=== PATIENT | male | born 1960 | race Caucasian/White ===

== ENCOUNTER 2017-07-03 12:00 | Inpatient (IN) | payer OTHER ==
[2017-07-03] MEDS ORDERED: ACETAMINOPHEN 325 MG TABLET ONE (13:35)
[2017-07-03 13:41] LABS: Absolute Lymphocytes (CBC) 0.3 K/uL (0.7-4.9); Absolute Monocytes 0.7 K/uL (0.1-1.3); Basophils % 0.2 % (0-1.3); Eosinophils % 0.1 % (0-4.4); Hematocrit 30.2 % (39.6-49.0); Lymphocytes % 4.3 % (15.3-44.8); MCH 34.2 pg (27.0-35.0); MCV 101.1 fL (80-100); MPV 9.1 fL (7.6-11.3); Monocytes % 10.4 % (3.3-12.3); RBC Red Blood Cell Count 2.99 M/uL (4.33-5.43)
[2017-07-03 13:43] LABS: Protime INR 0.95
[2017-07-03 13:54] LABS: Albumin 2.2 g/dL (3.2-5.5); Bilirubin Direct 1.4 mg/dL (0-0.2); Bilirubin Total 2.6 mg/dL (0.3-1.2); Protein, Total 5.7 g/dL (6.0-8.3)
[2017-07-03 13:55] LABS: Potassium 2.8 mEq/L (3.6-5.0)
[2017-07-03 13:57] LABS: Magnesium 1.1 mg/dL (1.8-2.5)
[2017-07-03] MEDS ORDERED: KCL 20 MEQ/100 mL IVPB 20 MEQ/100 ML BAG IV ONE (14:45)
[2017-07-03] MEDS ORDERED: Magnesium Sulfate 2gm IVPB 2 G/50 ML BAG IV ONE (14:45)
[2017-07-03] MEDS ORDERED: POTASSIUM CL SA 10 MEQ TAB PO ONE (14:45)
[2017-07-03] MEDS ORDERED: NA CHLORIDE 0.9% 1,000 ML ONE (14:45)
[2017-07-03 14:58] LABS: Urine Blood TRACE (NEG); Urine Glucose TRACE (NEG); Urine Protein 2+ (NEG)
[2017-07-03 15:07] LABS: Blood Morphology Comment NOT SEEN (NOT SEEN); Platelet Estimate DECR; Urine White Blood Cell Casts OK
[2017-07-03 15:08] LABS: Urine Bacteria >50 /HPF (NONE SEEN); Urine Culture Reflex Order REFLEXED; Urine RBC NONE SEEN /HPF (NONE SEEN)
--- NOTE | 2017-07-03 15:12 | RAD REPORT ---
EXAM DESCRIPTION: Froy Single View07/03/2017 1:14 pm CLINICAL HISTORY: Shortness of breath COMPARISON: October 2016 FINDINGS: A tracheostomy tube is in place The lungs appear clear of acute infiltrate. The heart is normal size IMPRESSION: No acute abnormalities displayed
--- NOTE | 2017-07-03 15:20 | RAD REPORT ---
EXAM DESCRIPTION: CT - Abdomen Pelvis W Contrast - 07/03/2017 3:04 pm CLINICAL HISTORY: Abdominal pain with hematuria COMPARISON: 2016 TECHNIQUE: Computed axial tomography of the abdomen pelvis was obtained. 100 cc Isovue-300 was admin istered intravenously. Oral contrast was not requested which limits evaluation of bowel. All CT scans are performed using dose optimization technique as appropriate and may include automated exposure control or mA/KV adjustment according to patient size. FINDINGS: The liver has a diminished attenuation consistent with fatty infiltration. A percutaneous tube is present within the stomach. Spleen, pancreas, adrenal and kidneys appear unremarkable. There is no evidence of diverticulitis. The wall of the cecum appears mildly thickened A Roy catheter is present within the bladder. The bladder wall appears mildly thickened IMPRESSION: Mild thickening of the wall of the cecum may indicate a mild colitis Mild thickening of the bladder wall may be secondary to incomplete distention or cystitis
[2017-07-03] MEDS ORDERED: FENTANYL CITR 100 MCG/2 ML ONE (15:31)
[2017-07-03] MEDS ORDERED: ONDANSETRON 4 MG/2 ML VIAL ONE (15:32)
--- NOTE | 2017-07-03 15:48 | EKG ---
Test Date: 2017-07-03 Test Time: 12:54:22 Automobile Drivers: SARAY MEASUREMENT RESULTS: Intervals: Rate: 133 MI: 160 QRSD: 88 QT: 312 QTc: 464 [place]: P: MI: 160 QRS: -27 T: 40 INTERPRETIVE STATEMENTS: Sinus tachycardia Low voltage QRS Nonspecific ST abnormality Abnormal ECG Compared to ECG 07/09/2016 16:46:45 Low QRS voltage now present ST (T wave) deviation now present Electronically Signed On 07-03-17 15:48:23 CDT by Reynaldo Nguyen
--- NOTE | 2017-07-03 16:05 | EDPHYS ---
Physician Documentation [facility] Name: Rudolph Corral Age: 57 yrs Sex: Male : 1960 Arrival Date: 07/03/2017 Time: 12:03 Bed 16 Private MD: Rudolph Bartlett ED Physician Mino Morales HPI: 07/03 13:36 This 57 yrs old Male presents to ER via Wheelchair with complaints of Urinary jr8 Problem, Weakness. 13:36 Patients stated that he has been failure to thrive for some time. Came to ED jr8 because he has had decreased urine output and hematuria . Severity of symptoms: At their worst the symptoms were moderate in the emergency department the symptoms are unchanged. The patient has not experienced similar symptoms in the past. The patient has not recently seen a physician. Historical: - Allergies: 12:12 No Known Allergies; aj - Home Meds: 12:12 levothyroxine 112 mcg tab 1 tab once daily [Active]; Lisinopril Oral [Active]; aj - PMHx: 12:12 GERD; Hypothyroidism; Throat Cancer-2012; aj - PSHx: 12:12 PEG; Trach; Cardiac ablation; Hernia repair; aj - Immunization history:: Adult Immunizations up to date. - Social history:: Smoking status: Patient uses tobacco products, smokes one pack cigarettes per day. chewing tobacco. ROS: 13:36 Eyes: Negative for injury, pain, redness, and discharge, ENT: Negative for injury, jr8 pain, and discharge, Neck: Negative for injury, pain, and swelling, Cardiovascular: Negative for chest pain, palpitations, and edema, Respiratory: Negative for shortness of breath, cough, wheezing, and pleuritic chest pain, Abdomen/GI: Negative for abdominal pain, nausea, vomiting, diarrhea, and constipation, Back: Negative for injury and pain, MS/Extremity: Negative for injury and deformity, Skin: Negative for injury, rash, and discoloration, Neuro: Negative for headache, weakness, numbness, tingling, and seizure. 13:36 : Positive for small amounts, hematuria. Exam: 13:36 Eyes: Pupils equal round and reactive to light, extra-ocular motions intact. Lids and jr8 lashes normal. Conjunctiva and sclera are non-icteric and not injected. Cornea within normal limits. Periorbital areas with no swelling, redness, or edema. ENT: Nares patent. No nasal discharge, no septal abnormalities noted. Tympanic membranes are normal and external auditory canals are clear. Oropharynx with no redness, swelling, or masses, exudates, or evidence of obstruction, uvula midline. Mucous membranes moist. Neck: Trachea midline, no thyromegaly or masses palpated, and no cervical lymphadenopathy. Supple, full range of motion without nuchal rigidity, or vertebral point tenderness. No Meningismus. Respiratory: Lungs have equal breath sounds bilaterally, clear to auscultation and percussion. No rales, rhonchi or wheezes noted. No increased work of breathing, no retractions or nasal flaring. Back: No spinal tenderness. No costovertebral tenderness. Full range of motion. Skin: Warm, dry with normal turgor. Normal color with no rashes, no lesions, and no evidence of cellulitis. MS/ Extremity: Pulses equal, no cyanosis. Neurovascular intact. Full, normal range of motion. Neuro: Awake and alert, GCS 15, oriented to person, place, time, and situation. Cranial nerves II-XII grossly intact. Motor strength 5/5 in all extremities. Sensory grossly intact. Cerebellar exam normal. Normal gait. 13:36 Cardiovascular: Rate: tachycardic, Rhythm: regular, Pulses: Pulses are 2+ in right radial artery and left radial artery. Heart sounds: normal, normal S1and S2, no S3 or S4, no murmur, no rub, no gallop, Edema: is not appreciated, JVD: is not appreciated. 13:36 Abdomen/GI: Inspection: PEG tube in place. Macerated tissue noted around it with mild discharge , Bowel sounds: active, Palpation: abdomen is soft and non-tender, in all quadrants, Indicators: McBurney's point is not tender, Woodard's sign is negative, Rovsing's sign is negative, Liver: no appreciated palpable abnormalities, tenderness. Vital Signs: 12:12 BP 133 / 96; Pulse 145; Resp 20; Temp 98.3; Pulse Ox 99% on R/A; Weight 63.5 kg; Height aj 6 ft. 0 in. (182.88 cm); 13:11 BP 134 / 93; Pulse 132; Resp 20; Pulse Ox 100% ; mh5 13:57 BP 155 / 106; Pulse 131; Resp 18; Pulse Ox 99% on R/A; ph 15:00 BP 152 / 105; Pulse 134; Resp 18; Pulse Ox 98% on R/A; ph 16:00 BP 154 / 104; Pulse 125; Resp 18; Pulse Ox 100% on R/A; mh5 17:00 BP 148 / 98; Pulse 117; Resp 18; Pulse Ox 100% on R/A; ph 18:30 BP 137 / 101; Pulse 122; Resp 18; Pulse Ox 100% on R/A; ph 19:21 BP 137 / 106; Pulse 115; Resp 16; Pulse Ox 100% on R/A; Pain 5/10; ao 12:12 Body Mass Index 18.99 (63.50 kg, 182.88 cm) aj MDM: 12:21 Patient medically screened. [facility] 16:01 Data reviewed: vital signs, nurses notes, lab test result(s), EKG, radiologic studies, [facility] CT scan, plain films, and as a result, I will admit patient. Data interpreted: Pulse oximetry: on room air is 100 %. Counseling: I had a detailed discussion with the patient and/or guardian regarding: the historical points, exam findings, and any diagnostic results supporting the discharge/admit diagnosis, lab results, radiology results, the need for further work-up and treatment in the hospital. Response to treatment: the patient's symptoms have mildly improved after treatment. 07/03 12:44 Order name: Basic Metabolic Panel; Complete Time: 14:03 07/03 12:44 Order name: BNP; Complete Time: 14:25 07/03 12:44 Order name: CBC with Diff; Complete Time: 15:23 07/03 12:44 Order name: CPK; Complete Time: 14:03 07/03 12:44 Order name: LFT's; Complete Time: 14:03 07/03 12:44 Order name: Magnesium; Complete Time: 14:03 07/03 12:44 Order name: PT-INR; Complete Time: 13:46 07/03 12:44 Order name: Ptt, Activated; Complete Time: 13:46 07/03 12:44 Order name: Troponin (emerg Dept Use Only); Complete Time: 14:03 07/03 13:59 Order name: CBC Smear Scan; Complete Time: 15:23 [facility] 07/03 14:03 Order name: Urine Microscopic Only; Complete Time: 15:23 [facility] 07/03 14:22 Order name: Urine Dipstick--Ancillary (enter results); Complete Time: 15:23 07/03 14:43 Order name: Blood Culture Adult (2) [facility] 07/03 15:10 Order name: Urine Culture [facility] 07/03 12:44 Order name: XRAY Chest (1 view); Complete Time: 15:23 [facility] 07/03 14:26 Order name: CT Abd/Pelvis - W/Contrast; Complete Time: 15:23 [facility] 07/03 15:45 Order name: LAB Add On [facility] 07/03 15:47 Order name: T4 Free; Complete Time: 16:38 [facility] 07/03 15:47 Order name: Thyroid Stimulating Hormone; Complete Time: 16:38 [facility] 07/03 16:50 Order name: Procalcitonin [facility] 07/03 16:50 Order name: Lactate [facility] 07/03 17:30 Order name: Procalcitonin; Complete Time: 17:47 [facility] 07/03 17:41 Order name: Lactate; Complete Time: 17:47 [facility] 07/03 12:44 Order name: EKG; Complete Time: 12:45 [facility] 07/03 12:44 Order name: Cardiac monitoring; Complete Time: 12:55 [facility] 07/03 12:44 Order name: EKG - Nurse/Tech; Complete Time: 12:55 [facility] 07/03 12:44 Order name: IV Saline Lock; Complete Time: 12:55 [facility] 07/03 12:44 Order name: Labs collected and sent; Complete Time: 12:55 [facility] 07/03 12:44 Order name: O2 Per Protocol; Complete Time: 12:56 [facility] 07/03 12:44 Order name: O2 Sat Monitoring; Complete Time: 12:56 [facility] 07/03 12:44 Order name: Urine Dipstick-Ancillary (obtain specimen); Complete Time: 14:30 [facility] 07/03 13:14 Order name: Roy; Complete Time: 14:30 [facility] Administered Medications: 13:53 Drug: Tylenol 650 mg {Note: administered via PEG.} Route: PO; ph 19:22 Follow up: Response: No adverse reaction ph 15:40 Drug: Potassium Chloride 20 mEq Route: IV; Rate: calculated rate; Site: right wrist; ph 19:21 Follow up: Response: No adverse reaction; IV Status: Completed infusion ph 15:53 Drug: Potassium Chloride 40 mEq Route: PO; ph 19:21 Follow up: Response: No adverse reaction ph 15:54 Drug: NS 0.9% 1000 ml Route: IV; Rate: 1000 ml; Site: right wrist; ph 19:22 Follow up: Response: No adverse reaction; IV Status: Completed infusion ph 16:00 Drug: Magnesium Sulfate 2 grams Route: IVPB; Infused Over: 2 hrs; Site: right wrist; ph 19:21 Follow up: Response: No adverse reaction; IV Status: Completed infusion ph 16:01 Drug: fentaNYL (PF) 50 mcg Route: IVP; Site: right wrist; ph 19:20 Follow up: Response: No adverse reaction ph 16:02 Drug: Zofran 4 mg Route: IVP; Site: right wrist; ph 19:20 Follow up: Response: No adverse reaction ph 17:27 Drug: NS 0.9% 1000 ml Route: IV; Rate: 100 ml/hr; Site: right wrist; ph 19:19 Follow up: Response: No adverse reaction; IV Status: Completed infusion ph 17:28 Drug: Rocephin 2 grams Route: IV; Rate: calculated rate; Site: right wrist; ph 19:19 Follow up: Response: No adverse reaction; IV Status: Completed infusion ph 17:42 Drug: NS 0.9% 1000 ml Route: IV; Rate: 1000 ml; Site: right wrist; ph 19:19 Follow up: Response: No adverse reaction; IV Status: Completed infusion ph Disposition: 07/03/17 16:04 Hospitalization ordered by Gregg Starr for Inpatient Admission. Preliminary diagnosis are Urinary tract infection, site not specified, Tachycardia, unspecified, Hypomagnesemia, Dehydration, Failure to thrive. - Bed requested for Telemetry/MedSurg (Inpatient). - Status is Inpatient Admission. ao - Condition is Stable. - Problem is new. - Symptoms have improved. UTI on Admission? Yes Addendum: 07/06/2017 08:51 Co-signature as Attending Physician, Mino Morales MD I agree with the assessment and c acuña plan of care. Signatures: Dispatcher [employer] EDMS Alcala, Lena, RN Mino Blanco MD MD cha Roszak, Josh, PA PA jr8 Lorena Huang Patricia, LORENA RN Gamal Crews RN RN ao Corrections: (The following items were deleted from the chart) 07/03 18:26 16:04 Hospitalization Ordered by Gregg Starr DO for Inpatient Admission. Preliminary ag diagnosis is Urinary tract infection, site not specified; Tachycardia, unspecified; Hypomagnesemia; Dehydration; Failure to thrive. Bed requested for Telemetry/MedSurg (Inpatient). Status is Inpatient Admission. Condition is Stable. Problem is new. Symptoms have improved. UTI on Admission? Yes. jr8 20:09 18:26 07/03/2017 16:04 Hospitalization Ordered by Gregg Starr DO for Inpatient ao Admission. Preliminary diagnosis is Urinary tract infection, site not specified; Tachycardia, unspecified; Hypomagnesemia; Dehydration; Failure to thrive. Bed requested for Telemetry/MedSurg (Inpatient). Status is Inpatient Admission. Condition is Stable. Problem is new. Symptoms have improved. UTI on Admission? Yes. ag
--- NOTE | 2017-07-03 16:05 | ER ---
Nurse's Notes [facility] Name: Rudolph Corral Age: 57 yrs Sex: Male : 1960 Arrival Date: 07/03/2017 Time: 12:03 Bed 16 Private MD: Rudolph Bartlett Diagnosis: Urinary tract infection, site not specified;Tachycardia, unspecified;Hypomagnesemia;Dehydration;Failure to thrive Presentation: 07/03 12:09 Presenting complaint: states: Decreased urine output and blood in urine for "a few aj weeks" Decreases appetite as well. Transition of care: patient was not received from another setting of care. 12:09 Method Of Arrival: Wheelchair aj 12:10 Onset of symptoms was June 17, 2017. Care prior to arrival: None. aj 12:10 Acuity: THEA 2 aj 13:55 Initial Sepsis Screen: Does the patient meet any 2 criteria? HR > 90 bpm. Does the ph patient have a suspected source of infection? No. Patient's initial sepsis screen is negative. Triage Assessment: 12:12 General: Appears in no apparent distress. uncomfortable, emaciated, Behavior is flat. aj Pain: Denies pain. Neuro: Level of Consciousness is awake, alert, obeys commands, Oriented to person, place, time, situation, Appropriate for age. Respiratory: Airway is patent Respiratory effort is even, unlabored, Respiratory pattern is regular, symmetrical. GI: Parent/caregiver reports the patient having anorexia. Derm: Skin is fragile, is thin, Skin is pale. Historical: - Allergies: 12:12 No Known Allergies; aj - Home Meds: 12:12 levothyroxine 112 mcg tab 1 tab once daily [Active]; Lisinopril Oral [Active]; aj - PMHx: 12:12 GERD; Hypothyroidism; Throat Cancer-2012; aj - PSHx: 12:12 PEG; Trach; Cardiac ablation; Hernia repair; aj - Immunization history:: Adult Immunizations up to date. - Social history:: Smoking status: Patient uses tobacco products, smokes one pack cigarettes per day. chewing tobacco. Screenin:57 Abuse screen: Denies threats or abuse. Denies injuries from another. Nutritional ph screening: No deficits noted. Tuberculosis screening: No symptoms or risk factors identified. Fall Risk Fall in past 12 months (25 points). No secondary diagnosis (0 pts). IV access (20 points). Ambulatory Aid- None/Bed Rest/Nurse Assist (0 pts). Gait- Weak (10 pts.). Mental Status- Oriented to own ability (0 pts). Total Purvis Fall Scale indicates High Risk Score (45 or more points). Fall prevention measures have been instituted. Side Rails Up X 2 Placed Close to Nursing Station Frequent Obs/Assessments Occuring Family Present and informed to notify staff if the need to leave the bedside As available patient and family educated on Fall Prevention Program and Strategies. Assessment: 12:30 General: Appears in no apparent distress. uncomfortable, emaciated, Behavior is calm, ph cooperative, appropriate for age, Denies fever. Pain: Complains of pain in head. Neuro: Level of Consciousness is awake, alert, obeys commands, Oriented to person, place, time, situation, Reports headache general weakness. Cardiovascular: Denies chest pain, Capillary refill < 3 seconds Patient's skin is warm and dry. Edema is 2+ to left midcalf, left ankle, left foot, left upper arm, left elbow, left forearm, left wrist and left hand Rhythm is sinus tachycardia. Respiratory: Reports cough that is Airway is patent via trache Trachea midline Respiratory effort is even, labored, Respiratory pattern is regular, symmetrical. GI: Abdomen is flat, non-distended, PEG tube in place, clamped. Site clean. Reports anorexia. : Reports decreased urinary output w/ dark urine. Derm: Skin is fragile, is thin, with poor turgor Skin is pale, Skin temperature is warm. Musculoskeletal: Circulation, motion, and sensation intact. Range of motion: intact in all extremities. 14:00 Reassessment: Patient appears in no apparent distress at this time. Patient and/or ph family updated on plan of care and expected duration. Pain level reassessed. Patient is alert, oriented x 3, equal unlabored respirations, skin warm/dry/pink. Pt resting quietly, at bedside. 15:00 Reassessment: Patient appears in no apparent distress at this time. No changes from ph previously documented assessment. Patient and/or family updated on plan of care and expected duration. Pain level reassessed. Patient is alert, oriented x 3, equal unlabored respirations, skin warm/dry/pink. 16:00 Reassessment: Patient appears in no apparent distress at this time. Patient and/or ph family updated on plan of care and expected duration. Pain level reassessed. Patient is alert, oriented x 3, equal unlabored respirations, skin warm/dry/pink. Dr Starr at bedside to speak w/ pt and family. 17:00 Reassessment: Patient appears in no apparent distress at this time. Patient and/or ph family updated on plan of care and expected duration. Pain level reassessed. Patient is alert, oriented x 3, equal unlabored respirations, skin warm/dry/pink. Pt resting quietly, at bedside, awaiting room assignment. 18:30 Reassessment: Patient appears in no apparent distress at this time. No changes from previously documented assessment. Patient and/or family updated on plan of care and expected duration. Pain level reassessed. Patient is alert, oriented x 3, equal unlabored respirations, skin warm/dry/pink. 19:21 General: Appears in no apparent distress. comfortable, Behavior is calm, cooperative, ao appropriate for age. Pain: Complains of pain in left leg. Neuro: Level of Consciousness is awake, alert, obeys commands, Oriented to person, place, time, situation. Cardiovascular: Patient's skin is warm and dry. Respiratory: Airway is patent Respiratory effort is even, unlabored, Respiratory pattern is regular, symmetrical. GI: Abdomen is non-distended, PEG tube in place, clamped. : Roy in place. Derm: Skin is intact, Skin is pale. Musculoskeletal: Circulation, motion, and sensation intact. Range of motion: intact in all extremities. 20:08 Reassessment: Report called to LORENA Sosa. ao Vital Signs: 12:12 BP 133 / 96; Pulse 145; Resp 20; Temp 98.3; Pulse Ox 99% on R/A; Weight 63.5 kg; Height aj 6 ft. 0 in. (182.88 cm); 13:11 BP 134 / 93; Pulse 132; Resp 20; Pulse Ox 100% ; mh5 13:57 BP 155 / 106; Pulse 131; Resp 18; Pulse Ox 99% on R/A; ph 15:00 BP 152 / 105; Pulse 134; Resp 18; Pulse Ox 98% on R/A; ph 16:00 BP 154 / 104; Pulse 125; Resp 18; Pulse Ox 100% on R/A; mh5 17:00 BP 148 / 98; Pulse 117; Resp 18; Pulse Ox 100% on R/A; ph 18:30 BP 137 / 101; Pulse 122; Resp 18; Pulse Ox 100% on R/A; ph 19:21 BP 137 / 106; Pulse 115; Resp 16; Pulse Ox 100% on R/A; Pain 5/10; ao 12:12 Body Mass Index 18.99 (63.50 kg, 182.88 cm) ED Course: 12:03 Patient arrived in ED. mr 12:04 Rudolph Bartlett DO is Private Physician. mr 12:11 Triage completed. aj 12:12 Arm band placed on right wrist. Patient placed in an exam room. aj 12:20 Lucius Lorenzo PA is PHCP. jr8 12:20 Mino Morales MD is Attending Physician. jr8 12:23 Palmira Villegas RN is Primary Nurse. ph 12:54 EKG done, by cytopathology technologist. reviewed by Lucius RAMSEY. at1 12:58 Patient has correct armband on for positive identification. Placed in gown. Bed in low ph position. Call light in reach. Side rails up X2. potline monitor on. Pulse ox on. NIBP on. Warm blanket given. 13:12 X-ray completed. Portable x-ray completed in exam room. Patient tolerated procedure ml well. 13:14 XRAY Chest (1 view) In Process Unspecified. EDMS 13:30 Inserted saline lock: 22 gauge in right wrist, using aseptic technique. ph 14:39 Roy cath inserted, using sterile technique, 12 Fr., returned small amount of dark ph orange urine noted in drainage tube. Patient tolerated poorly. 14:[address] via stretcher. nj 15:03 CT Abd/Pelvis - W/Contrast In Process Unspecified. EDMS 15:04 CT completed. Patient tolerated procedure well. Patient moved back from CT. nj 16:04 Gregg Starr DO is Hospitalizing Provider. jr8 16:20 No provider procedures requiring assistance completed. Patient admitted, IV remains in ph place. Administered Medications: 13:53 Drug: Tylenol 650 mg {Note: administered via PEG.} Route: PO; ph 19:22 Follow up: Response: No adverse reaction ph 15:40 Drug: Potassium Chloride 20 mEq Route: IV; Rate: calculated rate; Site: right wrist; ph 19:21 Follow up: Response: No adverse reaction; IV Status: Completed infusion ph 15:53 Drug: Potassium Chloride 40 mEq Route: PO; ph 19:21 Follow up: Response: No adverse reaction ph 15:54 Drug: NS 0.9% 1000 ml Route: IV; Rate: 1000 ml; Site: right wrist; ph 19:22 Follow up: Response: No adverse reaction; IV Status: Completed infusion ph 16:00 Drug: Magnesium Sulfate 2 grams Route: IVPB; Infused Over: 2 hrs; Site: right wrist; ph 19:21 Follow up: Response: No adverse reaction; IV Status: Completed infusion ph 16:01 Drug: fentaNYL (PF) 50 mcg Route: IVP; Site: right wrist; ph 19:20 Follow up: Response: No adverse reaction ph 16:02 Drug: Zofran 4 mg Route: IVP; Site: right wrist; ph 19:20 Follow up: Response: No adverse reaction ph 17:27 Drug: NS 0.9% 1000 ml Route: IV; Rate: 100 ml/hr; Site: right wrist; ph 19:19 Follow up: Response: No adverse reaction; IV Status: Completed infusion ph 17:28 Drug: Rocephin 2 grams Route: IV; Rate: calculated rate; Site: right wrist; ph 19:19 Follow up: Response: No adverse reaction; IV Status: Completed infusion ph 17:42 Drug: NS 0.9% 1000 ml Route: IV; Rate: 1000 ml; Site: right wrist; ph 19:19 Follow up: Response: No adverse reaction; IV Status: Completed infusion ph Outcome: 16:04 Decision to Hospitalize by Provider. jr8 20:07 Admitted to Med/surg accompanied by tech, room 224, with chart, Report called to irene Sosa RN 20:07 Condition: stable 20:07 Instructed on the need for admit. 20:09 Patient left the ED. ao Signatures: Dispatcher [employer] EDMS Lena Alcala RN RN aj Rivera, Maria mr Lopez, Lucius Naranjo PA PA jr8 Lena curry, datapower developer EKG Tat1 Palmira Villegas RN RN Gamal Crews RN RN ao Jordan, Nathan nj Martinez, Maria [facility] Corrections: (The following items were deleted from the chart) 12:14 12:10 Acuity: THEA 3 aj aj
[2017-07-03] MEDS ORDERED: CEFTRIAXONE/SWI 1gm 2 GM/20 ML SYR ONE (16:07)
[2017-07-03 16:34] LABS: Thyroid Stimulating Hormone 1.13 uIU/mL (0.34-5.60)
[2017-07-03] MEDS ORDERED: ONDANSETRON 4 MG/2 ML VIAL IV PRN (16:39)
[2017-07-03] MEDS ORDERED: LORazepam 2 MG/ML VIAL IV PRN (16:39)
[2017-07-03] MEDS ORDERED: ACETAMINOPHEN 650MG/RECT SUPP PR PRN (16:39)
[2017-07-03] MEDS ORDERED: SODIUM CHLORIDE 0.9% 10ML INJ IV PRN (16:39)
[2017-07-03] MEDS ORDERED: ACETAMINOPHEN 500 MG TAB PO PRN (16:39)
[2017-07-03] MEDS ORDERED: ALBUTEROL 2.5 MG/3 ML NEB SOL NEB PRN (16:47)
[2017-07-03] MEDS ORDERED: IPRATROPIUM BROM 0.5MG/2.5ML NEB PRN (16:47)
--- NOTE | 2017-07-03 16:55 | P.HP ---
Certification for Inpatient Patient admitted to: Inpatient With expected LOS: >2 Midnights Patient will require the following post-hospital care: Custodial Practitioner: I am a practitioner with admitting privileges, knowledge of patient current condition, hospital course, and medical plan of care. Services: Services provided to patient in accordance with Admission requirements found in Title 42 Section 412.3 of the Code of Federal Regulations Patient History Date of Service: 07/03/17 Primary Care Provider: Dr. Bartlett Reason for admission: Decreased strength, fever History of Present Illness: 57-year-old male presented emergency room with fever, decreased strength and blood and urine. Patient is severely malnourished. Patient with history of throat cancer and tracheostomy. Patient also with history of hypothyroidism, hypertension, tobacco abuse, alcohol abuse and COPD. reports a history of atrial fibrillation the past with previous cardiac ablation. The patient reported fever since yesterday. Some chills noted. Blood and urine was also noted. He has been pain decreased strength for quite some time. The reports the patient is not been able to walk or stand since March. He has had poor appetite. He drinks occasionally to moderate. Came into the emergency room for further evaluation. In the ER he was found to be hypertensive and tachycardic. Initial blood work showed a white count 7.0. Hemoglobin 10.2. Platelet count of 70. Sodium 130, potassium 3.8, BUN 11, creatinine 0.91 with a GFR of 85. Glucose 134. Calcium 8.0. Magnesium 1.1. Total bilirubin 2.6. Total bilirubin 1.4. AST 74. Initial troponin was at 0.05. BNP 212. Urinalysis was positive for UTI. Chest x-ray unremarkable. CT of the abdomen showed colitis to the cecum and cystitis. To the nature of his symptoms the patient was admitted for evaluation and treatment. Patient was given antibiotic therapy and IV fluids emergency room. When I saw the patient the ER, he appeared disheveled, cachectic. Patient appeared malnourished. Allergies No Known Allergies Allergy (Verified 01/23/13 20:56) Home medications list reviewed: Yes Home Medications: Amitriptyline [Elavil*] 50 mg FT BEDTIME 11/15/16 Gabapentin [Neurontin] 300 mg FT TID 11/15/16 Levothyroxine [Synthroid*] 112 mcg FT [id number] 11/15/16 Ferrous Sulfate [Iron] 325 mg PO BID #60 tablet 11/17/16 Pantoprazole [Protonix Tab] 40 mg PO DAILY #30 tab 11/17/16 - Past Medical/Surgical History Diabetic: No -: Throat cancer status post surgery -: History of osteonecrosis of the jaw -: COPD -: Tobacco abuse -: Alcohol abuse -: Hypertension -: Hypothyroidism -: History atrial fibrillation status post ablation -: GERD -: Tracheostomy -: PEG tube placement -: Malnutrition -: Peg tube placement/removal x3 -: History cardiac ablation -: Hernia repair Psychosocial/ Personal History: The patient is . Ex appears to be close. - Family History Father -: Heart disease (CHF), Cancer (Lung cancer) - Social History Smoking Status: Heavy Tobacco smoker (>10 cigarettes/day) Alcohol use: Yes CD- Drugs: No Caffeine use: Yes Place of Residence: Home Review of Systems General: Fever, Chills, Weakness, Malaise, As per HPI Eyes: Unremarkable ENT: Unremarkable Respiratory: Unremarkable Cardiovascular: Unremarkable Gastrointestinal: Abdominal Pain, As per HPI Genitourinary: Dysuria, Frequency, Urgency, Hematuria, As per HPI Musculoskeletal: Unremarkable Integumentary: Unremarkable Neurological: Unremarkable Lymphatics: Unremarkable Physical Examination - Physical Exam General: Alert, In no apparent distress, Oriented x3, Cooperative, Cachectic, Disheveled HEENT: Atraumatic, Normocephalic, Other (Dry mucous membranes) Neck: Supple, No Thyromegaly Respiratory: Expiratory wheezes (Bilateral) Cardiovascular: Abnormal pulses (Sinus tachycardia rate around 110) Gastrointestinal: Normal bowel sounds, Soft and benign, Non-distended, No masses , No rebound, No guarding, Other (PEG tube in place), Tenderness (Mild abdominal pain diffuse) Musculoskeletal: No erythema, No tenderness, No warmth, Other (Muscle wasting noted to the torso, upper and lower extremities) Neurological: Normal speech, Normal strength at 5/5 x4 extr, Normal tone, Normal affect - Studies Laboratory Data (last 24 hrs) 07/03/17 13:25: WBC 7.0, Hgb 10.2 L, Hct 30.2 L, Plt Count 70 L 07/03/17 13:25: B-Natriuretic Peptide 212 H 07/03/17 13:25: Sodium 130 L, Potassium 2.8 L*, BUN 11, Creatinine 0.91, Glucose 134 H, Magnesium 1.1 L* D, Total Bilirubin 2.6 H, AST 74 H, ALT 38, Alkaline Phosphatase 266 H 07/03/17 13:10: PT 11.2, INR 0.95, APTT 27.2 Assessment and Plan - Problems (Diagnosis) (1) UTI (urinary tract infection) Current Visit: Yes Status: Acute Plan: Blood and urine cultures obtained. Will continue with Rocephin. Will continue with IV fluids. Will check echocardiogram to assess heart function. safety and health consultant to evaluate his malnutrition. Qualifiers: Urinary tract infection type: site unspecified Hematuria presence: without hematuria Qualified Code(s): N39.0 - Urinary tract infection, site not specified (2) Sepsis Current Visit: Yes Status: Suspected Plan: Possible sepsis. Will continue with IV antibiotic therapy. Blood in urine cultures obtained. Will check pro calcitonin and lactic acid. Patient appears malnourished and dehydrated. Continue with IV fluids. (3) Hypertension Current Visit: Yes Status: Chronic Plan: Blood pressure elevated. Will start metoprolol. Patient previously taking lisinopril. Will obtain home medication (4) Malnutrition Current Visit: Yes Status: Acute Plan: Will have dietary assess nutritional needs. Patient with PEG tube. Qualifiers: Malnutrition type: protein-calorie malnutrition Protein-calorie malnutrition severity: severe Qualified Code(s): E43 - Unspecified severe protein-calorie malnutrition (5) Hyponatremia Current Visit: Yes Status: Acute Plan: Will continue with IV fluids. Will monitor and adjust appropriately (6) Colitis Current Visit: Yes Status: Acute Plan: Colitis noted to cecum. Patient on IV antibiotic therapy. Patient with minimal abdominal pain. Slight pain noted around PEG tube. Will monitor closely. (7) Elevated liver function tests Current Visit: Yes Status: Acute Plan: Will obtain hepatitis panel. (8) COPD (chronic obstructive pulmonary disease) Current Visit: Yes Status: Chronic Plan: Suspect COPD. Will start COPD medication. Will wean off oxygen. Qualifiers: COPD type: chronic bronchitis (9) Hypothyroidism Current Visit: Yes Status: Chronic Plan: Obtain home medication and restart. Tsh unremarkable. Qualifiers: Hypothyroidism type: unspecified Qualified Code(s): E03.9 - Hypothyroidism , unspecified (10) Alcohol abuse Current Visit: Yes Status: Chronic Plan: Will provide medication for agitation. Will monitor for withdrawal. Will provide thiamine and folic acid. (11) Tobacco abuse Current Visit: Yes Status: Chronic Plan: Will provide nicotine patch. (12) Elevated troponin Current Visit: Yes Status: Acute Plan: Will monitor cardiac enzymes. Will check echocardiogram. Cardiology consulted to further assess. (13) History of throat cancer Current Visit: Yes Status: Chronic Plan: Patient with tracheostomy. Overall stable. (14) Pain around PEG tube site Current Visit: Yes Status: Acute Plan: This may be related to colitis. Will continue with antibiotic therapy. Will monitor closely. Qualifiers: Encounter type: initial encounter Qualified Code(s): T85.848A - Pain due to other internal prosthetic devices, implants and grafts, initial encounter (15) History of tracheostomy Current Visit: Yes Status: Chronic Plan: Stable. Discharge Plan: Residential Plan to discharge in: Greater than 2 days - Advance Directives Does patient have a Living Will: No Does patient have a Durable POA for Healthcare: Yes - Code Status/Comfort Care Code Status Assessed: Yes Time Spent Managing Pts Care (In Minutes): 55
[2017-07-03] MEDS: FOLIC ACID 1 MG in NA CHLORIDE 0.9% 50 ML IV SCH (18:00)
[2017-07-03] MEDS ORDERED: IPRATROPIUM BROM 0.5MG/2.5ML NEB SCH (20:00)
[2017-07-03] MEDS ORDERED: ALBUTEROL 2.5 MG/3 ML NEB SOL NEB SCH (20:00)
[2017-07-03] MEDS: ARFORMOTEROL TARTRATE 15 MCG/2 ML VIAL.NEB NEB SCH (20:56)
[2017-07-03] MEDS ORDERED: CEFTRIAXONE 1 GM/NS 50 ML 1 GM/50 ML BAG IV SCH (21:00)
[2017-07-03] MEDS: NA CHLORIDE 0.9% 1,000 ML IV SCH (21:03)
[2017-07-03 21:07] VITALS: BMI 19.7
[2017-07-03] MEDS: METOPROLOL TAR 50 MG TAB PO SCH (22:33)
[2017-07-03] MEDS ORDERED: NA CHLORIDE 0.9% 50 ML ONE (23:40)
[2017-07-03] MEDS ORDERED: FOLIC ACID 5 MG/ML VIAL ONE (23:51)
[2017-07-04 00:34] LABS: CKMB Creatine Kinase MB 3.8 ng/ml (0.3-4.0)
[2017-07-04] MEDS: NA CHLORIDE 0.9% 1,000 ML IV SCH ×2 (04:18→13:26)
[2017-07-04] MEDS ORDERED: LORazepam 2 MG/ML VIAL ONE (04:51)
[2017-07-04 05:38] LABS: Absolute Lymphocytes (CBC) 0.5 K/uL (0.7-4.9); Absolute Monocytes 0.4 K/uL (0.1-1.3); Absolute Neutrophil 5.8 K/uL (1.8-8.0); Basophils % 0.4 % (0-1.3); Eosinophils % 1.4 % (0-4.4); Hematocrit 29.1 % (39.6-49.0); Lymphocytes % 7.4 % (15.3-44.8); MCH 34.6 pg (27.0-35.0); MCV 101.3 fL (80-100); MPV 10.1 fL (7.6-11.3); Monocytes % 5.7 % (3.3-12.3); RBC Red Blood Cell Count 2.88 M/uL (4.33-5.43)
[2017-07-04] MEDS ORDERED: CEFTRIAXONE/SWI 1gm 1 GM/10 ML SYR IV SCH (06:00)
[2017-07-04 06:02] LABS: BUN Blood Urea Nitrogen 11 mg/dL (6-20); Bicarbonate 27 mEq/L (21-31); Glucose Level 63 mg/dL (65-120); HDL Cholesterol 98 mg/dL (27-67); LDL Cholesterol, Calculated 15 (<130); Potassium 3.3 mEq/L (3.6-5.0); Sodium Level 133 mEq/L (135-145)
[2017-07-04 06:10] LABS: Magnesium 1.3 mg/dL (1.8-2.5)
[2017-07-04] MEDS ORDERED: Magnesium Sulfate 2gm IVPB 2 G/50 ML BAG IV ONE ×2 (07:00→20:04)
[2017-07-04 07:55] LABS: CKMB Creatine Kinase MB 2.9 ng/ml (0.3-4.0)
[2017-07-04] MEDS ORDERED: PNEUMOCOCCAL VACCINE 0.5 ML IMVAC ONE (08:00)
[2017-07-04] MEDS ORDERED: KCL 20 MEQ/100 mL IVPB 20 MEQ/100 ML BAG IV SCH (08:00)
[2017-07-04] MEDS: ARFORMOTEROL TARTRATE 15 MCG/2 ML VIAL.NEB NEB SCH ×2 (08:22→20:00)
[2017-07-04] MEDS ORDERED: ENOXAPARIN 40 MG/0.4 ML SQ SCH (09:00)
[2017-07-04] MEDS: METRONIDAZOLE 500mg IVPB 500 MG/100 ML BAG IV SCH ×2 (09:10→16:39)
[2017-07-04] MEDS: FOLIC ACID 1 MG in NA CHLORIDE 0.9% 50 ML IV SCH (09:11)
[2017-07-04] MEDS: METOPROLOL TAR 50 MG TAB PO SCH ×2 (09:11→22:19)
[2017-07-04] MEDS: THIAMINE 200 MG/2 ML INJ IVP SCH (09:12)
[2017-07-04] MEDS: NICOTINE 21 MG/PAT TD SCH (09:12)
[2017-07-04] MEDS: PANTOPRAZOLE 40 MG INJ IVP SCH (09:12)
[2017-07-04] MEDS: HYDROCODONE/APAP 5/325 MG TAB PO PRN ×2 (13:26→20:08)
[2017-07-04] MEDS: ENSURE HIGH PROTEIN 237 ML CAN PO SCH ×2 (14:00→16:40)
[2017-07-04 15:51] LABS: Transferrin < 70 mg/dL (180-329)
--- NOTE | 2017-07-04 16:01 | CON ---
Date of Consultation: 07/03/2017 The patient admitted on 07/03/2017. I saw on 07/03/2017. Reason For Consultation: Elevated troponin. History Of Present Illness: Mr. Corral is a 57-year-old male, who has a history of throat cancer and gastroesophageal reflux disease. He has PEG tube. He has a history of hypothyroidism. He has had some cardiac ablation in the past. Came in with weakness, was found to have UTI, sinus tachycardia, mildly elevated troponin. I was asked to see him. No chest pain reported. Allergies: NONE. Review of Systems: Negative. Social History: Negative. Family History: Negative. Medications: Include lisinopril and Synthroid. Physical Examination: General: Mr. Corral was not talkative. He has a tracheostomy. He appears to be very depressed. No complain. Vital Signs: Stable. Afebrile. HEENT: Negative. Neck: Supple. No bruit. Chest: Clear. Cardiac: Normal. Abdomen: Benign. Extremities: Revealed no clubbing, cyanosis, or edema. Diagnostic Data: CPK was negative. Troponin was 0.13. His potassium was 2.8, magnesium 1.1. Hemog lobin 10.2. EKG, sinus tach. CT of the abdomen showed colitis. Impression And Plan: Elevated troponin secondary to severe hypomagnesemia, hypokalemia, and poor nut rition via PEG tube. He needs potassium and magnesium supplemented. No cardiac workup recommended. I will continue with present regimen. Still the nursing placement is being sought after. I will si gn off his case. EAMON/ANDRE Voice ID: [id number] Report ID: [id number]
--- NOTE | 2017-07-04 17:10 | PN ---
Subjective: Currently, the patient is lying in bed. He looks comfortable. He denies any chest pain . No shortness of breath. His ex- at the bedside. No fever. No chills overnight. No chest pa in or abdominal pain. Objective: Vital Signs: Blood pressure is 128/88, respiratory rate 16, pulse 91, temperature 98.5, down from 100.1. Earlier he is on trach collar. Saturating 98%. General: Fully alert, oriented x3. Does not look in any distress. HEENT: Atraumatic, normocephalic. PERRLA. Oral mucosa is moist. Neck: Supple. No JVD. No carotid bruits. Chest: Clear to auscultation. With expiratory wheezing. Heart: Regular rate and rhythm. Tachy. No gallop or murmur. Abdomen: Soft, nontender. No masses. Positive bowel sounds. Positive PEG tube. Extremities: No clubbing, cyanosis, or edema. Muscle wasting noted. Neurologic: Grossly intact. Laboratory Data: Today showed CBC with a hemoglobin of 9.9, platelet 60, and white blood cells 6.8. PT/INR was normal. Chemistry was normal except for potassium of 3.3. Glucose 63, calcium 7.8, magn esium 1.3. Troponin was up to 0.13. Assessment And Plan: 1.Urinary tract infection. The patient currently on cefepime. Urine culture positive on the prelim inary. ID still pending except for gram negative rods. Fever resolved. 2.Urosepsis. The blood cultures so far negative. Urine was positive. Continue ceftriaxone. 3.Hypertension, well controlled this morning. The patient on metoprolol 50 twice a day. 4.Hypomagnesemia severe, replace. 5.Elevated troponin. We will consult Cardiology . 6.Hypothyroidism, continue Synthroid. 7.History of alcohol abuse. The patient on thiamine and folic acid. 8.History of tobacco abuse. Nicotine patch. Advised to quit. 9.History of throat cancer with trach. He is in remission at this point. 10.Needs physical therapy. We will obtain social work consult for prison or rehab placement. 11.? Colitis. The patient on IV antibiotic with Flagyl and ceftriaxone. His CAT scan of the abdome n showed mild thickening of the wall of the cecum which could be mild colitis. We will observe for n ow. The patient is tolerating tube feeds well. 12.Thrombocytopenia, severe. I am not sure of etiology. 13.Anemia. We will check stool occult blood. We will check iron profile. 14.No deep vein thrombosis prophylaxis given severe thrombocytopenia. KOMAL/ANDRE Voice ID: [id number] Report ID: [id number]
[2017-07-04] MEDS ORDERED: VANCOMYCIN 1 GM in NA CHLORIDE 0.9% 500 ML IVPB SCH (18:00)
[2017-07-04] MEDS: VANCOMYCIN 1.25 GM in NA CHLORIDE 0.9% 250 ML IVPB SCH (18:39)
[2017-07-04 19:47] LABS: Potassium 3.3 mEq/L (3.6-5.0)
[2017-07-04 19:50] LABS: Magnesium 1.2 mg/dL (1.8-2.5)
[2017-07-04] MEDS: KCL 20 MEQ/100 mL IVPB 20 MEQ/100 ML BAG IV SCH (22:19)
[2017-07-05] MEDS: ENSURE HIGH PROTEIN 237 ML CAN PO SCH ×7 (00:03→21:54)
[2017-07-05] MEDS: KCL 20 MEQ/100 mL IVPB 20 MEQ/100 ML BAG IV SCH (00:04)
[2017-07-05] MEDS: METRONIDAZOLE 500mg IVPB 500 MG/100 ML BAG IV SCH ×3 (01:13→16:51)
[2017-07-05] MEDS: NA CHLORIDE 0.9% 1,000 ML IV SCH ×3 (02:51→18:06)
[2017-07-05 05:36] LABS: BUN Blood Urea Nitrogen 12 mg/dL (6-20); Bicarbonate 24 mEq/L (21-31); Glucose Level 102 mg/dL (65-120); Magnesium 1.5 mg/dL (1.8-2.5); Potassium 3.9 mEq/L (3.6-5.0); Sodium Level 133 mEq/L (135-145)
[2017-07-05] MEDS: VANCOMYCIN 1.25 GM in NA CHLORIDE 0.9% 250 ML IVPB SCH (06:00)
[2017-07-05] MEDS ORDERED: LEVOTHYROXINE SOD 0.112 MG TAB FT SCH (06:00)
[2017-07-05] MEDS ORDERED: VANCOMYCIN 1 GM/VIAL ONE (06:09)
[2017-07-05] MEDS ORDERED: VANCOMYCIN 500 MG/VIAL ONE (06:09)
[2017-07-05] MEDS ORDERED: NA CHLORIDE 0.9% 250 ML ONE (06:11)
[2017-07-05] MEDS: HYDROCODONE/APAP 5/325 MG TAB PO PRN ×2 (06:17→21:51)
[2017-07-05] MEDS: LEVOTHYROXINE SOD 0.025 MG TAB FT SCH (06:18)
[2017-07-05] MEDS: LEVOTHYROXINE SOD 0.112 MG TAB FT SCH (06:18)
[2017-07-05 06:30] LABS: Absolute Lymphocytes (CBC) 0.8 K/uL (0.7-4.9); Absolute Monocytes 0.5 K/uL (0.1-1.3); Absolute Neutrophil 2.6 K/uL (1.8-8.0); Basophils % 1.1 % (0-1.3); Eosinophils % 5.9 % (0-4.4); Hematocrit 27.5 % (39.6-49.0); Lymphocytes % 18.3 % (15.3-44.8); MCV 101.7 fL (80-100); MPV 9.8 fL (7.6-11.3); Monocytes % 12.6 % (3.3-12.3)
[2017-07-05] MEDS ORDERED: Magnesium Sulfate 2gm IVPB 2 G/50 ML BAG IV ONE (09:00)
[2017-07-05] MEDS ORDERED: CEFTRIAXONE 2,000 MG in NA CHLORIDE 0.9% 100 ML IV SCH (09:00)
[2017-07-05] MEDS ORDERED: HOME MED 1 EA UNK (Lisinopril/Hydrochlorothiazide [Lisinopril-Hctz 10-12.5 Mg Tab] 1 TAB) PO SCH (09:00)
[2017-07-05] MEDS: CEFTRIAXONE/SWI 2gm 2 GM/20 ML SYR IV SCH (09:24)
[2017-07-05] MEDS: FOLIC ACID 1 MG in NA CHLORIDE 0.9% 50 ML IV SCH (09:24)
[2017-07-05] MEDS: LISINOPRIL 10 MG TAB PO SCH (09:25)
[2017-07-05] MEDS: hydroCHLOROthiazide 12.5 MG CAP PO SCH (09:25)
[2017-07-05] MEDS: THIAMINE 200 MG/2 ML INJ IVP SCH (09:25)
[2017-07-05] MEDS: NICOTINE 21 MG/PAT TD SCH (09:26)
[2017-07-05] MEDS: METOPROLOL TAR 50 MG TAB PO SCH ×2 (09:26→21:51)
[2017-07-05] MEDS: PANTOPRAZOLE 40 MG INJ IVP SCH (09:36)
[2017-07-05] MEDS: ARFORMOTEROL TARTRATE 15 MCG/2 ML VIAL.NEB NEB SCH ×2 (10:26→20:21)
--- NOTE | 2017-07-05 14:31 | PN ---
Subjective: Currently, the patient lying in bed. He looks comfortable. He had no issues overnight. Tolerated the liquid diet. No fever. No chills. No chest pain. Physical Examination: Vital Signs: Blood pressure is 115/65, respiratory rate 20, pulse 82, temperature 98.9. General: He is fully alert, oriented x3. Does not look in any distress. HEENT: Atraumatic, normocephalic. PERRLA. Oral mucosa is dry. Neck: Supple. No JVD. No bruits. He does have mid neck trach. Chest: Clear to auscultation. Good air entry. Heart: Regular rate and rhythm. S1, S2 normal. No gallop or murmur. Abdomen: Soft, nontender. No masses. No hepatosplenomegaly. Positive bowel sounds. He does have a PEG tube. Extremities: No clubbing or cyanosis or edema. Wasted muscle through all 4 extremities. Neuro: Exam grossly intact. Cranial nerve exam 2 through 12 intact. Laboratory Data: Today showed CBC; white blood cells 4.2, hemoglobin 9.2, platelet down at 54. Chem istry showed sodium 133, potassium is normal, calcium 7.5, magnesium 1.5. Iron profile with normal i paul and elevated ferritin and normal transferrin. Assessment And Plan: 1.Urinary tract infection. Urine culture was consistent with Klebsiella which is sensitive to cepha losporin. Continue ceftriaxone 2 g once a day. Bacteremia most likely contamination. The patient o n Staph coag-negative, positive for 1 bottle out of 2. 2.He was given vancomycin dose. We will DC that today most likely contamination. 3.Elevated troponin borderline. Appreciate Cardiology input. Dr. Shultz is not concern. No furth er workup. Cardiac followup needed. We will just replace electrolytes. 4.Hypomagnesemia better with still replacing. 5.Hypokalemia replaced this morning. 6.Anemia microcytic iron profile was normal. We will check folate and vitamin B12. The patient nohemy fuentes had a normal thyroid function. Peripheral smear is pending. I am not sure that is related to a lcohol abuse. 7.History of alcohol abuse. The patient is already on thiamine and folic acid. 8.History of tobacco abuse. The patient on nicotine patch. Again, advised to quit. 9.History of throat cancer with trach. He is in remission. 10.Mild colitis on CT of the abdomen. The patient had no diarrhea. No abdominal pain. Continue IV . At this point, he is on ceftriaxone and Flagyl. We will probably DC that. Would DC Flagyl in a.m . if the patient continues to have no colitis symptoms like abdominal pain or fever. 11.DVT prophylaxis and no Lovenox. The patient have severe thrombocytopenia including on peripheral smear that I ordered yesterday. 12.DC plan probably to rehab on Thursday. Social work consult is pending. KOMAL/ANDRE Voice ID: [id number] Report ID: [id number]
[2017-07-05 20:21] LABS: Magnesium 1.6 mg/dL (1.8-2.5); Potassium 3.5 mEq/L (3.6-5.0)
[2017-07-06] MEDS: METRONIDAZOLE 500mg IVPB 500 MG/100 ML BAG IV SCH ×2 (00:56→10:19)
[2017-07-06] MEDS: ENSURE HIGH PROTEIN 237 ML CAN PO SCH ×6 (02:55→20:52)
[2017-07-06 03:15] LABS: Folic Acid, (Folate) 11.4 ng/ml (>5.21)
[2017-07-06] MEDS ORDERED: MAGNESIUM SULFATE 1 gm IVPB 1 GM/100 ML BAG IV ONE (03:20)
[2017-07-06] MEDS ORDERED: POTASSIUM 25 MEQ EFFERV TAB PO ONE (03:24)
[2017-07-06 05:39] LABS: Absolute Lymphocytes (CBC) 0.6 K/uL (0.7-4.9); Absolute Monocytes 0.7 K/uL (0.1-1.3); Absolute Neutrophil 2.1 K/uL (1.8-8.0); Hematocrit 25.4 % (39.6-49.0); Lymphocytes % 15.8 % (15.3-44.8); MCH 34.1 pg (27.0-35.0); MCV 102.8 fL (80-100); MPV 9.3 fL (7.6-11.3); Monocytes % 19.3 % (3.3-12.3); RBC Red Blood Cell Count 2.47 M/uL (4.33-5.43)
[2017-07-06 05:48] LABS: BUN Blood Urea Nitrogen 9 mg/dL (6-20); Bicarbonate 26 mEq/L (21-31); Glucose Level 104 mg/dL (65-120); Magnesium 1.5 mg/dL (1.8-2.5); Potassium 3.3 mEq/L (3.6-5.0); Sodium Level 131 mEq/L (135-145)
[2017-07-06] MEDS: NA CHLORIDE 0.9% 1,000 ML IV SCH (06:12)
[2017-07-06] MEDS: LEVOTHYROXINE SOD 0.025 MG TAB FT SCH (06:12)
[2017-07-06] MEDS: LEVOTHYROXINE SOD 0.112 MG TAB FT SCH (06:12)
[2017-07-06] MEDS: HYDROCODONE/APAP 5/325 MG TAB PO PRN ×3 (07:49→20:58)
[2017-07-06] MEDS: ARFORMOTEROL TARTRATE 15 MCG/2 ML VIAL.NEB NEB SCH ×2 (08:00→19:25)
[2017-07-06] MEDS: hydroCHLOROthiazide 12.5 MG CAP PO SCH (10:19)
[2017-07-06] MEDS: THIAMINE 200 MG/2 ML INJ IVP SCH (10:19)
[2017-07-06] MEDS: PANTOPRAZOLE 40 MG INJ IVP SCH (10:19)
[2017-07-06] MEDS: LISINOPRIL 10 MG TAB PO SCH (10:20)
[2017-07-06] MEDS: CEFTRIAXONE/SWI 2gm 2 GM/20 ML SYR IV SCH (10:20)
[2017-07-06] MEDS: NICOTINE 21 MG/PAT TD SCH (10:20)
[2017-07-06] MEDS: METOPROLOL TAR 50 MG TAB PO SCH ×2 (10:20→20:56)
[2017-07-06 11:54] LABS: Magnesium 1.5 mg/dL (1.8-2.5); Potassium 3.9 mEq/L (3.6-5.0)
[2017-07-06] MEDS: FOLIC ACID 1 MG in NA CHLORIDE 0.9% 50 ML IV SCH (12:04)
[2017-07-06] MEDS ORDERED: Magnesium Sulfate 2gm IVPB 2 G/50 ML BAG IV ONE (13:24)
--- NOTE | 2017-07-06 13:24 | P.PN ---
Subjective Date of Service: 07/06/17 Primary Care Provider: Dr. Bartlett Chief Complaint: Decreased strength, fever Subjective: Improving (Doing well. Ex is present. He is considering SNF placement.) Physical Examination - Vital Signs Temperature: 97.9 F Blood Pressure: 104/73 Pulse: 68 Respirations: 18 Pulse Ox (%): 99 - Physical Exam General: Alert, In no apparent distress, Oriented x3, Cooperative HEENT: Atraumatic Neck: Supple Respiratory: Clear to auscultation bilaterally, Normal air movement Cardiovascular: Normal pulses, Regular rate/rhythm Gastrointestinal: Normal bowel sounds, Soft and benign, Non-distended Musculoskeletal: No erythema, No tenderness, No warmth Integumentary: No tenderness/swelling, No erythema, No warmth, No cyanosis Neurological: Normal speech, Normal strength at 5/5 x4 extr, Normal tone - Studies Medications List Reviewed: Yes Assessment & Plan - Problems (Diagnosis) (1) UTI (urinary tract infection) Onset Date: 07/06/17 Current Visit: Yes Status: Acute Plan: Urine culture positive for Klebsiella. Blood culture negative. Will change to oral medication. Will discuss with social service about SNF placement. Qualifiers: Urinary tract infection type: site unspecified Hematuria presence: without hematuria Qualified Code(s): N39.0 - Urinary tract infection, site not specified (2) Hypertension Onset Date: 07/06/17 Current Visit: Yes Status: Chronic Plan: Blood pressure controlled. Patient started on Metoprolol. Will DC lisinopril. Qualifiers: Hypertension type: essential hypertension Qualified Code(s): I10 - Essential (primary) hypertension (3) Malnutrition Onset Date: 07/06/17 Current Visit: Yes Status: Acute Plan: Will have dietary assess nutritional needs. Patient with PEG tube. He appears better. Patient now walking. Will recommend SNF placement. Qualifiers: Malnutrition type: protein-calorie malnutrition Protein-calorie malnutrition severity: severe Qualified Code(s): E43 - Unspecified severe protein-calorie malnutrition (4) Hyponatremia Onset Date: 07/06/17 Current Visit: Yes Status: Acute Plan: Will continue with IV fluids. Will monitor and adjust appropriately (5) Colitis Onset Date: 07/06/17 Current Visit: Yes Status: Acute Plan: Colitis noted to cecum. Will change to oral medication. Will need colonoscopy in 4-6 weeks. (6) Elevated liver function tests Onset Date: 07/06/17 Current Visit: Yes Status: Acute Plan: Hepatitis panel pending. (7) COPD (chronic obstructive pulmonary disease) Onset Date: 07/06/17 Current Visit: Yes Status: Chronic Plan: Continue with COPD medication. Will wean off oxygen. Qualifiers: COPD type: chronic bronchitis (8) Hypothyroidism Onset Date: 07/06/17 Current Visit: Yes Status: Chronic Plan: Continue with medication. Qualifiers: Hypothyroidism type: unspecified Qualified Code(s): E03.9 - Hypothyroidism , unspecified (9) Alcohol abuse Onset Date: 07/06/17 Current Visit: Yes Status: Chronic Plan: Will provide medication for agitation. Will monitor for withdrawal. Will provide thiamine and folic acid. (10) Tobacco abuse Onset Date: 07/06/17 Current Visit: Yes Status: Chronic Plan: Will provide nicotine patch. (11) Elevated troponin Onset Date: 07/06/17 Current Visit: Yes Status: Acute Plan: Patient evaluated by Cardiology. No intervention needed. (12) History of throat cancer Onset Date: 07/06/17 Current Visit: Yes Status: Chronic Plan: Patient with tracheostomy. Overall stable. (13) Pain around PEG tube site Onset Date: 07/06/17 Current Visit: Yes Status: Acute Plan: This may be related to colitis. Resolved. Will monitor. Qualifiers: Encounter type: initial encounter Qualified Code(s): T85.848A - Pain due to other internal prosthetic devices, implants and grafts, initial encounter (14) History of tracheostomy Onset Date: 07/06/17 Current Visit: Yes Status: Chronic Plan: Stable. Discharge Plan: Other (Half-Way Placement) Plan to discharge in: 24 Hours Time Spent Managing Pts Care (In Minutes): 55
[2017-07-06] MEDS ORDERED: POTASSIUM CL SA 10 MEQ TAB PO ONE (13:26)
[2017-07-06] MEDS: metroNIDAZOLE 500 MG TABLET PO SCH ×2 (15:52→20:58)
--- NOTE | 2017-07-06 17:19 | ECHO ---
HEIGHT: 6 ft 0 in WEIGHT: 145 lb 6 oz DATE OF STUDY: 07/06/[address]: Gregg Starr DO 2-DIMENSIONAL: YES M.MODE: YES DOPPLER: YES COLOR FLOW: YES TDS: PORTABLE: DEFINITY: BUBBLE STUDY: DIAGNOSIS: HYPERTENSION, TACHYCARDIA CARDIAC HISTORY: CATHERIZATION: SURGERY: PROSTHETIC VALVE: PACEMAKER: MEASUREMENTS (cm) DIASTOLIC (NORMALS) SYSTOLIC (NORMALS) IVSd 1.1 (0.6-1.2) LA Diam 3.8 (1.9-4.0) LVEF 64% LVIDd 3.8 (3.5-5.7) LVIDs 2.5 (2.0-3.5) %FS 34% LVPWd 1.1 (0.6-1.2) Ao Diam 2.8 (2.0-3.7) 2 DIMENSIONAL ASSESSMENT: RIGHT ATRIUM: NORMAL LEFT ATRIUM: NORMAL RIGHT VENTRICLE: NORMAL LEFT VENTRICLE: NORMAL TRICUSPID VALVE: NORMAL MITRAL VALVE: NORMAL PULMONIC VALVE: NORMAL AORTIC VALVE: NORMAL PERICARDIAL EFFUSION: NONE AORTIC ROOT: NORMAL LEFT VENTRICULAR WALL MOTION: NORMAL DOPPLER/COLOR FLOW: MILD MITRAL REGURGITATION COMMENTS: NORMAL 2-DIMENSIONAL ECHOCARDIOGRAM. MILD MITRAL REGURGITATION. TECHNOLOGIST: SWAPNA BRAVO
[2017-07-06] MEDS: CIPROFLOXACIN HCL 500 MG TAB PO SCH (20:59)
[2017-07-07] MEDS: ENSURE HIGH PROTEIN 237 ML CAN PO SCH ×2 (02:00→05:14)
[2017-07-07] MEDS: NA CHLORIDE 0.9% 1,000 ML IV SCH ×4 (02:25→21:00)
[2017-07-07] MEDS: HYDROCODONE/APAP 5/325 MG TAB PO PRN ×4 (03:05→21:24)
[2017-07-07] MEDS: LEVOTHYROXINE SOD 0.112 MG TAB FT SCH (05:14)
[2017-07-07] MEDS: LEVOTHYROXINE SOD 0.025 MG TAB FT SCH (05:14)
[2017-07-07 05:42] LABS: Absolute Lymphocytes (CBC) 0.9 K/uL (0.7-4.9); Absolute Monocytes 1.1 K/uL (0.1-1.3); Absolute Neutrophil 2.5 K/uL (1.8-8.0); Basophils % 1.1 % (0-1.3); Eosinophils % 3.9 % (0-4.4); Hematocrit 28.5 % (39.6-49.0); Lymphocytes % 19.1 % (15.3-44.8); MCH 31.2 pg (27.0-35.0); MCV 102.8 fL (80-100); MPV 9.3 fL (7.6-11.3); Monocytes % 22.7 % (3.3-12.3); RBC Red Blood Cell Count 2.77 M/uL (4.33-5.43)
[2017-07-07 05:44] LABS: BUN Blood Urea Nitrogen 7 mg/dL (6-20); Bicarbonate 21 mEq/L (21-31); Glucose Level 67 mg/dL (65-120); Magnesium 1.7 mg/dL (1.8-2.5); Potassium 4.7 mEq/L (3.6-5.0); Sodium Level 131 mEq/L (135-145)
[2017-07-07] MEDS: PANTOPRAZOLE 40MG TABLET PO SCH (06:30)
[2017-07-07] MEDS ORDERED: MAGNESIUM SULFATE 1 gm IVPB 1 GM/100 ML BAG IV ONE (06:55)
[2017-07-07] MEDS: ARFORMOTEROL TARTRATE 15 MCG/2 ML VIAL.NEB NEB SCH ×2 (09:24→21:10)
[2017-07-07] MEDS: FOLIC ACID 1 MG TABLET PO SCH (09:33)
[2017-07-07] MEDS: THIAMINE HCL 100 MG TABLET PO SCH (09:34)
[2017-07-07] MEDS: METOPROLOL TAR 50 MG TAB PO SCH ×2 (09:34→21:11)
[2017-07-07] MEDS: CIPROFLOXACIN HCL 500 MG TAB PO SCH ×2 (09:34→21:10)
[2017-07-07] MEDS: metroNIDAZOLE 500 MG TABLET PO SCH ×3 (09:34→21:11)
[2017-07-07] MEDS: NICOTINE 21 MG/PAT TD SCH (09:34)
[2017-07-07] MEDS: JEVITY 1.5 CAL LIQUID 1,000 ML BOT FT SCH ×4 (11:00→21:19)
--- NOTE | 2017-07-07 17:22 | PN ---
Date of Progress Note: 07/07/2017 Subjective: The patient is seen and examined, chart reviewed, and case discussed with RN. Review of Systems: Negative except as above. Medications: Reviewed. Physical Examination: VITAL SIGNS: Temperature 97.5, heart rate 68, blood pressure 120/82, respirations 20, and O2 97% on room air. GENERAL: Awake, alert, oriented x3. No acute distress. Appears older than stated age. Cachectic m russell. BMI 19. CV: S1 and S2. No murmurs. Regular rate and rhythm. Peripheral pulses present. RESPIRATORY: Moving air well bilaterally. No wheezing. GASTROINTESTINAL: Abdomen is soft, nontender, nondistended. Positive bowel sounds. PEG tube in ethel ce. EXTREMITIES: No clubbing, cyanosis, or edema. NEUROLOGIC: Nonfocal. NECK: Trach collar in place. Laboratory Data: Sodium 131, potassium 4.7, chloride 103, CO2 21, BUN 7, creatinine 0.84, glucose 67 , calcium 7.5, and magnesium 1.7. WBC 4.7, H and H 8.7, 28.5, and platelets 281. INR 0.95. Hep reyes el pending. Microbiology, Urine culture showed Klebsiella oxytoca. Blood cultures, coagulase-negati ve staph. No growth. Echocardiogram shows EF 64%. Peripheral blood smear shows thrombocytopenia an d microcytic anemia. Assessment: 1.Urinary tract infection, culture positive for Klebsiella, now on oral antibiotics. 2.Essential hypertension. Continue metoprolol, stable. 3.Malnutrition. Body mass index 19. Continue PEG tube feeds. 4.Hyponatremia, improving. We will continue to monitor. 5.Acute colitis in the cecum. We will continue antibiotics, switch to oral. The patient will need outpatient colonoscopy in 4-6 weeks. 6.Elevated LFTs. Hep panel pending. 7.Chronic obstructive pulmonary disease. We will continue with nebulizer treatments. Wean off oxyg en. 8.Hypothyroidism. Continue medication. 9.History of alcohol abuse. We will continue thiamine and folic acid. Monitor for withdrawal sympt oms. 10.Nicotine dependence with cigarette smoking. Counseled. 11.Elevated troponin. No intervention recommended by Cardiology. Echocardiogram shows ejection fra ction of 64%. 12.History of throat cancer, status post tracheostomy, stable. 13.Status post PEG tube. 14.History of tracheostomy. Plan: Refer to SNF. SA/MODL Voice ID: [id number] Report ID: [id number]
[2017-07-08] MEDS: NA CHLORIDE 0.9% 1,000 ML IV SCH ×3 (02:27→16:44)
[2017-07-08] MEDS: LEVOTHYROXINE SOD 0.025 MG TAB FT SCH (05:40)
[2017-07-08] MEDS: LEVOTHYROXINE SOD 0.112 MG TAB FT SCH (05:40)
[2017-07-08] MEDS: PANTOPRAZOLE 40MG TABLET PO SCH (05:40)
[2017-07-08] MEDS: HYDROCODONE/APAP 5/325 MG TAB PO PRN ×3 (05:40→18:16)
[2017-07-08 06:30] LABS: Absolute Lymphocytes (CBC) 0.8 K/uL (0.7-4.9); Absolute Monocytes 1.2 K/uL (0.1-1.3); Absolute Neutrophil 3.1 K/uL (1.8-8.0); Basophils % 1.4 % (0-1.3); Eosinophils % 1.6 % (0-4.4); Hematocrit 25.9 % (39.6-49.0); MCH 34.6 pg (27.0-35.0); MCV 102.2 fL (80-100); MPV 9.8 fL (7.6-11.3); RBC Red Blood Cell Count 2.53 M/uL (4.33-5.43)
[2017-07-08 06:50] LABS: BUN Blood Urea Nitrogen 7 mg/dL (6-20); Bicarbonate 23 mEq/L (21-31); Glucose Level 94 mg/dL (65-120); Potassium 3.8 mEq/L (3.6-5.0); Sodium Level 132 mEq/L (135-145)
[2017-07-08 07:05] LABS: Blood Morphology Comment NOTED (NOT SEEN); Macrocytosis 1+; Platelet Estimate ADEQ; Urine White Blood Cell Casts OK
[2017-07-08 07:17] LABS: Magnesium 1.4 mg/dL (1.8-2.5)
[2017-07-08] MEDS ORDERED: Magnesium Sulfate 2gm IVPB 2 G/50 ML BAG IV ONE (07:21)
[2017-07-08] MEDS: JEVITY 1.5 CAL LIQUID 1,000 ML BOT FT SCH ×5 (08:00→21:00)
[2017-07-08] MEDS: CIPROFLOXACIN HCL 500 MG TAB PO SCH ×2 (10:34→22:04)
[2017-07-08] MEDS: NICOTINE 21 MG/PAT TD SCH (10:35)
[2017-07-08] MEDS: THIAMINE HCL 100 MG TABLET PO SCH (10:37)
[2017-07-08] MEDS: FOLIC ACID 1 MG TABLET PO SCH (10:37)
[2017-07-08] MEDS: METOPROLOL TAR 50 MG TAB PO SCH ×2 (10:37→22:03)
[2017-07-08] MEDS: metroNIDAZOLE 500 MG TABLET PO SCH ×3 (10:37→22:03)
[2017-07-08] MEDS: ARFORMOTEROL TARTRATE 15 MCG/2 ML VIAL.NEB NEB SCH ×2 (13:31→19:26)
[2017-07-08 14:07] LABS: HBsAG Nonreactive (Nonreactive); Hepatitis A IgM Antibody Nonreactive
--- NOTE | 2017-07-08 14:13 | RAD REPORT ---
EXAM DESCRIPTION: VASExtremity Venous [employer] Ltd07/08/2017 1:48 pm CLINICAL HISTORY: Left arm swelling COMPARISON: None FINDINGS: The left internal jugular, left subclavian, left cephalic, left axillary, left basilic, l eft ulnar and left radial veins are generally compressible and demonstrate augmentation. Doppler demo nstrates good flow. The left brachial vein is duplicated. Echogenic material consistent with acute thrombus is present wi thin the proximal to mid left brachial vein. IMPRESSION: Acute thrombus within the left brachial vein. Dr. Moore was notified 2:09 p.m. July 08, 018
[2017-07-08] MEDS: APIXABAN 5 MG TABLET FT SCH ×2 (14:50→22:03)
[2017-07-09] MEDS: NA CHLORIDE 0.9% 1,000 ML IV SCH ×2 (00:35→12:16)
[2017-07-09] MEDS: HYDROCODONE/APAP 5/325 MG TAB PO PRN (01:44)
[2017-07-09] MEDS: LEVOTHYROXINE SOD 0.112 MG TAB FT SCH (05:32)
[2017-07-09] MEDS: LEVOTHYROXINE SOD 0.025 MG TAB FT SCH (05:33)
[2017-07-09] MEDS: PANTOPRAZOLE 40MG TABLET PO SCH (05:33)
[2017-07-09 07:00] LABS: Absolute Lymphocytes (CBC) 0.6 K/uL (0.7-4.9); Absolute Monocytes 1.1 K/uL (0.1-1.3); Absolute Neutrophil 2.2 K/uL (1.8-8.0); Basophils % 0.6 % (0-1.3); Eosinophils % 2.4 % (0-4.4); Hematocrit 27.4 % (39.6-49.0); Lymphocytes % 15.5 % (15.3-44.8); MCH 35.1 pg (27.0-35.0); MCV 103.3 fL (80-100); MPV 8.4 fL (7.6-11.3); RBC Red Blood Cell Count 2.66 M/uL (4.33-5.43)
--- NOTE | 2017-07-09 07:06 | DS ---
Date of Discharge: 07/08/2017 Consultants: Dr. Shultz with Cardiology. Admitting Diagnoses: 1. Sepsis. 2. Urinary tract infection. 3. Hypertension. 4. Malnutrition. 5. Hyponatremia. 6. Colitis. 7. Elevated liver function enzymes. 8. Chronic obstructive pulmonary disease. 9. Hypothyroidism. 10. Alcohol abuse. 11. Tobacco abuse. 12. Elevated troponin. 13. History of throat cancer. 14. Pain around PEG tube site. 15. History of tracheostomy. Discharge Diagnoses: 1. Sepsis, resolved. 2. Urinary tract infection secondary to Klebsiella. 3. Essential hypertension, stable. 4. Malnutrition. BMI 19. Continue PEG tube feedings. 5. Hyponatremia, improved. 6. Acute colitis in the cecum, improved, needs outpatient colonoscopy in 4-6 weeks. 7. Elevated LFTs. 8. Chronic obstructive pulmonary disease. 9. Chronic bronchitis. 10. Hypothyroidism. 11. History of alcohol abuse. Continue thiamine and folic acid. 12. Nicotine dependence with cigarette smoking. Counseled. 13. Elevated troponin. Echo shows EF of 64%. No intervention recommended by Cardiology. 14. History of throat cancer, status post tracheostomy. 15. Status post PEG tube. 16. History of tracheostomy. 17. [facility] Course: The patient is a 57-year-old male who comes in with generalized weakness and fever. The patient was found to have UTI and was septic, started on IV antibiotics. Cultures were obtained. Urine cultures grew out Klebsiella oxytoca. Blood cultures were no growth to date. The patient was also seen by Cardiology for elevated troponin level. Echocardiogram was done, which showed EF of 64% with mild mitral regurgitation. No intervention planned by Cardiology. The patient was resumed on his PEG tube feeding. The patient also has tracheostomy. CT scan of the abdomen was done showing mild colitis. The patient was treated with IV antibiotics. His condition improved. His sepsis resolved. His vital signs stabilized. He was no longer febrile. His electrolytes were corrected. He did have some hypokalemia and hypomagnesemia which were replaced. The patient otherwise did well over the course of the hospital stay. He was counseled regarding his alcohol and tobacco use. The patient has been referred to a care home facility and was discharged once accepted. Discharge Condition: Stable. Medications: As per medication reconciliation list. Diet: Heart healthy diet. Activity: Fall precautions as per rehab. Followup: Follow up with primary care physician in 1 week. Follow up with film booker, Dr. Shultz, in 2 weeks. Return to ER for worsening condition. Total time spent discharging the patient was 39 minutes. Physical Examination: General: Awake, alert, oriented x3. Appears older than stated age. Frail male. CV: S1, S2. No murmurs. Regular rate and rhythm. Peripheral pulses present. Respiratory: Moving air well bilaterally. No wheezing. Gastrointestinal: Abdomen is soft, nontender, nondistended. Positive bowel sounds. PEG tube in place. Extremities: No clubbing, cyanosis, edema. Neurologic: Nonfocal. Neck: Trach collar in place. SA/MODRicco Voice ID: [id number] Report ID: [id number] MTDD
[2017-07-09] MEDS: ARFORMOTEROL TARTRATE 15 MCG/2 ML VIAL.NEB NEB SCH (07:47)
[2017-07-09] MEDS: JEVITY 1.5 CAL LIQUID 1,000 ML BOT FT SCH ×4 (08:00→17:22)
[2017-07-09 08:18] LABS: Blood Morphology Comment NOT SEEN (NOT SEEN); Platelet Estimate ADEQ; Platelets, Giant FEW
[2017-07-09 08:32] LABS: BUN Blood Urea Nitrogen 5 mg/dL (6-20); Bicarbonate 24 mEq/L (21-31); Potassium 3.8 mEq/L (3.6-5.0); Sodium Level 131 mEq/L (135-145)
[2017-07-09 08:42] LABS: Glucose Level 93 mg/dL (65-120); Magnesium 1.6 mg/dL (1.8-2.5)
[2017-07-09] MEDS ORDERED: Magnesium Sulfate 2gm IVPB 2 G/50 ML BAG IV ONE (08:55)
[2017-07-09] MEDS ORDERED: POTASSIUM CL SA 10 MEQ TAB PO ONE (08:55)
[2017-07-09] MEDS ORDERED: BISACODYL 10 MG RECTAL SUPP PR ONE (08:57)
[2017-07-09] MEDS ORDERED: MAGNESIUM SULFATE 1 gm IVPB 1 GM/100 ML BAG IV ONE (10:21)
[2017-07-09] MEDS: THIAMINE HCL 100 MG TABLET PO SCH (10:34)
[2017-07-09] MEDS: APIXABAN 5 MG TABLET FT SCH (10:34)
[2017-07-09] MEDS: metroNIDAZOLE 500 MG TABLET PO SCH ×2 (10:34→15:33)
[2017-07-09] MEDS: METOPROLOL TAR 50 MG TAB PO SCH (10:34)
[2017-07-09] MEDS: FOLIC ACID 1 MG TABLET PO SCH (10:34)
[2017-07-09] MEDS: NICOTINE 21 MG/PAT TD SCH (10:35)
[2017-07-09] MEDS: CIPROFLOXACIN HCL 500 MG TAB PO SCH (10:39)
--- NOTE | 2017-07-09 13:53 | PN ---
Date of Progress Note: 07/09/2017 Subjective: The patient is seen and examined. Chart reviewed and case discussed with RN and Dr. Michael nunez, Hematology. The patient states his swelling of the left arm has improved. The patient was not di scharged yesterday due to insurance approval still pending. Review of Systems: Negative except as above. Medications: Reviewed. Physical Examination: Vital Signs: Temperature 97.9, heart rate 62, blood pressure 123/72, respirations 17, O2 saturation 98% on room air. General: Awake, alert, oriented x3, in mild distress, appears older than stated age male. CV: S1, S2. No murmurs. Regular rate and rhythm. Peripheral pulses present. Respiratory: Moving air well bilaterally. No wheezing. Abdomen: Soft, nontender, nondistended. Positive bowel sounds. PEG tube in place. Extremities: No clubbing, cyanosis. Left upper extremity swelling. Neurologic: Nonfocal. Neck: Trach collar in place. Laboratory Data: Sodium 131, potassium 3.8, chloride 102, CO2 24, BUN 5, creatinine 0.68, glucose 93 , calcium 7.6, magnesium 1.6. WBC 4, H and H 9.3 and 27.4, platelets 176, neutrophils 54%. Urine cu lture shows Klebsiella oxytoca. Blood cultures, no growth to date. Left upper extremity doppler kristine ws acute thrombus within the left brachial vein. Assessment And Plan: A 57-year-old male with: 1.Sepsis, resolved. 2.Urinary tract infection secondary to Klebsiella, treated. 3.Essential hypertension, stable. 4.Acute deep venous thrombosis, brachial vein on the left. The patient started on Eliquis. This is a provoked deep venous thrombosis. I spoke with Dr. Peñaloza with Hematology. She agrees with the plan . Likely secondary to history of cancer and sepsis causing hypercoagulable state. She recommends ou tpatient followup for further evaluation. We will continue anticoagulation for minimum of 4-6 months and longer if needed after hypercoagulable workup. 5.Malnutrition. BMI 19. Continue PEG tube feeds. 6.Hyponatremia. 7.Acute colitis in the cecum, improved. The patient will need a colonoscopy in 4-6 weeks. 8.Elevated LFTs. 9.Chronic obstructive pulmonary disease, chronic bronchitis. 10.Hypothyroidism. 11.History of alcohol abuse. 12.Nicotine dependence, cigarette smoking, counseled. 13.Elevated troponin. No intervention planned. 14.History of throat cancer status post tracheostomy. 15.Status post PEG tube. 16.History of tracheostomy. Plan: Discharge to SNF once accepted. /ANDRE Voice ID: [id number] Report ID: [id number]
--- NOTE | 2017-07-09 15:32 | RAD REPORT ---
EXAM DESCRIPTION: RAD - Abdomen 1 View ([facility]) - 07/09/2017 2:53 pm CLINICAL HISTORY: Abdominal pain COMPARISON: January 2013 [facility], July 03 CT study FINDINGS: Bowel gas pattern is non-specific. No obstruction, free air or pneumatosis. Prominent non dilated small bowel loops are present. Moderate stool volume in the right-side of the colon. Enterost percy tube is seen in the upper mid left abdomen. Clips are present from hernia mesh placement. No significant bony findings IMPRESSION: Nonspecific bowel gas pattern. No bowel obstruction or free air. Enteritis is certainly possible.
[2017-07-09 16:03] VITALS: O2SAT 100
[2017-07-09 17:26] VITALS: BP 138/69; TEMP 98.4
== END 2017-07-09 18:56 | DRG 871 ==
LOC: ER 12:00 → ERHOLD 16:04 → 2ND 19:40
PROVIDERS: ADMIT Internal Medicine; ATTEND Family Medicine
DX: A41.9 Sepsis, unspecified organism (principal); E43 Unspecified severe protein-calorie malnutrition; N39.0 Urinary tract infection, site not specified; Z68.1 Body mass index [BMI] 19.9 or less, adult; I82.622 Acute embolism and thrombosis of deep veins of left upper extremity; E87.1 Hypo-osmolality and hyponatremia; B96.89 Other specified bacterial agents as the cause of diseases classified elsewhere; E87.6 Hypokalemia; E83.42 Hypomagnesemia; D69.6 Thrombocytopenia, unspecified; I10 Essential (primary) hypertension; K52.9 Noninfective gastroenteritis and colitis, unspecified; R79.89 Other specified abnormal findings of blood chemistry; J44.9 Chronic obstructive pulmonary disease, unspecified; E03.9 Hypothyroidism, unspecified; F17.210 Nicotine dependence, cigarettes, uncomplicated; Z85.819 Personal history of malignant neoplasm of unspecified site of lip, oral cavity, and pharynx; Z93.1 Gastrostomy status; Z93.0 Tracheostomy status; F10.10 Alcohol abuse, uncomplicated
CPT/HCPCS: 36415; 51702; 71045; 74018; 74177; 80048; 80061; 80074; 80076; 80202; 81003; 81015; 82550; 82553; 82607; 82728; 82746; 83540; 83605; 83735; 83880; 84132; 84145; 84439; 84443; 84466; 84484; 85025; 85610; 85730; 87040; 87077; 87086; 87088; 87186; 87205; 93005; 93306; 93971; 94640; 96365; 96366; 96367; 96375; 97163; 99285; C9113; J0696; J2405; J3010; J3411; J3475; J7030; J7605; Q9967

== ENCOUNTER 2017-09-16 19:46 | Inpatient (IN) | payer OTHER ==
--- OUTSIDE RECORDS SUMMARY | 2017-09-16 19:50 | XMS REPORT | Continuity of Care Document ---
:1960 Author Organization Interface Problems Problem Status Onset Classification Date Comments Source Date Reported LEFT FACIAL Active [facility] SWELLING [address] [place] [address] Center LFLT TRANSFER Active [id number] AIRWAY Active [facility] COMPROMISE [address] [place] [address] Throat cancer Resolved Problem 07/18/2016 [facility] OTHER SPECIFIED Active [facility] RESPIRATORY Medical DISORDERS Center Medications Medication Details Route Status Patient Ordering Order Source Instructions Provider Date lisinopril 10 mg 10 mg=1 tab, Active 07/15[facility] oral tablet PO, Daily, # 30 2016 Medical tab, 0 Center Refill(s) Hydrochlorothiazide 12.5 mg=1 cap, Active 07/15[facility] 12.5 MG Oral PO, Daily, # 30 2016 Medical Capsule cap, 0 Center Refill(s) Beneprotein 7 gm 1 pkt, Route: Inactive [facility] pkt PO, Drug Form: 2017 Medical PWDR, Dosing Center Weight 68.182, kg, TID-Before Meals, Start date: 07/15/16 11:30:00 CDT, Duration: 30 day, Stop date: 08/14/16 7:30:00 CDTNotes: (Same as: Beneprotein) Amoxicillin 875 MG 1 tab, PO, BID, No Longer [facility] / Clavulanate 125 X 2 day, # 4 Active 2017 Medical MG Oral Tablet tab, 0 Center [Augmentin 875-mg] Refill(s) tramadol 50 mg=1 tab, Active 07/15[facility] hydrochloride 50 MG PO, Q6H, PRN 2017 Medical Oral Tablet Pain Score 1-5, Center 0 Refill(s) Morphine 2 mg, 1 mL, Inactive 07/15[facility] Route: IVP, 2017 Medical Drug form: INJ, Center ONCE, Dosing Weight 68.182, kg, Start date: 07/15/16 4:46:00 CDT, Stop date: 07/15/16 4:46:00 CDTNotes: (Same as:MORPhine Sulfate) Morphine 2 mg, 1 mL, Inactive [facility] Route: IVP, 2017 Medical Drug form: INJ, Center ONCE, Dosing Weight 68.182, kg, Start date: 07/14/16 19:48:00 CDT, Stop date: 07/14/16 19:48:00 CDTNotes: (Same as:MORPhine Sulfate) Morphine 1 mg, 0.5 mL, Inactive [facility] Route: IV, Drug 2016 Medical form: INJ, Center ONCE, Dosing Weight 68.182, kg, Start date: 07/14/16 16:51:00 CDT, Stop date: 07/14/16 16:51:00 CDTNotes: (Same as:MORPhine Sulfate) Beneprotein 7 gm 1 pkt, Route: T No Longer [facility] pkt FEED, Drug Active 2016 Medical Form: PWDR, Center Dosing Weight 68.182, kg, TID-Before Meals, Start date: 07/14/16 11:30:00 CDT, Duration: 30 day, Stop date: 08/13/16 7:30:00 CDTNotes: (Same as: Beneprotein) Fentanyl 50 microgram, Inactive [facility] Route: IV, 2017 Medical ONCE, Dosing Center Weight 68.182, kg, Start date: 07/14/16 10:25:00 CDT, Stop date: 07/14/16 10:25:00 CDT Glucagon 1 mg, Route: Inactive 07/14[facility] IV, ONCE, 2016 Medical Dosing Weight Center 68.182, kg, Start date: 07/14/16 10:15:00 CDT, Stop date: 07/14/16 10:15:00 CDT Midazolam 1 mg, Route: Inactive [facility] IV, ONCE, 2017 Medical Dosing Weight Center 68.182, kg, Start date: 07/14/16 10:15:00 CDT, Stop date: 07/14/16 10:15:00 CDT Fentanyl 50 microgram, Inactive [facility] Route: IV, 2017 Medical ONCE, Dosing Center Weight 68.182, kg, Start date: 07/14/16 9:55:00 CDT, Stop date: 07/14/16 9:55:00 CDT Glucagon 1 mg, Route: Inactive 05/22[facility] IV, ONCE, 2017 Medical Dosing Weight Center 68.182, kg, Start date: 07/14/16 9:35:00 CDT, Stop date: 07/14/16 9:35:00 CDT Fentanyl 25 microgram, Inactive [facility] Route: IV, 2017 Medical ONCE, Dosing Center Weight 68.182, kg, Start date: 07/14/16 9:35:00 CDT, Stop date: 07/14/16 9:35:00 CDT Glucagon 1 mg, Route: Inactive [facility] IV, ONCE, 2017 Medical Dosing Weight Center 68.182, kg, Start date: 07/14/16 8:45:00 CDT, Stop date: 07/14/16 8:45:00 CDT Midazolam 1 mg, Route: Inactive [facility] IV, ONCE, 2017 Medical Dosing Weight Center 68.182, kg, Start date: 07/14/16 8:45:00 CDT, Stop date: 07/14/16 8:45:00 CDT tramadol 50 mg, 1 tab, No Longer [place] hydrochloride 50 MG Route: PO, Drug Active 2017 Medical Oral Tablet form: TAB, Q6H, Center Dosing Weight 68.182, kg, PRN Pain Score 1-5, Start date: 07/14/16 8:44:00 CDT, Duration: 30 day, Stop date: 08/13/16 8:43:00 CDTNotes: Not to exceed 400mg/day. (Same As: Ultram) Fentanyl 75 microgram, Inactive [facility] Route: IV, 2017 Medical ONCE, Dosing Center Weight 68.182, kg, Start date: 07/14/16 8:22:00 CDT, Stop date: 07/14/16 8:22:00 CDT Ketorolac 30 mg, 2 mL, Inactive [facility] Route: IVP, 2016 Medical Drug form: INJ, Center ONCE, Dosing Weight 68.182, kg, Start date: 07/13/16 16:38:00 CDT, Duration: 1 doses or times, Stop date: 07/13/16 16:38:00 CDTNotes: (Same as:Toradol) IV bolus must be given >15 seconds. Give IM administration slowly and deeply into the muscle. Not for use > 4 days. Unasyn 3 gm, 1 ea, No Longer [place] Route: IVPB, Active 2016 Medical Drug form: [place] PDR/INJ, ABXQ6H, Start date: 07/13/16 14:00:00 CDT, Duration: 4 day, Stop date: 07/17/16 8:00:00 CDTNotes: Dosing based on Ampicillin component (Same as: Unasyn) Hydralazine 10 mg, 0.5 mL, No Longer [place] Route: IV, Drug Active 2016 Medical form: INJ, Q8H, Center Dosing Weight 68.182, kg, PRN Other -See Comment, prn sbp>180, dbp>100, Start date: 07/13/16 13:12:00 CDT, Duration: 30 day, Stop date: 08/12/16 13:11:00 CDTNotes: (Same as: Apresoline) Push over 5 minutes Morphine 1 mg, 0.5 mL, No Longer [place] Route: IV, Drug Active 2016 Medical form: INJ, Q8H, [place] Dosing Weight 68.182, kg, PRN Pain Score 6-10, Start date: 07/13/16 12:56:00 CDT, Duration: 30 day, Stop date: 08/12/16 12:55:00 CDTNotes: (Same as:MORPhine Sulfate) Amoxicillin 875 MG 875 mg, 10.94 Inactive [place] / Clavulanate 125 mL, Route: NG, 2017 Medical MG Oral Tablet Drug Form: [place] [Augmentin 875-mg] SOLN, Dosing Weight 68.182, kg, Q12H, x 4 days, Start date: 07/13/16 9:00:00 CDT, Duration: 4 day, Stop date: 07/16/16 21:00:00 CDTNotes: (amoxicillin-cl avulanic acid *80mg/ oral SOLN ) (Same as:Augmentin 400) GI motility only Dosing interval must be q12h. Give at start of meal. Acetaminophen 325 1 tab, Route: No Longer [facility] MG / Hydrocodone PO, Drug Form: Active 2017 Medical Bitartrate 5 MG TAB, Dosing Center Oral Tablet [[place] Weight 68.182, 5/325] kg, Q6H, PRN Pain 4-6/Temp > 100.4 F, Start date: 07/12/16 19:32:00 CDT, Duration: 30 day, Stop date: 08/11/16 19:31:00 CDTNotes: (Same as: [place] 325/5) Do not exceed 4gm/day of acetaminophen. heparin sodium, 5,000 unit, Inactive [facility] porcine 2500 UNT/ML Route: SUB-Q, 2017 Medical Injectable Solution Drug form: INJ, Center Q8H, Dosing Weight 68.182, kg, Start date: 07/12/16 16:00:00 CDT, Duration: 30 day, Stop date: 08/11/16 8:00:00 CDT olanzapine 5 mg, 1 tab, No Longer [facility] Route: PO, Drug Active 2016 Medical form: TAB, Center Daily, Dosing Weight 68.182, kg, Start date: 07/12/16 9:00:00 CDT, Duration: 30 day, Stop date: 08/10/16 9:00:00 CDTNotes: (Same as: ZyPREXA) lisinopril 10 mg, 1 tab, No Longer [facility] Route: PO, Drug Active 2016 Medical form: TAB, Center Daily, Start date: 07/12/16 9:00:00 CDT, Duration: 30 day, Stop date: 08/10/16 9:00:00 CDTNotes: (Same as: Prinivil, Zestril) Microzide 12.5 mg, 1 cap, No Longer [facility] Route: PO, Drug Active 2016 Medical form: CAP, Center Daily, Start date: 07/12/16 9:00:00 CDT, Duration: 30 day, Stop date: 08/10/16 9:00:00 CDTNotes: (Same as: Microzide) With food. Hydrochlorothiazide 1 tab, Route: Inactive [facility] 12.5 MG / PO, Drug Form: 2017 Medical Lisinopril 10 MG TAB, Dosing Center Oral Tablet Weight 68.182, kg, Daily, Start date: 07/12/16 9:00:00 CDT, Duration: 30 day, Stop date: 08/10/16 9:00:00 CDT D5NS 1,000 mL 1,000 mL, Rate: Inactive [facility] 75 ml/hr, 2017 Medical Infuse over: Center 13.3 hr, Route: IV, Dosing Weight 68.182 kg, Total Volume: 1,000, Start date: 07/12/16 7:30:00 CDT, Duration: 30 day, Stop date: 08/11/16 7:29:00 CDT Tylenol with 5 mL, Route: No Longer [facility] Codeine 120 mg-12 PO, Drug Form: Active 2017 Medical mg/5 mL oral liquid LIQ, Dosing Center Weight 68.182, kg, Q4H, PRN Pain Score 4-6, Start date: 07/12/16 6:56:00 CDT, Duration: 30 day, Stop date: 08/11/16 6:55:00 CDTNotes: (acetaminophen- codeine 120-12 mg/5 ml oral liq) Do not exceed 4gm/day of acetaminophen. (Same as: Tylenol w/Codeine) Fentanyl 50 microgram, 1 Inactive [facility] mL, Route: IV, 2017 Medical Drug form: INJ, Center ONCE, Dosing Weight 68.182, kg, Start date: 07/12/16 6:56:00 CDT, Stop date: 07/12/16 6:56:00 CDTNotes: (Same as: Sublimaze) Preservative free. Fentanyl 25 microgram, Inactive [facility] 0.5 mL, Route: 2017 Medical IV, Drug form: Center INJ, ONCE, Dosing Weight 68.182, kg, Start date: 07/11/16 21:00:00 CDT, Stop date: 07/11/16 21:00:00 CDTNotes: (Same as: Sublimaze) Preservative free. Diphenhydramine 25 mg, 1 cap, Inactive [facility] Route: PO, Drug 2017 Medical form: CAP, Center ONCE, Dosing Weight 68.182, kg, Start date: 07/11/16 20:24:00 CDT, Stop date: 07/11/16 20:24:00 CDTNotes: (Same as: Benadryl) Acetaminophen 650 mg, 2 tab, No Longer [facility] Route: PO, Drug Active 2016 Medical form: TAB, Q6H, Center Dosing Weight 68.182, kg, PRN Pain 1-3/Temp > 100.4 F, Start date: 07/11/16 20:23:00 CDT, Duration: 30 day, Stop date: 08/10/16 20:22:00 CDTNotes: Do not exceed 4 gm/day. (Same as: Tylenol) Hydralazine 20 mg, Route: Inactive [facility] IV, ONCE, 2016 Medical Dosing Weight Center 68.182, kg, Start date: 07/11/16 18:10:00 CDT, Stop date: 07/11/16 18:10:00 CDT Fentanyl 50 microgram, Inactive [facility] Route: IVP, 2016 Medical Drug form: INJ, Center ONCE, Dosing Weight 68.182, kg, Start date: 07/11/16 14:59:00 CDT, Stop date: 07/11/16 14:59:00 CDT Hydralazine 10 mg, Route: Inactive [facility] PO, Drug form: 2016 Medical TAB, Q6H, Center Dosing Weight 68.182, kg, Start date: 07/11/16 12:00:00 CDT, Duration: 30 day, Stop date: 08/10/16 6:00:00 CDT Hydralazine 10 mg, 0.5 mL, No Longer [facility] Route: IV, Drug Active 2016 Medical form: INJ, Q6H, Center Dosing Weight 68.182, kg, PRN Hypertension, Start date: 07/11/16 11:21:00 CDT, Duration: 30 day, Stop date: 08/10/16 11:20:00 CDTNotes: (Same as: Apresoline) Push over 5 minutes Hydralazine 10 mg, Route: Inactive [facility] PO, Drug form: 2016 Medical TAB, Q6H, Center Dosing Weight 68.182, kg, PRN Hypertension, Start date: 07/11/16 11:07:00 CDT, Duration: 30 day, Stop date: 08/10/16 11:06:00 CDT D5NS 1,000 mL 1,000 mL, Rate: No Longer [facility] 150 ml/hr, Active 2017 Medical Infuse over: Center 6.7 hr, Route: IV, Dosing Weight 68.182 kg, Total Volume: 1,000, Start date: 07/11/16 11:07:00 CDT, Duration: 30 day, Stop date: 08/10/16 11:06:00 CDT Protonix 40 mg, Route: No Longer [facility] IVP, Drug form: Active 2016 Medical INJ, Before Center Breakfast, Dosing Weight 68.182, kg, Start date: 07/11/16 7:30:00 CDT, Duration: 30 day, Stop date: 08/09/16 7:30:00 CDT lansoprazole 30 mg, Route: No Longer [place] NG, Drug form: Active 2016 Medical SUSP, Before Center Breakfast, Dosing Weight 68.182, kg, Start date: 07/11/16 7:30:00 CDT, Duration: 30 day, Stop date: 08/09/16 7:30:00 CDT sodium phosphate + 30 mmol, 10 mL, No Longer [place] sodium chloride Route: IVPB, Active 2016 Medical 0.9% INJ 250 mL PRN, Dosing Center Weight 68.182, kg, PRN Abnormal Lab Result, Start date: 07/11/16 4:00:00 CDT, Duration: 30 day, Stop date: 08/10/16 3:59:00 CDT, FOR ICU USE ONLY potassium chloride 20 mEq, 1 tab, No Longer [place] Route: PO, Drug Active 2016 Medical form: ERTAB, Center PRN, Dosing Weight 68.182, kg, PRN Abnormal Lab Result, Start date: 07/11/16 4:00:00 CDT, Duration: 30 day, Stop date: 08/10/16 3:59:00 CDT, FOR ICU USE ONLYNotes: (Same as: K-Dur 20) "Do Not Crush" With food and full glass of water Magnesium Oxide 800 mg, 2 tab, No Longer [place] Route: PO, Drug Active 2016 Medical form: TAB, PRN, Center Dosing Weight 68.182, kg, PRN Abnormal Lab Result, FOR ICU USE ONLY, Start date: 07/11/16 4:00:00 CDT, Duration: 30 day, Stop date: 08/10/16 3:59:00 CDTNotes: (Same as: Mag-Ox 400) Magnesium oxide [id number] elemental magnesium Dose=____mg magnesium oxide (___mg elemental magnesium) Calcium Carbonate 500 mg, 1 tab, No Longer [place] 500 MG Chewable Route: PO, Drug Active 2016 Medical Tablet form: CHEWTAB, Center PRN, Dosing Weight 68.182, kg, PRN Abnormal Lab Result, FOR ICU USE ONLY, Start date: 07/11/16 4:00:00 CDT, Duration: 30 day, Stop date: 08/10/16 3:59:00 CDTNotes: (Same As: Tums) Calcium Carbonate 500 ji=270 mg elemental calcium Dose= mg calcium carbonate ( mg elemental calcium) Calcium Gluconate 1 gm, 10 mL, No Longer [place] Route: IVPB, Active 2016 Medical PRN, Dosing Center Weight 68.182, kg, PRN Abnormal Lab Result, Start date: 07/11/16 4:00:00 CDT, Duration: 30 day, Stop date: 08/10/16 3:59:00 CDT, FOR ICU USE ONLYNotes: WASTE: F/P - Sink; E - Municipal Trash Bin Magnesium Sulfate 2 gm, 50 mL, No Longer [place] Route: IVPB, Active 2016 Medical Drug form: INJ, Center PRN, Dosing Weight 68.182, kg, PRN Abnormal Lab Result, Start date: 07/11/16 4:00:00 CDT, Duration: 30 day, Stop date: 08/10/16 3:59:00 CDT, FOR ICU USE ONLYNotes: WASTE: F/P - Sink; E - Municipal Trash Bin potassium phosphate 30 mmol, 10 mL, No Longer + sodium chloride Route: IVPB, Active 2016 Medical 0.9% INJ 250 mL PRN, Dosing Center Weight 68.182, kg, PRN Abnormal Lab Result, Start date: 07/11/16 4:00:00 CDT, Duration: 30 day, Stop date: 08/10/16 3:59:00 CDT, FOR ICU USE ONLYNotes: (Same as: K Phosphate.) 1 mMol phoshate has 1.47 mEq potassium Infuse over 4 hours potassium 2 pkt, Route: No Longer [place] phosphate-sodium PO, Drug Form: Active 2017 Medical phosphate 250 PDR/REC, Dosing Center mg-280 mg-160 mg Weight 68.182, oral powder for kg, PRN, PRN reconstitution Abnormal Lab Result, FOR ICU USE ONLY, Start date: 07/11/16 4:00:00 CDT, Duration: 30 day, Stop date: 08/10/16 3:59:00 CDTNotes: (Same as: Phos-NaK) Each 1.5 gm pkt has 250mg phosphorous. Mix w/2.5oz water and stir. Zyprexa 10 mg, Route: No Longer [place] IM, Drug form: Active 2017 Medical INJ, Daily, Center Dosing Weight 68.182, kg, Start date: 07/10/16 16:00:00 CDT, Duration: 30 day, Stop date: 08/08/16 16:00:00 CDTNotes: (Same As: ZyPREXA IM). sterile water 2.1 mL, Route: No Longer [place] MISC, Drug Active 2016 Medical Form: INJ, Center Daily, Start date: 07/10/16 16:00:00 CDT, Duration: 30 day, Stop date: 08/08/16 16:00:00 CDT potassium chloride 20 mEq, 100 mL, Inactive [facility] Route: IVPB, 2016 Medical Drug form: INJ, Center Q2H, Dosing Weight 68.182, kg, Total dose=40 mEq, Start date: 07/10/16 12:00:00 CDT, Duration: 2 doses or times, Stop date: 07/10/16 14:00:00 CDT, Central LineNotes: (Same as: KCL) Infuse no faster than 10 mEq/hr if given peripherally. D5NS 1,000 mL 1,000 mL, Rate: No Longer [facility] 100 ml/hr, Active 2017 Medical Infuse over: 10 Center hr, Route: IV, Dosing Weight 68.182 kg, Total Volume: 1,000, Start date: 07/10/16 11:56:00 CDT, Stop date: 08/09/16 11:55:00 CDT sterile water 2.1 mL, Route: Inactive [facility] MISC, Drug 2016 Medical Form: INJ, Center ONCE, Start date: 07/10/16 10:00:00 CDT, Stop date: 07/10/16 10:00:00 CDT Iohexol 100 mL, Route: Inactive [facility] IVP, Drug Form: 2016 Medical SOLN, Dosing Center Weight 68.182, kg, ONCALL, STAT, Start date: 07/10/16 9:47:00 CDT, Duration: 1 doses or times, Stop date: 07/10/16 23:00:00 CDT, Dose=2.2ml/kg, Max yyvd=151gd -- "To be infused by Radiology Staff ONLY"Notes: (same as:Omnipaque 350). WASTE: F/P - Black; E - Municipal Trash Bin chlorhexidine 15 mL, Route: No Longer [facility] gluconate 1.2 MG/ML Swab Mouth, Active 2016 Medical Mouthwash Q12H, Drug Center form: LIQ, Start date: 07/10/16 9:00:00 CDT, Duration: 30 day, Stop date: 08/08/16 21:00:00 CDTNotes: (Same As: Peridex) Saline Flush 0.9% 10 ml, Route: No Longer [facility] IVP, Drug Form: Active 2016 Medical INJ, Dosing Center Weight 72.727, kg, Q12H, Start date: 07/10/16 9:00:00 CDT, Duration: 30 day, Stop date: 08/08/16 21:00:00 CDTNotes: Same as: BD Posiflush Sterile pantoprazole 40 mg, Route: Inactive [facility] IVP, Drug form: 2017 Medical INJ, Daily, Center Dosing Weight 72.727, kg, Start date: 07/10/16 9:00:00 CDT, Duration: 30 day, Stop date: 08/08/16 9:00:00 CDTNotes: For IV push reconstitute with 10 ml 0.9% sodium chloride and push over 2 minutes. (Same as: Protonix) pneumococcal 0.5 mL, Route: No Longer [facility] capsular IM, Drug Form: Active 2017 Medical polysaccharide type INJ, Daily, Center 1 vaccine / Start date: pneumococcal 07/10/16 capsular 9:00:00 CDT, polysaccharide type Duration: 1 10A vaccine / doses or times, pneumococcal Stop date: capsular 07/10/16 polysaccharide type 9:00:00 11A vaccine / CDTNotes: (Same pneumococcal as: Pneumovax capsular 23) polysaccharide type Refrigerate 12F vaccine / pneumococcal capsular polysacchar Docusate Sodium 50 2 tab, Route: No Longer [facility] MG / sennosides, PO, Drug Form: Active 2017 Medical PENITENTIARY 8.6 MG Oral TAB, Dosing Center Tablet Weight 68.182, kg, Q12H, Start date: 07/10/16 9:00:00 CDT, Duration: 30 day, Stop date: 08/08/16 21:00:00 CDTNotes: (Same as Senokot-S) Equiv. to Yvette-Colace. 1 tab, Route: No Longer [place] Multivitamins with PO, Drug Form: Active 2017 Medical Folic Acid 0.8 mg TAB, Dosing Center oral tablet Weight 68.182, kg, Daily, Start date: 07/10/16 9:00:00 CDT, Duration: 30 day, Stop date: 08/08/16 9:00:00 CDT Thiamine 100 mg, 1 tab, No Longer [place] Route: PO, Drug Active 2016 Medical form: TAB, Center Daily, Dosing Weight 68.182, kg, Start date: 07/10/16 9:00:00 CDT, Duration: 30 day, Stop date: 08/08/16 9:00:00 CDTNotes: (Same As: Vitamin B1) Zyprexa 10 mg, Route: Inactive [facility] IM, Drug form: 2017 Medical INJ, ONCE, Center Dosing Weight 68.182, kg, Start date: 07/10/16 8:25:00 CDT, Stop date: 07/10/16 8:25:00 CDT Insulin regular 5 unit, 0.05 No Longer [place] mL, Route: Active 2016 Medical SUB-Q, Drug Center form: SOLN, Sliding Scale, Dosing Weight 68.182, kg, PRN Blood Glucose Results, Start date: 07/10/16 8:17:00 CDT, Duration: 30 day, Stop date: 08/09/16 8:16:00 CDTNotes: (Same as: Humulin R) Roll in palms of hands gently; Do not shake vigorously. "single patient use only" (Restricted to patients requiring a dose > 60 units) WASTE: F/P - Black; E - Municipal Trash Bin Stable for 28 days at room temperature Expires in days from D ate Glucagon 1 mg, Route: No Longer [place] IM, Drug form: Active 2017 Medical PDR/INJ, PRN, Center Dosing Weight 68.182, kg, PRN Blood Glucose Results, Start date: 07/10/16 8:17:00 CDT, Duration: 30 day, Stop date: 08/09/16 8:16:00 CDT Dextrose 50% 25 gm, 50 mL, No Longer [facility] Syringe Route: IVP, Active 2016 Medical Drug Form: INJ, [place] Dosing Weight 68.182, kg, PRN, PRN Blood Glucose Results, Start date: 07/10/16 8:17:00 CDT, Duration: 30 day, Stop date: 08/09/16 8:16:00 CDT Acetaminophen 650 mg, 20.3 No Longer [facility] mL, Route: PO, Active 2016 Medical Drug form: LIQ, [place] Q6H, Dosing Weight 68.182, kg, PRN Pain 1-3/Temp > 100.4 F, Start date: 07/10/16 8:11:00 CDT, Duration: 30 day, Stop date: 08/09/16 8:10:00 CDT Synthroid 112 microgram, No Longer [facility] 1 tab, Route: Active 2017 Medical PO, Drug form: [place] TAB, Q630AM, Dosing Weight 68.182, kg, Start date: 07/10/16 8:09:00 CDT, Duration: 30 day, Stop date: 08/09/16 6:30:00 CDTNotes: Take 1 hour before or 2 hours after meal; Enteral feeds may interefere with the absorption of this medication.(Maurisio e as:Levothroid) Amitriptyline 50 mg, PO, Active [facility] Bedtime, 0 2016 Medical Refill(s) [place] levothyroxine 112 112 microgram=1 Active [place] mcg (0.112 mg) oral tab, PO, Daily, 2016 [facility] tablet # 60 tab, 0 [place] Refill(s) ocular lubricant 1 appl, Route: No Longer [place] BOTH EYES, Q6H, Active 2016 Medical Drug form: [place] OINT, Start date: 07/10/16 6:00:00 CDT, Duration: 30 day, Stop date: 08/09/16 0:00:00 CDTNotes: (Same as: Duratears Naturale and Artificial Tears, Tears Again ) Protonix 40 mg, Route: Inactive [place] IVP, Drug form: 2016 Medical INJ, Before [place] Breakfast, Dosing Weight 68.182, kg, Patient is NPO, Start date: 07/10/16 5:00:00 CDT, Duration: 30 day, Stop date: 08/08/16 7:30:00 CDTNotes: For IV push reconstitute with 10 ml 0.9% sodium chloride and push over 2 minutes. (Same as: Protonix) Enoxaparin 40 mg, 0.4 mL, No Longer [place] Route: SUB-Q, Active 2016 Medical Drug form: INJ, [place] [id number], Dosing Weight 68.182, kg, Start date: 07/10/16 5:00:00 CDT, Duration: 30 day, Stop date: 08/08/16 5:00:00 CDTNotes: (Same as: Lovenox) Fentanyl 1,000 No Longer [place] microgram, 20 Active 2016 Medical mL, Rate: [place] Titrate, Start Dose: 50 microgram/hr, Titration: 25 microgram/hour every 15 minutes, Goal(s): RASS - 1, Max Dose: 300 microgram/hr, Route: IV, Dosing Weight 68.182 kg, Total Volume: 20, Start date: 07/10/16 2:45:00 CDT, D... Unasyn 3 gm, 1 ea, No Longer [place] Route: IVPB, Active 2016 Medical Drug form: [place] PDR/INJ, ABXQ6H, Dosing Weight 72.727, kg, Start date: 07/10/16 2:00:00 CDT, Duration: 30 day, Stop date: 08/08/16 20:00:00 CDTNotes: Dosing based on Ampicillin component (Same as: Unasyn) chlorhexidine 15 mL, Route: No Longer [facility] gluconate 1.2 MG/ML Swab Mouth, Active 2016 Medical Mouthwash PRN, Drug form: [place] LIQ, PRN Other -See Comment, Start date: 07/10/16 1:09:00 CDT, Duration: 30 day, Stop date: 08/09/16 1:08:00 CDTNotes: (Same As: Peridex) Saline Flush 0.9% 10 ml, Route: No Longer [facility] IVP, Drug Form: Active 2017 Medical INJ, Dosing Center Weight 72.727, kg, PRN, PRN Line Flush, Start date: 07/10/16 1:09:00 CDT, Duration: 30 day, Stop date: 08/09/16 1:08:00 CDTNotes: Same as: BD Posiflush Sterile Nystatin 100 UNT/MG 1 appl, Route: No Longer [facility] Topical Powder TOP, PRN, Drug Active 2016 Medical form: PWDR, PRN [facility], Start date: 07/10/16 1:09:00 CDT, Duration: 30 day, Stop date: 08/09/16 1:08:00 CDTNotes: (Same as:Mycostatin, Nilstat) For external use only. fentaNYL (ANES) Route: IV, Drug Inactive [facility] form: INJ, 2017 Medical ONCE, Stop Center date: 07/10/16 0:57:00 CDT Albuterol 0.83 2.49 mg, 3 mL, No Longer [place] MG/ML Inhalant Route: NEB, Active 2017 Medical Solution Drug form: [place] SOLN, PRN, Dosing Weight 72.727, kg, PRN Respiratory Protocol, Start date: 07/10/16 0:19:00 CDT, Duration: 30 day, Stop date: 08/09/16 0:18:00 CDTNotes: SEE RT DOCUMENTATION (Same as: Proventil) Ipratropium 0.5 mg, 2.5 mL, No Longer [facility] Route: NEB, Active 2016 Medical Drug form: [place] SOLN, PRN, Dosing Weight 72.727, kg, PRN Respiratory Protocol, Start date: 07/10/16 0:19:00 CDT, Duration: 30 day, Stop date: 08/09/16 0:18:00 CDTNotes: SEE RT DOCUMENTATION (Same as:Atrovent) Unasyn 3 gm, 1 ea, No Longer [facility] Route: IVPB, Active 2016 Medical Drug form: [place] PDR/INJ, ONCE, Dosing Weight 72.727, kg, Priority: STAT, Start date: 07/09/16 23:11:00 CDT, Stop date: 07/09/16 23:11:00 CDTNotes: Dosing based on Ampicillin component (Same as: Unasyn) Racepinephrine 22.5 11.25 mg, 0.5 No Longer [facility] MG/ML Inhalant mL, Route: [facility], Active 2016 Medical Solution Drug Form: [place] SOLN, Dosing Weight 72.727, kg, ONCE, STAT, Start date: 07/09/16 21:32:00 CDT, Stop date: 07/09/16 21:32:00 CDTNotes: (racepinephrine *2.25% inh 0.5ml SOLN) (Same as:S2) Lidocaine 5 mL, Route: Inactive [facility], Drug Form: 2016 Medical SOLN, Dosing Center Weight 72.727, kg, ONCE, Start date: 07/09/16 21:27:00 CDT, Stop date: 07/09/16 21:27:00 CDT Benzocaine 140 1 spray, Route: No Longer [place] MG/ML / butamben 20 TOP, ONCE, Drug Active 2016 Medical MG/ML / Tetracaine form: AERO, [place] 20 MG/ML Mucosal Start date: [place] [Cetacaine] 07/09/16 21:27:00 CDT, Stop date: 07/09/16 21:27:00 CDTNotes: (Same As: Cetacaine) Cetacaine (benzocaine-tet racaine-butambe n 14-2-2%) Allergies, Adverse Reactions, Alerts Substance Category Reaction Severity Reaction Status Date Comments Source type Reported NKDA Assertion Drug Active [facility] Immunizations Immunization Date Given Site Status Last Comments Source Updated pneumococcal 07/11/2016 Left completed [facility] 23-valent vaccine [facility] Results Order Name Results Value Reference Date Interpretation Comments Source Range PARATHYROID Ca Ion WB 1.16 1.05 - 07/15 [facility] PROFILE mMol/L 1. [facility] PARATHYROID Ca Norm WB 1.12 1.05 - 07/15 [facility] PROFILE mMol/L 1. [facility] Chest tube Chest tube STUDY: VIR Gastrostomy Tube Placement 07/14 - [facility] placement placement /2016 - Medical insertion insertion CT Center CT DATE: 07/14/2016 8:05 AM CDT Read by: Kenny Cortez Dictated Date/time: 07/16/16 18:01 Electronically Signed by: Kenny Cortez 07/16/16 18:11 FINAL REPORT INDICATION(S): 56 year old who needs gastrostomy tube for for feeding PROCEDURE(S) PERFORMED: 1. Ultrasound, fluoroscopic and CT guidance guided placement of a 16 F percutaneous gastrostomy tube. 2. Coned beam Mariama CT to evaluate the abdomen. 3. Diagnostic abdominal CT imaging to evaluate positioning of the catheter. ADMISSIONS MANAGER RN: Dr Cortez OIL TRUCK DRIVER(S): None CONSENT: Written consent obtained after discussing the indications, procedure, potential benefits, alternatives and risks SEDATION/PAIN CONTROL: Moderate conscious sedation was administered by a dedicated nurse under my supervision. There was continuous monitoring of BP, pulse and oxygen saturation. Sedation time 70 minutes. PROCEDURE IN DETAIL: The patient was brought into the interventional suite and placed supine. Preliminary ultrasound of the upper abdomen was performed to identify and loni the inferior margin of the liver. The overlying sk in was prepped and draped in the usual sterile fashion. Under fluoroscopy guidance a 5 Sammarinese Kumpe catheter and glide wire were manipulated through the right nostril into the stomach. This was the catheter nasogastric tube used for the procedure. After gastric insufflation evaluation with fluoroscopy demonstrated the transverse colon was draped anterior to the stomach in the intended pathway. Despite multiple projections was unable to find a saf e access point. At this stage a decision was taken to perform coned beam CT to try and identify a safe access site. After reviewing the coned beam CT imaging out was unable to identify a safe access sit e. A decision was therefore taken to perform the gastrostomy catheter under diagnostic CT imaging guidance. The patient was transferred to the CT interventional suite. Timeout was performed without the CT suite. 1 mg glucagon IV was administered and subsequently a was insufflated through the 5-Sammarinese Kumpe catheter to distend the stomach. Preliminary CT imaging identified an appropriate access site. The anterio r abdominal surface was then prepped and draped in the usual sterile fashion. Next local anesthesia(lidocaine with epinephrine) to the skin, three [employer] solar systems safety pexy T tacks were advanced and used to secure the anterior wall of stomach. Subsequently an 18 gauge needle was advanced into the stomach, satisfactory position confirmed by air aspiration and contrast injection outlining the rugal folds. A stiff Amplatz wire was placed into th e stomach and the tract was dilated however due to the patient's gastric mass sheath was extremely difficult to dilate the tract. I was eventually able to dilate up to 16-Sammarinese. Given this difficu lty a decision was therefore taken to place a 16-Sammarinese monique lock pigtail gastrostomy catheter on this occasion. The plan is to allow the tract to mature and in 2-3 months time we will bring the patient back to place a MONIQUE gastrostomy catheter. The catheter was then to the skin using 2 sutures of 2-0 Prolene. Sterile dressing was applied. The catheter was connected to a bag for the. That the patient is nothing by mouth. The patient tolerated the procedure well and was transferred to holding area before being taken to the room. FINDINGS: 1. Multi modality imaging demonstrates the transverse colon traverses the anterior surface of the stomach making it difficult to access the stomach for gastrostomy tube using the conventional fluoroscopic guided technique. 2. Successful CT guided placement of a gastrostomy catheter. A 16-Sammarinese monique low drain has been placed due to difficulties in dilating the tract primarily due to the anterior abdominal wall surgical mesh. COMPLICATIONS: None. ESTIMATED BLOOD LOSS: None FLUOROSCOPIC TIME: 3.1 minutes RADIATION DOSE: [address] RADIATION DOSE (DLP): 3022 mGy.cm CONTRAST VOLUME: None IMPRESSION: Successful ultrasound, fluoroscopic and CT guided placement of a feeding percutaneous 16 Sammarinese Mac lock gastrostomy. PLAN/FOLLOW UP: 1 Please do not use the tube for 16 hours. If no evidence of peritonitis after 16-hours you may start using the tube with liquid diet. 2. After 2-3 months we recommend exchanging the macula drain and replacing it with an MONIQUE gastrostomy catheter. 3. We also recommend flushing the gastrostomy catheter with 20 mL of clear water before and after utilizing the catheter. Dr. Cortez, IR Attending, was present for the procedure. Gastric Gastric tube STUDY: [facility] Gastrostomy Tube Placement 07/14 - [facility] tube placement - [facility] placement Center VR DATE: 07/14/2016 8:05 AM CDT Read by: Kenny Cortez Dictated Date/time: 07/16/16 18:01 Electronically Signed by: Kenny Cortez 07/16/16 18:11 FINAL REPORT INDICATION(S): 56 year old who needs gastrostomy tube for for feeding PROCEDURE(S) PERFORMED: 1. Ultrasound, fluoroscopic and CT guidance guided placement of a 16 F percutaneous gastrostomy tube. 2. Coned beam Mariama CT to evaluate the abdomen. 3. Diagnostic abdominal CT imaging to evaluate positioning of the catheter. ADMISSIONS MANAGER RN: Dr Cortez OIL TRUCK DRIVER(S): None CONSENT: Written consent obtained after discussing the indications, procedure, potential benefits, alternatives and risks SEDATION/PAIN CONTROL: Moderate conscious sedation was administered by a dedicated nurse under my supervision. There was continuous monitoring of BP, pulse and oxygen saturation. Sedation time 70 minutes. PROCEDURE IN DETAIL: The patient was brought into the interventional suite and placed supine. Preliminary ultrasound of the upper abdomen was performed to identify and loni the inferior margin of the liver. The overlying sk in was prepped and draped in the usual sterile fashion. Under fluoroscopy guidance a 5 Sammarinese Kumpe catheter and glide wire were manipulated through the right nostril into the stomach. This was the catheter nasogastric tube used for the procedure. After gastric insufflation evaluation with fluoroscopy demonstrated the transverse colon was draped anterior to the stomach in the intended pathway. Despite multiple projections was unable to find a saf e access point. At this stage a decision was taken to perform coned beam CT to try and identify a safe access site. After reviewing the coned beam CT imaging out was unable to identify a safe access sit e. A decision was therefore taken to perform the gastrostomy catheter under diagnostic CT imaging guidance. The patient was transferred to the CT interventional suite. Timeout was performed without the CT suite. 1 mg glucagon IV was administered and subsequently a was insufflated through the 5-Sammarinese Kumpe catheter to distend the stomach. Preliminary CT imaging identified an appropriate access site. The anterio r abdominal surface was then prepped and draped in the usual sterile fashion. Next local anesthesia(lidocaine with epinephrine) to the skin, three [employer] solar systems safety pexy T tacks were advanced and used to secure the anterior wall of stomach. Subsequently an 18 gauge needle was advanced into the stomach, satisfactory position confirmed by air aspiration and contrast injection outlining the rugal folds. A stiff Amplatz wire was placed into th e stomach and the tract was dilated however due to the patient's gastric mass sheath was extremely difficult to dilate the tract. I was eventually able to dilate up to 16-Sammarinese. Given this difficu lty a decision was therefore taken to place a 16-Sammarinese monique lock pigtail gastrostomy catheter on this occasion. The plan is to allow the tract to mature and in 2-3 months time we will bring the patient back to place a MONIQUE gastrostomy catheter. The catheter was then to the skin using 2 sutures of 2-0 Prolene. Sterile dressing was applied. The catheter was connected to a bag for the. That the patient is nothing by mouth. The patient tolerated the procedure well and was transferred to holding area before being taken to the room. FINDINGS: 1. Multi modality imaging demonstrates the transverse colon traverses the anterior surface of the stomach making it difficult to access the stomach for gastrostomy tube using the conventional fluoroscopic guided technique. 2. Successful CT guided placement of a gastrostomy catheter. A 16-Sammarinese monique low drain has been placed due to difficulties in dilating the tract primarily due to the anterior abdominal wall surgical mesh. COMPLICATIONS: None. ESTIMATED BLOOD LOSS: None FLUOROSCOPIC TIME: 3.1 minutes RADIATION DOSE: [address] RADIATION DOSE (DLP): 3022 mGy.cm CONTRAST VOLUME: None IMPRESSION: Successful ultrasound, fluoroscopic and CT guided placement of a feeding percutaneous 16 Sammarinese Mac lock gastrostomy. PLAN/FOLLOW UP: 1 Please do not use the tube for 16 hours. If no evidence of peritonitis after 16-hours you may start using the tube with liquid diet. 2. After 2-3 months we recommend exchanging the macula drain and replacing it with an MONIQUE gastrostomy catheter. 3. We also recommend flushing the gastrostomy catheter with 20 mL of clear water before and after utilizing the catheter. Dr. Cortez, IR Attending, was present for the procedure. PARATHYROID Ca Norm WB 1.11 1.05 - 07/14 [facility] PROFILE mMol/L 1. [facility] PARATHYROID Ca Ion WB 1.14 1.05 - 07/14 [facility] PROFILE mMol/L 1. [facility] CHEM PANEL Magnesium Lvl 1.8 mg/dL 1.8 - 2.4 07/13 [facility] CHEM PANEL eGFR 100 07/13 Result Comment: The eGFR is calculated using the CKD-EPI formula. In most young, healthy individuals the eGFR will be >90 mL/ min/1.73m2. The eGFR declines with age. An eGFR of 60-89 may be normal in [facility] mL/min/1. some populations, particularly the elderly, for whom the CKD-EPI formula has not been extensively validated. Use of the eGFR is not recommended in the following populations: [address] Individuals with unstable creatinine concentrations, including patients and those with serious co-morbid conditions. Patients with extremes in muscle mass or diet. The data above are obtained from the National Kidney Disease Education Program (NKDEP) which additionally recommends that when the eGFR is used in patients with extremes of body mass index for purposes of drug dosing, the eGFR should be multiplied by the estimated BMI. CHEM PANEL Calcium Lvl 8.6 mg/dL 8.5 - 10.5 07/13 [facility] CHEM PANEL Chloride Lvl 107 meq/L 95 - 109 07/13 [facility] CHEM PANEL Potassium Lvl 3.6 meq/L 3.5 - 5.1 07/13 [facility] CHEM PANEL CO2 27 meq/L 24 - 32 07/13 [facility]2016 [facility] CHEM PANEL Sodium Lvl 140 meq/L 135 - 145 07/13 [facility]2016 [facility] CHEM PANEL Creatinine 0.78 mg/dL 0.50 - 07/13 [facility] Lvl 1.40 [facility] CHEM PANEL BUN 8 mg/dL 7 - 22 07/[address] CHEM PANEL Glucose Lvl 105 mg/dL 70 - 99 07/13 2016 [facility] CHEM PANEL AGAP 9.6 meq/L 10.0 - 07/13 20.0 [facility] CHEM PANEL Phosphorus 2.3 mg/dL 2.5 - 4.5 07/13 [facility] HEMATOLOGY Monocytes # 1.0 K/CMM 0.0 - 0.8 07/13 [facility] HEMATOLOGY Lymphocytes # 1.0 K/CMM 1.0 - 5.5 07/13 [facility] HEMATOLOGY Segs-Bands # 5.7 K/CMM 1.5 - 8.1 07/13 [facility] HEMATOLOGY Basophils 0.3 % 0.0 - 1.0 07/13 [facility] HEMATOLOGY Eosinophils 4.0 % 0.0 - 4.0 07/13 [facility] HEMATOLOGY Eosinophils # 0.3 K/CMM 0.0 - 0.5 07/13 2016 [facility] HEMATOLOGY Segs 70.5 % 45.0 - 07/13 75.0 [facility] HEMATOLOGY Lymphocytes 12.2 % 20.0 - 07/13 40.0 [facility] HEMATOLOGY Monocytes 13.0 % 2.0 - 12.0 07/13 [facility] HEMATOLOGY MPV 8.0 fL 7.4 - 10.4 07/13 [facility] HEMATOLOGY Platelet 187 K/CMM 133 - 450 07/13 [facility] HEMATOLOGY RDW 16.2 % 11.5 - 07/13 14.5 [facility] HEMATOLOGY Hgb 12.4 g/dL 14.0 - 07/13 18.0 [facility] HEMATOLOGY Hct 37.8 % 42.0 - 07/13 [place] 54.0 [facility] HEMATOLOGY MCV 95.9 fL 80.0 - 07/13 [place] 94.0 [facility] HEMATOLOGY MCH 31.6 pg 27.0 - 07/13 31.0 [facility] HEMATOLOGY MCHC 32.9 g/dL 32.0 - 07/13 [place] 36.0 [facility] HEMATOLOGY WBC 8.0 K/CMM 3.7 - 10.4 07/13 [facility] HEMATOLOGY RBC 3.94 M/CMM 4.70 - 07/13 [place] 6.10 [facility] HEMATOLOGY INR 0.99 0.85 - 05/21 [facility] 1.17 [facility] HEMATOLOGY PT 13.3 s 12.0 - 07/13 [facility] 14.7 [facility] HEMATOLOGY PTT 31.2 s 22.9 - 07/13 [facility] 35.8 [facility] PARATHYROID Ca Norm WB 1.19 1.05 - 07/13 [facility] PROFILE mMol/L 1. [facility] PARATHYROID Ca Ion WB 1.20 1.05 - 07/13 [facility] PROFILE mMol/L 1. [facility] PARATHYROID Ca Norm WB 1.14 1.05 - 07/13 [facility] PROFILE mMol/L 1. [facility] PARATHYROID Ca Ion WB 1.13 1.05 - 07/13 [facility] PROFILE mMol/L 1. [facility] Chest 1view Chest 1view EXAM: XR CHEST 1 VIEW 07/13 - [facility] DX DX /2016 - [facility] DATE: 07/13/2016 Read by: Ivon George MD Dictated Date/time: 07/13/16 11:33 Electronically Signed by: Ivon George MD 07/13/16 11:34 FINAL REPORT INDICATION: - trach . Comparison is made with July 11 FINDINGS: Cardiomediastinal silhouette and tracheostomy are unchanged. The patient has a new feeding tube that courses below the diaphragm beyond the confines of the chest radiograph. Lung volumes are low. This produces spurious widening of the transverse diameter of the heart and mediastinum and crowding of the basal lung markings. This produces platelike atelectasis at both lung ba ses. Underlying consolidation is not excluded.. The upper lungs are clear IMPRESSION: Lung volumes 2. New feeding tube. CHEM PANEL Phosphorus 2.5 mg/dL 2.5 - 4.5 07/12 [facility] CHEM PANEL Magnesium Lvl 2.0 mg/dL 1.8 - 2.4 07/12 [facility] /2016 [facility] ELECTROLYTE AGAP 8.3 meq/L 10.0 - 07/12 [facility] 20.0 [facility] ELECTROLYTE eGFR 107 07/12 Result Comment: The eGFR is calculated using the CKD-EPI formula. In most young, healthy individuals the eGFR will be > 90 mL/min/1.73m2. The eGFR declines with age. An eGFR of 60-89 may be normal in [facility] mL/min/1.7 some populations, particularly the elderly, for whom the CKD-EPI formula has not been extensively validated. Use of the eGFR is not recommended in the following populations: [address] Individuals with unstable creatinine concentrations, including patients and those with serious co-morbid conditions. Patients with extremes in muscle mass or diet. The data above are obtained from the National Kidney Disease Education Program (NKDEP) which additionally recommends that when the eGFR is used in patients with extremes of body mass index for purposes of drug dosing, the eGFR should be multiplied by the estimated BMI. ELECTROLYTE Potassium Lvl 3.3 meq/L 3.5 - 5.1 07/12 [facility] ELECTROLYTE Calcium Lvl 8.0 mg/dL 8.5 - 10.5 07/12 [facility]2016 [facility] ELECTROLYTE CO2 26 meq/L 24 - 32 07/12 [facility]2016 [facility] ELECTROLYTE Chloride Lvl 112 meq/L 95 - 109 07/12 [facility]2016 [facility] ELECTROLYTE Creatinine 0.65 mg/dL 0.50 - 07/12 [facility] Lvl 1.40 [facility] ELECTROLYTE Sodium Lvl 143 meq/L 135 - 145 07/12 [facility] ELECTROLYTE BUN 10 mg/dL 7 - 22 07/12 [facility]2016 [facility] ELECTROLYTE Glucose Lvl 135 mg/dL 70 - 99 07/12 [facility] HEMATOLOGY MPV 7.9 fL 7.4 - 10.4 07/12 [facility] HEMATOLOGY Platelet 203 K/CMM 133 - 450 07/12 [facility] HEMATOLOGY RDW 16.2 % 11.5 - 07/12 [place] 14.5 [facility] HEMATOLOGY MCH 31.7 pg 27.0 - 07/12 [place] 31.0 [facility] HEMATOLOGY MCV 95.9 fL 80.0 - 07/12 [place] 94.0 [facility] HEMATOLOGY Hct 37.2 % 42.0 - 07/12 [place] 54.0 [facility] HEMATOLOGY RBC 3.88 M/CMM 4.70 - 07/12 [place] 6.10 [facility] HEMATOLOGY WBC 10.6 K/CMM 3.7 - 10.4 07/12 2016 [facility] HEMATOLOGY MCHC 33.1 g/dL 32.0 - 07/12 [facility] [place] 36.0 [facility] HEMATOLOGY Hgb 12.3 g/dL 14.0 - 07/12 [facility] 18.0 [facility] HEMATOLOGY Eosinophils # 0.1 K/CMM 0.0 - 0.5 07/12 2016 [facility] HEMATOLOGY Monocytes # 0.8 K/CMM 0.0 - 0.8 07/[address] HEMATOLOGY Lymphocytes # 0.8 K/CMM 1.0 - 5.5 07/12 [facility]2016 [facility] HEMATOLOGY Segs-Bands # 8.9 K/CMM 1.5 - 8.1 07/12 2016 [facility] HEMATOLOGY Basophils 0.2 % 0.0 - 1.0 07/12 [facility]2016 [facility] HEMATOLOGY Eosinophils 0.5 % 0.0 - 4.0 07/12 [facility]2016 [facility] HEMATOLOGY Segs 84.4 % 45.0 - 07/12 [facility] 75.0 [facility] HEMATOLOGY Lymphocytes 7.4 % 20.0 - 07/12 [facility] 40.0 [facility] HEMATOLOGY Monocytes 7.5 % 2.0 - 12.0 07/[address] Abdomen AP Abdomen AP DX EXAM: XR ABDOMEN 1 VIEW 07/11 - [facility] DX - Medical This report was dictated by a Traffic Engineer/Fellow. I have personally reviewed the images as Center well as the Resident's interpretation and agree with the findings. DATE: 07/11/2016 2:15 PM CDT Read by: Hammad Denise MD Resident: Hammad Denise MD Dictated Date/time: 07/11/16 15:05 Electronically Signed by: Matias Roberson MD 07/11/16 16:11 FINAL REPORT INDICATION: -Dobbhoff tube placed ADDITIONAL INFORMATION: None. COMPARISON: None. TECHNIQUE: AP view of the abdomen. FINDINGS: Lines and tubes: The Dobbhoff tube tip overlies the gastric body. Bowel: The bowel gas pattern is nonobstructive. [id number] stool burden is noted in the colon. Solid organs: No abnormal mass or organomegaly seen. No abnormal calcifications found. Bones and soft tissues: No acute osseous abnormality. Multiple metallic coils are identified overlying the lower abdomen consistent with patient's history of abdominal hernia repair. IMPRESSION: Dobbhoff tube with tip overlying the gastric body. Recommend advancement of the tube for optimal positioning within the distal duodenum/jejunum and repeat imaging for confirmation. CHEM PANEL eGFR 94 07/11 Result Comment: The eGFR is calculated using the CKD-EPI formula. In most young, healthy individuals the eGFR will be >90 mL/ min/1.73m2. The eGFR declines with age. An eGFR of 60-89 may be normal in [facility] mL/min/1.7 some populations, particularly the elderly, for whom the CKD-EPI formula has not been extensively validated. Use of the eGFR is not recommended in the following populations: [address] Individuals with unstable creatinine concentrations, including patients and those with serious co-morbid conditions. Patients with extremes in muscle mass or diet. The data above are obtained from the National Kidney Disease Education Program (NKDEP) which additionally recommends that when the eGFR is used in patients with extremes of body mass index for purposes of drug dosing, the eGFR should be multiplied by the estimated BMI. CHEM PANEL BUN 21 mg/dL 7 - 22 07/[address] [place] [address] CHEM PANEL Glucose Lvl 165 mg/dL 70 - 99 07/[address] CHEM PANEL Calcium Lvl 9.1 mg/dL 8.5 - 10.5 07/[address] CHEM PANEL CO2 29 meq/L 24 - 32 07/[address] CHEM PANEL Chloride Lvl 103 meq/L 95 - 109 07/[address] CHEM PANEL Potassium Lvl 3.6 meq/L 3.5 - 5.1 07/[address] CHEM PANEL Sodium Lvl 139 meq/L 135 - 145 07/[address] CHEM PANEL Creatinine 0.89 mg/dL 0.50 - 07/11 [facility] Lvl 1.40 [facility] CHEM PANEL AGAP 10.6 meq/L 10.0 - 07/11 [facility] 20.0 [facility] CHEM PANEL Phosphorus 2.2 mg/dL 2.5 - 4.5 07/[address] CHEM PANEL Magnesium Lvl 2.3 mg/dL 1.8 - 2.4 07/[address] CHEM PANEL Globulin 3.7 g/dL 2.7 - 4.2 07/[address] CHEM PANEL Albumin Lvl 2.1 g/dL 3.5 - 5.0 07/[address] CHEM PANEL A/G Ratio 0.6 0.7 - 1.6 07/[address] CHEM PANEL Total Protein 5.8 g/dL 6.4 - 8.4 07/[address] CHEM PANEL Alk Phos 68 unit/L 39 - 136 07/[address] CHEM PANEL AST 12 unit/L 0 - 37 07/[address] CHEM PANEL ALT 9 unit/L 0 - 65 07/[address] CHEM PANEL Bili Indirect 0.1 mg/dL 0.0 - 1.0 07/[address] CHEM PANEL Bili Total 0.2 mg/dL 0.2 - 1.3 07/[address] CHEM PANEL Bili Direct 0.1 mg/dL 0.0 - 0.3 07/[address] HEMATOLOGY Lymphocytes 4.8 % 20.0 - 07/11 [facility] 40.0 [facility] HEMATOLOGY Monocytes 4.4 % 2.0 - 12.0 07/[address] HEMATOLOGY Segs 90.7 % 45.0 - 07/11 [facility] 75.0 [facility] HEMATOLOGY Segs-Bands # 13.4 K/CMM 1.5 - 8.1 07/[address] HEMATOLOGY Lymphocytes # 0.7 K/CMM 1.0 - 5.5 07/[address] HEMATOLOGY Monocytes # 0.7 K/CMM 0.0 - 0.8 07/[address] HEMATOLOGY Basophils 0.1 % 0.0 - 1.0 07/[address] HEMATOLOGY RDW 16.3 % 11.5 - 07/11 [facility] 14.5 [facility] HEMATOLOGY Platelet 178 K/CMM 133 - 450 07/[address] HEMATOLOGY MPV 8.4 fL 7.4 - 10.4 07/[address] HEMATOLOGY Hgb 10.8 g/dL 14.0 - 07/11 [facility] 18.0 [facility] HEMATOLOGY WBC 14.7 K/CMM 3.7 - 10.4 07/[address] HEMATOLOGY MCV 95.3 fL 80.0 - 07/11 [facility] 94.0 [facility] HEMATOLOGY Hct 32.7 % 42.0 - 07/11 [facility] 54.0 [facility] HEMATOLOGY MCHC 32.9 g/dL 32.0 - 07/11 [facility] 36.0 [facility] HEMATOLOGY MCH 31.4 pg 27.0 - 07/11 [facility] 31.0 [facility] HEMATOLOGY RBC 3.43 M/CMM 4.70 - 07/11 [facility] 6.10 [facility] Chest 1view Chest 1view EXAM: XR CHEST 1 VIEW 07/11 - [facility] DX DX - [facility] DATE: 07/11/2016 3:00 AM CDT Read by: Enedelia Holliday MD Dictated Date/time: 07/11/16 09:59 Electronically Signed by: Enedelia Holliday MD 07/11/16 10:00 FINAL REPORT INDICATION: Abnormal chest sounds - Vented. FINDINGS: Comparison is made to yesterday. The cardiomediastinal silhouette is stable. There is a tracheostomy tube in place. The Dobbhoff feeding tube has been removed. There is mild left retrocardiac subsegmental atelectasis. Otherwise, the lungs are clear and well-expanded. IMPRESSION: 1. The Dobbhoff feeding tube has been removed. 2. The lungs are clear. Neck soft Neck soft EXAM: CT NECK WITH CONTRAST 07/10 - [facility] tissue w tissue w - Medical contrast CT contrast CT This report was dictated by a Traffic Engineer/Fellow. I have personally reviewed the images as Center well as the Resident's interpretation and agree with the findings. DATE: 07/10/2016 10:15 AM CDT Read by: Yves Blackwell MD Resident: Yves Blackwell MD Dictated Date/time: 07/10/16 11:16 Electronically Signed by: Leah Joyner 07/10/16 14:55 FINAL REPORT INDICATION: Head and neck cancer, swelling of face and neck, examination of the IJ, subclavian, and SVC COMPARISON: Outside CT neck on 07/09/2016 TECHNIQUE: Axial CT images of the neck were obtained after intravenous contrast. Reformatted images in the sagittal and coronal plane were included. IV contrast: 99 mL Omnipaque 350 DLP: 855 mGy-cm FINDINGS: There has been placement of a tracheostomy tube, terminating in the proximal thoracic trachea. There are foci of air surrounding the trachea within the neck and mediastinum. There is severe diffuse muco fan swelling and edema around the nasopharynx, oropharynx, hypopharynx, and larynx bilaterally, which is more prominent compared to on the prior exam. There is resultant significant narrowing of the airway. There is narrowing of the left common carotid artery above the level of C6 relative to the right common carotid artery, with atherosclerotic plaque at the carotid bifurcation. No abnormally focal narrowing of the superior vena cava, proximal left and right internal jugular, and proximal subclavian veins are identified. The superior portion of the internal jugular veins are poorly opacified, without focal abnormality seen. Imaged portions of the paranasal sinuses and mastoid air cells are clear. Imaged portions of the brain and orbits are unremarkable. No pathologically enlarged lymph nodes are identified. Osseous structures are normal. Please see concurrent CT chest for thoracic findings. IMPRESSION: 1. Significant mucosal swelling and edema around the upper airway with resultant airway narrowing is more prominent compared to on the prior exam. 2. Interval placement of a tracheostomy tube in appropriate position. 3. No abnormality of the large veins of the head and neck identified. Chest w Chest w EXAM: CT CHEST WITH CONTRAST 07/10 [facility] contrast CT contrast - [facility] This report was dictated by a Traffic Engineer/Fellow. I have personally reviewed the images as Center well as the Resident's interpretation and agree with the findings. 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 Axial, sagittal and coronal reconstructions. Axial MIPS reformats were performed. IV Contrast: 99 mL Omnipaque 350. DLP: 781 mGy-cm COMPARISON: Neck CT 07/09/2016 and 07/10/2016 FINDINGS: Lines and Tubes: New tracheostomy tube projects in satisfactory position. Lower Neck: Foci of subcutaneous gas in the upper neck are related to recent tracheostomy placement. Both internal jugular and subclavian veins appear patent but diminutive in size likely due to post radiation change. Heart and Great Vessels: The heart size is normal. There is no pericardial effusion. Scattered punctate three-vessel atherosclerotic calcifications are noted throughout the coronary arteries. The aorta, pulmonary artery, and superior vena cava are normal in caliber. Multiple chest wall collaterals are noted on the left. Lymph Nodes: There are subcentimeter mediastinal lymph nodes, likely reactive. No hilar or axillary lymphadenopathy. Lungs: The lungs demonstrate a background of centrilobular and paraseptal emphysema with apical predominance. There is a calcified granuloma in the left lower lobe. There is patchy consolidation in the left lower lung. Pleura: Trace left pleural fluid. No pneumothorax. Upper abdomen: Unremarkable. Bones and Soft Tissues: Mild multilevel degenerative change of the spine is noted. There is incidental note of an epidermoid inclusion cyst in the right posterior chest wall soft tissues medial to the scapula (series 6, image 138). IMPRESSION: 1. Significant narrowing of the bilateral internal jugular and subclavian veins, which is thought most likely to be related to postradiation change. Prominent chest wall collaterals, suggesting some degree of chronicity 2. Left lower lobe dependent consolidation and mucous plugging suggesting aspiration. 3. Mild three-vessel coronary artery disease. RECOMMENDATIONS: None. BACTERIAL - MRSA by PCR Negative 07/10 [facility] (07/10/16 1:53 AM) [place] CHEM PANEL Procalcitonin 0.95 ng/mL 0.00 - 07/10 [facility] 0.10 [facility] CHEM PANEL Lactic Acid 1.7 mMol/L 0.5 - 2.2 07/10 [facility] /2016 [facility] DRUG SCREEN UDS Note See Note 07/10 [facility] *NA* [place] (07/10/16 1:53 AM) DRUG SCREEN U Methadone Negative Negative 07/10 [facility] [place] (07/10/16 1:53 AM) DRUG SCREEN U Propoxyph Negative Negative 07/10 [facility] *NA* [place] (07/10/16 1:53 AM) DRUG SCREEN U Phencyc Scr Negative Negative 07/10 [facility] *NA* [place] (07/10/16 1:53 AM) DRUG SCREEN U Cannab Scr Negative Negative 07/10 Medical *NA* Center (07/10/16 1:53 AM) DRUG SCREEN U Opiate Scr Negative Negative 07/10 [facility] *NA* Center (07/10/16 1:53 AM) DRUG SCREEN U Benzodia Negative Negative 07/10 [facility] Scr [facility] *NA* Center (07/10/16 1:53 AM) DRUG SCREEN U Cocaine Scr Negative Negative 07/10 [facility] *NA* Center (07/10/16 1:53 AM) DRUG SCREEN U Marycruz Scr Negative Negative 07/10 [facility] *NA* Center (07/10/16 1:53 AM) DRUG SCREEN U Amph Scr Negative Negative 07/10 [facility] *NA* [place] (07/10/16 1:53 AM) IMMUNOLOGY HIV Ag/Ab 4th Negative Negative 07/10 [facility] Gen [facility] *NA* [place] (07/10/16 1:53 AM) LIPIDS LDL 55 mg/dL <=99 mg/dL 07/10 [facility] (Calculated) [facility] LIPIDS VLDL 10 07/10 [facility] LIPIDS Chol 163 mg/dL <=199 07/10 [facility] mg/dL [facility] LIPIDS Trig 52 mg/dL <=149 07/10 [facility] mg/dL [facility] LIPIDS HDL 98 mg/dL >=61 mg/dL 07/10 [facility] /2016 [facility] LIPIDS CHD Risk 1.66 4.00 - 07/10 [facility] 7.30 [facility] MOLECULAR RSV PCR Negative Negative 07/10 [facility] DIAGNOSTIC Medical (07/10/16 1:53 AM) Center MOLECULAR Influenza B Negative Negative 07/10 [facility] DIAGNOSTIC PCR Medical (07/10/16 1:53 AM) Center MOLECULAR Influenza A Negative Negative 07/10 [facility] DIAGNOSTIC PCR Medical (07/10/16 1:53 AM) Center MOLECULAR Source Flocked ADMISSIONS RECRUITER Swab 07/10 [facility] DIAGNOSTIC Respiratory Medical Panel PCR (07/10/16 1:53 AM) Center SPECIAL Hgb A1C 5.1 % <=5.6 % 07/10 [facility] CHEMISTRY /2016 [facility] URINE AND UA Spec Grav 1.028 <=1.030 07/10 [facility] STOOL /2016 [facility] URINE AND UA pH 5.5 5.0 - 8.0 07/10 [facility] URINE AND UA Ketones Negative Negative 07/10 [facility] mg/dL mg/dL [facility] URINE AND UA Protein Negative Negative 07/10 [facility] mg/dL mg/dL [facility] URINE AND UA Blood Negative Negative 07/10 [facility] (07/10/16 1:53 AM) [place] URINE AND UA Nitrite Negative Negative 07/10 [facility] (07/10/16 1:53 AM) [place] URINE AND UA Bili Negative Negative 07/10 [facility] Medical *NA* [place] (07/10/16 1:53 AM) URINE AND UA Leuk Est Negative Negative 07/10 [facility] (07/10/16 1:53 AM) [place] URINE AND UA Glucose Negative Negative 07/10 [facility] mg/dL mg/dL [facility] URINE AND UA <=1.0 0.1 - 1.0 07/10 [facility] Urobilinogen mg/dL [facility] URINE AND UA WBC 1 /HPF 0 - 5 07/10 [facility] URINE AND UA Sq Epi Few /LPF Few /LPF 07/10 [facility] URINE AND UA Turbidity Clear Clear 07/10 [facility] (07/10/16 1:53 AM) [place] URINE AND UA Color Yellow Yellow 07/10 [facility] Medical *NA* [place] (07/10/16 1:53 AM) BLOOD BANK Antibody Scrn Negative 07/10 [facility] (07/09/16 9:20 PM) Center BLOOD BANK ABO/Rh A POS 07/10 [facility] HEMATOLOGY PT 12.5 s 12.0 - 07/10 [place] 14.7 [facility] HEMATOLOGY INR 0.91 0.85 - 07/10 [place] 1. [facility] HEMATOLOGY PTT 32.8 s 22.9 - 07/10 [place] 35.8 [facility] HEMATOLOGY Toxic Gran See Note 2 None Seen 07/10 Result Comment: [facility] (07/09/16 9:20 PM) [facility] Center HEMATOLOGY Bands 27.0 % 0.0 - 11.0 07/10 [facility] HEMATOLOGY Metamyelocyte 1.0 % 0.0 - 1.0 07/10 [facility] s [facility] HEMATOLOGY Atypical 0.0 % <=0.0 % 07/10 [facility] Lymphs [facility] HEMATOLOGY Plt Morph Normal 07/10 [facility] (07/09/16 9:20 PM) [place] HEMATOLOGY Anisocyte See Note 1 None Seen 07/10 [facility] Comment: Medical (07/09/16 9:20 PM) [facility] Center Chest 1view Chest 1view EXAM: XR CHEST 1 VIEW 07/10 - [facility] DX DX /2016 - [facility] DATE: 07/10/2016 1:09 AM CDT Read by: Rene Kalpan Dictated Date/time: 07/10/16 07:34 Electronically Signed by: Rene Kaplan 07/10/16 07:39 FINAL REPORT INDICATION: Shortness of Breath - Trach COMPARISON: 07/09/2016 TECHNIQUE: AP chest, semierect. FINDINGS: Lines and tubes, and life support devices: Tracheostomy tip 4.5 cm above the caroline. Dobbhoff feeding tube is malpositioned; it courses into the left mainstem bronchus, coils back and courses towards th e caroline and into the right mainstem bronchus with tip in the distal right main stem bronchus. Lungs and pleura: No focal consolidation or pleural fluid or pneumothorax seen. No new pulmonary or pleural based abnormality is identified. Heart and mediastinum: Unchanged. Bones and soft tissues: Unchanged. IMPRESSION: Malpositioned Dobbhoff feeding tube, which courses into the central airways, with tip in the right mainstem bronchus, as discussed above. Finding was discussed with Dr. Lyons, who said that the tube has already been removed. Vital Signs Vital Sign Value Date Comments Source Temperature Oral (F) 98.8 F 07/15/2016 [facility] Heart Rate 76 07/15/2016 [facility] Respitory Rate 20 07/15/2016 [facility] Systolic (mm Hg) 145 07/15/2016 [facility] Diastolic (mm Hg) 68 07/15/2016 [facility] Systolic (mm Hg) 170 07/15/2016 [facility] Diastolic (mm Hg) 87 07/15/2016 [facility] Respitory Rate 20 07/15/2016 [facility] Heart Rate 72 07/15/2016 [facility] Temperature Oral (F) 98.5 F 07/15/2016 [facility] Temperature Oral (F) 98.5 F 07/15/2016 [facility] Systolic (mm Hg) 160 07/15/2016 [facility] Diastolic (mm Hg) 79 07/15/2016 [facility] Respitory Rate 20 07/15/2016 [facility] Heart Rate 73 07/15/2016 [facility] Height 170.18 cm 07/11/2016 [facility] Height 170.18 cm 07/11/2016 [facility] Height 170.18 cm 07/11/2016 [facility] Weight 68.182 07/10/2016 [facility] BMI Calculated 23.54 07/10/2016 [facility] BMI Calculated 21.75 07/10/2016 [facility] Weight 72.727 07/10/2016 [facility] Encounters Location Location Encounter Encounter Reason Attending ADM DC Status Source Details Type Number For Provider Date Date Visit [facility] [id number] Bhavani 07/10 07/15 [facility] Guzman De Paz /2016 [facility] Procedures Procedure Code Date Perfomer Comments Source
--- OUTSIDE RECORDS SUMMARY | 2017-09-16 19:51 | XMS REPORT | Summary of Care ---
:1960 Author Organization [facility] Address [address], [place] [address]- Encounter HQ Wayne_sha(BENJAMIN) [id number] Date(s): 07/09/16 - 07/15/16 [facility] [address] [place] [address] Professional Services provided by [facility] [place] [address]- Discharge Disposition: DC/TF HOME/ORG [facility] Attending Physician: Bhavani Mejia MD Admitting Physician: Bhavani Mejia MD Referring Physician: Mino Morales MD Vital Signs Most recent to oldest 1 2 3 [Reference Range]: Height 170.18 cm 170.18 cm 170.18 cm (07/11/16 11:12 AM) (07/11/16 7:48 AM) (07/11/16 2:21 AM) Current Weight 70.938 kg (07/13/16 5:00 AM) Temperature Oral [96.4-99.1 98.8 DegF 98.5 DegF 98.5 DegF DegF] (07/15/16 10:52 AM) (07/15/16 7:30 AM) (07/15/16 4:08 AM) Blood Pressure [90-140/60-90 145/68 mmHg 170/87 mmHg 160/79 mmHg mmHg] *HI* *HI* *HI* (07/15/16 10:52 AM) (07/15/16 7:30 AM) (07/15/16 4:08 AM) Respiratory Rate [14-20 BRMIN] 20 BRMIN 20 BRMIN 20 BRMIN (07/15/16 10:52 AM) (07/15/16 7:30 AM) (07/15/16 4:08 AM) Peripheral Pulse Rate [60-100 76 bpm 72 bpm 73 bpm bpm] (07/15/16 10:52 AM) (07/15/16 7:30 AM) (07/15/16 4:08 AM) Weight 68.182 kg 72.727 kg (07/10/16 1:17 AM) (07/09/16 8:56 PM) Body Mass Index 23.54 m2 21.75 m2 (07/10/16 1:17 AM) (07/09/16 8:56 PM) Problem List Condition Effective Dates Status Health Status Informant Throat cancer(Confirmed) Resolved Allergies, Adverse Reactions, Alerts Substance Reaction Severity Status NKDA Active Medications acetaminophen 650 mg, 20.3 mL, Route: PO, Drug form: LIQ, Q6H, Dosing Weight 68.182, kg, PRN Pain 1-3/Temp > 100.4 F, Start date: 07/10/16 8:11:00 CDT, Duration: 30 day, Stop date: 08/09/16 8:10:00 CDT Start Date: 07/10/16 Stop Date: 07/15/16 Status: Discontinuedacetaminophen 650 mg, 2 tab, Route: PO, Drug form: TAB, Q6H, Dosing Weight 68.182, kg, PRN Pain 1-3/Temp > 100.4 F, Start date: 07/11/16 20:23:00 CDT, Duration: 30 day, Stop date: 08/10/16 20:22:00 CDT Notes: Do not exceed 4 gm/day. (Same as: Tylenol) Start Date: 07/11/16 Stop Date: 07/15/16 Status: Discontinuedalbuterol 0.083% inhalation solution 2.49 mg, 3 mL, Route: NEB, Drug form: SOLN, PRN, Dosing Weight 72.727, kg, PRN Respiratory Protocol,Start date: 07/10/16 0:19:00 CDT, Duration: 30 day, Stop date: 08/09/16 0:18:00 CDT Notes: SEE RT DOCUMENTATION (Same as: Proventil) Start Date: 07/10/16 Stop Date: 07/15/16 Status: Discontinuedamitriptyline 50 mg, PO, Bedtime, 0 Refill(s) Start Date: 07/10/16 Stop Date: 08/09/16 Status: OrderedAugmentin 875 mg, 10.94 mL, Route: NG, Drug Form: SOLN, Dosing Weight 68.182, kg, Q12H, x 4 days, Start date: 07/13/16 9:00:00 CDT, Duration: 4 day, Stop date: 07/16/16 21:00:00 CDT Notes: (amoxicillin-clavulanic acid *80mg/ oral SOLN ) (Same as:Augmentin 400) GI motility only Dosing interval must be q12h. Give at start of meal. Start Date: 07/13/16 Stop Date: 07/13/16 Status: DiscontinuedAugmentin 875 mg oral tablet 1 tab, PO, BID, X 2 day, # 4 tab, 0 Refill(s) Start Date: 07/15/16 Stop Date: 07/17/16 Status: CompletedBeneprotein 7 gm pkt 1 pkt, Route: PO, Drug Form: PWDR, Dosing Weight 68.182, kg, TID-Before Meals, Start date: 07/15/16 11:30:00 CDT, Duration: 30 day, Stop date: 08/14/16 7:30: 00 CDT Notes: (Same as: Beneprotein) Start Date: 07/15/16 Stop Date: 07/15/16 Status: DiscontinuedBeneprotein 7 gm pkt 1 pkt, Route: T FEED, Drug Form: PWDR, Dosing Weight 68.182, kg, TID-Before Meals, Start date: 07/14/16 11:30:00 CDT, Duration: 30 day, Stop date: 08/13/16 7:30:00 CDT Notes: (Same as: Beneprotein) Start Date: 07/14/16 Stop Date: 07/15/16 Status: Discontinuedcalcium carbonate 500 mg (200 mg elemental calcium) oral tablet 500 mg, 1 tab, Route: PO, Drug form: CHEWTAB, PRN, Dosing Weight 68.182, kg, PRN Abnormal Lab Result, FOR ICU USE ONLY, Start date: 07/11/16 4:00:00 CDT, Duration: 30 day, Stop date: 08/10/16 3:59:00 CDT Notes: (Same As: Tums)Calcium Carbonate 500 wi=667 mg elemental calcium Dose=_ mg calcium carbonate ( mg elemental calcium) Start Date: 07/11/16 Stop Date: 07/13/16 Status: Discontinuedcalcium carbonate 500 mg (200 mg elemental calcium) oral tablet 1,000 mg, 2 tab, Route: PO, Drug form: CHEWTAB, PRN, Dosing Weight 68.182, kg, PRN Abnormal Lab Result, FOR ICU USE ONLY, Start date: 07/11/16 4:00:00 CDT, Duration: 30 day, Stop date: 08/10/16 3:59:00CDT Notes: (Same As: Tums)Calcium Carbonate 500 ne=351 mg elemental calcium Dose=_ mg calcium carbonate ( mg elemental calcium) Start Date: 07/11/16 Stop Date: 07/13/16 Status: Discontinuedcalcium gluconate + sodium chloride 0.9% INJ 50 mL 1 gm, 10 mL, Route: IVPB, PRN, Dosing Weight 68.182, kg, PRN Abnormal Lab Result , Start date: 07/11/16 4:00:00 CDT, Duration: 30 day, Stop date: 08/10/16 3:59: 00 CDT, FOR ICU USE ONLY Notes: WASTE: F/P - Sink; E - Municipal Trash Bin Start Date: 07/11/16 Stop Date: 07/13/16 Status: DiscontinuedCetacaine topical aerosol 1 spray, Route: TOP, ONCE, Drug form: AERO, Start date: 07/09/16 21:27:00 CDT, Stop date: 07/09/16 21:27:00 CDT Notes: (Same As: Cetacaine)Cetacaine (qqthiukfml-zkbxibbhdi-lnlkzkmx 14-2-2%) Start Date: 07/09/16 Stop Date: 07/12/16 Status: Completedchlorhexidine topical 0.12% liquid 15 mL, Route: Swab Mouth, PRN, Drug form: LIQ, PRN Other -See Comment, Start date: 07/10/16 1:09:00 CDT, Duration: 30 day, Stop date: 08/09/16 1:08:00 CDT Notes: (Same As: Peridex) Start Date: 07/10/16 Stop Date: 07/15/16 Status: Discontinuedchlorhexidine topical 0.12% liquid 15 mL, Route: Swab Mouth, Q12H, Drug form: LIQ, Start date: 07/10/16 9:00:00 CDT , Duration: 30 day, Stop date: 08/08/16 21:00:00 CDT Notes: (Same As: Peridex) Start Date: 07/10/16 Stop Date: 07/15/16 Status: UrffqaeszsxpK0BC 1,000 mL 1,000 mL, Rate: 75 ml/hr, Infuse over: 13.3 hr, Route: IV, Dosing Weight 68.182 kg, Total Volume: 1,000, Start date: 07/12/16 7:30:00 CDT, Duration: 30 day, Stop date: 08/11/16 7:29:00 CDT Start Date: 07/12/16 Stop Date: 07/12/16 Status: EkeimspwssnuD0LM 1,000 mL 1,000 mL, Rate: 100 ml/hr, Infuse over: 10 hr, Route: IV, Dosing Weight 68.182 kg, Total Volume: 1,000, Start date: 07/10/16 11:56:00 CDT, Stop date: 08/09/16 11:55:00 CDT Start Date: 07/10/16 Stop Date: 07/11/16 Status: WupnwewvwnfhJ9MO 1,000 mL 1,000 mL, Rate: 150 ml/hr, Infuse over: 6.7 hr, Route: IV, Dosing Weight 68.182 kg, Total Volume: 1,000, Start date: 07/11/16 11:07:00 CDT, Duration: 30 day, Stop date: 08/10/16 11:06:00 CDT Start Date: 07/11/16 Stop Date: 07/12/16 Status: DiscontinuedDextrose 50% Syringe 25 gm, 50 mL, Route: IVP, Drug Form: INJ, Dosing Weight 68.182, kg, PRN, PRN Blood Glucose Results, Start date: 07/10/16 8:17:00 CDT, Duration: 30 day, Stop date: 08/09/16 8:16:00 CDT Start Date: 07/10/16 Stop Date: 07/15/16 Status: DiscontinuedDextrose 50% Syringe 12.5 gm, 25 mL, Route: IVP, Drug Form: INJ, Dosing Weight 68.182, kg, PRN, PRN Blood Glucose Results, Start date: 07/10/16 8:17:00 CDT, Duration: 30 day, Stop date: 08/09/16 8:16:00 CDT Start Date: 07/10/16 Stop Date: 07/15/16 Status: DiscontinueddiphenhydrAMINE 25 mg, 1 cap, Route: PO, Drug form: CAP, ONCE, Dosing Weight 68.182, kg, Start date: 07/11/16 20:24:00 CDT, Stop date: 07/11/16 20:24:00 CDT Notes: (Same as: Benadryl) Start Date: 07/11/16 Stop Date: 07/11/16 Status: Discontinueddocusate-senna 50 mg-8.6 mg oral tablet 2 tab, Route: PO, Drug Form: TAB, Dosing Weight 68.182, kg, Q12H, Start date: 9:00:00 CDT, Duration: 30 day, Stop date: 08/08/16 21:00:00 CDT Notes: (Same as Amena-S) Equiv. to Yvette-Colace. Start Date: 07/10/16 Stop Date: 07/15/16 Status: Discontinuedenoxaparin 40 mg, 0.4 mL, Route: SUB-Q, Drug form: INJ, [id number], Dosing Weight 68.182, kg , Start date: 07/10/16 5:00:00 CDT, Duration: 30 day, Stop date: 08/08/16 5:00: 00 CDT Notes: (Same as: Lovenox) Start Date: 07/10/16 Stop Date: 07/15/16 Status: DiscontinuedfentaNYL 50 microgram, Route: IV, ONCE, Dosing Weight 68.182, kg, Start date: 07/14/16 10 :25:00 CDT, Stop date: 07/14/16 10:25:00 CDT Start Date: 07/14/16 Stop Date: 07/14/16 Status: CompletedfentaNYL 75 microgram, Route: IV, ONCE, Dosing Weight 68.182, kg, Start date: 07/14/16 8: 22:00 CDT, Stop date: 07/14/16 8:22:00 CDT Start Date: 07/14/16 Stop Date: 07/14/16 Status: CompletedfentaNYL 50 microgram, 1 mL, Route: IV, Drug form: INJ, ONCE, Dosing Weight 68.182, kg, Start date: 07/12/16 6:56:00 CDT, Stop date: 07/12/16 6:56:00 CDT Notes: (Same as: Sublimaze) Preservative free. Start Date: 07/12/16 Stop Date: 07/12/16 Status: CompletedfentaNYL 25 microgram, 0.5 mL, Route: IV, Drug form: INJ, ONCE, Dosing Weight 68.182, kg , Start date: 07/11/16 21:00:00 CDT, Stop date: 07/11/16 21:00:00 CDT Notes: (Same as: Sublimaze) Preservative free. Start Date: 07/11/16 Stop Date: 07/11/16 Status: CompletedfentaNYL 25 microgram, Route: IV, ONCE, Dosing Weight 68.182, kg, Start date: 07/14/16 9: 35:00 CDT, Stop date: 07/14/16 9:35:00 CDT Start Date: 07/14/16 Stop Date: 07/14/16 Status: CompletedfentaNYL 50 microgram, Route: IV, ONCE, Dosing Weight 68.182, kg, Start date: 07/14/16 9: 55:00 CDT, Stop date: 07/14/16 9:55:00 CDT Start Date: 07/14/16 Stop Date: 07/14/16 Status: CompletedfentaNYL (ANES) Route: IV, Drug form: INJ, ONCE, Stop date: 07/10/16 0:57:00 CDT Start Date: 07/10/16 Stop Date: 07/10/16 Status: CompletedfentaNYL - one time ICU bolus dose 50 microgram, 1 mL, Route: IVP, Drug form: INJ, ONCE, Dosing Weight 68.182, kg, Start date: 172:45:00 CDT, Stop date: 07/10/16 2:45:00 CDT Notes: (Same as: Sublimaze) Preservative free. Start Date: 07/10/16 Stop Date: 07/10/16 Status: CompletedfentaNYL - one time ICU bolus dose 50 microgram, Route: IVP, Drug form: INJ, ONCE, Dosing Weight 68.182, kg, Start date: 07/11/16 14:59:00 CDT, Stop date: 07/11/16 14:59:00 CDT Start Date: 07/11/16 Stop Date: 07/11/16 Status: CompletedfentaNYL 1000microgram/20ml drip (pyxis) 1,000 microgram 1,000 microgram, 20 mL, Rate: Titrate, Start Dose: 50 microgram/hr, Titration: 25 microgram/hour every 15 minutes, Goal(s): RASS - 1, Max Dose: 300 microgram/ hr, Route: IV, Dosing Weight 68.182 kg, Total Volume: 20, Start date: 07/10/16 2 :45:00 CDT, D... Start Date: 07/10/16 Stop Date: 07/11/16 Status: Discontinuedglucagon 1 mg, Route: IM, Drug form: PDR/INJ, PRN, Dosing Weight 68.182, kg, PRN Blood Glucose Results, Startdate: 07/10/16 8:17:00 CDT, Duration: 30 day, Stop date: 08/09/16 8:16:00 CDT Start Date: 07/10/16 Stop Date: 07/15/16 Status: Discontinuedglucagon 1 mg, Route: IV, ONCE, Dosing Weight 68.182, kg, Start date: 07/14/16 8:45:00 CDT, Stop date: 07/14/16 8:45:00 CDT Start Date: 07/14/16 Stop Date: 07/14/16 Status: Completedglucagon 1 mg, Route: IV, ONCE, Dosing Weight 68.182, kg, Start date: 07/14/16 9:35:00 CDT, Stop date: 07/14/16 9:35:00 CDT Start Date: 07/14/16 Stop Date: 07/14/16 Status: Completedglucagon 1 mg, Route: IV, ONCE, Dosing Weight 68.182, kg, Start date: 07/14/16 10:15:00 CDT, Stop date: 07/14/16 10:15:00 CDT Start Date: 07/14/16 Stop Date: 07/14/16 Status: Completedheparin 5000 units/mL injectable solution 5,000 unit, Route: SUB-Q, Drug form: INJ, Q8H, Dosing Weight 68.182, kg, Start date: 07/12/16 16:00:00 CDT, Duration: 30 day, Stop date: 08/11/16 8:00:00 CDT Start Date: 07/12/16 Stop Date: 07/12/16 Status: CanceledhydrALAZINE 10 mg, Route: PO, Drug form: TAB, Q6H, Dosing Weight 68.182, kg, PRN Hypertension, Start date: 07/11/16 11:07:00 CDT, Duration: 30 day, Stop date: 11:06:00 CDT Start Date: 07/11/16 Stop Date: 07/11/16 Status: DiscontinuedhydrALAZINE 10 mg, Route: PO, Drug form: TAB, Q6H, Dosing Weight 68.182, kg, Start date: 12:00:00 CDT, Duration: 30 day, Stop date: 08/10/16 6:00:00 CDT Start Date: 07/11/16 Stop Date: 07/11/16 Status: CanceledhydrALAZINE 20 mg, Route: IV, ONCE, Dosing Weight 68.182, kg, Start date: 07/11/16 18:10:00 CDT, Stop date: 07/11/16 18:10:00 CDT Start Date: 07/11/16 Stop Date: 07/11/16 Status: CompletedhydrALAZINE 10 mg, 0.5 mL, Route: IV, Drug form: INJ, Q6H, Dosing Weight 68.182, kg, PRN Hypertension, Start date: 07/11/16 11:21:00 CDT, Duration: 30 day, Stop date: 11:20:00 CDT Notes: (Same as: Apresoline)Push over 5 minutes Start Date: 07/11/16 Stop Date: 07/13/16 Status: DiscontinuedhydrALAZINE 10 mg, 0.5 mL, Route: IV, Drug form: INJ, Q8H, Dosing Weight 68.182, kg, PRN Other -See Comment, prnsbp>180, dbp>100, Start date: 07/13/16 13:12:00 CDT, Duration: 30 day, Stop date: 08/12/16 13:11:00 CDT Notes: (Same as: Apresoline)Push over 5 minutes Start Date: 07/13/16 Stop Date: 07/15/16 Status: Discontinuedhydrochlorothiazide 12.5 mg oral capsule 12.5 mg=1 cap, PO, Daily, # 30 cap, 0 Refill(s) Start Date: 07/15/16 Stop Date: 08/14/16 Status: Orderedhydrochlorothiazide-lisinopril 12.5 mg-10 mg oral tablet 1 tab, Route: PO, Drug Form: TAB, Dosing Weight 68.182, kg, Daily, Start date: 07/12/16 9:00:00 CDT,Duration: 30 day, Stop date: 08/10/16 9:00:00 CDT Start Date: 07/12/16 Stop Date: 07/12/16 Status: DeletedInsulin regular 5 unit, 0.05 mL, Route: SUB-Q, Drug form: SOLN, Sliding Scale, Dosing Weight 68.182, kg, PRN Blood Glucose Results, Start date: 07/10/16 8:17:00 CDT, Duration: 30 day, Stop date: 08/09/16 8:16:00 CDT Notes: (Same as: Humulin R) Roll in palms of hands gently; Do not shake vigorously. "single patientuse only"(Restricted to patients requiring a dose > 60 units)WASTE: F/P - Black; E - Municipal Trash Bin Stable for 28 days at room temperatureExpires in days from Date Start Date: 07/10/16 Stop Date: 07/15/16 Status: DiscontinuedInsulin regular 4 unit, 0.04 mL, Route: SUB-Q, Drug form: SOLN, Sliding Scale, Dosing Weight 68.182, kg, PRN Blood Glucose Results, Start date: 07/10/16 8:17:00 CDT, Duration: 30 day, Stop date: 08/09/16 8:16:00 CDT Notes: (Same as: Humulin R) Roll in palms of hands gently; Do not shake vigorously. "single patientuse only"(Restricted to patients requiring a dose > 60 units)WASTE: F/P - Black; E - Municipal Trash Bin Stable for 28 days at room temperatureExpires in days from Date Start Date: 07/10/16 Stop Date: 07/15/16 Status: DiscontinuedInsulin regular 3 unit, 0.03 mL, Route: SUB-Q, Drug form: SOLN, Sliding Scale, Dosing Weight 68.182, kg, PRN Blood Glucose Results, Start date: 07/10/16 8:17:00 CDT, Duration: 30 day, Stop date: 08/09/16 8:16:00 CDT Notes: (Same as: Humulin R) Roll in palms of hands gently; Do not shake vigorously. "single patientuse only"(Restricted to patients requiring a dose > 60 units)WASTE: F/P - Black; E - Municipal Trash Bin Stable for 28 days at room temperatureExpires in days from Date Start Date: 07/10/16 Stop Date: 07/15/16 Status: DiscontinuedInsulin regular 2 unit, 0.02 mL, Route: SUB-Q, Drug form: SOLN, Sliding Scale, Dosing Weight 68.182, kg, PRN Blood Glucose Results, Start date: 07/10/16 8:17:00 CDT, Duration: 30 day, Stop date: 08/09/16 8:16:00 CDT Notes: (Same as: Humulin R) Roll in palms of hands gently; Do not shake vigorously. "single patientuse only"(Restricted to patients requiring a dose > 60 units)WASTE: F/P - Black; E - Municipal Trash Bin Stable for 28 days at room temperatureExpires in days from Date Start Date: 07/10/16 Stop Date: 07/15/16 Status: DiscontinuedInsulin regular 1 unit, 0.01 mL, Route: SUB-Q, Drug form: SOLN, Sliding Scale, Dosing Weight 68.182, kg, PRN Blood Glucose Results, Start date: 07/10/16 8:17:00 CDT, Duration: 30 day, Stop date: 08/09/16 8:16:00 CDT Notes: (Same as: Humulin R) Roll in palms of hands gently; Do not shake vigorously. "single patientuse only"(Restricted to patients requiring a dose > 60 units)WASTE: F/P - Black; E - Municipal Trash Bin Stable for 28 days at room temperatureExpires in days from Date Start Date: 07/10/16 Stop Date: 07/15/16 Status: Discontinuedipratropium 0.5 mg, 2.5 mL, Route: NEB, Drug form: SOLN, PRN, Dosing Weight 72.727, kg, PRN Respiratory Protocol, Start date: 07/10/16 0:19:00 CDT, Duration: 30 day, Stop date: 08/09/16 0:18:00 CDT Notes: SEE RT DOCUMENTATION(Same as:Atrovent) Start Date: 07/10/16 Stop Date: 07/15/16 Status: DiscontinuedketOROLAC 30 mg, 2 mL, Route: IVP, Drug form: INJ, ONCE, Dosing Weight 68.182, kg, Start date: 07/13/16 16:38:00 CDT, Duration: 1 doses or times, Stop date: 07/13/16 16: 38:00 CDT Notes: (Same as:Toradol) IV bolus must be given >15 seconds. Give IM administration slowly and deeply into the muscle. Not for use > 4 days. Start Date: 07/13/16 Stop Date: 07/13/16 Status: Completedlansoprazole 30 mg, Route: NG, Drug form: SUSP, Before Breakfast, Dosing Weight 68.182, kg, Start date: 07/11/16 7:30:00 CDT, Duration: 30 day, Stop date: 08/09/16 7:30:00 CDT Start Date: 07/11/16 Stop Date: 07/10/16 Status: Canceledlevothyroxine 112 microgram, 1 tab, Route: PO, Drug form: TAB, Q630AM, Dosing Weight 68.182, kg, Start date: 07/10/16 8:09:00 CDT, Duration: 30 day, Stop date: 08/09/16 6:30 :00 CDT Notes: Take 1 hour before or 2 hours after meal; Enteral feeds may interefere with the absorption ofthis medication.(Same as:Levothroid) Start Date: 07/10/16 Stop Date: 07/15/16 Status: Discontinuedlevothyroxine 112 mcg (0.112 mg) oral tablet 112 microgram=1 tab, PO, Daily, # 60 tab, 0 Refill(s) Start Date: 07/10/16 Status: Orderedlidocaine 4% inhalation solution 5 mL, Route: NEB, Drug Form: SOLN, Dosing Weight 72.727, kg, ONCE, Start date: 07/09/16 21:27:00 CDT, Stop date: 07/09/16 21:27:00 CDT Start Date: 07/09/16 Stop Date: 07/09/16 Status: Completedlisinopril 10 mg, 1 tab, Route: PO, Drug form: TAB, Daily, Start date: 07/12/16 9:00:00 CDT , Duration: 30 day, Stop date: 08/10/16 9:00:00 CDT Notes: (Same as: Prinivil, Zestril) Start Date: 07/12/16 Stop Date: 07/15/16 Status: Discontinuedlisinopril 10 mg oral tablet 10 mg=1 tab, PO, Daily, # 30 tab, 0 Refill(s) Start Date: 07/15/16 Stop Date: 08/14/16 Status: Orderedmagnesium oxide 800 mg, 2 tab, Route: PO, Drug form: TAB, PRN, Dosing Weight 68.182, kg, PRN Abnormal Lab Result, FOR ICU USE ONLY, Start date: 07/11/16 4:00:00 CDT, Duration: 30 day, Stop date: 08/10/16 3:59:00 CDT Notes: (Same as: Mag-Ox 400)Magnesium oxide [id number] elemental magnesiumDose= ____mg magnesium oxide (___mg elemental magnesium) Start Date: 07/11/16 Stop Date: 07/13/16 Status: Discontinuedmagnesium sulfate 2 gm, 50 mL, Route: IVPB, Drug form: INJ, PRN, Dosing Weight 68.182, kg, PRN Abnormal Lab Result, Start date: 07/11/16 4:00:00 CDT, Duration: 30 day, Stop date: 08/10/16 3:59:00 CDT, FOR ICU USE ONLY Notes: WASTE: F/P - Sink; E - Municipal Trash Bin Start Date: 07/11/16 Stop Date: 07/13/16 Status: DiscontinuedMicrozide 12.5 mg, 1 cap, Route: PO, Drug form: CAP, Daily, Start date: 07/12/16 9:00:00 CDT, Duration: 30 day, Stop date: 08/10/16 9:00:00 CDT Notes: (Same as: Microzide) With food. Start Date: 07/12/16 Stop Date: 07/15/16 Status: Discontinuedmidazolam 1 mg, Route: IV, ONCE, Dosing Weight 68.182, kg, Start date: 07/14/16 8:45:00 CDT, Stop date: 07/14/16 8:45:00 CDT Start Date: 07/14/16 Stop Date: 07/14/16 Status: Completedmidazolam 1 mg, Route: IV, ONCE, Dosing Weight 68.182, kg, Start date: 07/14/16 10:15:00 CDT, Stop date: 07/14/16 10:15:00 CDT Start Date: 07/14/16 Stop Date: 07/14/16 Status: Completedmorphine Sulfate 1 mg, 0.5 mL, Route: IV, Drug form: INJ, ONCE, Dosing Weight 68.182, kg, Start date: 07/14/16 16:51:00 CDT, Stop date: 07/14/16 16:51:00 CDT Notes: (Same as:MORPhine Sulfate) Start Date: 07/14/16 Stop Date: 07/14/16 Status: Completedmorphine Sulfate 2 mg, 1 mL, Route: IVP, Drug form: INJ, ONCE, Dosing Weight 68.182, kg, Start date: 07/15/16 4:46:00CDT, Stop date: 07/15/16 4:46:00 CDT Notes: (Same as:MORPhine Sulfate) Start Date: 07/15/16 Stop Date: 07/15/16 Status: Completedmorphine Sulfate 2 mg, 1 mL, Route: IVP, Drug form: INJ, ONCE, Dosing Weight 68.182, kg, Start date: 07/14/16 19:48:00 CDT, Stop date: 07/14/16 19:48:00 CDT Notes: (Same as:MORPhine Sulfate) Start Date: 07/14/16 Stop Date: 07/14/16 Status: Completedmorphine Sulfate 1 mg, 0.5 mL, Route: IV, Drug form: INJ, Q8H, Dosing Weight 68.182, kg, PRN Pain Score 6-10, Start date: 07/13/16 12:56:00 CDT, Duration: 30 day, Stop date : 08/12/16 12:55:00 CDT Notes: (Same as:MORPhine Sulfate) Start Date: 07/13/16 Stop Date: 07/15/16 Status: DiscontinuedNorco 5/325 oral tablet 1 tab, Route: PO, Drug Form: TAB, Dosing Weight 68.182, kg, Q6H, PRN Pain 4-6/ Temp > 100.4 F, Start date: 07/12/16 19:32:00 CDT, Duration: 30 day, Stop date: 08/11/16 19:31:00 CDT Notes: (Same as: [place] 325/5) Do not exceed 4gm/day of acetaminophen. Start Date: 07/12/16 Stop Date: 07/15/16 Status: Discontinuednystatin topical 100,000 units/g powder 1 appl, Route: TOP, PRN, Drug form: PWDR, PRN For Fungal Prophylaxis, Start date : 07/10/16 1:09:00 CDT, Duration: 30 day, Stop date: 08/09/16 1:08:00 CDT Notes: (Same as:Mycostatin, Nilstat) For external use only. Start Date: 07/10/16 Stop Date: 07/15/16 Status: Discontinuedocular lubricant 1 appl, Route: BOTH EYES, Q6H, Drug form: OINT, Start date: 07/10/16 6:00:00 CDT , Duration: 30 day, Stop date: 08/09/16 0:00:00 CDT Notes: (Same as: Duratears Naturale and Artificial Tears, Tears Again ) Start Date: 07/10/16 Stop Date: 07/15/16 Status: DiscontinuedOLANZapine 5 mg, 1 tab, Route: PO, Drug form: TAB, Daily, Dosing Weight 68.182, kg, Start date: 07/12/16 9:00:00 CDT, Duration: 30 day, Stop date: 08/10/16 9:00:00 CDT Notes: (Same as: ZyPREXA) Start Date: 07/12/16 Stop Date: 07/15/16 Status: DiscontinuedOmnipaque 350mg/ml 100 mL, Route: IVP, Drug Form: SOLN, Dosing Weight 68.182, kg, ONCALL, STAT, Start date: 07/10/16 9:47:00 CDT, Duration: 1 doses or times, Stop date: 23:00:00 CDT, Dose=2.2ml/kg, Max [id number] -- "To be infused by Radiology Staff ONLY" Notes: (same as:Omnipaque 350).WASTE: F/P - Black; E - Municipal Trash Bin Start Date: 07/10/16 Stop Date: 07/10/16 Status: Completedpantoprazole 40 mg, Route: IVP, Drug form: INJ, Daily, Dosing Weight 72.727, kg, Start date: 07/10/16 9:00:00 CDT, Duration: 30 day, Stop date: 08/08/16 9:00:00 CDT Notes: For IV push reconstitute with 10 ml 0.9% sodium chloride and push over 2 minutes. (Same as: Protonix) Start Date: 07/10/16 Stop Date: 07/10/16 Status: Discontinuedpneumococcal 23-valent vaccine 0.5 mL, Route: IM, Drug Form: INJ, Daily, Start date: 07/10/16 9:00:00 CDT, Duration: 1 doses or times, Stop date: 07/10/16 9:00:00 CDT Notes: (Same as: Pneumovax 23) Refrigerate Start Date: 07/10/16 Stop Date: 07/11/16 Status: Deletedpotassium chloride 20 mEq, 100 mL, Route: IVPB, Drug form: INJ, Q2H, Dosing Weight 68.182, kg, Total dose=40 mEq, Startdate: 07/10/16 12:00:00 CDT, Duration: 2 doses or times , Stop date: 07/10/16 14:00:00 CDT, Central Line Notes: (Same as: KCL) Infuse no faster than 10 mEq/hr if given peripherally. Start Date: 07/10/16 Stop Date: 07/10/16 Status: Completedpotassium chloride 20 mEq, 1 tab, Route: PO, Drug form: ERTAB, PRN, Dosing Weight 68.182, kg, PRN Abnormal Lab Result, Start date: 07/11/16 4:00:00 CDT, Duration: 30 day, Stop date: 08/10/16 3:59:00 CDT, FOR ICU USE ONLY Notes: (Same as: K-Dur 20)"Do Not Crush" With food and full glass of water Start Date: 07/11/16 Stop Date: 07/13/16 Status: Discontinuedpotassium chloride 20 mEq, 15 mL, Route: NJ, Drug form: LIQ, PRN, Dosing Weight 68.182, kg, PRN Abnormal Lab Result, Start date: 07/11/16 4:00:00 CDT, Duration: 30 day, Stop date: 08/10/16 3:59:00 CDT, FOR ICU USE ONLY Notes: (Same as: Potassium Chloride) Start Date: 07/11/16 Stop Date: 07/13/16 Status: Discontinuedpotassium chloride 20 mEq, 100 mL, Route: IVPB, Drug form: INJ, PRN, Dosing Weight 68.182, kg, PRN Abnormal Lab Result,Via central line, Start date: 07/11/16 4:00:00 CDT, Duration : 30 day, Stop date: 08/10/16 3:59:00 CDT, FOR ICU USE ONLY Notes: (Same as: KCL) Infuse no faster than 10 mEq/hr if given peripherally. Start Date: 07/11/16 Stop Date: 07/13/16 Status: Discontinuedpotassium chloride 10 mEq, 50 mL, Route: IVPB, Drug form: INJ, PRN, Dosing Weight 68.182, kg, PRN Abnormal Lab Result, Via peripheral line, Start date: 07/11/16 4:00:00 CDT, Duration: 30 day, Stop date: 08/10/16 3:59:00 CDT, FOR ICU USE ONLY Notes: (Same as: KCL) Infuse over 2 hours. Start Date: 07/11/16 Stop Date: 07/13/16 Status: Discontinuedpotassium phosphate + sodium chloride 0.9% INJ 250 mL 30 mmol, 10 mL, Route: IVPB, PRN, Dosing Weight 68.182, kg, PRN Abnormal Lab Result, Start date: 07/11/16 4:00:00 CDT, Duration: 30 day, Stop date: 08/10/16 3:59:00 CDT, FOR ICU USE ONLY Notes: (Same as: K Phosphate.) 1 mMol phoshate has 1.47 mEq potassium Infuse over 4 hours Start Date: 07/11/16 Stop Date: 07/13/16 Status: Discontinuedpotassium phosphate + sodium chloride 0.9% INJ 250 mL 45 mmol, 15 mL, Route: IVPB, PRN, Dosing Weight 68.182, kg, PRN Abnormal Lab Result, Start date: 07/11/16 4:00:00 CDT, Duration: 30 day, Stop date: 08/10/16 3:59:00 CDT, FOR ICU USE ONLY Notes: (Same as: K Phosphate.) 1 mMol phoshate has 1.47 mEq potassium Infuse over 4 hours Start Date: 07/11/16 Stop Date: 07/13/16 Status: Discontinuedpotassium phosphate + sodium chloride 0.9% INJ 250 mL 15 mmol, 5 mL, Route: IVPB, PRN, Dosing Weight 68.182, kg, PRN Abnormal Lab Result, Start date: 07/11/16 4:00:00 CDT, Duration: 30 day, Stop date: 08/10/16 3:59:00 CDT, FOR ICU USE ONLY Notes: (Same as: K Phosphate.) 1 mMol phoshate has 1.47 mEq potassium Infuse over 4 hours Start Date: 07/11/16 Stop Date: 07/13/16 Status: Discontinuedpotassium phosphate-sodium phosphate 250 mg-280 mg-160 mg oral powder for reconstitution 2 pkt, Route: PO, Drug Form: PDR/REC, Dosing Weight 68.182, kg, PRN, PRN Abnormal Lab Result, FOR ICU USE ONLY, Start date: 07/11/16 4:00:00 CDT, Duration: 30 day, Stop date: 08/10/16 3:59:00 CDT Notes: (Same as: Phos-NaK) Each 1.5 gm pkt has 250mg phosphorous. Mix w/2.5oz water and stir. Start Date: 07/11/16 Stop Date: 07/13/16 Status: DiscontinuedPrenatal Multivitamins with Folic Acid 0.8 mg oral tablet 1 tab, Route: PO, Drug Form: TAB, Dosing Weight 68.182, kg, Daily, Start date: 07/10/16 9:00:00 CDT,Duration: 30 day, Stop date: 08/08/16 9:00:00 CDT Start Date: 07/10/16 Stop Date: 07/15/16 Status: DiscontinuedProtonix 40 mg, Route: IVP, Drug form: INJ, Before Breakfast, Dosing Weight 68.182, kg, Start date: 07/11/16 7:30:00 CDT, Duration: 30 day, Stop date: 08/09/16 7:30:00 CDT Start Date: 07/11/16 Stop Date: 07/15/16 Status: DiscontinuedProtonix 40 mg, Route: IVP, Drug form: INJ, Before Breakfast, Dosing Weight 68.182, kg, Patient is NPO, Startdate: 07/10/16 5:00:00 CDT, Duration: 30 day, Stop date: 7:30:00 CDT Notes: For IV push reconstitute with 10 ml 0.9% sodium chloride and push over 2 minutes. (Same as: Protonix) Start Date: 07/10/16 Stop Date: 07/10/16 Status: Discontinuedracemic epinephrine 2.25% inhalation solution 11.25 mg, 0.5 mL, Route: NEB, Drug Form: SOLN, Dosing Weight 72.727, kg, ONCE, STAT, Start date: 07/09/16 21:32:00 CDT, Stop date: 07/09/16 21:32:00 CDT Notes: (racepinephrine *2.25% inh 0.5ml SOLN) (Same as:S2) Start Date: 07/09/16 Stop Date: 07/10/16 Status: DiscontinuedSaline Flush 0.9% 10 ml, Route: IVP, Drug Form: INJ, Dosing Weight 72.727, kg, PRN, PRN Line Flush , Start date: 07/10/16 1:09:00 CDT, Duration: 30 day, Stop date: 08/09/16 1:08: 00 CDT Notes: Same as: BD Posiflush Sterile Start Date: 07/10/16 Stop Date: 07/15/16 Status: DiscontinuedSaline Flush 0.9% 10 ml, Route: IVP, Drug Form: INJ, Dosing Weight 72.727, kg, Q12H, Start date: 07/10/16 9:00:00 CDT,Duration: 30 day, Stop date: 08/08/16 21:00:00 CDT Notes: Same as: BD Posiflush Sterile Start Date: 07/10/16 Stop Date: 07/15/16 Status: Discontinuedsodium phosphate + sodium chloride 0.9% INJ 250 mL 30 mmol, 10 mL, Route: IVPB, PRN, Dosing Weight 68.182, kg, PRN Abnormal Lab Result, Start date: 07/11/16 4:00:00 CDT, Duration: 30 day, Stop date: 08/10/16 3:59:00 CDT, FOR ICU USE ONLY Start Date: 07/11/16 Stop Date: 07/13/16 Status: Discontinuedsodium phosphate + sodium chloride 0.9% INJ 250 mL 45 mmol, 15 mL, Route: IVPB, PRN, Dosing Weight 68.182, kg, PRN Abnormal Lab Result, Start date: 07/11/16 4:00:00 CDT, Duration: 30 day, Stop date: 08/10/16 3:59:00 CDT, FOR ICU USE ONLY Start Date: 07/11/16 Stop Date: 07/13/16 Status: Discontinuedsodium phosphate + sodium chloride 0.9% INJ 250 mL 15 mmol, 5 mL, Route: IVPB, PRN, Dosing Weight 68.182, kg, PRN Abnormal Lab Result, Start date: 07/11/16 4:00:00 CDT, Duration: 30 day, Stop date: 08/10/16 3:59:00 CDT, FOR ICU USE ONLY Start Date: 07/11/16 Stop Date: 07/13/16 Status: Discontinuedsterile water 2.1 mL, Route: MISC, Drug Form: INJ, ONCE, Start date: 07/10/16 10:00:00 CDT, Stop date: 07/10/16 10:00:00 CDT Start Date: 07/10/16 Stop Date: 07/10/16 Status: Completedsterile water 2.1 mL, Route: MISC, Drug Form: INJ, Daily, Start date: 07/10/16 16:00:00 CDT, Duration: 30 day, Stop date: 08/08/16 16:00:00 CDT Start Date: 07/10/16 Stop Date: 07/15/16 Status: Discontinuedthiamine 100 mg, 1 tab, Route: PO, Drug form: TAB, Daily, Dosing Weight 68.182, kg, Start date: 07/10/16 9:00:00 CDT, Duration: 30 day, Stop date: 08/08/16 9:00:00 CDT Notes: (Same As: Vitamin B1) Start Date: 07/10/16 Stop Date: 07/15/16 Status: Discontinuedtramadol 50 mg oral tablet 50 mg=1 tab, PO, Q6H, PRN Pain Score 1-5, 0 Refill(s) Start Date: 07/15/16 Status: Orderedtramadol 50 mg oral tablet 50 mg, 1 tab, Route: PO, Drug form: TAB, Q6H, Dosing Weight 68.182, kg, PRN Pain Score 1-5, Start date: 07/14/16 8:44:00 CDT, Duration: 30 day, Stop date: 08/13/16 8:43:00 CDT Notes: Not to exceed 400mg/day. (Same As: Ultram) Start Date: 07/14/16 Stop Date: 07/15/16 Status: DiscontinuedTylenol with Codeine 120 mg-12 mg/5 mL oral liquid 5 mL, Route: PO, Drug Form: LIQ, Dosing Weight 68.182, kg, Q4H, PRN Pain Score 4 -6, Start date: 07/12/16 6:56:00 CDT, Duration: 30 day, Stop date: 08/11/16 6:55 :00 CDT Notes: (acetaminophen-codeine 120-12 mg/5 ml oral liq) Do not exceed 4gm/day of acetaminophen. (Same as: Tylenol w/Codeine) Start Date: 07/12/16 Stop Date: 07/15/16 Status: DiscontinuedUnasyn 3 gm, 1 ea, Route: IVPB, Drug form: PDR/INJ, ONCE, Dosing Weight 72.727, kg, Priority: STAT, Start date: 07/09/16 23:11:00 CDT, Stop date: 07/09/16 23:11:00 CDT Notes: Dosing based on Ampicillin component (Same as: Unasyn) Start Date: 07/09/16 Stop Date: 07/10/16 Status: DiscontinuedUnasyn 3 gm, 1 ea, Route: IVPB, Drug form: PDR/INJ, ABXQ6H, Dosing Weight 72.727, kg, Start date: 07/10/16 2:00:00 CDT, Duration: 30 day, Stop date: 08/08/16 20:00: 00 CDT Notes: Dosing based on Ampicillin component (Same as: Unasyn) Start Date: 07/10/16 Stop Date: 07/12/16 Status: DiscontinuedUnasyn 3 gm, 1 ea, Route: IVPB, Drug form: PDR/INJ, ABXQ6H, Start date: 07/13/16 14:00: 00 CDT, Duration: 4 day, Stop date: 07/17/16 8:00:00 CDT Notes: Dosing based on Ampicillin component (Same as: Unasyn) Start Date: 07/13/16 Stop Date: 07/15/16 Status: DiscontinuedZyPREXA 10 mg, Route: IM, Drug form: INJ, Daily, Dosing Weight 68.182, kg, Start date: 07/10/16 16:00:00 CDT, Duration: 30 day, Stop date: 08/08/16 16:00:00 CDT Notes: (Same As: ZyPREXA IM). Start Date: 07/10/16 Stop Date: 07/12/16 Status: DiscontinuedZyPREXA 10 mg, Route: IM, Drug form: INJ, ONCE, Dosing Weight 68.182, kg, Start date: 8:25:00 CDT, Stop date: 07/10/16 8:25:00 CDT Start Date: 07/10/16 Stop Date: 07/10/16 Status: Completed Results BLOOD BANK RESULTS Most recent to oldest [Reference Range]: 1 2 3 4 ABO/Rh A POS *Unknown* (07/09/16 9:20 PM) Antibody Scrn Negative (07/09/16 9:20 PM) ELECTROLYTES Most recent to oldest 1 2 3 4 [Reference Range]: Sodium Lvl [135-145 mEq/L] 140 mEq/L 143 mEq/L 139 mEq/L (07/13/16 3:10 AM) (07/12/16 2:34 AM) (07/11/16 2:17 AM) Potassium Lvl [3.5-5.1 3.6 mEq/L 3.3 mEq/L 3.6 mEq/L mEq/L] (07/13/16 3:10 AM) *LOW* (07/11/16 2:17 AM) (07/12/16 2:34 AM) Chloride Lvl [95-109 107 mEq/L 112 mEq/L 103 mEq/L mEq/L] (07/13/16 3:10 AM) *HI* (07/11/16 2:17 AM) (07/12/16 2:34 AM) CO2 [24-32 mEq/L] 27 mEq/L 26 mEq/L 29 mEq/L (07/13/16 3:10 AM) (07/12/16 2:34 AM) (07/11/16 2:17 AM) AGAP [10.0-20.0 mEq/L] 9.6 mEq/L 8.3 mEq/L 10.6 mEq/L *LOW* *LOW* (07/11/16 2:17 AM) (07/13/16 3:10 AM) (07/12/16 2:34 AM) CHEM PANEL Most recent to oldest 1 2 3 4 [Reference Range]: Creatinine Lvl [0.50-1.40 0.78 mg/dL 0.65 mg/dL 0.89 mg/dL mg/dL] (07/13/16 3:10 AM) (07/12/16 2:34 AM) (07/11/16 2:17 AM) eGFR 100 mL/min/1.73m2 1 107 mL/min/1.73m2 2 94 mL/min/1.73m2 3 *NA* *NA* *NA* (07/13/16 3:10 AM) (07/12/16 2:34 AM) (07/11/16 2:17 AM) BUN [7-22 mg/dL] 8 mg/dL 10 mg/dL 21 mg/dL (07/13/16 3:10 AM) (07/12/16 2:34 AM) (07/11/16 2: AM) Glucose Lvl [70-99 mg/dL] 105 mg/dL 135 mg/dL 165 mg/dL *HI* *HI* *HI* (07/13/16 3:10 AM) (07/12/16 2:34 AM) (07/11/16 2: AM) Total Protein [6.4-8.4 g/dL] 5.8 g/dL *LOW* (07/11/16 2: AM) Albumin Lvl [3.5-5.0 g/dL] 2.1 g/dL *LOW* (07/11/16 2: AM) Globulin [2.7-4.2 g/dL] 3.7 g/dL (07/11/16 2: AM) A/G Ratio [0.7-1.6] 0.6 *LOW* (07/11/16 2: AM) Calcium Lvl [8.5-10.5 mg/dL] 8.6 mg/dL 8.0 mg/dL 9.1 mg/dL (07/13/16 3:10 AM) *LOW* (07/11/16 2:17 AM) (07/12/16 2:34 AM) Phosphorus [2.5-4.5 mg/dL] 2.3 mg/dL 2.5 mg/dL 2.2 mg/dL *LOW* (07/12/16 2:34 AM) *LOW* (07/13/16 3:10 AM) (07/11/16 2:17 AM) Magnesium Lvl [1.8-2.4 mg/dL] 1.8 mg/dL 2.0 mg/dL 2.3 mg/dL (07/13/16 3:10 AM) (07/12/16 2:34 AM) (07/11/16 2:17 AM) ALT [0-65 unit/L] 9 unit/L (07/11/16 2:17 AM) AST [0-37 unit/L] 12 unit/L (07/11/16 2:17 AM) Alk Phos [39-136 unit/L] 68 unit/L (07/11/16 2:17 AM) Bili Total [0.2-1.3 mg/dL] 0.2 mg/dL (07/11/16 2:17 AM) Bili Direct [0.0-0.3 mg/dL] 0.1 mg/dL (07/11/16 2:17 AM) Bili Indirect [0.0-1.0 mg/dL] 0.1 mg/dL (07/11/16 2:17 AM) Lactic Acid Lvl [0.5-2.2 1.7 mMol/L mMol/L] (07/10/16 1:53 AM) Procalcitonin Lvl [0.00-0.10 0.95 ng/mL ng/mL] *HI* (07/10/16 1:53 AM) 1Result Comment: The eGFR is calculated using the CKD-EPI formula. In most young , healthy individualsthe eGFR will be >90 mL/min/1.73m2. The eGFR declines with age. An eGFR of 60-89 may be normal in some populations, particularly the elderly, for whom the CKD-EPI formula has not been extensively validated. Use of the eGFR is not recommended in the following populations: Individuals with unstable creatinine concentrations, including patients and those with serious co-morbid conditions. Patients with extremes in muscle mass or diet. The data above are obtained from the National Kid[employer] Disease Education Program ( [employer]) which additionally recommends that when the eGFR is used in patients with extremes of body mass index for purposesof drug dosing, the eGFR should be multiplied by the estimated BMI.2Result Comment: The eGFR is calculated using the CKD-EPI formula. In most young, healthy individualsthe eGFR will be >90 mL/ min/1.73m2. The eGFR declines with age. An eGFR of 60-89 may be normal in some populations, particularly the elderly, for whom the CKD-EPI formula has not been extensively validated. Use of the eGFR is not recommended in the following populations: Individuals with unstable creatinine concentrations, including patients and those with serious co-morbid conditions. Patients with extremes in muscle mass or diet. The data above are obtained from the National Kid[employer] Disease Education Program ( [employer]) which additionally recommends that when the eGFR is used in patients with extremes of body mass index for purposesof drug dosing, the eGFR should be multiplied by the estimated BMI.3Result Comment: The eGFR is calculated using the CKD-EPI formula. In most young, healthy individualsthe eGFR will be >90 mL/ min/1.73m2. The eGFR declines with age. An eGFR of 60-89 may be normal in some populations, particularly the elderly, for whom the CKD-EPI formula has not been extensively validated. Use of the eGFR is not recommended in the following populations: Individuals with unstable creatinine concentrations, including patients and those with serious co-morbid conditions. Patients with extremes in muscle mass or diet. The data above are obtained from the National Kid[employer] Disease Education Program ( [employer]) which additionally recommends that when the eGFR is used in patients with extremes of body mass index for purposesof drug dosing, the eGFR should be multiplied by the estimated BMI.LIPIDS Most recent to oldest [Reference Range]: 1 2 3 4 CHD Risk [4.00-7.30] 1.66 *LOW* (07/10/16 1:53 AM) Chol [<=199 mg/dL] 163 mg/dL (07/10/16 1:53 AM) Trig [<=149 mg/dL] 52 mg/dL (07/10/16 1:53 AM) HDL [>=61 mg/dL] 98 mg/dL (07/10/16 1:53 AM) LDL (Calculated) [<=99 mg/dL] 55 mg/dL (07/10/16 1:53 AM) VLDL 10 *NA* (07/10/16 1:53 AM) SPECIAL CHEMISTRY Most recent to oldest [Reference Range]: 1 2 3 4 Hgb A1C [<=5.6 %] 5.1 % (07/10/16 1:53 AM) PARATHYROID PROFILE Most recent to oldest 1 2 3 4 [Reference Range]: Ca Ion WB [1.05-1.25 1.16 mMol/L 1.14 mMol/L 1.20 mMol/L 1.13 mMol/L mMol/L] (07/15/16 4:17 AM) (07/14/16 2:33 AM) (07/13/16 3:10 AM) (07/13/16 3: 10 AM) Ca Norm WB [1.05-1.25 1.12 mMol/L 1.11 mMol/L 1.19 mMol/L 1.14 mMol/L mMol/L] (07/15/16 4:17 AM) (07/14/16 2:33 AM) (07/13/16 3:10 AM) (07/13/16 3: 10 AM) DRUG SCREEN Most recent to oldest [Reference Range]: 1 2 3 4 U Methadone Scr [Negative] Negative *NA* (07/10/16 1:53 AM) U Propoxyph Scr [Negative] Negative *NA* (07/10/16 1:53 AM) U Amph Scr [Negative] Negative *NA* (07/10/16 1:53 AM) U Marycruz Scr [Negative] Negative *NA* (07/10/16 1:53 AM) U Benzodia Scr [Negative] Negative *NA* (07/10/16 1:53 AM) U Cocaine Scr [Negative] Negative *NA* (07/10/16 1:53 AM) U Opiate Scr [Negative] Negative *NA* (07/10/16 1:53 AM) U Phencyc Scr [Negative] Negative *NA* (07/10/16 1:53 AM) U Cannab Scr [Negative] Negative *NA* (07/10/16 1:53 AM) UDS Note See Note *NA* (07/10/16 1:53 AM) URINE AND STOOL Most recent to oldest [Reference Range]: 1 2 3 4 UA Turbidity [Clear] Clear (07/10/16 1:53 AM) UA Color [Yellow] Yellow *NA* (07/10/16 1:53 AM) UA pH [5.0-8.0] 5.5 (07/10/16 1:53 AM) UA Spec Grav [<=1.030] 1.028 (07/10/16 1:53 AM) UA Glucose [Negative mg/dL] Negative mg/dL *NA* (07/10/16 1:53 AM) UA Blood [Negative] Negative (07/10/16 1:53 AM) UA Ketones [Negative mg/dL] Negative mg/dL *NA* (07/10/16 1:53 AM) UA Protein [Negative mg/dL] Negative mg/dL (07/10/16 1:53 AM) UA Urobilinogen [0.1-1.0 mg/dL] <=1.0 mg/dL *NA* (07/10/16 1:53 AM) UA Bili [Negative] Negative *NA* (07/10/16 1:53 AM) UA Leuk Est [Negative] Negative (07/10/16 1:53 AM) UA Nitrite [Negative] Negative (07/10/16 1:53 AM) UA WBC [0-5 /HPF] 1 /HPF (07/10/16 1:53 AM) UA Sq Epi [Few /LPF] Few /LPF *NA* (07/10/16 1:53 AM) IMMUNOLOGY Most recent to oldest [Reference Range]: 1 2 3 4 HIV Ag/Ab 4th Gen [Negative] Negative *NA* (07/10/16 1:53 AM) HEMATOLOGY Most recent to oldest 1 2 3 4 [Reference Range]: WBC [3.7-10.4 K/CMM] 8.0 K/CMM 10.6 K/CMM 14.7 K/CMM (07/13/16 3:10 AM) *HI* *HI* (07/12/16 2:34 AM) (07/11/16 2:17 AM) RBC [4.70-6.10 M/CMM] 3.94 M/CMM 3.88 M/CMM 3.43 M/CMM *LOW* *LOW* *LOW* (07/13/16 3:10 AM) (07/12/16 2:34 AM) (07/11/16 2:17 AM) Hgb [14.0-18.0 g/dL] 12.4 g/dL 12.3 g/dL 10.8 g/dL *LOW* *LOW* *LOW* (07/13/16 3:10 AM) (07/12/16 2:34 AM) (07/11/16 2:17 AM) Hct [42.0-54.0 %] 37.8 % 37.2 % 32.7 % *LOW* *LOW* *LOW* (07/13/16 3:10 AM) (07/12/16 2:34 AM) (07/11/16 2:17 AM) MCV [80.0-94.0 fL] 95.9 fL 95.9 fL 95.3 fL *HI* *HI* *HI* (07/13/16 3:10 AM) (07/12/16 2:34 AM) (07/11/16 2:17 AM) MCH [27.0-31.0 pg] 31.6 pg 31.7 pg 31.4 pg *HI* *HI* *HI* (07/13/16 3:10 AM) (07/12/16 2:34 AM) (07/11/16 2:17 AM) MCHC [32.0-36.0 g/dL] 32.9 g/dL 33.1 g/dL 32.9 g/dL (07/13/16 3:10 AM) (07/12/16 2:34 AM) (07/11/16 2:17 AM) RDW [11.5-14.5 %] 16.2 % 16.2 % 16.3 % *HI* *HI* *HI* (07/13/16 3:10 AM) (07/12/16 2:34 AM) (07/11/16 2:17 AM) Platelet [133-450 K/CMM] 187 K/CMM 203 K/CMM 178 K/CMM (07/13/16 3:10 AM) (07/12/16 2:34 AM) (07/11/16 2:17 AM) MPV [7.4-10.4 fL] 8.0 fL 7.9 fL 8.4 fL (07/13/16 3:10 AM) (07/12/16 2:34 AM) (07/11/16 2:17 AM) Segs [45.0-75.0 %] 70.5 % 84.4 % 90.7 % (07/13/16 3:10 AM) *HI* *HI* (07/12/16 2:34 AM) (07/11/16 2:17 AM) Bands [0.0-11.0 %] 27.0 % *HI* (07/09/16 9:20 PM) Lymphocytes [20.0-40.0 %] 12.2 % 7.4 % 4.8 % *LOW* *LOW* *LOW* (07/13/16 3:10 AM) (07/12/16 2:34 AM) (07/11/16 2:17 AM) Atypical Lymphs [<=0.0 %] 0.0 % (07/09/16 9:20 PM) Monocytes [2.0-12.0 %] 13.0 % 7.5 % 4.4 % *HI* (07/12/16 2:34 AM) (07/11/16 2:17 AM) (07/13/16 3:10 AM) Eosinophils [0.0-4.0 %] 4.0 % 0.5 % (07/13/16 3:10 AM) (07/12/16 2:34 AM) Basophils [0.0-1.0 %] 0.3 % 0.2 % 0.1 % (07/13/16 3:10 AM) (07/12/16 2:34 AM) (07/11/16 2:17 AM) Metamyelocytes [0.0-1.0 %] 1.0 % (07/09/16 9:20 PM) Segs-Bands # [1.5-8.1 K/CMM] 5.7 K/CMM 8.9 K/CMM 13.4 K/CMM (07/13/16 3:10 AM) *HI* *HI* (07/12/16 2:34 AM) (07/11/16 2:17 AM) Lymphocytes # [1.0-5.5 1.0 K/CMM 0.8 K/CMM 0.7 K/CMM K/CMM] (07/13/16 3:10 AM) *LOW* *LOW* (07/12/16 2:34 AM) (07/11/16 2:17 AM) Monocytes # [0.0-0.8 K/CMM] 1.0 K/CMM 0.8 K/CMM 0.7 K/CMM *HI* (07/12/16 2:34 AM) (07/11/16 2:17 AM) (07/13/16 3:10 AM) Eosinophils # [0.0-0.5 0.3 K/CMM 0.1 K/CMM K/CMM] (07/13/16 3:10 AM) (07/12/16 2:34 AM) Anisocyte [None Seen] See Note 1 (07/09/16 9:20 PM) Toxic Gran [None Seen] See Note 2 (07/09/16 9:20 PM) Plt Morph Normal (07/09/16 9:20 PM) PT [12.0-14.7 seconds] 13.3 seconds 12.5 seconds (07/13/16 3:10 AM) (07/09/16 9:20 PM) INR [0.85-1.17] 0.99 0.91 (07/13/16 3:10 AM) (07/09/16 9:20 PM) PTT [22.9-35.8 seconds] 31.2 seconds 32.8 seconds (07/13/16 3:10 AM) (07/09/16 9:20 PM) 1Result Comment: [id number] Comment: SlightMOLECULAR DIAGNOSTIC Most recent to oldest [Reference Range]: 1 2 3 4 Source Respiratory Panel PCR Fl[employer] Swab (07/10/16 1:53 AM) Influenza A PCR [Negative] Negative (07/10/16 1:53 AM) Influenza B PCR [Negative] Negative (07/10/16 1:53 AM) RSV PCR [Negative] Negative (07/10/16 1:53 AM) BACTERIAL - SEROLOGY Most recent to oldest [Reference Range]: 1 2 3 4 MRSA by PCR Negative (07/10/16 1:53 AM) Immunizations Given and Recorded Vaccine Date Status Refusal Reason pneumococcal 23-valent vaccine 07/11/16 Given Procedures No data available for this section Social History Social History Type Response Smoking Status Current some day smoker; Type: Cigarettes; Ready to change: No; Concerns about tobacco use in household: No; Exposure to Tobacco Smoke None; Cigarette Smoking Last 365 Days Yes; Reg Smoking Cessation Counseling No Assessment and Plan Extracted from: Title: ENT Progress Note Author: Serge Valero MD Date: ENT Progress Note Final Recommendations 56 year old with history of head and neck cancer, with what we feel 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 Path was negative for recurrence. He is status post tracheostomy and PEG. - Tracheostomy was downsized at the bedside to a 6 DCFS (cuffless tracheostomy) - Tolerating some finger occlusion. OK to try for a PMV. Speech to see today prior to discharge. Order was placed. - OK to be discharged home from ENT standpoint pending PMV, home health for tracheostomy and PEG - Follow up with [facility], Dr. Simón Alas, in 2 weeks. [phone], please call for appointment. - No further ENT intervention at this time. Extracted from: Title: Interventional Radiology Author: Tessa Jacobson NP Date: 07/10/16 Interventional Radiology Consultation Reason for consultation: PEG tube placement Referring Physician: Dr. Mcleod History of Present Illness: Mr. Dowell is a 56 year old male with a pst medical history of hypothyroidism and squamous cell throat cancer diagnosed in 11/2012. He was treated with chemo and radiation. He was admitted on 07/10/16 with facial and neck swelling with airway obstruction. He required an emergent tracheostomy. Interventional Radiology is now consulted for placement of a PEG tube, Past Medical History: Throat cancer, squamous cell diagnosed in 11/2012 treated with chemotherapy and radiation hypothyroidism Past Surgical HIstory: tracheostomy 07/10/16 Social History: He is . Tobacco Details: Use: Current some day smoker. Type: Cigarettes. Ready to change: No. Household tobacco concerns: No. Tobacco smoke exposure: None. Did the Patient Smoke Cigarettes Anytime During the Last 365 Days? Yes. Cessation Counseling Provided? No. Family History: No qualifying data available Allergies Reviewed: Allergies: NKDA Current Medications: Medications (34) Active Scheduled Meds (10): 07/10/16 ampicillin-sulbactam (Unasyn) 3 gm IVPB [id number] 07/10/16 chlorhexidine topical (chlorhexidine topical 0.12% liquid) 15 mL Swab Mouth Q12H 07/10/16 docusate-senna (docusate-senna 50 mg-8.6 mg oral tablet) 2 tab PO Q12H 07/10/16 (Suspended) enoxaparin 40 mg SUB-Q [id number] 07/10/16 levothyroxine 112 microgram PO [id number] 07/10/16 multivitamin, ( Multivitamins with Folic Acid 0.8 mg oral tablet) 1 tab PO Daily 07/10/16 ocular lubricant 1 appl BOTH EYES Q6H 07/11/16 pantoprazole (Protonix) 40 mg IVP Before Breakfast 07/10/16 sodium chloride (Saline Flush 0.9%) 10 ml IVP Q12H 07/10/16 thiamine 100 mg PO Daily Unscheduled Meds: None PRN Meds (14): 07/10/16 Dextrose 50% in Water IV (Dextrose 50% Syringe) 12.5 gm IVP PRN 07/10/16 Dextrose 50% in Water IV (Dextrose 50% Syringe) 25 gm IVP PRN 07/10/16 Insulin regular 1 unit SUB-Q Sliding Scale 07/10/16 Insulin regular 2 unit SUB-Q Sliding Scale 07/10/16 Insulin regular 3 unit SUB-Q Sliding Scale 07/10/16 Insulin regular 4 unit SUB-Q Sliding Scale 07/10/16 Insulin regular 5 unit SUB-Q Sliding Scale 07/10/16 acetaminophen 650 mg PO Q6H 07/10/16 albuterol (albuterol 0.083% inhalation solution) 2.49 mg NEB PRN 07/10/16 chlorhexidine topical (chlorhexidine topical 0.12% liquid) 15 mL Swab Mouth PRN 07/10/16 glucagon 1 mg IM PRN 07/10/16 ipratropium 0.5 mg NEB PRN 07/10/16 nystatin topical (nystatin topical 100,000 units/g powder) 1 appl TOP PRN 07/10/16 sodium chloride (Saline Flush 0.9%) 10 ml IVP PRN One Time Meds (8): 07/10/16 (Completed) OLANZapine (ZyPREXA) 10 mg IM ONCE 07/10/16 (Discontinued) ampicillin-sulbactam (Unasyn) 3 gm IVPB ONCE 07/09/16 (Ordered) benzocaine/butamben/tetracaine topical (Cetacaine topical aerosol) 1 spray TOP ONCE (Completed) fentaNYL (fentaNYL (ANES)) IV ONCE 07/10/16 (Completed) fentaNYL (fentaNYL - one time ICU bolus dose) 50 microgram IVP ONCE 07/09/16 (Completed) lidocaine (lidocaine 4% inhalation solution) 5 mL NEB ONCE 07/10/16 (Discontinued) racepinephrine (racemic epinephrine 2.25% inhalation solution) 11.25 mg NEB ONCE 07/10/16 (Completed) sterile water 2.1 mL MISC ONCE Continuous Infusions (2): 07/10/16 D5NS 1,000 mL 1,000 mL 50 ml/hr 05/18/17 fentaNYL 1000microgram/20ml drip (pyxis) 1,000 microgram 1,000 microgram Titrate Labs: 24hr Labs 07/10 1120 Glucose POC 71 07/10 0709 Glucose POC 157 H 07/10 0307 Glucose POC 186 H 07/10 0153 Ca Ion WB 1.17 Ca Norm WB 1.17 Lactic Acid Lvl 1.7 Hgb A1C 5.1 Chol 163 Trig 52 HDL 98 LDL (Calculated) 55 VLDL 10 CHD Risk 1.66 L Magnesium Lvl 2.0 Phosphorus 2.7 TSH 0.474 U Amph Scr Negative U Marycruz Scr Negative U Benzodia Scr Negative U Cannab Scr Negative U Cocaine Scr Negative U Methadone Scr Negative U Opiate Scr Negative U Phencyc Scr Negative U Propoxyph Scr Negative UDS Note See Note Procalcitonin Lvl 0.95 H HIV Ag/Ab 4th Gen Negative MRSA by PCR Negative UA Color Yellow UA Turbidity Clear UA Spec Grav 1.028 UA pH 5.5 UA Protein Negative UA Glucose Negative UA Ketones Negative UA Bili Negative UA Blood Negative UA Urobilinogen <=1.0 UA Nitrite Negative UA Leuk Est Negative UA WBC 1 UA Sq Epi Few 07/10 0112 Glucose Lvl 204 H BUN 16 Creatinine Lvl 0.99 Sodium Lvl 133 L Potassium Lvl 3.8 Chloride Lvl 94 L CO2 28 AGAP 14.8 Calcium Lvl 8.9 eGFR 84 07/10 0108 POC A Source ART POC A Temp 37.0 POC A pH 7.41 POC A PCO2 51 H POC A PO2 112 H POC A HCO3 32 H POC A BE 6 H POC A O2 Sat 98.0 POC A Hct 38.0 L POC A K 3.7 POC A Na 128 L POC A Ca Ion 1.20 POC A LA 1.4 POC A Glu 200 H POC A Mode PRVC POC A Mech Rate 16 POC A VT 500 POC A PEEP 5.0 POC A %FIO2 50.0 07/10 2131 Temp Tian 37.0 pH Tian 7.25 L pCO2 Tian 72 H pO2 Tian 37 HCO3 Tian 32 H BE Tian 2 O2 Sat Tian 60.0 07/10 2119 ABO/Rh A POS Antibody Scrn Negative Glucose Lvl 180 H BUN 15 Creatinine Lvl 1.27 Sodium Lvl 130 L Potassium Lvl 4.0 Chloride Lvl 92 L CO2 30 AGAP 12.0 Calcium Lvl 9.2 eGFR 62 WBC 14.9 H RBC 4.15 L Hgb 13.0 L Hct 39.9 L MCV 96.2 H MCH 31.4 H MCHC 32.6 RDW 16.3 H Platelet 170 MPV 8.1 PT 12.5 INR 0.91 PTT 32.8 Segs 69.0 Bands 27.0 H Lymphocytes 2.0 L Atypical Lymphs 0.0 Monocytes 1.0 L Segs-Bands # 14.3 H Lymphocytes # 0.3 L Monocytes # 0.1 Metamyelocytes 1.0 Plt Morph Normal Anisocyte See Note Toxic Gran See Note INR: 0.91 (07/09/16 21:38:21) Imaging Studies: 07/10/16 CT of the head/neck 1. Significant mucosal swelling and edema around the upper airway with resultant airway narrowing is more prominent compared to on the prior exam. 2. Interval placement of a tracheostomy tube in appropriate position. 3. No abnormality of the large veins of the head and neck identified. Review of Systems: unable to obtain as he is intubated and sedated and family is not at bedside Physical Examination: Vitals Tmp(F) Tmp(C) Ttype BP MAP Pulse RR SpO2 FIO2 ETCO2 07/10 14:00 ---- ---- ---- 112/74 89 86 20 100 --- --- 07/10 13:00 ---- ---- ---- 107/64 80 59 16 96 --- --- 07/10 12:24 ---- ---- ---- ----- --- --- -- 100 40% --- 07/10 12:00 98.1 36.72 blad 82/53 63 66 16 100 --- --- 07/10 11:45 ---- ---- ---- 128/76 96 70 16 100 --- --- 24 Hr Tmax: 98.1F (36.72c) at 07/10 12:00 Vital Signs are the last 5 in the past 48 hours. 24 Hr Tmin: 97.3F (36.28c) at 07/10 08:00 Weights are the last 5 in 60 days, plus initial. Date Wt(kg) Wt(lb) Ht(cm) Ht(in) Method BMI BSA 07/10 68.18 150.00 170.18 67.00 Estimated 23.5 1.80 07/09 (initial) 72.73 160.00 Estimated 21.8 1.92 07/09 182.88 72.00 Stated 24 Hr Point of Care Glucoses 07/10 1120 Glucose POC 71 07/10 0709 Glucose POC 157 H 07/10 0307 Glucose POC 186 H Most Recent Scores: 07/10/16 Pain Intensity NRS (0-10) 0 07/10/16 [place] Joiner Fall Score 5 07/10/16 Chuck Score 13 07/10/16 [place] Coma Score 10 Lines, Tubes, and Drains: 07/10/2016 01:39 Indwelling Urinary Catheter: Urethral 16 [place] Temperature probe murray 07/10/2016 01:30 Peripheral Lines: Wrist Right Over the needle catheter 07/10/2016 01:30 Peripheral Lines: Hand Left Over the needle catheter 07/10/2016 01:30 Peripheral Lines: Forearm Right Over the needle catheter 07/09/2016 21:30 Peripheral Lines: Upper arm Left 18 gauge Over the needle catheter Surgical Procedures: 07/09/16 23:44 AWAKE TRACHEOSTOMY, DIRECT LARYNGOSCOPY WITH BIOPSY [id number] Primary Surgeon: Simón Alas MD (Service: ENT) 07/09/16 23:44 AWAKE TRACHEOSTOMY, DIRECT LARYNGOSCOPY WITH BIOPSY [id number] Primary Surgeon: Simón Alas MD (Service: ENT) General: critically ill appearing male who is intubated in the ICU Head: Normocephalic with marked facial and neck swelling noted Nose: appears swollen Mouth: he is orally intubated Neck: appears swollen Resp: He is ventilated. Breath sounds are diminished bibasilarly CV: RRR, without murmurs, ABD: large, soft with + BS present x 4 quads Extremities: with generalized edema Neuro: He is sedated and non responsive Skin: Clear, no rashes or jaundice Impression: 1. facial/neck swelling now status post emergent tracheostomy on 07/10 2. history of squamous cell throat CA diagnosed in 2012, now post chemo/ radiation 3. leukocytosis Plan: Plan is to attempt PEG tube placement under image guidance in Interventional Radiology. However, it is noted that a NG tube could not be placed on this patient related to his upper airway edema and thi s would complicate placement of PEG. This was discussed with Dr. Mcleod by Dr. Sriram Ruth. is currently on her way to the hospital and will await her arrival to obtain consent. THANK YOU FOR CONSULTING INTERVENTIONAL RADIOLOGY. IF YOU HAVE ANY QUESTIONS, PLEASE CONTACT [phone]. Extracted from: Title: ICU Admission H&P Author: Morteza Lyons MD Date: 07/10/16 Impression and Plan Pt is a 51yo M w/ a PMH of squamous cell cancer dx in 12/05 s/p chemo and radiation tx until 02/04, and hypothyroidism admitted to the MICU s/p tracheostomy for emergent airway obstruction possibly from lymphaedema, superior vena cava syndrome, post-radiation inflammatory changes or infection. Problem List Airway obstruction Tracheostomy Mechanical ventilation Hx of squamous cell carcinoma Neuro -Sedated, RASS -2, goal -1 -s/p fentanyl 50 x 1 and 25 x 1 in the MICU -on fentanyl drip currently at 50, wean as tolerated -monitor Resp -s/p tracheostomy on 07/10/16 by ENT -on AC-VC+ 16/500//60 -ABG 7.41/51/112 showing primary NAGMA with combined respiratory acidosis -monitor bleeding from trach site, spoke w/ ENT and will monitor specifically for hypoxia, increased vent setting requirements, increased bloody output -consider steroids or racemic epinephrine -over the phone, radiologist saw only generalized laryngeal edema, no focal concerns for abscesses -will order venogram study to evaluate for SVC -b/c of slightly elevated creatinine at 1.2 with unknown baseline, will give pre and post IV bolus of 250cc NS Cardio -HDS, will monitor for shock or arrhythmia GI -Dobhoff tube not placed correctly, will remove -keep NPO for now, consult IR for PEG tube placement. B/c of upper airway edema will not be able to consult GI for PEG placement Endo -Check TSH, T4 -can restart levothyroxine 112mcg PO q6h once able to feed Heme -check CBC, PT, PTT, INR -monitor ID -will continue unasyn 3g IV q6h (day 1, 07/10-) -send for blood, urine cxs DVT ppx: lovenox 40mg SC q24h GI ppx: PPI Diet: NPO for now, start TF once dobhoff in place Dispo: ICU status Code: Full 07/10/2016 01:39 Indwelling Urinary Catheter: Urethral 16 [place] Temperature probe murray 07/10/2016 01:30 Peripheral Lines: Wrist Right Over the needle catheter 07/10/2016 01:30 Peripheral Lines: Hand Left Over the needle catheter 07/10/2016 01:30 Peripheral Lines: Forearm Right Over the needle catheter 07/09/2016 21:30 Peripheral Lines: Upper arm Left 18 gauge Over the needle catheter Pt will be seen and discussed on rounds with attending Dr. Love in Morteza Lyons MD Internal Medicine-Pediatrics PGY1 [id number]
[2017-09-16] MEDS ORDERED: NA CHLORIDE 0.9% 500 ML ONE (20:37)
[2017-09-16] MEDS ORDERED: SILVER NITRATE 1 APPL TOP ONE (20:39)
[2017-09-16 21:19] LABS: Absolute Lymphocytes (CBC) 0.4 K/uL (0.7-4.9); Absolute Monocytes 0.5 K/uL (0.1-1.3); Absolute Neutrophil 6.9 K/uL (1.8-8.0); Basophils % 0.6 % (0-1.3); Hematocrit 25.1 % (39.6-49.0); Lymphocytes % 5.4 % (15.3-44.8); MCV 96.2 fL (80-100); MPV 7.6 fL (7.6-11.3); Monocytes % 5.9 % (3.3-12.3); RBC Red Blood Cell Count 2.61 M/uL (4.33-5.43)
[2017-09-16 21:22] LABS: Protime INR 3.72
[2017-09-16 21:32] LABS: ALT/SGPT 14 U/L (12-78); AST/SGOT 23 U/L (15-37); Albumin 1.5 g/dL (3.4-5.0); Alkaline Phosphatase 206 U/L (45-117); BUN Blood Urea Nitrogen 18 mg/dL (7-18); Bicarbonate 30 mmol/L (21-32); Bilirubin Direct < 0.1 mg/dL (0-0.2); Bilirubin Total 0.2 mg/dL (0.2-1.0); Glucose Level 89 mg/dL (74-106); Potassium 3.6 mmol/L (3.5-5.1); Protein, Total 6.2 g/dL (6.4-8.2); Sodium Level 133 mmol/L (136-145)
[2017-09-16] MEDS ORDERED: VANCOMYCIN 1 GM/250 ML BAG ONE (22:16)
[2017-09-16] MEDS ORDERED: PIPER/TAZO/NS 3.375gm 3.375 GM/100 ML BAG ONE (22:16)
--- NOTE | 2017-09-16 22:36 | EDPHYS ---
Physician Documentation [facility] Name: Rudolph Corral Age: 57 yrs Sex: Male : 1960 Arrival Date: 09/16/2017 Time: 19:48 Bed 14 Private MD: ED Physician Mino Morales HPI: 09/16 20:20 This 57 yrs old Male presents to ER via EMS with complaints of Nose Bleed. cp 20:20 The patient presents with a nose bleed, that is apparently anterior, from the left cp nare. Onset: The symptoms/episode began/occurred at 17:00. Associated signs and symptoms: Pertinent negatives: chest pain, fever, injury. Severity of symptoms: in the emergency department the symptoms are unchanged despite home interventions. Historical: - Allergies: 19:52 No Known Allergies; bs1 - Home Meds: 19:52 levothyroxine 112 mcg tab 1 tab once daily [Active]; lisinopril Oral [Active]; bs1 20:32 Metoprolol Tartrate Oral [Active]; Eliquis oral oral [Active]; bs1 - PMHx: 19:52 GERD; Hypothyroidism; Throat Cancer-2012; bs1 20:32 osteonecrosis of jaw; DVT; bladder infection; bs1 - PSHx: 19:52 trach; bs1 20:32 PEG tube; bs1 - Immunization history:: Adult Immunizations unknown. - Social history:: Smoking status: Patient/guardian denies using tobacco. - Ebola Screening: : Patient negative for fever greater than or equal to 101.5 degrees Fahrenheit, and additional compatible Ebola Virus Disease symptoms Patient denies exposure to infectious person. ROS: 20:25 Constitutional: Negative for body aches, chills, fever, poor PO intake. cp 20:25 Eyes: Negative for injury, pain, redness, and discharge. cp 20:25 ENT: Positive for nose bleed, Negative for drainage from ear(s), ear pain, difficulty swallowing, difficulty handling secretions. 20:25 Cardiovascular: Negative for chest pain, edema, palpitations. 20:25 Respiratory: Negative for cough, shortness of breath, wheezing. 20:25 Abdomen/GI: Negative for abdominal pain, nausea, vomiting, and diarrhea, black/tarry stool, rectal bleeding. 20:25 Skin: Positive for cellulitis, of the back, open wound. 20:25 Neuro: Negative for altered mental status, headache, weakness. 20:25 All other systems are negative. Exam: 20:33 Constitutional: The patient appears in no acute distress, alert, awake, cp non-diaphoretic, well developed, frail. 20:33 Head/Face: Normocephalic, atraumatic. cp 20:33 Eyes: Periorbital structures: appear normal, Pupils: equal, round, and reactive to light and accomodation, Extraocular movements: intact throughout, Conjunctiva: normal, no exudate, no injection, Lids and lashes: appear normal, bilaterally. 20:33 ENT: External ear(s): are unremarkable, Ear canal(s): are normal, clear, TM's: bulging, is not appreciated, bilaterally, dullness, bilaterally, erythema, is not appreciated, bilaterally, Nose: External nose: no obvious acute abnormality, bleeding, is seen from the left nare, no septal hematoma is appreciated, mild, anterior aspect left nasal passage. Examination of the other nostril shows no obvious abnormality, Mouth: Lips: moist, Oral mucosa: moist, Posterior pharynx: is normal, airway is patent. 20:33 Chest/axilla: Inspection: normal, Palpation: is normal, no crepitus, no tenderness. 20:33 Cardiovascular: Rate: normal, Rhythm: regular, Pulses: Pulses are 2+ in right radial artery and left radial artery. Edema: is not appreciated, JVD: is not appreciated. 20:33 Respiratory: the patient does not display signs of respiratory distress, Respirations: normal, no use of accessory muscles, no retractions, no splinting, no tachypnea, labored breathing, is not present, Breath sounds: are clear throughout, no decreased breath sounds, no stridor, no wheezing. 20:33 Abdomen/GI: Inspection: abdomen appears normal, Bowel sounds: active, all quadrants, Palpation: abdomen is soft and non-tender, in all quadrants. 20:33 Skin: abscess, that is moderate sized, of the right upper back, with surrounding cellulitis, that is moderate. 20:33 Neuro: Orientation: to person, place \T\ time. Mentation: lucid, able to follow commands. 21:40 ECG was reviewed by the Attending Physician. cp Vital Signs: 19:48 BP 104 / 49; Pulse 74; Resp 15 S; Temp 98.2(O); Pulse Ox 99% on R/A; Weight 68.04 kg; bs1 Height 5 ft. 6 in. (167.64 cm); Pain 6/10; 20:15 BP 106 / 66; Pulse 74; Resp 17 S; Pulse Ox 100% on R/A; bs1 21:15 BP 117 / 80; Pulse 72; Resp 16 S; Pulse Ox 100% ; bs1 22:15 BP 131 / 77; Pulse 73; Resp 15 S; Pulse Ox 100% ; bs1 23:15 BP 99 / 70; Pulse 81; Resp 16; Pulse Ox 99% on R/A; bs1 09/17 00:15 BP 117 / 81; Pulse 78; Resp 16; Temp 98.4(O); Pulse Ox 99% on R/A; Pain 0/10; bs1 09/16 19:48 Body Mass Index 24.21 (68.04 kg, 167.64 cm) bs1 MDM: 09/16 19:48 Patient medically screened. cp 20:00 Differential diagnosis: foreign body - resolved, foreign body - unresolved, nasal cp fracture, trauma, sinusitis, epistaxis r/t trauma, spontaneous epistaxis. 21:50 Data reviewed: vital signs, nurses notes, lab test result(s), EKG. 21:50 Counseling: I had a detailed discussion with the patient and/or guardian regarding: the cp historical points, exam findings, and any diagnostic results supporting the discharge/admit diagnosis, radiology results, the need for further work-up and treatment in the hospital. 22:30 Physician consultation: Alex Andrews MD was contacted at 22:30, regarding admission, cp to the telemetry unit. patient's condition. 09/16 20:18 Order name: Wound Culture cp 09/16 20:18 Order name: CBC with Diff; Complete Time: 21:49 cp 09/16 21:49 Interpretation: Normal except: RBC 2.61; HGB 8.6; HCT 25.1; MCV 96.2; RDW 16.7; GERMAINE% cp 87.1; LYM% 5.4; LYMA 0.4. 09/16 20:18 Order name: Basic Metabolic Panel; Complete Time: 21:36 cp 09/16 21:36 Interpretation: Normal except: NA 133; GFR 76. cp 09/16 20:18 Order name: Blood Culture Adult (2) cp 09/16 20:18 Order name: C-Reactive Protein; Complete Time: 21:36 cp 09/16 21:37 Interpretation: Abnormal: C-REACTIVE PROT 206.00. cp 09/16 20:18 Order name: Lactate; Complete Time: 21:36 cp 09/16 20:18 Order name: LFT's; Complete Time: 21:36 cp 09/16 21:37 Interpretation: Normal except: ALK 206; TP 6.2; ALB 1.5; GLOB 4.7; A/G 0.3. cp 09/16 20:18 Order name: Procalcitonin; Complete Time: 21:49 cp 09/16 21:49 Interpretation: Abnormal: Procalcitonin 24.28. cp 09/16 20:18 Order name: Protime (+inr); Complete Time: 21:49 cp 09/16 20:18 Order name: Ptt, Activated; Complete Time: 21:49 cp 09/16 21:16 Order name: Wound Culture bs1 09/16 23:38 Order name: Urine Dipstick--Ancillary (enter results) rg2 09/16 23:58 Order name: Urine Dipstick-Ancillary EDMS 09/16 20:18 Order name: Accucheck; Complete Time: 22:32 cp 09/16 20:18 Order name: Cardiac monitoring; Complete Time: 22:11 cp 09/16 20:18 Order name: EKG - Nurse/Tech; Complete Time: 22:08 cp 09/16 20:18 Order name: IV Saline Lock - Large Bore; Complete Time: 22:11 cp 09/16 20:18 Order name: Labs collected and sent; Complete Time: 20:48 cp 09/16 20:18 Order name: O2 Per Protocol; Complete Time: 20:48 cp 09/16 20:18 Order name: O2 Sat Monitoring; Complete Time: 20:49 cp 09/16 21:16 Order name: Wound dressing; Complete Time: 21:17 bs1 EC:40 Rate is 75 beats/min. Rhythm is regular. [place] interval is normal. QRS interval is normal. cp QT interval is normal. T waves are Flattened in lead aVL. Interpreted by me. Reviewed by me. Administered Medications: 20:48 Drug: NS 0.9% 500 ml Route: IV; Rate: bolus; Site: right forearm; bs1 09/17 00:37 Follow up: IV Status: Completed infusion [facility] 09/16 21:45 Drug: Silver Nitrate Applicators 1 application {Note: administered by ROXY Lorenzo to left bs1 nare.} Route: Topical; Site: affected area; 22:21 Drug: Zosyn 3.375 grams Route: IVPB; Infused Over: 60 mins; Site: right forearm; bs1 09/17 00:37 Follow up: IV Status: Completed infusion [facility] 09/16 23:53 Drug: vancoMYCIN 1 grams Route: IVPB; Infused Over: 2 hrs; Site: right forearm; bs1 09/17 00:38 Follow up: IV Status: Infusion continued upon admission bs1 Disposition: 06:53 Co-signature as Attending Physician, Mino Morales MD I agree with the assessment and shayan plan of care. Disposition: 09/16/17 22:35 Hospitalization ordered by Alex Andrews for Inpatient Admission. Preliminary diagnosis is Cellulitis of back [any part except buttock]. - Bed requested for Telemetry/MedSurg (Inpatient). - Status is Inpatient Admission. bs1 - Condition is Stable. - Problem is new. - Symptoms have improved. UTI on Admission? No Signatures: Dispatcher [employer] EDMarlin Alanis, LORENA RN Mino Overton MD MD cha Page, Corey, PA PA cp Salazar, Brittany, LORENA RN bs1 Corrections: (The following items were deleted from the chart) 09/16 23:17 22:35 Hospitalization Ordered by Alex Andrews MD for Inpatient Admission. Preliminary diagnosis is Cellulitis of back [any part except buttock]. Bed requested for Telemetry/MedSurg (Inpatient). Status is Inpatient Admission. Condition is Stable. Problem is new. Symptoms have improved. UTI on Admission? No. al 09/17 00:45 09/16 23:17 09/16/2017 22:35 Hospitalization Ordered by Alex Andrews MD for Inpatient bs1 Admission. Preliminary diagnosis is Cellulitis of back [any part except buttock]. Bed requested for Telemetry/MedSurg (Inpatient). Status is Inpatient Admission. Condition is Stable. Problem is new. Symptoms have improved. UTI on Admission? No. kvng
--- NOTE | 2017-09-16 22:36 | ER ---
Nurse's Notes [facility] Name: Rudolph Corral Age: 57 yrs Sex: Male : 1960 Arrival Date: 09/16/2017 Time: 19:48 Bed 14 Private MD: Diagnosis: Cellulitis of back [any part except buttock] Presentation: 09/16 19:48 Presenting complaint: EMS states: "Patient c/o nose bleeding for over 2 hours, slow bs1 flow, hx of throat cancer.". Transition of care: patient was not received from another setting of care. Onset of symptoms was September 16, 2017. Risk Assessment: Do you want to hurt yourself or someone else? Patient reports no desire to harm self or others. Initial Sepsis Screen: Does the patient meet any 2 criteria? No. Patient's initial sepsis screen is negative. Does the patient have a suspected source of infection? No. Patient's initial sepsis screen is negative. Care prior to arrival: None. 19:48 Method Of Arrival: EMS: [facility] bs1 19:48 Acuity: THEA 4 bs1 19:48 Note Applied nose clamp upon patient arrival. bs1 19:55 Note Patient states "Lorrie had a nose bleed in the past a long time ago, I fell a few bs1 days ago and now my left arm hurts.". Historical: - Allergies: 19:52 No Known Allergies; bs1 - Home Meds: 19:52 levothyroxine 112 mcg tab 1 tab once daily [Active]; lisinopril Oral [Active]; bs1 20:32 Metoprolol Tartrate Oral [Active]; Eliquis oral oral [Active]; bs1 - PMHx: 19:52 GERD; Hypothyroidism; Throat Cancer-2012; bs1 20:32 osteonecrosis of jaw; DVT; bladder infection; bs1 - PSHx: 19:52 trach; bs1 20:32 PEG tube; bs1 - Immunization history:: Adult Immunizations unknown. - Social history:: Smoking status: Patient/guardian denies using tobacco. - Ebola Screening: : Patient negative for fever greater than or equal to 101.5 degrees Fahrenheit, and additional compatible Ebola Virus Disease symptoms Patient denies exposure to infectious person. Screenin:54 Abuse screen: Denies threats or abuse. Denies injuries from another. Nutritional bs1 screening: No deficits noted. Tuberculosis screening: No symptoms or risk factors identified. Fall Risk Fall in past 12 months (25 points). No secondary diagnosis (0 pts). No IV (0 pts). Ambulatory Aid- None/Bed Rest/Nurse Assist (0 pts). Gait- Normal/Bed Rest/Wheelchair (0 pts) Mental Status- Oriented to own ability (0 pts). Total Purvis Fall Scale indicates Low Risk Score (25-44 pts). Fall prevention measures have been instituted. Placed close to Nursing Station Frequent Obs/Assesments occuring Family Present and informed to notify staff if they need to leave bedside As available Patient and Family Educated on Fall Prevention Program and strategies. Assessment: 19:56 General:. General: Appears in no apparent distress. uncomfortable, slender, Behavior is bs1 cooperative, appropriate for age, flat. Pain: Complains of pain in left arm, back/buttocks. Neuro: Level of Consciousness is awake, alert, obeys commands, Oriented to person, place, time, situation, Facial symmetry appears normal. Cardiovascular: Denies chest pain, shortness of breath, Heart tones S1 S2 present Capillary refill < 3 seconds Patient's skin is warm and dry. Edema is 2+ to pitting edema to left arm, hx of DVT in left arm. Respiratory: Airway is patent Breath sounds are diminished bilaterally. GI: No signs and/or symptoms were reported involving the gastrointestinal system. : No signs and/or symptoms were reported regarding the genitourinary system. EENT: No signs and/or symptoms were reported regarding the EENT system. Musculoskeletal: Circulation, motion, and sensation intact. Capillary refill < 3 seconds. 19:56 Derm: Wound noted pressure wound, stage 3, upper left side of back, golf ball sized, bs1 foul odor, necrotic/purulent, quarter sized pressure ulcer stage 2 to sacral area. 20:20 Reassessment: Mino Page at bedside inserting Surgicel to left nare. bleeding bs1 controlled. 21:45 Reassessment: Provider at bedside to insert another surgiceal to left nare, silver bs1 nitrate at bedside per verbal order from provider. 23:00 Reassessment: Patient appears in no apparent distress at this time. Patient and/or bs1 family updated on plan of care and expected duration. Pain level reassessed. Patient is alert, oriented x 3, equal unlabored respirations, skin warm/dry/pink. Informed of POC. 09/17 00:30 Reassessment: No changes from previously documented assessment. Patient and/or family bs1 updated on plan of care and expected duration. Pain level reassessed. Patient is alert, oriented x 3, equal unlabored respirations, skin warm/dry/pink. Patient being admitted to unit. Vital Signs: 09/16 19:48 BP 104 / 49; Pulse 74; Resp 15 S; Temp 98.2(O); Pulse Ox 99% on R/A; Weight 68.04 kg; bs1 Height 5 ft. 6 in. (167.64 cm); Pain 6/10; 20:15 BP 106 / 66; Pulse 74; Resp 17 S; Pulse Ox 100% on R/A; bs1 21:15 BP 117 / 80; Pulse 72; Resp 16 S; Pulse Ox 100% ; bs1 22:15 BP 131 / 77; Pulse 73; Resp 15 S; Pulse Ox 100% ; bs1 23:15 BP 99 / 70; Pulse 81; Resp 16; Pulse Ox 99% on R/A; bs1 09/17 00:15 BP 117 / 81; Pulse 78; Resp 16; Temp 98.4(O); Pulse Ox 99% on R/A; Pain 0/10; bs1 09/16 19:48 Body Mass Index 24.21 (68.04 kg, 167.64 cm) bs1 ED Course: 09/16 19:48 Patient arrived in ED. fc 19:48 Shirley Saldana, LORENA is Primary Nurse. bs1 19:48 Mino Lorenzo PA is PHCP. cp 19:48 Mino Morales MD is Attending Physician. cp 19:50 Triage completed. bs1 19:59 Patient has correct armband on for positive identification. Bed in low position. Call bs1 light in reach. Side rails up X 1. Pulse ox on. NIBP on. Warm blanket given. 21:15 Dressings: wet to dry dressing applied to patients pressure wound to upper back, bs1 cleansed with NS/chlorhexidine. wet to dry dressing applied to patients pressure wound to sacral area. 21:30 Inserted saline lock: 22 gauge in right forearm, using aseptic technique. Blood bs1 collected. Inserted By director advanced Ashley. 21:48 Arm band placed on right wrist. EKG completed in triage. Results shown to MD. bs1 22:35 Alex Andrews MD is Hospitalizing Provider. 09/17 00:35 No provider procedures requiring assistance completed. Patient admitted, IV remains in bs1 place. intact. Administered Medications: 09/16 20:48 Drug: NS 0.9% 500 ml Route: IV; Rate: bolus; Site: right forearm; bs1 09/17 00:37 Follow up: IV Status: Completed infusion bs1 09/16 21:45 Drug: Silver Nitrate Applicators 1 application {Note: administered by ROXY Lorenzo to left bs1 nare.} Route: Topical; Site: affected area; 22:21 Drug: Zosyn 3.375 grams Route: IVPB; Infused Over: 60 mins; Site: right forearm; bs1 09/17 00:37 Follow up: IV Status: Completed infusion bs1 09/16 23:53 Drug: vancoMYCIN 1 grams Route: IVPB; Infused Over: 2 hrs; Site: right forearm; bs1 09/17 00:38 Follow up: IV Status: Infusion continued upon admission bs1 Outcome: 09/16 22:35 Decision to Hospitalize by Provider. 09/17 00:35 Admitted to Tele accompanied by [facility], via stretcher, room 428, Report called to bs1 LORENA Hdz Condition: stable Instructed on the need for admit. 00:45 Patient left the ED. bs1 Signatures: Lisa Torres RN RN Mino Parry PA PA cp Salazar, Brittany RN RN bs1 Corrections: (The following items were deleted from the chart) 09/16 20:30 19:56 Cardiovascular: Denies chest pain, shortness of breath, Heart tones S1 S2 present bs1 Capillary refill < 3 seconds Patient's skin is warm and dry. bs1 20:30 19:56 Derm: Skin is fragile, is thin, has skin tears on bilateral arms, bruising noted bs1 to bilateral arms Abscess located on back/buttocks- (old) Reports bs1
--- NOTE | 2017-09-16 23:18 | P.HP ---
Certification for Inpatient Patient admitted to: Inpatient With expected LOS: >2 Midnights Practitioner: I am a practitioner with admitting privileges, knowledge of patient current condition, hospital course, and medical plan of care. 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 It started just [employer]. The nose bleeding was packaged and controlled in ER. The patient also states that about 4 days ago, start with a pink area in his back, which has been growing and today, his caregiver noticed a black center with yellowish secretion. No history of fever or chills. However , he has been more weak lately and has had recurrent falls. Lab work in ED remarkable for normal WBC coutn, but elevated procalcinoin and CRP, lactate normal. Allergies No Known Allergies Allergy (Verified 01/23/13 20:56) Home medications list reviewed: Yes Home Medications: Levothyroxine [Synthroid*] 137 mcg FT [id number] 11/15/16 Lisinopril/Hydrochlorothiazide [Lisinopril-Hctz 10-12.5 mg Tab] 1 tab PO DAILY 07/04/17 Albuterol Neb [Proventil 0.083% Neb Soln] 2.5 mg NEB Q6HP PRN amp 07/08/17 Apixaban [Eliquis] 5 mg PO BID #60 tablet 07/08/17 Apixaban [Eliquis] 10 mg PO BID 7 Days tablet 07/08/17 Arformoterol Tartrate [Brovana] 15 mcg NEB BIDRESP vial.neb 07/08/17 Ciprofloxacin HCl [Cipro 500 MG Tablet] 500 mg PO DAILY #5 tab 07/08/17 Folic Acid 1 mg PO DAILY #30 tablet 07/08/17 Jevity 1.5 Donny Liquid 237 ml FT 5XD bot 07/08/17 Metoprolol Tartrate [Lopressor*] 50 mg FT BID #60 tab 07/08/17 Pantoprazole [Protonix Tab*] 40 mg PO DAILYAC #30 tab 07/08/17 Thiamine HCl [Vitamin B-1*] 100 mg PO DAILY #30 tablet 07/08/17 metroNIDAZOLE [Flagyl*] 500 mg FT TID #15 tablet 07/08/17 - Past Medical/Surgical History Diabetic: No -: Throat cancer status post surgery -: History of osteonecrosis of the jaw -: COPD -: Tobacco abuse -: Alcohol abuse -: Hypertension -: Hypothyroidism -: History atrial fibrillation status post ablation -: GERD -: Tracheostomy -: PEG tube placement -: Malnutrition -: Peg tube placement/removal x3 -: History cardiac ablation -: Hernia repair Psychosocial/ Personal History: The patient is . Ex appears to be close. - Family History Father -: Cancer Mother -: Heart disease, Hypertension, Stroke - Social History Smoking Status: Former smoker Alcohol use: Yes CD- Drugs: No Caffeine use: Yes Place of Residence: Home Review of Systems 10-point ROS is otherwise unremarkable Physical Examination - Physical Exam General: Alert, In no apparent distress HEENT: Atraumatic, PERRLA, Mucous membr. moist/pink, Other (tracheostomy), EOMI , Sclerae nonicteric Neck: Supple, 2+ carotid pulse no bruit, No LAD, Without JVD or thyroid abnormality Respiratory: Clear to auscultation bilaterally, Normal air movement Cardiovascular: Normal S1 S2, No gallops Gastrointestinal: Normal bowel sounds, No tenderness Musculoskeletal: No tenderness Integumentary: No rashes, Pressure ulcer (back, right ) Neurological: Normal tone, Sensation intact, Normal affect Lymphatics: No axilla or inguinal lymphadenopathy - Studies Laboratory Data (last 24 hrs) 09/16/17 20:40: PT 44.5 H, INR 3.72, APTT 45.3 H 09/16/17 20:40: Sodium 133 L, Potassium 3.6, BUN 18, Creatinine 1.00, Glucose 89 , Total Bilirubin 0.2, AST 23, ALT 14, Alkaline Phosphatase 206 H 09/16/17 20:40: WBC 8.0, Hgb 8.6 L, Hct 25.1 L, Plt Count 267 Assessment and Plan - Problems (Diagnosis) (1) Bleeding nose Current Visit: Yes Status: Acute (2) necrotic pressure ulcer Current Visit: Yes Status: Acute - Plan The patient will be admitted to the hospital due to a necrotic pressure ulcer in his back. No fever, normal WBC count, elevated inflammatory markers concerning with osteomyelitis. Will order MRI, start empiric treatment with IV Vancomycin and Zosyn, consult Dr Tyler for debridement. - Advance Directives Does patient have a Living Will: No Does patient have a Durable POA for Healthcare: No
[2017-09-16 23:58] LABS: Urine Blood NEGATIVE (NEG); Urine Glucose NEGATIVE (NEG); Urine Protein TRACE (NEG); Urine Specific Gravity 1.015 (1.005-1.030); Urine pH 5.5 (5.0-7.0)
[2017-09-17] MEDS ORDERED: PIPER/TAZO/NS 3.375gm 3.375 GM/100 ML BAG IVPB SCH ×2 (01:39→04:00)
[2017-09-17] MEDS ORDERED: ACETAMINOPHEN 500 MG TAB PO PRN (01:39)
[2017-09-17] MEDS ORDERED: ONDANSETRON 4 MG/2 ML VIAL IV PRN (01:39)
[2017-09-17] MEDS: NA CHLORIDE 0.9% 1,000 ML IV SCH ×3 (01:54→21:39)
[2017-09-17] MEDS ORDERED: KCL 20 MEQ/100 mL IVPB 20 MEQ/100 ML BAG IV SCH (03:00)
[2017-09-17] MEDS ORDERED: PIPER/TAZO/NS 3.375gm 3.375 GM/100 ML BAG ONE (03:55)
[2017-09-17 04:44] LABS: Absolute Lymphocytes (CBC) 0.6 K/uL (0.7-4.9); Absolute Monocytes 0.6 K/uL (0.1-1.3); Absolute Neutrophil 6.5 K/uL (1.8-8.0); Basophils % 0.6 % (0-1.3); Eosinophils % 1.5 % (0-4.4); Hematocrit 21.1 % (39.6-49.0); Lymphocytes % 7.6 % (15.3-44.8); MCH 32.7 pg (27.0-35.0); MCV 95.2 fL (80-100); MPV 7.5 fL (7.6-11.3); Monocytes % 7.8 % (3.3-12.3); RBC Red Blood Cell Count 2.22 M/uL (4.33-5.43)
[2017-09-17 04:47] LABS: Magnesium 1.6 mg/dL (1.8-2.4)
[2017-09-17] MEDS ORDERED: MAGNESIUM SULFATE 1 gm IVPB 1 GM/100 ML BAG IV ONE (05:22)
[2017-09-17] MEDS ORDERED: Magnesium Sulfate 1gm IVPB 1 GM/50 ML BAG IV ONE (06:18)
[2017-09-17] MEDS: PIPER/TAZO/NS 3.375gm 3.375 GM/100 ML BAG IVPB SCH ×2 (09:06→16:25)
[2017-09-17] MEDS ORDERED: TRAMADOL HCL 50 MG TAB PO PRN (09:52)
[2017-09-17] MEDS ORDERED: HYDROCODONE/APAP 7.5/325 MG TAB PO PRN (09:52)
[2017-09-17] MEDS ORDERED: SODIUM CHLORIDE 0.9% 10ML INJ IV PRN (09:55)
[2017-09-17] MEDS ORDERED: LORazepam 2 MG/ML VIAL IV PRN (09:56)
[2017-09-17] MEDS ORDERED: GLUCAGON 1 MG/VIAL IM PRN (09:57)
[2017-09-17] MEDS ORDERED: D50W 25 GM/50 ML SYRINGE IV PRN (09:57)
[2017-09-17] MEDS: MORPHINE 4 MG/ML SYR IV PRN (10:10)
[2017-09-17 10:21] LABS: Hematocrit 22.6 % (39.6-49.0)
--- NOTE | 2017-09-17 10:29 | RAD REPORT ---
EXAM DESCRIPTION: RAD - Chest Single View - 09/17/2017 10:16 am CLINICAL HISTORY: Head and neck cancer, difficulty breathing COMPARISON: July 03, 2017 TECHNIQUE: AP portable chest image was obtained 1003 hours . FINDINGS: Lung volumes are diminished compared to the prior study. No peripheral mass or consolidati on. When adjusting for differences in technique and inspiratory effort, lung markings are not clearly different from prior study. A minimal interstitial edema or infiltrate process could potentially be masked by chronic lung changes. Trachea is midline. Trach tube remains in place. Heart and vasculature are normal. No measurable pleu ral effusion and no pneumothorax. No gross bony abnormality seen. No acute aortic findings. Bowel interposition between the liver and right hemidiaphragm noted. IMPRESSION: Chronic interstitial lung disease is present not clearly different from comparison.
[2017-09-17 11:04] LABS: Thyroid Stimulating Hormone 5.3 uIU/mL (0.36-3.74)
[2017-09-17 11:05] LABS: Ferritin 440.7 ng/mL (26-388)
[2017-09-17] MEDS: INSULIN -REGULAR HUMAN 50 UNIT/0.5 ML ML SQ SCH ×3 (11:30→20:18)
[2017-09-17 11:38] LABS: Protime INR 4.09
[2017-09-17] MEDS: JEVITY 1.5 CAL LIQUID 1,000 ML BOT FT SCH ×2 (11:45→14:00)
--- NOTE | 2017-09-17 11:47 | P.PN ---
Subjective Date of Service: 09/17/17 Primary Care Provider: Dr. Aguero/Dr. Bartlett Chief Complaint: necrotic pressure ulcer Subjective: Doing well (Patient doing fair at this time. Patient was not able to get MRI of the back. No Epistaxis noted.) Physical Examination - Vital Signs Temperature: 97.7 F Blood Pressure: 112/69 Pulse: 78 Respirations: 18 Pulse Ox (%): 96 - Physical Exam General: Alert, In no apparent distress, Oriented x3, Cooperative HEENT: Atraumatic, Other (Trach in place) Neck: Supple Respiratory: Clear to auscultation bilaterally, Normal air movement Cardiovascular: Normal pulses, Regular rate/rhythm Gastrointestinal: Normal bowel sounds, Soft and benign, Non-distended, No masses , No rebound, No guarding, Other (A PEG tube in place. Mild erythema to the PEG site) Musculoskeletal: Other (Muscle wasting to the upper lower extremities.) Integumentary: Other (Stage III necrotic ulcer to the right upper back measuring 5 x 5 cm. Stage II sacral decubitus ulcer noted.) Neurological: Abnormal strength (Weakness throughout. Muscle wasting to the upper lower extremities) - Studies Laboratory Data (last 24 hrs) 09/16/17 20:40: PT 44.5 H, INR 3.72, APTT 45.3 H 09/16/17 20:40: Sodium 133 L, Potassium 3.6, BUN 18, Creatinine 1.00, Glucose 89 , Total Bilirubin 0.2, AST 23, ALT 14, Alkaline Phosphatase 206 H 09/16/17 20:40: WBC 8.0, Hgb 8.6 L, Hct 25.1 L, Plt Count 267 Medications List Reviewed: Yes Assessment & Plan - Problems (Diagnosis) (1) Epistaxis Current Visit: Yes Status: Acute Plan: This appears resolved. Patient with elevated INR. Patient previously on Eliquis for DVT to the left brachial vein. This was started in June. Will discontinue Eliquis at this time. Will monitor closely. (2) Sacral decubitus ulcer, stage II Current Visit: Yes Status: Chronic Plan: Will have wound consultation evaluate sacral decubitus. Will continue with wound care. Patient on IV antibiotic therapy for stage III ulcer to the right upper back. Suspected osteomyelitis. (3) Elevated INR Current Visit: Yes Status: Acute Plan: INR elevated. Etiology unknown. Will need to evaluate for cirrhosis. His malnutrition may be a factor. Eliquis discontinued. Will monitor INR. Will consult hematology to further assess. CT scan of the abdomen ordered. Will monitor for bleeding. (4) Cirrhosis Current Visit: Yes Status: Suspected Plan: Patient may have underlying cirrhosis. Will order CT scan to further assess. Lab done in June shows no hepatitis or HIV. Qualifiers: Hepatic cirrhosis type: unspecified hepatic cirrhosis Ascites presence: unspecified Qualified Code(s): K74.60 - Unspecified cirrhosis of liver (5) History of DVT (deep vein thrombosis) Current Visit: Yes Status: Chronic Plan: Patient was diagnose with left brachial vein in in June of 2017. Patient recently on Eliquis. Will discontinue Eliquis at this time due to elevated INR and epistaxis. Will check ultrasound of the left upper extremity. (6) Chronic anticoagulation Current Visit: Yes Status: Acute Plan: Will discontinue Eliquis at this time. Continue as above. Hematology consulted. (7) necrotic pressure ulcer Onset Date: 09/17/17 Current Visit: Yes Status: Acute Plan: Stasis 3 necrotic ulcer to the right upper back. Measuring 5 x 5 cm. Spoke with surgery. Patient not able to do MRI. Will order CT scan to further assess. Patient may require debridement. Will consult cardiology for clearance. Continue IV antibiotic therapy. Wound care consulted to further address. (8) Malnutrition Onset Date: 07/06/17 Current Visit: No Status: Chronic Plan: Will consult dietary for further recommendation. Patient with PEG tube. Qualifiers: Malnutrition type: protein-calorie malnutrition Protein-calorie malnutrition severity: severe Qualified Code(s): E43 - Unspecified severe protein-calorie malnutrition (9) Hypothyroidism Onset Date: 07/06/17 Current Visit: No Status: Chronic Plan: Tsh reviewed. Will decrease thyroid medication. 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 Patient now with tracheostomy. (11) History of tracheostomy Onset Date: 07/06/17 Current Visit: No Status: Chronic Plan: Will continue tracheostomy care. (12) Anemia Onset Date: 11/17/16 Current Visit: No Status: Chronic Plan: Patient with iron deficiency anemia. Will start iron supplementation. Patient with history of GERD with hiatal hernia and esophagitis. Previous EGD done in 2017. No evidence of GI bleeding at this time. INR elevated. Will continue monitor hemoglobin. Hematology consulted. Await further recommendation. (13) Hiatal hernia with GERD and esophagitis Current Visit: Yes Status: Chronic Plan: Will start PPI. (14) PEG (percutaneous endoscopic gastrostomy) status Current Visit: Yes Status: Chronic Plan: Will continue with feeding. Will have dietary assess malnutrition. (15) Hypoglycemia Current Visit: Yes Status: Acute Plan: This is likely from malnutrition. Will change IV fluids to D5 (16) Hypertension Onset Date: 07/06/17 Current Visit: No Status: Chronic Plan: Will hold blood pressure medication at this time. Qualifiers: Hypertension type: essential hypertension Qualified Code(s): I10 - Essential (primary) hypertension Discharge Plan: Home Plan to discharge in: Greater than 2 days Time Spent Managing Pts Care (In Minutes): 55
--- NOTE | 2017-09-17 11:49 | CON ---
Date of Consultation: 09/17/2017 Reason: Infected wound, right back. History Of Present Illness: The patient is a 57-year-old gentleman, who came in with nose bleeding j ust prior to being seen in the ER. His nose bleeding was packed and controlled in the emergency room , but when he was further evaluated, he was found to have a necrotic ulcer on his right back with jude rounding erythema, and he was admitted for further evaluation and treatment. He denies any history o f trauma. His caregiver noticed a black center with yellowish secretion. Although he denied history of falls, it is documented in the medical records that his caregiver said he has had recurrent falls , and he was admitted and I was consulted for further evaluation. He is awake, alert. He has a trac heostomy. He is unable to verbalize. He does understand what was being asked of him however. There is no history of fever or chills. According to medical records, he has been weak lately. No headac hes, dizziness, chest pain. Review of Systems: Otherwise unremarkable. Past Medical History: Significant for throat cancer, osteonecrosis of the jaw, COPD, tobacco and alc ohol abuse, hypertension, hypothyroidism, history of AFib, status post ablation, and GERD. Past Surgical History: Significant for trach, PEG, cardiac ablation, hernia surgery, and throat surg sabrina. Allergies: NONE. Social History: The patient currently does not smoke; however, he still drinks alcohol. Family History: Significant for unknown type of cancer in the father. Heart disease, hypertension, stroke in the mother. Physical Examination: Vital Signs: Stable. He is afebrile. General: He is awake, alert. Head and neck: He has a tracheostomy in place. No obvious neck masses. No JVD. Neck is supple. Chest: Clear. Heart: S1, S2. Abdomen: Soft. Extremities: Neurovascularly intact. neuro: Nonfocal. Please note overall however the patient is very weak and debilitated. Back: On the back, there is approximately 5 x 5 cm area of necrotic eschar with surrounding erythema , warmth, and edema with some purulence underneath the eschar. Laboratory Data: This morning his white count was 7.9, his hemoglobin is 7.3, hematocrit is 21.1, an d platelets are 219. There is a slight left shift. His INR is 3.72. His chemistry shows low magnes ium and calcium slightly. His procalcitonin is 24.28. Chest x-ray is pending. MRI of the back is p ending. Assessment: A 57-year-old gentleman with multiple medical problems including laryngeal cancer with r ecent nose bleeding and an infected pressure ulcer, possibly metastatic cancer on the right back. Recommendation: At this time, the patient needs further evaluation with a chest x-ray as well as an MRI of the chest and correction of his INR. Cardiac evaluation to see if the patient is stable enoug h for anesthesia and the etiology of the INR being so elevated is unclear at this time. I suspect ci rrhosis with his drinking history because he is on Eliquis and that usually does not raise the INR th at high. So after further discussion with Dr. Starr, we will accomplish all those goals and once th at is done, I will be decide whether the patient is safe for procedure here or if it involves the rosa st cavity, the patient may need to be transferred to a tertiary care center. We will follow this pat ient while in the hospital. Please note, patient is on broad-spectrum antibiotics already. /MODL Voice ID: [id number] Report ID: [id number]
--- NOTE | 2017-09-17 12:12 | EKG ---
Test Date: 2017-09-16 Test Time: 21:33:02 Cylindrical Mixer: MARY MEASUREMENT RESULTS: Intervals: Rate: 75 CO: 154 QRSD: 96 QT: 408 QTc: 455 [place]: P: 79 CO: 154 QRS: 9 T: 65 INTERPRETIVE STATEMENTS: Normal sinus rhythm Low voltage QRS Borderline ECG Compared to ECG 07/03/2017 12:54:22 Sinus tachycardia no longer present ST (T wave) deviation no longer present Electronically Signed On 09-17-17 12:10:15 CDT by Merrill Shultz
--- NOTE | 2017-09-17 12:30 | RAD REPORT ---
EXAM DESCRIPTION: CT - Chest Abdomen Pelvis W Cont - 09/17/2017 12:10 pm CLINICAL HISTORY: Abdominal pain, cirrhosis, chest pain, large ulceration upper right chest COMPARISON: CT abdomen and pelvis June 2017 TECHNIQUE: Following dynamic enhancement using 100 milliliters nonionic IV contrast, axial biphasic imaging of the abdomen and pelvis was performed. Venous phase imaging 5 millimeter thick axial imagin g of the chest performed. No oral contrast administered. All CT scans are performed using dose optimization technique as appropriate and may include automated exposure control or mA/KV adjustment according to patient size. FINDINGS: Small bilateral pleural effusions are present slightly larger on the right. Atelectasis is present. No acute infiltrate of the lung parenchyma. No mass lesion identifiable. No pneumothorax or pleural based mass. No significant aortic or pulmonary arterial tree finding. Mediastinal and hilar regions show no mass or abnormal lymphadenopathy. No pericardial thickening or effusion. Approximately 5 centimeter diameter wound is present in the superficial soft tissues of the upper rig ht chest. This is on the axial level of the third/fourth ribs. Edematous/inflammatory stranding in sk in and subcutaneous fatty tissues is present. The inflammatory process abuts the musculature. No bone destructive process of the ribcage seen. There is no periosteal reaction or other finding to indicat e bone involvement. Scapula is uninvolved. No drainable fluid collection identifiable. Well-positioned trach tube noted. Within the right pectoralis major musculature there is a 5 by 2 grabiel timeter oval low-density mass. This has central low density attenuation of 10-12 Hounsfield units. Sl ightly thickened rim or rind present. Disc may represent an old intramuscular hematoma. However, in a patient with soft tissue wound history, abscess or other infectious process is not entirely excluded . The mass is homogeneous attenuation without air present. Jump Liver size is normal. No focal liver lesion and no nodular liver capsule. Caudate and left lobe of th e liver are not out of proportion. Spleen and pancreas show no acute findings. Gallbladder and biliar y tree are unremarkable. Gallstones can be occult on CT imaging. Symmetric renal function is seen wi th no mass or hydronephrosis. No adrenal abnormalities. PEG tube is in place. No suspicious or unexpected finding. No gastric wall thickening, gastric wall m ass or gastric dilatation. No acute large or small bowel process. Patient has minimal diverticulosis without diverticulitis. No acute GI findings seen. Mostly contracted urinary bladder shows no suspici ous finding. Disc and bony degenerative changes are present. No destructive bone process. No significant vascular findings. IMPRESSION: Approximately 5 centimeter wound posterior right upper chest involves the skin and subcu taneous fatty tissues and abuts the upper right thorax musculature.No drainable fluid collections see n. On CT imaging, the wound does not appear to directly involve the chest wall and there is no bone dest ruction, periosteal reaction or other finding to indicate rib involvement. Scapula is uninvolved. Patient has a 5 x 2 centimeter fluid or low-density collection within the right pectoralis major musc le. Old hematoma would be favored ; however, infectious process cannot be excluded given the presence of other soft tissue wounds. Small bilateral pleural effusions, right greater than left with atelectasis. No acute lung parenchyma l process. No acute CT abdomen or pelvis finding. Specifically, no liver finding to indicate significant cirrhot ic change.
[2017-09-17] MEDS: D5 0.9 NS 1,000 ML IV SCH ×2 (13:03→22:00)
--- NOTE | 2017-09-17 13:08 | RAD REPORT ---
EXAM DESCRIPTION: - UPPER EXTREMITY VENOUS UNILATE - 09/17/2017 12:39 pm CLINICAL HISTORY: Left arm pain and swelling COMPARISON: Left arm DVT study June 2017 TECHNIQUE: Real-time sonographic evaluation of the left upper extremity deep venous systems was perf ormed. FINDINGS: Left internal jugular and left subclavian veins are clear of thrombus. Axillary vein is cl ear of thrombus and shows good compression. Paired brachial veins are present as a normal anatomic va riant. One branch shows a circumferential echogenic thrombus pattern. This is believed to be remnant thrombus from the July 08 study. A superficial basilic branch off of the thrombosed brachial vein show s thrombus that is believed to be acute. No mass or abnormal fluid collection in the soft tissues. IMPRESSION: Old thrombus remains in the left basilic vein partially occluding the lumen. Superficial basilic vein thrombus is now present new from July 08.
[2017-09-17] MEDS ORDERED: VANCOMYCIN 1 GM in NA CHLORIDE 0.9% 500 ML IVPB SCH (16:00)
[2017-09-17] MEDS: ENOXAPARIN 30 MG/0.3 ML SQ SCH (16:24)
[2017-09-17] MEDS: VANCOMYCIN 1 GM in NA CHLORIDE 0.9% 250 ML IVPB SCH (16:24)
[2017-09-17] MEDS: PANTOPRAZOLE 40 MG INJ IVP SCH (20:14)
[2017-09-17] MEDS: JUVEN PACKET FT SCH (20:15)
[2017-09-18] MEDS: PIPER/TAZO/NS 3.375gm 3.375 GM/100 ML BAG IVPB SCH ×3 (01:08→16:17)
[2017-09-18] MEDS: MORPHINE 4 MG/ML SYR IV PRN ×4 (02:38→23:15)
[2017-09-18] MEDS: LEVOTHYROXINE SOD 0.112 MG TAB FT SCH (06:00)
[2017-09-18] MEDS ORDERED: LEVOTHYROXINE SOD 0.025 MG TAB FT SCH (06:00)
[2017-09-18] MEDS: INSULIN -REGULAR HUMAN 50 UNIT/0.5 ML ML SQ SCH ×4 (07:30→21:00)
[2017-09-18] MEDS: NA CHLORIDE 0.9% 1,000 ML IV SCH ×2 (07:39→17:39)
[2017-09-18] MEDS ORDERED: NA CHLORIDE 0.9% 1,000 ML ONE ×2 (08:52→09:46)
[2017-09-18 09:20] LABS: Albumin 1.4 g/dL (3.4-5.0); Bilirubin Total 0.2 mg/dL (0.2-1.0); Magnesium 1.8 mg/dL (1.8-2.4); Protein, Total 5.7 g/dL (6.4-8.2)
[2017-09-18 09:36] LABS: Absolute Lymphocytes (CBC) 0.6 K/uL (0.7-4.9); Absolute Monocytes 0.6 K/uL (0.1-1.3); Absolute Neutrophil 4.2 K/uL (1.8-8.0); Basophils % 0.9 % (0-1.3); Eosinophils % 2.9 % (0-4.4); Hematocrit 23.4 % (39.6-49.0); Lymphocytes % 11.4 % (15.3-44.8); MCH 33.2 pg (27.0-35.0); MCV 95.7 fL (80-100); MPV 7.7 fL (7.6-11.3); Monocytes % 10.2 % (3.3-12.3); RBC Red Blood Cell Count 2.44 M/uL (4.33-5.43)
--- NOTE | 2017-09-18 10:00 | P.OP ---
Preoperative diagnosis: Infected Wound Right Back Postoperative diagnosis: same Primary procedure: Excisional Debridement Infected Wound Right Back 6x6 cm to SQ Anesthesia: General Estimated blood loss: min Specimen: pus and necrotic tissue Findings: as above Complications: None Transferred to: Recovery Room Condition: Fair
--- NOTE | 2017-09-18 10:06 | P.PN ---
Subjective Date of Service: 09/18/17 Primary Care Provider: Dr. Aguero/Dr. Bartlett Chief Complaint: necrotic pressure ulcer Subjective: Other (Patient stable this time. Patient NPO for debridement of ulcer to the back) Physical Examination - Vital Signs Temperature: 97.6 F Blood Pressure: 132/79 Pulse: 73 Respirations: 16 Pulse Ox (%): 100 - Physical Exam General: Alert, In no apparent distress, Oriented x3, Cooperative HEENT: Atraumatic Neck: Supple Respiratory: Clear to auscultation bilaterally, Normal air movement Cardiovascular: Normal pulses, Regular rate/rhythm Gastrointestinal: Normal bowel sounds, Soft and benign, Non-distended, No masses , No rebound, No guarding Musculoskeletal: Other (No changes to ulcer to the back.) Other Physical/Emotional Findings: Trach and PEG tube in place. - Studies Microbiology Data (last 24 hrs): 09/16/17 20:40 Wound - Back Gram Stain - Final 09/16/17 21:06 Blood - Blood Anaerobic Blood Culture - Final 09/16/17 21:30 Wound - Sacral Gram Stain - Final Medications List Reviewed: Yes Assessment & Plan - Problems (Diagnosis) (1) Epistaxis Current Visit: Yes Status: Acute Plan: This appears resolved. Case discussed at length with surgery and Hematology. Eliquis and will need to be restarted after surgery. Patient to have debridement of necrotic ulcer to the right upper back. Will monitor for epistaxis (2) Sacral decubitus ulcer, stage II Current Visit: Yes Status: Chronic Plan: Case discussed at length with surgery. Patient will continue with current wound care. Continue IV antibiotic therapy. (3) Elevated INR Current Visit: Yes Status: Acute Plan: INR improved. Case discussed at length with hematology. No need for further intervention. Patient will need to have Eliquis restarted after surgery due to history of DVT. This can be followed as an outpatient by Hematology. (4) Cirrhosis Current Visit: Yes Status: Suspected Plan: Previous lab shows no hepatitis or HIV. Patient has a history of alcohol abuse. Overall stable. This can be further assessed by GI as an outpatient. Qualifiers: Hepatic cirrhosis type: unspecified hepatic cirrhosis Ascites presence: unspecified Qualified Code(s): K74.60 - Unspecified cirrhosis of liver (5) History of DVT (deep vein thrombosis) Current Visit: Yes Status: Chronic Plan: Patient with left brachial vein thrombus. Patient was diagnosed with left brachial vein thrombus in June of 2017. Repeat ultrasound shows old left brachial vein thrombus. New superficial basilic vein noted. Case discussed at length with hematology. Patient will need to restart Eliquis after surgery. This can be further monitored and addressed by Hematology as an outpatient. (6) Chronic anticoagulation Current Visit: Yes Status: Acute Plan: Eliquis will need to be restarted after surgery. Case discussed at length with hematology. (7) necrotic pressure ulcer Onset Date: 09/17/17 Current Visit: Yes Status: Acute Plan: Stasis 3 necrotic ulcer to the right upper back. Measuring 5 x 5 cm. Case discussed at length with surgery. Patient will have debridement tomorrow. Continue IV antibiotic therapy. Continue wound care. (8) Malnutrition Onset Date: 07/06/17 Current Visit: No Status: Chronic Plan: Will consult dietary for further recommendation. Patient with PEG tube. Qualifiers: Malnutrition type: protein-calorie malnutrition Protein-calorie malnutrition severity: severe Qualified Code(s): E43 - Unspecified severe protein-calorie malnutrition (9) Hypothyroidism Onset Date: 07/06/17 Current Visit: No Status: Chronic Plan: Tsh reviewed. Will decrease thyroid medication. 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 Patient now with tracheostomy. (11) History of tracheostomy Onset Date: 07/06/17 Current Visit: No Status: Chronic Plan: Will continue tracheostomy care. (12) Anemia Onset Date: 11/17/16 Current Visit: No Status: Chronic Plan: Patient with iron deficiency anemia. Will start iron supplementation. Patient with history of GERD with hiatal hernia and esophagitis. Previous EGD done in 2017. No evidence of GI bleeding at this time. H&H stable this time. Will continue monitor closely. Patient may require blood transfusion if bleeding is noted or hemoglobin less than 7.0. (13) Hiatal hernia with GERD and esophagitis Current Visit: Yes Status: Chronic Plan: Will continue with PPI. (14) PEG (percutaneous endoscopic gastrostomy) status Current Visit: Yes Status: Chronic Plan: Will continue with feeding. Will have dietary assess malnutrition. (15) Hypoglycemia Current Visit: Yes Status: Acute Plan: This is likely from malnutrition. Will change IV fluids to D5 (16) Hypertension Onset Date: 07/06/17 Current Visit: No Status: Chronic Plan: Blood pressure medication currently on hold. If it begins to elevate then will need to restart his home medication. Qualifiers: Hypertension type: essential hypertension Qualified Code(s): I10 - Essential (primary) hypertension Discharge Plan: Other (Will discuss with surgery. Patient may require skilled placement) Plan to discharge in: Greater than 2 days Time Spent Managing Pts Care (In Minutes): 55
[2017-09-18] MEDS ORDERED: LIDOCAINE 1% MPF 5 ML VIAL ONE (10:33)
[2017-09-18] MEDS ORDERED: PROPOFOL 200 MG/20 ML VIAL IV ONE (10:33)
[2017-09-18] MEDS ORDERED: FENTANYL CITR 100 MCG/2 ML ONE (10:33)
[2017-09-18] MEDS: VANCOMYCIN 1 GM in NA CHLORIDE 0.9% 250 ML IVPB SCH (11:59)
--- NOTE | 2017-09-18 12:17 | CON ---
Identification: A 57-year-old man. Additional Consulting Physician: Rico Tyler M.D. History Of Present Illness: He has a wound that needs debridement, clearance, removal of tissues, an d he has asked me to evaluate his heart before taking him to surgery. The patient has AFib and also had bleeding. He has had extensive bleeding, remains on AFib. When he came in, his hemoglobin was a ctually quite low. He is on Eliquis 5 b.i.d. He has not received any Eliquis yesterday or today. N ot having chest pain. His EKG shows sinus rhythm. I think the patient should probably just stay off anticoagulants, although postop he can be on DVT prophylaxis. I am not in favor of restarting him o n Eliquis since he has bled significantly twice. When his wound is in better shape, he should probab ly be considered for WATCHMAN device, perhaps he could take Eliquis safely for a few months if we can get his nose bleeding, GI bleeding under control. MARY Voice ID: [id number] Report ID: [id number]
[2017-09-18 12:37] LABS: Hematocrit 28.4 % (39.6-49.0)
[2017-09-18] MEDS: D5 0.9 NS 1,000 ML IV SCH ×2 (13:25→18:00)
[2017-09-18] MEDS: SOD FERRIC GLUC COMPLX/SUCROSE 125 MG in NA CHLORIDE 0.9% 100 ML IV SCH (13:27)
[2017-09-18] MEDS: JUVEN PACKET FT SCH ×2 (13:32→21:58)
[2017-09-18] MEDS: THIAMINE HCL 100 MG TABLET PO SCH (13:32)
[2017-09-18] MEDS ORDERED: SILVER NITRATE 1 APPL TOP ONE ×2 (16:40→18:00)
[2017-09-18 17:05] LABS: Hematocrit 30.5 % (39.6-49.0)
[2017-09-18] MEDS: ENOXAPARIN 30 MG/0.3 ML SQ SCH (17:43)
--- NOTE | 2017-09-18 21:13 | OP ---
Date of Procedure: 09/18/2017 Surgeon: Rico Tyler MD Preoperative Diagnosis: Infected wound, right back. Postoperative Diagnosis: Infected wound, right back. Procedure: Excisional debridement of infected wound, right back 6 x 6 cm down to subcutaneous tissue . Estimated Blood Loss: Minimal. Specimen: Pus and necrotic tissue. Finding: As above. Anesthesia: General. Complications: None. Disposition: The patient tolerated the procedure in stable condition and taken to Recovery in good g eneral condition. Procedure In Detail: The patient brought to the OR and placed in supine position. General anesthesi a was begun. The patient was placed in the left lateral position, prepped draped in the usual steril e fashion. Marcaine 0.5% was infiltrated locally. Sharp dissection via cautery used to excise the e ntire infected wound, down through the subcutaneous tissues and sent to Pathology. Wound was thoroug hly irrigated. Effluent was clear. There was oozing noted, which was controlled with cautery and 2- 0 chromic suture ligature as needed. After complete hemostasis was obtained and then wet-to-dry norm al saline dressing change applied. The patient tolerated the procedure in stable condition and taken to Recovery in fair condition. Please note, the patient was given 1 unit of blood started intraoperatively because he was anemic to begin with. FELIBERTO/ROGELIOL Voice ID: [id number] Report ID: [id number]
[2017-09-18] MEDS: PANTOPRAZOLE 40 MG INJ IVP SCH (21:58)
[2017-09-18 23:58] LABS: Hematocrit 24.4 % (39.6-49.0)
[2017-09-19] MEDS: PIPER/TAZO/NS 3.375gm 3.375 GM/100 ML BAG IVPB SCH ×3 (01:20→16:32)
[2017-09-19] MEDS: D5 0.9 NS 1,000 ML IV SCH ×5 (01:21→21:11)
[2017-09-19] MEDS ORDERED: NA CHLORIDE 0.9% 250 ML ONE (01:59)
[2017-09-19] MEDS: NA CHLORIDE 0.9% 1,000 ML IV SCH ×3 (03:39→22:53)
[2017-09-19 03:49] LABS: Absolute Lymphocytes (CBC) 0.7 K/uL (0.7-4.9); Absolute Monocytes 0.8 K/uL (0.1-1.3); Eosinophils % 4.2 % (0-4.4); Hematocrit 23.2 % (39.6-49.0); Lymphocytes % 11.7 % (15.3-44.8); MCH 32.6 pg (27.0-35.0); MCV 95.4 fL (80-100); MPV 7.1 fL (7.6-11.3); Monocytes % 13.5 % (3.3-12.3); RBC Red Blood Cell Count 2.44 M/uL (4.33-5.43)
[2017-09-19 04:09] LABS: ALT/SGPT 15 U/L (12-78); AST/SGOT 19 U/L (15-37); Albumin 1.6 g/dL (3.4-5.0); Alkaline Phosphatase 155 U/L (45-117); BUN Blood Urea Nitrogen 22 mg/dL (7-18); Bicarbonate 29 mmol/L (21-32); Bilirubin Total 0.2 mg/dL (0.2-1.0); Glucose Level 100 mg/dL (74-106); Magnesium 1.6 mg/dL (1.8-2.4); Potassium 3.3 mmol/L (3.5-5.1); Protein, Total 5.5 g/dL (6.4-8.2); Sodium Level 141 mmol/L (136-145)
[2017-09-19] MEDS ORDERED: POTASSIUM 25 MEQ EFFERV TAB PO ONE (04:36)
[2017-09-19] MEDS: VANCOMYCIN 1 GM in NA CHLORIDE 0.9% 250 ML IVPB SCH ×2 (04:50→21:11)
[2017-09-19] MEDS: LEVOTHYROXINE SOD 0.112 MG TAB FT SCH (05:07)
[2017-09-19] MEDS: MORPHINE 4 MG/ML SYR IV PRN ×4 (05:56→21:12)
[2017-09-19] MEDS: INSULIN -REGULAR HUMAN 50 UNIT/0.5 ML ML SQ SCH ×4 (07:30→21:00)
[2017-09-19] MEDS ORDERED: Magnesium Sulfate 2gm IVPB 2 G/50 ML BAG IV ONE (07:59)
[2017-09-19] MEDS ORDERED: MAGNESIUM 50% 2 GM in NA CHLORIDE 0.9% 100 ML IV ONE (09:00)
[2017-09-19 09:17] LABS: Protime INR 1.24
[2017-09-19] MEDS: JUVEN PACKET FT SCH ×2 (09:52→21:15)
[2017-09-19] MEDS: PANTOPRAZOLE 40 MG INJ IVP SCH ×2 (09:52→21:03)
[2017-09-19] MEDS: SOD FERRIC GLUC COMPLX/SUCROSE 125 MG in NA CHLORIDE 0.9% 100 ML IV SCH (09:53)
[2017-09-19] MEDS: THIAMINE HCL 100 MG TABLET PO SCH (09:54)
--- NOTE | 2017-09-19 12:06 | P.PN ---
Subjective Date of Service: 09/19/17 Primary Care Provider: Dr. Aguero/Dr. Bartlett Chief Complaint: necrotic pressure ulcer Subjective: Other (Stable. Patient received 2 units of pRBC last night. Pressure dressing in place) Physical Examination - Vital Signs Temperature: 98.5 F Blood Pressure: 128/71 Pulse: 94 Respirations: 18 Pulse Ox (%): 95 - Physical Exam General: Alert, In no apparent distress, Cooperative HEENT: Atraumatic Neck: Supple Respiratory: Clear to auscultation bilaterally, Normal air movement Cardiovascular: Normal pulses, Regular rate/rhythm Gastrointestinal: Normal bowel sounds, Soft and benign, Non-distended, No tenderness, No masses, No rebound, No guarding Integumentary: Other (Pressure dressing to the right upper back) Other Physical/Emotional Findings: Trach and PEG tube in place. - Studies Microbiology Data (last 24 hrs): 09/16/17 21:30 Wound - Sacral Gram Stain - Final 09/16/17 21:30 Wound - Sacral Culture & Sensitivity - Final Staph Aureus 09/16/17 20:40 Wound - Back Gram Stain - Final 09/16/17 20:40 Wound - Back Culture & Sensitivity - Final Staph Aureus Medications List Reviewed: Yes Assessment & Plan - Problems (Diagnosis) (1) Epistaxis Current Visit: Yes Status: Acute Plan: This appears resolved. Will consider removing packing once anemia stable. Patient had debridement of the necrotic right upper back yesterday. (2) Sacral decubitus ulcer, stage II Current Visit: Yes Status: Chronic Plan: Case discussed at length with surgery. Continue with IV antibiotic therapy. Await wound culture results from surgery. (3) Elevated INR Current Visit: Yes Status: Acute Plan: INR improved. Case discussed at length with hematology. Patient required 2 units of blood after surgery yesterday. Hemoglobin decreased today. Will continue to monitor hemoglobin closely. Patient may require further transfusion. Will hold Eliquis at this time. Will continue with Lovenox to cover for DVT. Will consider restarting Eliquis tomorrow if okay with surgery. (4) Cirrhosis Current Visit: Yes Status: Suspected Plan: Previous lab shows no hepatitis or HIV. Patient has a history of alcohol abuse. Overall stable. This can be further assessed by GI as an outpatient. Qualifiers: Hepatic cirrhosis type: unspecified hepatic cirrhosis Ascites presence: unspecified Qualified Code(s): K74.60 - Unspecified cirrhosis of liver (5) History of DVT (deep vein thrombosis) Current Visit: Yes Status: Chronic Plan: Patient with left brachial vein thrombus. Patient was diagnosed with left brachial vein thrombus in June of 2017. Repeat ultrasound shows old left brachial vein thrombus. New superficial basilic vein noted. Patient previously on Eliquis. This is currently on hold due to recent surgery. Case discussed with surgery. Patient will be on Lovenox to cover for DVT. Possible start of Eliquis tomorrow once anemia is stable. (6) Chronic anticoagulation Current Visit: Yes Status: Acute Plan: Discuss with surgery. Continue as above. (7) necrotic pressure ulcer Onset Date: 09/17/17 Current Visit: Yes Status: Acute Plan: Stasis 3 necrotic ulcer to the right upper back. Measuring 5 x 5 cm. Debridement was done yesterday. Await wound culture results. Prior wound culture before surgery shows Staph aureus. Will continue with IV antibiotic therapy. Anticipate oral antibiotic therapy at discharge once wound culture is obtained. (8) Malnutrition Onset Date: 07/06/17 Current Visit: No Status: Chronic Plan: Will consult dietary for further recommendation. Patient with PEG tube. Qualifiers: Malnutrition type: protein-calorie malnutrition Protein-calorie malnutrition severity: severe Qualified Code(s): E43 - Unspecified severe protein-calorie malnutrition (9) Hypothyroidism Onset Date: 07/06/17 Current Visit: No Status: Chronic Plan: Tsh reviewed. Will decrease thyroid medication. 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 Patient now with tracheostomy. (11) History of tracheostomy Onset Date: 07/06/17 Current Visit: No Status: Chronic Plan: Will continue tracheostomy care. (12) Anemia Onset Date: 11/17/16 Current Visit: No Status: Chronic Plan: Patient with iron deficiency anemia. Patient required transfusion of 2 packed red blood cells yesterday. Hemoglobin decreased today. Will recheck later. If still low patient may require more transfusion. Continue as above. (13) Hiatal hernia with GERD and esophagitis Current Visit: Yes Status: Chronic Plan: Will continue with PPI. (14) PEG (percutaneous endoscopic gastrostomy) status Current Visit: Yes Status: Chronic Plan: Will continue with feeding. Will have dietary assess malnutrition. (15) Hypoglycemia Current Visit: Yes Status: Acute Plan: This is likely from malnutrition. Continue with IV fluid. (16) Hypertension Onset Date: 07/06/17 Current Visit: No Status: Chronic Plan: Blood pressure medication currently on hold. If it begins to elevate then will need to restart his home medication. Qualifiers: Hypertension type: essential hypertension Qualified Code(s): I10 - Essential (primary) hypertension Discharge Plan: Home Plan to discharge in: Greater than 2 days Time Spent Managing Pts Care (In Minutes): 55
--- NOTE | 2017-09-19 12:29 | PN ---
Date of Progress Note: 09/19/2017 Subjective: The patient is awake, alert. No complaint. He had some bleeding from the wound yesterd ay which was controlled with silver nitrate and Surgicel and the wound was packed. His vitals have r emained stable. He was given 2 units of FFP yesterday. Laboratory Data: Today shows his H and H to be 8 and 23.2, platelets of 175. INR is 1.24. Cultures from OR are still pending but he has grown Staph out from the cultures done before surgery sensitive to vancomycin. Examination of the wound reveals it to be having some serosanguineous drainage but n o evidence of any active bleeding. Assessment: Status post excisional debridement, infected wound, right back. Recommendation: We will leave the dressing on today. Continue the antibiotics. He is cleared from a surgical standpoint. We will restart his anticoagulant medication as needed. We will follow this patient while in the hospital. FELIBERTO/ANDRE Voice ID: [id number] Report ID: [id number]
[2017-09-19 12:31] LABS: Hematocrit 24.7 % (39.6-49.0)
[2017-09-19] MEDS: ENOXAPARIN 60 MG/0.6 ML SQ SCH (21:11)
[2017-09-19 21:16] LABS: Hematocrit 23.4 % (39.6-49.0)
[2017-09-20] MEDS: PIPER/TAZO/NS 3.375gm 3.375 GM/100 ML BAG IVPB SCH ×3 (00:44→17:14)
[2017-09-20] MEDS: MORPHINE 4 MG/ML SYR IV PRN ×5 (01:09→20:45)
[2017-09-20] MEDS: JEVITY 1.5 CAL LIQUID 1,000 ML BOT RTH SCH (04:26)
[2017-09-20 04:34] LABS: Absolute Lymphocytes (CBC) 0.6 K/uL (0.7-4.9); Absolute Monocytes 0.8 K/uL (0.1-1.3); Basophils % 1.1 % (0-1.3); Hematocrit 23.9 % (39.6-49.0); Lymphocytes % 10.7 % (15.3-44.8); MCV 95.4 fL (80-100); MPV 7.3 fL (7.6-11.3); Monocytes % 14.2 % (3.3-12.3); RBC Red Blood Cell Count 2.51 M/uL (4.33-5.43)
[2017-09-20 04:47] LABS: ALT/SGPT 12 U/L (12-78); AST/SGOT 18 U/L (15-37); Albumin 1.3 g/dL (3.4-5.0); Alkaline Phosphatase 143 U/L (45-117); BUN Blood Urea Nitrogen 22 mg/dL (7-18); Bicarbonate 29 mmol/L (21-32); Bilirubin Total 0.2 mg/dL (0.2-1.0); Glucose Level 111 mg/dL (74-106); Magnesium 1.7 mg/dL (1.8-2.4); Sodium Level 143 mmol/L (136-145)
[2017-09-20] MEDS: LEVOTHYROXINE SOD 0.112 MG TAB FT SCH (05:06)
[2017-09-20] MEDS ORDERED: MAGNESIUM SULFATE 1 gm IVPB 1 GM/100 ML BAG IV ONE (05:52)
[2017-09-20] MEDS: INSULIN -REGULAR HUMAN 50 UNIT/0.5 ML ML SQ SCH ×4 (07:30→21:00)
[2017-09-20 07:44] VITALS: BMI 17.4
[2017-09-20] MEDS: NA CHLORIDE 0.9% 1,000 ML IV SCH ×2 (09:39→19:39)
[2017-09-20] MEDS: D5 0.9 NS 1,000 ML IV SCH ×3 (10:00→20:00)
[2017-09-20] MEDS: ENOXAPARIN 60 MG/0.6 ML SQ SCH (10:20)
[2017-09-20] MEDS: SOD FERRIC GLUC COMPLX/SUCROSE 125 MG in NA CHLORIDE 0.9% 100 ML IV SCH (10:20)
[2017-09-20] MEDS: THIAMINE HCL 100 MG TABLET PO SCH (10:20)
[2017-09-20] MEDS: PANTOPRAZOLE 40 MG INJ IVP SCH ×2 (10:22→21:59)
[2017-09-20] MEDS: JUVEN PACKET FT SCH ×2 (10:22→21:57)
--- NOTE | 2017-09-20 14:03 | PN ---
Date of Progress Note: 09/20/2017 Subjective: The patient is awake, alert. No new complaints. Objective: Vital Signs: Stable afebrile. Extremities: Examination of the dressing reveals that there did have some serosanguineous blood. Th e dressing was removed. All packing was removed. There was minimal oozing noted. No evidence of an y active bleeding. Pressure dressing applied again with wet-to-dry saline and we will monitor this pa tient further. Laboratory Data: H and H stable at 8 and 24. Assessment: Status post excision of infected wound on the right back. Recommendations: Continue pressure dressing today. We will re-evaluate the wound tomorrow and may n eed silver nitrate that continues to help control the bleeding. Continue antibiotics as ordered. /MODL Voice ID: [id number] Report ID: [id number]
--- NOTE | 2017-09-20 14:06 | P.PN ---
Subjective Date of Service: 09/20/17 Primary Care Provider: Dr. Aguero/Dr. Bartlett Chief Complaint: necrotic pressure ulcer Subjective: Improving Physical Examination - Vital Signs Temperature: 98.2 F Blood Pressure: 135/75 Pulse: 82 Respirations: 16 Pulse Ox (%): 94 - Physical Exam General: Alert, Cooperative HEENT: Atraumatic Neck: Supple Respiratory: Clear to auscultation bilaterally, Normal air movement Cardiovascular: Normal pulses, Regular rate/rhythm Gastrointestinal: Normal bowel sounds, Soft and benign, Non-distended Musculoskeletal: No erythema, No tenderness, No warmth, Other (Muscle wasting to the upper lower extremities) Neurological: Normal speech Other Physical/Emotional Findings: Trach and PEG tube in place. - Studies Microbiology Data (last 24 hrs): 09/16/17 21:30 Wound - Sacral Gram Stain - Final 09/16/17 21:30 Wound - Sacral Culture & Sensitivity - Final Staph Aureus 09/16/17 20:40 Wound - Back Gram Stain - Final 09/16/17 20:40 Wound - Back Culture & Sensitivity - Final Staph Aureus Medications List Reviewed: Yes Assessment & Plan - Problems (Diagnosis) (1) Epistaxis Current Visit: Yes Status: Acute Plan: This appears resolved. Packing removed. (2) Sacral decubitus ulcer, stage II Current Visit: Yes Status: Chronic Plan: Case discussed at length with surgery. Continue with IV antibiotic therapy. Await wound culture results from surgery. (3) Elevated INR Current Visit: Yes Status: Acute Plan: INR improved. Case discussed at length with hematology. Patient required 2 units of blood after surgery I will discontinue Lovenox and change to Eliquis today. Will monitor hemoglobin. Patient on IV iron. (4) Cirrhosis Current Visit: Yes Status: Suspected Plan: Previous lab shows no hepatitis or HIV. Patient has a history of alcohol abuse. Overall stable. This can be further assessed by GI as an outpatient. Qualifiers: Hepatic cirrhosis type: unspecified hepatic cirrhosis Ascites presence: unspecified Qualified Code(s): K74.60 - Unspecified cirrhosis of liver (5) History of DVT (deep vein thrombosis) Current Visit: Yes Status: Chronic Plan: Patient with left brachial vein thrombus. Patient was diagnosed with left brachial vein thrombus in June of 2017. Repeat ultrasound shows old left brachial vein thrombus. New superficial basilic vein noted. Lovenox discontinued. Patient restarted on Eliquis. Patient will need a follow up with hematology as an outpatient. (6) Chronic anticoagulation Current Visit: Yes Status: Acute Plan: Discuss with surgery and Hematology. Continue as above. (7) necrotic pressure ulcer Onset Date: 09/17/17 Current Visit: Yes Status: Acute Plan: Stasis 3 necrotic ulcer to the right upper back. Measuring 5 x 5 cm. Patient status post debridement. Await wound culture results. Anticipate oral antibiotic therapy at discharge. If with high resistance may require IV antibiotic therapy. Will discuss with high school social studies tutor about plan of care with possible skilled placement. (8) Malnutrition Onset Date: 07/06/17 Current Visit: No Status: Chronic Plan: Will consult dietary for further recommendation. Patient with PEG tube. Qualifiers: Malnutrition type: protein-calorie malnutrition Protein-calorie malnutrition severity: severe Qualified Code(s): E43 - Unspecified severe protein-calorie malnutrition (9) Hypothyroidism Onset Date: 07/06/17 Current Visit: No Status: Chronic Plan: Tsh reviewed. Medication adjusted. 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 Patient now with tracheostomy. (11) History of tracheostomy Onset Date: 07/06/17 Current Visit: No Status: Chronic Plan: Will continue tracheostomy care. (12) Anemia Onset Date: 11/17/16 Current Visit: No Status: Chronic Plan: Patient with iron deficiency anemia. Patient required transfusion of 2 packed red blood cells yesterday. Will continue monitor hemoglobin. Patient on IV iron. Patient may require transfusion if less than 7.0. (13) Hiatal hernia with GERD and esophagitis Current Visit: Yes Status: Chronic Plan: Will continue with PPI. (14) PEG (percutaneous endoscopic gastrostomy) status Current Visit: Yes Status: Chronic Plan: Will continue with feeding. Will have dietary assess malnutrition. (15) Hypoglycemia Current Visit: Yes Status: Acute Plan: This is likely from malnutrition. Continue with IV fluid. (16) Hypertension Onset Date: 07/06/17 Current Visit: No Status: Chronic Plan: Blood pressure medication currently on hold. If it begins to elevate then will need to restart his home medication. Qualifiers: Hypertension type: essential hypertension Qualified Code(s): I10 - Essential (primary) hypertension Discharge Plan: Home Plan to discharge in: 48 Hours Time Spent Managing Pts Care (In Minutes): 55
[2017-09-20] MEDS: VANCOMYCIN 1 GM in NA CHLORIDE 0.9% 250 ML IVPB SCH (15:07)
[2017-09-20 20:13] LABS: Hematocrit 21.4 % (39.6-49.0)
[2017-09-20] MEDS: APIXABAN 5 MG TABLET PO SCH (21:56)
[2017-09-21] MEDS: PIPER/TAZO/NS 3.375gm 3.375 GM/100 ML BAG IVPB SCH ×2 (01:04→10:28)
[2017-09-21] MEDS: MORPHINE 4 MG/ML SYR IV PRN ×4 (01:05→15:30)
[2017-09-21 03:40] LABS: Absolute Lymphocytes (CBC) 0.7 K/uL (0.7-4.9); Absolute Monocytes 0.9 K/uL (0.1-1.3); Absolute Neutrophil 3.3 K/uL (1.8-8.0); Basophils % 1.3 % (0-1.3); Eosinophils % 5.4 % (0-4.4); Lymphocytes % 12.7 % (15.3-44.8); MCV 95.4 fL (80-100); MPV 7.4 fL (7.6-11.3); Monocytes % 16.7 % (3.3-12.3); RBC Red Blood Cell Count 2.15 M/uL (4.33-5.43)
[2017-09-21 03:42] LABS: Hematocrit 20.5 % (39.6-49.0)
[2017-09-21 03:51] LABS: BUN Blood Urea Nitrogen 21 mg/dL (7-18); Bicarbonate 26 mmol/L (21-32); Glucose Level 104 mg/dL (74-106); Magnesium 1.7 mg/dL (1.8-2.4); Sodium Level 141 mmol/L (136-145)
[2017-09-21] MEDS ORDERED: NA CHLORIDE 0.9% 250 ML IV SCH (04:00)
[2017-09-21] MEDS: LEVOTHYROXINE SOD 0.112 MG TAB FT SCH (05:37)
[2017-09-21] MEDS: NA CHLORIDE 0.9% 1,000 ML IV SCH ×2 (05:39→14:53)
[2017-09-21] MEDS: D5 0.9 NS 1,000 ML IV SCH ×2 (06:00→14:53)
[2017-09-21] MEDS: INSULIN -REGULAR HUMAN 50 UNIT/0.5 ML ML SQ SCH ×4 (07:30→21:00)
[2017-09-21] MEDS ORDERED: MAGNESIUM SULFATE 1 gm IVPB 1 GM/100 ML BAG IV ONE (07:58)
[2017-09-21] MEDS ORDERED: SILVER NITRATE 1 APPL TOP ONE (10:00)
[2017-09-21] MEDS: VANCOMYCIN 1 GM in NA CHLORIDE 0.9% 250 ML IVPB SCH (10:00)
[2017-09-21] MEDS: JUVEN PACKET FT SCH ×2 (10:28→21:55)
[2017-09-21] MEDS: APIXABAN 5 MG TABLET PO SCH (10:28)
[2017-09-21] MEDS: PANTOPRAZOLE 40 MG INJ IVP SCH ×2 (10:28→21:55)
[2017-09-21] MEDS: THIAMINE HCL 100 MG TABLET PO SCH (10:28)
[2017-09-21] MEDS ORDERED: NA CHLORIDE 0.9% 250 ML ONE ×2 (10:52→15:32)
--- NOTE | 2017-09-21 11:19 | PN ---
Date of Progress Note: 09/21/2017 Subjective: The patient is awake, alert. No new complaints. Objective: His vital signs are stable. He is afebrile. Laboratory Data: Reveals his H and H to be 6.9 and 20.5 and he has had a little bit of bleeding from the wound still. He needs to be on anticoagulation because of his AFib. He has some underlying liver disease with com plicating matters. Examination of the wound, dressing taken down. There are a few clots in there; ho wever, there was no active bleeding. There was a little bit of oozing in 1 area. Silver nitrate was utilized and then wet-to-dry pressure dressing was applied. The patient tolerated the dressing castaneda e in stable condition. Assessment: Infected wound back, the patient with coagulopathy. Recommendations: Continue wound care as ordered and I will watch the patient's wound while he is in the hospital. If there is any evidence of bleeding, we will try to address as best we can. In the m eantime, the patient will get 2 more units of blood and continue antibiotics as ordered. /MODL Voice ID: [id number] Report ID: [id number]
--- NOTE | 2017-09-21 11:26 | P.PN ---
Subjective Date of Service: 09/21/17 Primary Care Provider: Dr. Aguero/Dr. Bartlett Chief Complaint: necrotic pressure ulcer Subjective: Other (Hemoglobin dropped. Otherwise patient stable.) Physical Examination - Vital Signs Temperature: 97.5 F Blood Pressure: 127/75 Pulse: 81 Respirations: 18 Pulse Ox (%): 96 - Physical Exam General: Alert, In no apparent distress, Cooperative HEENT: Atraumatic Neck: Supple Respiratory: Clear to auscultation bilaterally, Normal air movement Cardiovascular: Normal pulses, Regular rate/rhythm Gastrointestinal: Normal bowel sounds, Soft and benign, Non-distended, No masses , No rebound, No guarding Musculoskeletal: No tenderness, No warmth, Other (Muscle wasting to the upper lower extremity) Other Physical/Emotional Findings: Trach and PEG tube in place. - Studies Medications List Reviewed: Yes Assessment & Plan - Problems (Diagnosis) (1) Epistaxis Current Visit: Yes Status: Acute Plan: This appears resolved. (2) Sacral decubitus ulcer, stage II Current Visit: Yes Status: Chronic Plan: Case discussed at length with surgery. Continue with IV antibiotic therapy. Patient anemic. Patient will get 2 units of blood. Will change Eliquis to Lovenox at DVT prophylaxis until hemoglobin is more stable. Once hemoglobin remained stable then the patient can return back on Eliquis for his DVT. So far wound culture negative from cultures done after surgery. At discharge patient can go on oral antibiotic therapy. Will need to discuss with social media manager about plan of care. Will need to consider skilled placement or home with home health. (3) Elevated INR Current Visit: Yes Status: Acute Plan: INR improved. Case discussed at length with hematology. Hemoglobin low. Will get 2 units of blood. Continue as above. (4) Cirrhosis Current Visit: Yes Status: Suspected Plan: Previous lab shows no hepatitis or HIV. Patient has a history of alcohol abuse. Overall stable. This can be further assessed by GI as an outpatient. Qualifiers: Hepatic cirrhosis type: unspecified hepatic cirrhosis Ascites presence: unspecified Qualified Code(s): K74.60 - Unspecified cirrhosis of liver (5) History of DVT (deep vein thrombosis) Current Visit: Yes Status: Chronic Plan: Patient with left brachial vein thrombus. Patient was diagnosed with left brachial vein thrombus in June of 2017. Repeat ultrasound shows old left brachial vein thrombus. New superficial basilic vein noted. Will discontinue Eliquis. Will change to Lovenox at DVT prophylaxis level. Once hemoglobin stable then will transition back to Eliquis. (6) Chronic anticoagulation Current Visit: Yes Status: Acute Plan: Discuss with surgery and Hematology. Continue as above. (7) necrotic pressure ulcer Onset Date: 09/17/17 Current Visit: Yes Status: Acute Plan: Stasis 3 necrotic ulcer to the right upper back. Measuring 5 x 5 cm. Patient status post debridement. So far wound culture results after surgery shows no bacteria. Will continue with IV antibiotic therapy. At discharge will continue with oral medication. Wound culture results prior to surgery shows Staph aureus. Will need to discuss with social media manager about plan of care. (8) Malnutrition Onset Date: 07/06/17 Current Visit: No Status: Chronic Plan: Will consult dietary for further recommendation. Patient with PEG tube. Qualifiers: Malnutrition type: protein-calorie malnutrition Protein-calorie malnutrition severity: severe Qualified Code(s): E43 - Unspecified severe protein-calorie malnutrition (9) Hypothyroidism Onset Date: 07/06/17 Current Visit: No Status: Chronic Plan: Tsh reviewed. Medication adjusted. 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 Patient now with tracheostomy. (11) History of tracheostomy Onset Date: 07/06/17 Current Visit: No Status: Chronic Plan: Will continue tracheostomy care. (12) Anemia Onset Date: 11/17/16 Current Visit: No Status: Chronic Plan: Patient with iron deficiency anemia. Continue as above. Patient will get 2 units of blood. Will monitor hemoglobin closely. Patient already has gotten a total of 2 units of blood after surgery. (13) Hiatal hernia with GERD and esophagitis Current Visit: Yes Status: Chronic Plan: Will continue with PPI. (14) PEG (percutaneous endoscopic gastrostomy) status Current Visit: Yes Status: Chronic Plan: Will continue with feeding. Will have dietary assess malnutrition. (15) Hypoglycemia Current Visit: Yes Status: Acute Plan: This is likely from malnutrition. Continue with IV fluid. (16) Hypertension Onset Date: 07/06/17 Current Visit: No Status: Chronic Plan: Blood pressure medication currently on hold. If it begins to elevate then will need to restart his home medication. Qualifiers: Hypertension type: essential hypertension Qualified Code(s): I10 - Essential (primary) hypertension Discharge Plan: Other (Home versus skilled placement) Plan to discharge in: 48 Hours Time Spent Managing Pts Care (In Minutes): 55
[2017-09-21] MEDS: ENOXAPARIN 30 MG/0.3 ML SQ SCH (18:43)
[2017-09-21] MEDS ORDERED: FUROSEMIDE 20 MG/ 2ML VIAL IV ONE (19:00)
[2017-09-21] MEDS: JEVITY 1.5 CAL LIQUID 1,000 ML BOT RTH SCH (19:36)
[2017-09-21 20:56] LABS: Hematocrit 29.7 % (39.6-49.0)
[2017-09-21] MEDS: SMZ./TMP. 800/160 MG TABLET PO SCH (21:54)
[2017-09-21] MEDS: DOXYCYCLINE 100 MG CAP PO SCH (21:54)
[2017-09-22] MEDS: NA CHLORIDE 0.9% 1,000 ML IV SCH ×2 (01:39→11:39)
[2017-09-22] MEDS: D5 0.9 NS 1,000 ML IV SCH ×2 (03:22→13:52)
[2017-09-22] MEDS: MORPHINE 4 MG/ML SYR IV PRN ×2 (04:25→11:25)
[2017-09-22 05:06] LABS: Absolute Lymphocytes (CBC) 0.8 K/uL (0.7-4.9); Absolute Monocytes 1.2 K/uL (0.1-1.3); Absolute Neutrophil 5.5 K/uL (1.8-8.0); Basophils % 0.8 % (0-1.3); Eosinophils % 3.8 % (0-4.4); Hematocrit 28.8 % (39.6-49.0); Lymphocytes % 10.2 % (15.3-44.8); MCH 32.1 pg (27.0-35.0); MCV 91.8 fL (80-100); MPV 7.7 fL (7.6-11.3); Monocytes % 15.3 % (3.3-12.3); RBC Red Blood Cell Count 3.14 M/uL (4.33-5.43)
[2017-09-22 05:18] LABS: BUN Blood Urea Nitrogen 26 mg/dL (7-18); Bicarbonate 30 mmol/L (21-32); Glucose Level 98 mg/dL (74-106); Magnesium 1.9 mg/dL (1.8-2.4); Potassium 4.4 mmol/L (3.5-5.1); Sodium Level 139 mmol/L (136-145)
[2017-09-22] MEDS: LEVOTHYROXINE SOD 0.112 MG TAB FT SCH (05:28)
[2017-09-22 07:26] LABS: Blood Morphology Comment NOT SEEN (NOT SEEN); Platelet Estimate ADEQ; Urine White Blood Cell Casts OK
[2017-09-22 09:14] VITALS: TEMP 97.8
[2017-09-22] MEDS: THIAMINE HCL 100 MG TABLET PO SCH (10:33)
[2017-09-22] MEDS: PANTOPRAZOLE 40 MG INJ IVP SCH (10:33)
[2017-09-22] MEDS: DOXYCYCLINE 100 MG CAP PO SCH (10:34)
[2017-09-22] MEDS: JUVEN PACKET FT SCH (10:34)
[2017-09-22] MEDS: SMZ./TMP. 800/160 MG TABLET PO SCH (10:34)
[2017-09-22] MEDS: INSULIN -REGULAR HUMAN 50 UNIT/0.5 ML ML SQ SCH ×2 (11:30→16:30)
--- NOTE | 2017-09-22 11:58 | PN ---
Date of Progress Note: 09/22/2017 Subjective: The patient is awake, alert. No new complaints. Objective: His vital signs are stable. He is afebrile. Laboratory Data: His H and H after 2 units transfusion are 10.1 and 28.8. Examination of dressing revealed some serosanguineous blood, but the dressing is the original one belén t I placed yesterday. When the packing was taken out, there were some clots that were removed and th en wet-to-dry normal saline dressing change was applied again. The patient tolerated the dressing ch edgar well. Assessment: Status post excisional debridement of infected wound, right back. Recommendations: Continue antibiotics, wound care as ordered. Once the patient is medically stabili zed, then disposition will take place at appropriate facility. /MODL Voice ID: [id number] Report ID: [id number]
[2017-09-22 12:46] VITALS: BP 118/84
[2017-09-22] MEDS: JEVITY 1.5 CAL LIQUID 1,000 ML BOT RTH SCH (15:12)
[2017-09-22] MEDS: ENOXAPARIN 30 MG/0.3 ML SQ SCH (18:05)
--- NOTE | 2017-09-22 18:12 | P.DS ---
Admission Date: 09/16/17 Discharge Date: 09/22/17 Primary Care Provider: Dr. Aguero/Dr. Bartlett Disposition: ROUTINE DISCHARGE Discharge Condition: GOOD Reason for Admission: necrotic pressure ulcer Consultations: Gen Surgery - Dr Tyler Procedures: Incision and drainage of the right back wound - Problems (1) Chronic anticoagulation Current Visit: Yes Status: Acute (2) Epistaxis Current Visit: Yes Status: Acute (3) necrotic pressure ulcer Onset Date: 09/17/17 Current Visit: Yes Status: Acute (4) History of DVT (deep vein thrombosis) Current Visit: Yes Status: Chronic (5) PEG (percutaneous endoscopic gastrostomy) status Current Visit: Yes Status: Chronic (6) Sacral decubitus ulcer, stage II Current Visit: Yes Status: Chronic (7) Cirrhosis Current Visit: Yes Status: Suspected Qualifiers: Hepatic cirrhosis type: unspecified hepatic cirrhosis Ascites presence: unspecified Qualified Code(s): K74.60 - Unspecified cirrhosis of liver (8) Hypertensive disorder, systemic arterial Onset Date: 11/17/16 Current Visit: No Status: Active (9) Anemia Onset Date: 11/17/16 Current Visit: No Status: Chronic (10) COPD (chronic obstructive pulmonary disease) Onset Date: 07/06/17 Current Visit: No Status: Chronic Qualifiers: COPD type: chronic bronchitis (11) History of throat cancer Onset Date: 07/06/17 Current Visit: No Status: Chronic (12) History of tracheostomy Onset Date: 07/06/17 Current Visit: No Status: Chronic (13) Hypertension Onset Date: 07/06/17 Current Visit: No Status: Chronic Qualifiers: Hypertension type: essential hypertension Qualified Code(s): I10 - Essential (primary) hypertension (14) Hypothyroidism Onset Date: 07/06/17 Current Visit: No Status: Chronic Qualifiers: Hypothyroidism type: unspecified Qualified Code(s): E03.9 - Hypothyroidism , unspecified (15) Malnutrition Onset Date: 07/06/17 Current Visit: No Status: Chronic Qualifiers: Malnutrition type: protein-calorie malnutrition Protein-calorie malnutrition severity: severe Qualified Code(s): E43 - Unspecified severe protein-calorie malnutrition Brief History of Present Illness: Mr Corral is a 57 years old male with multiple medical problems including, 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 It started just POWER [employer]ESS [employer]. The nose bleeding was packaged and controlled in ER. The patient also states that about 4 days ago, start with a pink area in his back, which has been growing and today, his caregiver noticed a black center with yellowish secretion. No history of fever or chills. However , he has been more weak lately and has had recurrent falls. Lab work in ED remarkable for normal WBC coutn, but elevated procalcinoin and CRP, lactate normal. Hospital Course: Overall during the hospital stay patient remained stable Patient was initially admitted to the hospital for cellulitis of the back. Patient was found to have sacral wound pressure ulcer along with the necrotic wound on the right back as well. General surgery was consulted who performed an incision and drainage to the area. Cultures were collected at that time which was positive for Staph aureus. Sensitive to doxy Cyclen and Bactrim. Patient was thus switched over to p.o. doxy and Bactrim from initial IV vanc and Zosyn. Patient had marked improvement in his symptoms. Patient initially was referred to a long-term acute care facility for placement however patient has exhausted all his benefits and thus was not able to be transferred to a long -term acute care facility. At that time a decision was made Dc home with ex- helping with wound care dressing changes. Patient and demonstrated understanding. Ex- demonstrated understanding and appropriate skills to do wound care with antibiotics. Patient then was discharged home under stable condition. All other chronic conditions remained stable while here in the hospital. Vital Signs/Physical Exam: Temp Pulse Resp BP Pulse Ox 97.8 F 76 18 118/84 96 09/22/17 12:00 09/22/17 12:00 09/22/17 12:00 09/22/17 12:09/22/17 12:00 General: Alert, In no apparent distress HEENT: Atraumatic, Other (Tracheostomy in place) Neck: Supple Respiratory: Normal air movement Cardiovascular: Regular rate/rhythm, Normal S1 S2 Gastrointestinal: Normal bowel sounds, No tenderness Musculoskeletal: No tenderness, Erythema, Tenderness Integumentary: Tenderness/swelling, Pressure ulcer Neurological: Normal speech, Normal tone, Normal affect Lymphatics: No axilla or inguinal lymphadenopathy Other Physical/Emotional Findings: Trach and PEG tube in place. Laboratory Data at Discharge: WBC 7.9 K/uL (4.3-10.9) D 09/22/17 04:47 Hgb 10.1 g/dL (13.6-17.9) L 09/22/17 04:47 Hct 28.8 % (39.6-49.0) L 09/22/17 04:47 Plt Count 185 K/uL (152-406) D 09/22/17 04:47 PT 14.7 SECONDS (9.5-12.5) H 09/19/17 08:51 INR 1.24 09/19/17 08:51 APTT 37.3 SECONDS (24.3-36.9) H 09/19/17 08:51 Sodium 139 mmol/L (136-145) 09/22/17 04:47 Potassium 4.4 mmol/L (3.5-5.1) 09/22/17 04:47 BUN 26 mg/dL (7-18) H 09/22/17 04:47 Creatinine 0.50 mg/dL (0.55-1.3) L 09/22/17 04:47 Glucose 98 mg/dL (74-106) 09/22/17 04:47 Magnesium 1.9 mg/dL (1.8-2.4) 09/22/17 04:47 Total Bilirubin 0.2 mg/dL (0.2-1.0) 09/20/17 04:08 AST 18 U/L (15-37) 09/20/17 04:08 ALT 12 U/L (12-78) 09/20/17 04:08 Alkaline Phosphatase 143 U/L (45-117) H 09/20/17 04:08 Home Medications: Levothyroxine [Synthroid*] 137 mcg FT [id number] 11/15/16 Lisinopril/Hydrochlorothiazide [Lisinopril-Hctz 10-12.5 mg Tab] 1 tab PO DAILY 07/04/17 Apixaban [Eliquis] 5 mg PO BID #60 tablet 07/08/17 Jevity 1.5 Donny Liquid 237 ml FT 5XD bot 07/08/17 Metoprolol Tartrate [Lopressor*] 50 mg FT BID #60 tab 07/08/17 Pantoprazole [Protonix Tab*] 40 mg PO DAILYAC #30 tab 07/08/17 Thiamine HCl [Vitamin B-1*] 100 mg PO DAILY #30 tablet 07/08/17 Ferrous Sulfate [Ferrous Sulfate*] 1 tab PO SEECOM 09/17/17 Folic Acid 1 mg PO SEECOM 09/17/17 Doxycycline Hyclate [Vibramycin] 100 mg PO BID #28 capsule 09/22/17 Smz./Tmp. [Bactrim Ds 800 MG/160 MG*] 1 tab PO BID #28 tab 09/22/17 New Medications: Doxycycline Hyclate [Vibramycin] 100 mg PO BID #28 capsule Smz./Tmp. [Bactrim Ds 800 MG/160 MG*] 1 tab PO BID #28 tab Diet: Regular Activity: Ad enedina Followup: Rico Tyler MD [ACTIVE - CAN ADMIT] - 1 Week
[2017-09-22 21:09] VITALS: O2SAT 95
== END 2017-09-22 17:50 | disposition home or self-care (01) | DRG 264 ==
LOC: ER 19:46 → ERHOLD 23:00 → 4TH 23:30
PROVIDERS: ADMIT Internal Medicine; ATTEND Family Medicine
PROC: 0W3Q7ZZ Control Bleeding in Respiratory Tract, Via Natural or Artificial Opening (ICD-10-PCS; 2017-09-16)
PROC: 30233N1 Transfusion of Nonautologous Red Blood Cells into Peripheral Vein, Percutaneous Approach (ICD-10-PCS; 2017-09-18)
PROC: 0JB70ZZ Excision of Back Subcutaneous Tissue and Fascia, Open Approach (ICD-10-PCS; principal; 2017-09-18 08:45)
PROC: 30233K1 Transfusion of Nonautologous Frozen Plasma into Peripheral Vein, Percutaneous Approach (ICD-10-PCS; 2017-09-19)
DX: I96 Gangrene, not elsewhere classified (principal); L89.123 Pressure ulcer of left upper back, stage 3; E43 Unspecified severe protein-calorie malnutrition; Z68.1 Body mass index [BMI] 19.9 or less, adult; L03.312 Cellulitis of back [any part except buttock and flank]; I10 Essential (primary) hypertension; I48.91 Unspecified atrial fibrillation; L89.152 Pressure ulcer of sacral region, stage 2; E03.9 Hypothyroidism, unspecified; J44.9 Chronic obstructive pulmonary disease, unspecified; K74.60 Unspecified cirrhosis of liver; D50.9 Iron deficiency anemia, unspecified; B95.61 Methicillin susceptible Staphylococcus aureus infection as the cause of diseases classified elsewhere; E16.2 Hypoglycemia, unspecified; K44.9 Diaphragmatic hernia without obstruction or gangrene; R79.1 Abnormal coagulation profile; K21.0 Gastro-esophageal reflux disease with esophagitis; R04.0 Epistaxis; Z86.718 Personal history of other venous thrombosis and embolism; Z79.01 Long term (current) use of anticoagulants; Z93.1 Gastrostomy status; Z93.0 Tracheostomy status; Z85.21 Personal history of malignant neoplasm of larynx
CPT/HCPCS: 36415; 71045; 71260; 74177; 80048; 80053; 80076; 80202; 81003; 82607; 82728; 82962; 83540; 83605; 83735; 84132; 84145; 84439; 84443; 84466; 85014; 85018; 85025; 85610; 85730; 86140; 86850; 86900; 86901; 87040; 87070; 87075; 87077; 87186; 87205; 88304; 93005; 93971; 96361; 96365; 99285; C9113; J1650; J1940; J2543; J2916; J3010; J3370; J3475; J7030; P9016; P9059; Q9967

== ENCOUNTER 2017-09-23 21:17 | Emergency (ER) | payer OTHER ==
--- OUTSIDE RECORDS SUMMARY | 2017-09-23 21:21 | XMS REPORT | Continuity of Care Document ---
:1960 Author Organization Interface Problems Problem Status Onset Classification Date Comments Source Date Reported LEFT FACIAL Active [facility] SWELLING [address] [place] [address] Center LFLT TRANSFER Active [id number] AIRWAY Active [facility] COMPROMISE [address] [place] [address] Throat cancer Resolved Problem 07/18/2016 [facility] OTHER SPECIFIED Active [facility] RESPIRATORY Medical DISORDERS Center Medications Medication Details Route Status Patient Ordering Order Source Instructions Provider Date lisinopril 10 mg 10 mg=1 tab, Active 07/15[facility] oral tablet PO, Daily, # 30 2016 Medical tab, 0 Center Refill(s) Hydrochlorothiazide 12.5 mg=1 cap, Active 07/15[facility] 12.5 MG Oral PO, Daily, # 30 2016 Medical Capsule cap, 0 Center Refill(s) Beneprotein 7 gm 1 pkt, Route: Inactive [facility] pkt PO, Drug Form: 2017 Medical PWDR, Dosing Center Weight 68.182, kg, TID-Before Meals, Start date: 07/15/16 11:30:00 CDT, Duration: 30 day, Stop date: 08/14/16 7:30:00 CDTNotes: (Same as: Beneprotein) Amoxicillin 875 MG 1 tab, PO, BID, No Longer [facility] / Clavulanate 125 X 2 day, # 4 Active 2017 Medical MG Oral Tablet tab, 0 Center [Augmentin 875-mg] Refill(s) tramadol 50 mg=1 tab, Active 07/15[facility] hydrochloride 50 MG PO, Q6H, PRN 2017 Medical Oral Tablet Pain Score 1-5, Center 0 Refill(s) Morphine 2 mg, 1 mL, Inactive 07/15[facility] Route: IVP, 2017 Medical Drug form: INJ, Center ONCE, Dosing Weight 68.182, kg, Start date: 07/15/16 4:46:00 CDT, Stop date: 07/15/16 4:46:00 CDTNotes: (Same as:MORPhine Sulfate) Morphine 2 mg, 1 mL, Inactive [facility] Route: IVP, 2017 Medical Drug form: INJ, Center ONCE, Dosing Weight 68.182, kg, Start date: 07/14/16 19:48:00 CDT, Stop date: 07/14/16 19:48:00 CDTNotes: (Same as:MORPhine Sulfate) Morphine 1 mg, 0.5 mL, Inactive [facility] Route: IV, Drug 2016 Medical form: INJ, Center ONCE, Dosing Weight 68.182, kg, Start date: 07/14/16 16:51:00 CDT, Stop date: 07/14/16 16:51:00 CDTNotes: (Same as:MORPhine Sulfate) Beneprotein 7 gm 1 pkt, Route: T No Longer [facility] pkt FEED, Drug Active 2016 Medical Form: PWDR, Center Dosing Weight 68.182, kg, TID-Before Meals, Start date: 07/14/16 11:30:00 CDT, Duration: 30 day, Stop date: 08/13/16 7:30:00 CDTNotes: (Same as: Beneprotein) Fentanyl 50 microgram, Inactive [facility] Route: IV, 2017 Medical ONCE, Dosing Center Weight 68.182, kg, Start date: 07/14/16 10:25:00 CDT, Stop date: 07/14/16 10:25:00 CDT Glucagon 1 mg, Route: Inactive 07/14[facility] IV, ONCE, 2016 Medical Dosing Weight Center 68.182, kg, Start date: 07/14/16 10:15:00 CDT, Stop date: 07/14/16 10:15:00 CDT Midazolam 1 mg, Route: Inactive [facility] IV, ONCE, 2017 Medical Dosing Weight Center 68.182, kg, Start date: 07/14/16 10:15:00 CDT, Stop date: 07/14/16 10:15:00 CDT Fentanyl 50 microgram, Inactive [facility] Route: IV, 2017 Medical ONCE, Dosing Center Weight 68.182, kg, Start date: 07/14/16 9:55:00 CDT, Stop date: 07/14/16 9:55:00 CDT Glucagon 1 mg, Route: Inactive 05/22[facility] IV, ONCE, 2017 Medical Dosing Weight Center [...] Unasyn 3 gm, 1 ea, No Longer [place] Route: IVPB, Active 2016 Medical Drug form: [place] PDR/INJ, ABXQ6H, Start date: 07/13/16 14:00:00 CDT, Duration: 4 day, Stop date: 07/17/16 8:00:00 CDTNotes: Dosing based on Ampicillin component (Same as: Unasyn) Hydralazine 10 mg, 0.5 mL, No Longer [place] Route: IV, Drug Active 2016 Medical form: INJ, Q8H, Center Dosing Weight 68.182, kg, PRN Other -See Comment, prn sbp>180, dbp>100, Start date: 07/13/16 13:12:00 CDT, Duration: 30 day, Stop date: 08/12/16 13:11:00 CDTNotes: (Same as: Apresoline) Push over 5 minutes Morphine 1 mg, 0.5 mL, No Longer [place] Route: IV, Drug Active 2016 Medical form: INJ, Q8H, [place] Dosing Weight 68.182, kg, PRN Pain Score 6-10, Start date: 07/13/16 12:56:00 CDT, Duration: 30 day, Stop date: 08/12/16 12:55:00 CDTNotes: (Same as:MORPhine Sulfate) Amoxicillin 875 MG 875 mg, 10.94 Inactive [place] / Clavulanate 125 mL, Route: NG, 2017 Medical MG Oral Tablet Drug Form: [place] [Augmentin 875-mg] SOLN, Dosing Weight 68.182, kg, [...] 5 MG TAB, Dosing Center Oral Tablet [[place] Weight 68.182, 5/325] kg, Q6H, PRN Pain 4-6/Temp > 100.4 F, Start date: 07/12/16 19:32:00 CDT, Duration: 30 day, Stop date: 08/11/16 19:31:00 CDTNotes: (Same as: [place] 325/5) Do not exceed 4gm/day of acetaminophen. [...] Tylenol w/Codeine) Fentanyl 50 microgram, 1 Inactive [facility] mL, Route: IV, 2017 Medical Drug [...] CDT Protonix 40 mg, Route: No Longer [facility] IVP, Drug form: Active 2016 Medical INJ, Before Center Breakfast, Dosing Weight 68.182, kg, Start date: 07/11/16 7:30:00 CDT, Duration: 30 day, Stop date: 08/09/16 7:30:00 CDT lansoprazole 30 mg, Route: No Longer [place] NG, Drug form: Active 2016 Medical SUSP, Before Center Breakfast, Dosing Weight 68.182, kg, Start date: 07/11/16 7:30:00 CDT, Duration: 30 day, Stop date: 08/09/16 7:30:00 CDT sodium phosphate + 30 mmol, 10 mL, No Longer [place] sodium chloride Route: IVPB, Active 2016 Medical 0.9% INJ 250 mL PRN, Dosing Center Weight 68.182, kg, PRN Abnormal Lab Result, Start date: 07/11/16 4:00:00 CDT, Duration: 30 day, Stop date: 08/10/16 3:59:00 CDT, FOR ICU USE ONLY potassium chloride 20 mEq, 1 tab, No Longer [place] Route: PO, Drug Active 2016 Medical form: ERTAB, Center PRN, Dosing Weight 68.182, kg, PRN Abnormal Lab Result, Start date: 07/11/16 4:00:00 CDT, Duration: 30 day, Stop date: 08/10/16 3:59:00 CDT, FOR ICU USE ONLYNotes: (Same as: K-Dur 20) "Do Not Crush" With food and full glass of water Magnesium Oxide 800 mg, 2 tab, No Longer [place] Route: PO, Drug Active 2016 Medical form: TAB, PRN, Center Dosing Weight 68.182, kg, PRN Abnormal Lab Result, FOR ICU USE ONLY, Start date: 07/11/16 4:00:00 CDT, Duration: 30 day, Stop date: 08/10/16 3:59:00 CDTNotes: (Same as: Mag-Ox 400) Magnesium oxide [id number] elemental magnesium Dose=____mg magnesium oxide (___mg elemental magnesium) Calcium Carbonate 500 mg, 1 tab, No Longer [place] 500 MG Chewable Route: PO, Drug Active 2016 Medical Tablet form: CHEWTAB, Center PRN, Dosing Weight 68.182, kg, PRN Abnormal Lab Result, FOR ICU USE ONLY, Start date: 07/11/16 4:00:00 CDT, Duration: 30 day, Stop date: 08/10/16 3:59:00 CDTNotes: (Same As: Tums) Calcium Carbonate 500 pv=752 mg elemental calcium Dose= mg calcium carbonate ( mg elemental calcium) Calcium Gluconate 1 gm, 10 mL, No Longer [place] Route: IVPB, Active 2016 Medical PRN, Dosing Center Weight 68.182, kg, PRN Abnormal Lab Result, Start date: 07/11/16 4:00:00 CDT, Duration: 30 day, Stop date: 08/10/16 3:59:00 CDT, FOR ICU USE ONLYNotes: WASTE: F/P - Sink; E - [facility] Trash [facility] Magnesium Sulfate 2 gm, 50 mL, No Longer [place] Route: IVPB, Active 2016 Medical Drug form: [...] hours potassium 2 pkt, Route: No Longer [place] phosphate-sodium PO, Drug Form: Active 2017 Medical [...] stir. Zyprexa 10 mg, Route: No Longer [place] IM, Drug form: Active 2017 Medical INJ, Daily, Center Dosing Weight 68.182, kg, Start date: 07/10/16 16:00:00 CDT, Duration: 30 day, Stop date: 08/08/16 16:00:00 CDTNotes: (Same As: ZyPREXA IM). sterile water 2.1 mL, Route: No Longer [place] MISC, Drug Active 2016 Medical Form: INJ, Center Daily, Start date: 07/10/16 16:00:00 CDT, Duration: 30 day, Stop date: 08/08/16 16:00:00 CDT potassium chloride 20 mEq, 100 mL, Inactive [facility] Route: IVPB, 2016 Medical Drug form: INJ, Center Q2H, Dosing Weight 68.182, kg, Total dose=40 mEq, Start date: 07/10/16 12:00:00 CDT, Duration: 2 doses or times, Stop date: 07/10/16 14:00:00 CDT, Central LineNotes: (Same as: KCL) Infuse no faster than 10 mEq/hr if given peripherally. D5NS 1,000 mL 1,000 mL, Rate: No Longer [facility] 100 ml/hr, Active 2017 Medical Infuse [...] Stop date: 07/10/16 23:00:00 CDT, Dose=2.2ml/kg, Max ugub=[id number] -- "To be infused by Radiology Staff [...] sennosides, PO, Drug Form: Active 2017 Medical [facility] 8.6 MG Oral TAB, Dosing Center Tablet Weight 68.182, kg, Q12H, Start date: 07/10/16 9:00:00 CDT, Duration: 30 day, Stop date: 08/08/16 21:00:00 CDTNotes: (Same as Senokot-S) Equiv. to Yvette-Colace. 1 tab, Route: No Longer [place] Multivitamins with PO, Drug Form: Active 2017 Medical Folic Acid 0.8 mg TAB, Dosing Center oral tablet Weight 68.182, kg, Daily, Start date: 07/10/16 9:00:00 CDT, Duration: 30 day, Stop date: 08/08/16 9:00:00 CDT Thiamine 100 mg, 1 tab, No Longer [place] Route: PO, Drug Active 2016 Medical form: [...] Insulin regular 5 unit, 0.05 No Longer [place] mL, Route: Active 2016 Medical SUB-Q, Drug [...] ate Glucagon 1 mg, Route: No Longer [place] IM, Drug form: Active 2017 Medical PDR/INJ, PRN, Center Dosing Weight 68.182, kg, PRN Blood Glucose Results, Start date: 07/10/16 8:17:00 CDT, Duration: 30 day, Stop date: 08/09/16 8:16:00 CDT Dextrose 50% 25 gm, 50 mL, No Longer [facility] Syringe Route: IVP, Active 2016 Medical Drug Form: INJ, [place] Dosing Weight 68.182, kg, PRN, PRN Blood Glucose Results, Start date: 07/10/16 8:17:00 CDT, Duration: 30 day, Stop date: 08/09/16 8:16:00 CDT Acetaminophen 650 mg, 20.3 No Longer [facility] mL, Route: PO, Active 2016 Medical Drug form: LIQ, [place] Q6H, Dosing Weight 68.182, kg, PRN Pain 1-3/Temp > 100.4 F, Start date: 07/10/16 8:11:00 CDT, Duration: 30 day, Stop date: 08/09/16 8:10:00 CDT Synthroid 112 microgram, No Longer [facility] 1 tab, Route: Active 2017 Medical PO, Drug form: [place] TAB, [id number], Dosing Weight 68.182, kg, Start date: 07/10/16 8:09:00 CDT, Duration: 30 day, Stop date: 08/09/16 6:30:00 CDTNotes: Take 1 hour before or 2 hours after meal; Enteral feeds may interefere with the absorption of this medication.(Maurisio e as:Levothroid) Amitriptyline 50 mg, PO, Active [facility] Bedtime, 0 2016 Medical Refill(s) [place] levothyroxine 112 112 microgram=1 Active [place] mcg (0.112 mg) oral tab, PO, Daily, [address] [facility] tablet # 60 tab, 0 [place] Refill(s) ocular lubricant 1 appl, Route: No Longer [place] BOTH EYES, Q6H, Active 2016 Medical Drug form: [place] OINT, Start date: 07/10/16 6:00:00 CDT, Duration: 30 day, Stop date: 08/09/16 0:00:00 CDTNotes: (Same as: Duratears Naturale and Artificial Tears, Tears Again ) Protonix 40 mg, Route: Inactive [place] IVP, Drug form: 2016 Medical INJ, Before [place] Breakfast, Dosing Weight 68.182, kg, Patient is NPO, Start date: 07/10/16 5:00:00 CDT, Duration: 30 day, Stop date: 08/08/16 7:30:00 CDTNotes: For IV push reconstitute with 10 ml 0.9% sodium chloride and push over 2 minutes. (Same as: Protonix) Enoxaparin 40 mg, 0.4 mL, No Longer [place] Route: SUB-Q, Active 2016 Medical Drug form: INJ, [place] [id number], Dosing Weight 68.182, kg, Start date: 07/10/16 5:00:00 CDT, Duration: 30 day, Stop date: 08/08/16 5:00:00 CDTNotes: (Same as: Lovenox) Fentanyl 1,000 No Longer [place] microgram, 20 Active 2016 Medical mL, Rate: [place] Titrate, Start Dose: 50 microgram/hr, Titration: 25 microgram/hour every 15 minutes, Goal(s): RASS - 1, Max Dose: 300 microgram/hr, Route: IV, Dosing Weight 68.182 kg, Total Volume: 20, Start date: 07/10/16 2:45:00 CDT, D... Unasyn 3 gm, 1 ea, No Longer [place] Route: IVPB, Active 2016 Medical Drug form: [place] PDR/INJ, ABXQ6H, Dosing Weight 72.727, kg, Start date: 07/10/16 2:00:00 CDT, Duration: 30 day, Stop date: 08/08/16 20:00:00 CDTNotes: Dosing based on Ampicillin component (Same as: Unasyn) chlorhexidine 15 mL, Route: No Longer [facility] gluconate 1.2 MG/ML Swab Mouth, Active 2016 Medical Mouthwash PRN, Drug form: [place] LIQ, PRN Other -See Comment, Start date: [...] NEB, Active 2017 Medical Solution Drug form: [place] SOLN, PRN, Dosing Weight 72.727, kg, PRN Respiratory Protocol, Start date: 07/10/16 0:19:00 CDT, Duration: 30 day, Stop date: 08/09/16 0:18:00 CDTNotes: SEE RT DOCUMENTATION (Same as: Proventil) Ipratropium 0.5 mg, 2.5 mL, No Longer [facility] Route: NEB, Active 2016 Medical Drug form: [place] SOLN, PRN, Dosing Weight 72.727, kg, PRN Respiratory Protocol, Start date: 07/10/16 0:19:00 CDT, Duration: 30 day, Stop date: 08/09/16 0:18:00 CDTNotes: SEE RT DOCUMENTATION (Same as:Atrovent) Unasyn 3 gm, 1 ea, No Longer [facility] Route: IVPB, Active 2016 Medical Drug form: [place] PDR/INJ, ONCE, Dosing Weight 72.727, kg, Priority: STAT, Start date: 07/09/16 23:11:00 CDT, Stop date: 07/09/16 23:11:00 CDTNotes: Dosing based on Ampicillin component (Same as: Unasyn) Racepinephrine 22.5 11.25 mg, 0.5 No Longer [facility] MG/ML Inhalant mL, Route: [facility], Active 2016 Medical Solution Drug Form: [place] SOLN, Dosing Weight 72.727, kg, ONCE, STAT, Start date: 07/09/16 21:32:00 CDT, Stop date: 07/09/16 21:32:00 CDTNotes: (racepinephrine *2.25% inh 0.5ml SOLN) (Same as:S2) Lidocaine 5 mL, Route: Inactive [facility], Drug Form: 2016 Medical SOLN, Dosing Center Weight 72.727, kg, ONCE, Start date: 07/09/16 21:27:00 CDT, Stop date: 07/09/16 21:27:00 CDT Benzocaine 140 1 spray, Route: No Longer [place] MG/ML / butamben 20 TOP, ONCE, Drug Active 2016 Medical MG/ML / Tetracaine form: AERO, [place] 20 MG/ML Mucosal Start date: [place] [Cetacaine] 07/09/16 21:27:00 CDT, Stop date: 07/09/16 21:27:00 CDTNotes: (Same As: Cetacaine) Cetacaine (benzocaine-tet racaine-butambe n 14-2-2%) Allergies, Adverse Reactions, Alerts Substance Category Reaction Severity Reaction Status Date Comments Source type Reported NKDA Assertion Drug Active [facility] Immunizations Immunization Date Given Site Status Last Comments Source Updated pneumococcal 07/11/2016 Left completed Torres [facility] 23-valent vaccine [facility] Results Order Name Results Value Reference Date Interpretation Comments Source Range PARATHYROID Ca Ion WB 1.16 1.05 - 07/15 [facility] PROFILE mMol/L 1. [facility] PARATHYROID Ca Norm WB 1.12 1.05 - 07/15 [facility] PROFILE mMol/L 1. [facility] Chest tube Chest tube STUDY: VIR Gastrostomy Tube Placement 07/14 - [facility] placement placement /2016 - Medical insertion [...] imaging to evaluate positioning of the catheter. TELECOMMUNICATIONS ENGINEER: Dr Cortez WATCH INSPECTOR(S): None CONSENT: Written consent obtained after discussing [...] sterile fashion. Under fluoroscopy guidance a 5 Afghan Kumpe catheter and glide wire were manipulated [...] and subsequently a was insufflated through the 5-Afghan Kumpe catheter to distend the stomach. Preliminary CT imaging identified an appropriate access site. The anterio r abdominal surface was then prepped and draped in the usual sterile fashion. Next local anesthesia(lidocaine with epinephrine) to the skin, three [employer] safety pexy T tacks were advanced and [...] was eventually able to dilate up to 16-Afghan. Given this difficu lty a decision was therefore taken to place a 16-Afghan monique lock pigtail gastrostomy catheter on this [...] guided placement of a gastrostomy catheter. A 16-Afghan monique low drain has been placed due to difficulties in dilating the tract primarily due to the anterior abdominal wall surgical mesh. COMPLICATIONS: None. ESTIMATED BLOOD LOSS: None FLUOROSCOPIC TIME: 3.1 minutes RADIATION DOSE: [address] RADIATION DOSE (DLP): 3022 mGy.cm CONTRAST VOLUME: None IMPRESSION: Successful ultrasound, fluoroscopic and CT guided placement of a feeding percutaneous 16 Afghan Mac lock gastrostomy. PLAN/FOLLOW UP: 1 Please [...] for the procedure. Gastric Gastric tube STUDY: [facility] Gastrostomy Tube Placement 07/14 - [facility] tube placement - [facility] placement Center VR DATE: 07/14/2016 8:05 AM [...] imaging to evaluate positioning of the catheter. TELECOMMUNICATIONS ENGINEER: Dr Cortez WATCH INSPECTOR(S): None CONSENT: Written consent obtained after discussing [...] sterile fashion. Under fluoroscopy guidance a 5 Afghan Kumpe catheter and glide wire were manipulated [...] and subsequently a was insufflated through the 5-Afghan Kumpe catheter to distend the stomach. Preliminary CT imaging identified an appropriate access site. The anterio r abdominal surface was then prepped and draped in the usual sterile fashion. Next local anesthesia(lidocaine with epinephrine) to the skin, three [employer] safety pexy T tacks were advanced and [...] was eventually able to dilate up to 16-Afghan. Given this difficu lty a decision was therefore taken to place a 16-Afghan monique lock pigtail gastrostomy catheter on this [...] guided placement of a gastrostomy catheter. A 16-Afghan monique low drain has been placed due to difficulties in dilating the tract primarily due to the anterior abdominal wall surgical mesh. COMPLICATIONS: None. ESTIMATED BLOOD LOSS: None FLUOROSCOPIC TIME: 3.1 minutes RADIATION DOSE: [address] RADIATION DOSE (DLP): 3022 mGy.cm CONTRAST VOLUME: None IMPRESSION: Successful ultrasound, fluoroscopic and CT guided placement of a feeding percutaneous 16 Afghan Mac lock gastrostomy. PLAN/FOLLOW UP: 1 Please [...] Ca Norm WB 1.11 1.05 - 07/14 [facility] PROFILE mMol/L 1. [facility] PARATHYROID Ca Ion WB 1.14 1.05 - 07/14 [facility] PROFILE mMol/L 1. [facility] CHEM PANEL Magnesium Lvl 1.8 mg/dL 1.8 - 2.4 07/13 [facility] CHEM PANEL eGFR 100 07/13 Result Comment: The eGFR is calculated using the CKD-EPI formula. In most young, healthy individuals the eGFR will be >90 mL/ min/1.73m2. The eGFR declines with age. An eGFR of 60-89 may be normal in [facility] mL/min/1. some populations, particularly the elderly, for whom the CKD-EPI formula has not been extensively validated. Use of the eGFR is not recommended in the following populations: [address] Individuals with unstable creatinine concentrations, including [...] Lvl 8.6 mg/dL 8.5 - 10.5 07/13 [facility] CHEM PANEL Chloride Lvl 107 meq/L 95 - 109 07/13 [facility] CHEM PANEL Potassium Lvl 3.6 meq/L 3.5 - 5.1 07/13 [facility] CHEM PANEL CO2 27 meq/L 24 - 32 07/13 [facility]2016 [facility] CHEM PANEL Sodium Lvl 140 meq/L 135 - 145 07/13 [facility]2016 [facility] CHEM PANEL Creatinine 0.78 mg/dL 0.50 - 07/13 [facility] Lvl 1.40 [facility] CHEM PANEL BUN 8 mg/dL 7 - 22 07/[address] CHEM PANEL Glucose Lvl 105 mg/dL 70 - 99 07/13 2016 [facility] CHEM PANEL AGAP 9.6 meq/L 10.0 - 07/13 20.0 [facility] CHEM PANEL Phosphorus 2.3 mg/dL 2.5 - 4.5 07/13 [facility] HEMATOLOGY Monocytes # 1.0 K/CMM 0.0 - 0.8 07/13 [facility] HEMATOLOGY Lymphocytes # 1.0 K/CMM 1.0 - 5.5 07/13 [facility] HEMATOLOGY Segs-Bands # 5.7 K/CMM 1.5 - 8.1 07/13 [facility] HEMATOLOGY Basophils 0.3 % 0.0 - 1.0 07/13 [facility] HEMATOLOGY Eosinophils 4.0 % 0.0 - 4.0 07/13 [facility] HEMATOLOGY Eosinophils # 0.3 K/CMM 0.0 - 0.5 07/13 2016 [facility] HEMATOLOGY Segs 70.5 % 45.0 - 07/13 75.0 [facility] HEMATOLOGY Lymphocytes 12.2 % 20.0 - 07/13 40.0 [facility] HEMATOLOGY Monocytes 13.0 % 2.0 - 12.0 07/13 [facility] HEMATOLOGY MPV 8.0 fL 7.4 - 10.4 07/13 [facility] HEMATOLOGY Platelet 187 K/CMM 133 - 450 07/13 [facility] HEMATOLOGY RDW 16.2 % 11.5 - 07/13 14.5 [facility] HEMATOLOGY Hgb 12.4 g/dL 14.0 - 07/13 18.0 [facility] HEMATOLOGY Hct 37.8 % 42.0 - 07/13 [place] 54.0 [facility] HEMATOLOGY MCV 95.9 fL 80.0 - 07/13 [place] 94.0 [facility] HEMATOLOGY MCH 31.6 pg 27.0 - 07/13 31.0 [facility] HEMATOLOGY MCHC 32.9 g/dL 32.0 - 07/13 [place] 36.0 [facility] HEMATOLOGY WBC 8.0 K/CMM 3.7 - 10.4 07/13 [facility] HEMATOLOGY RBC 3.94 M/CMM 4.70 - 07/13 [place] 6.10 [facility] HEMATOLOGY INR 0.99 0.85 - 05/21 [facility] 1.17 [facility] HEMATOLOGY PT 13.3 s 12.0 - 07/13 [facility] 14.7 [facility] HEMATOLOGY PTT 31.2 s 22.9 - 07/13 [facility] 35.8 [facility] PARATHYROID Ca Norm WB 1.19 1.05 - 07/13 [facility] PROFILE mMol/L 1. [facility] PARATHYROID Ca Ion WB 1.20 1.05 - 07/13 [facility] PROFILE mMol/L 1. [facility] PARATHYROID Ca Norm WB 1.14 1.05 - 07/13 [facility] PROFILE mMol/L 1. [facility] PARATHYROID Ca Ion WB 1.13 1.05 - 07/13 [facility] PROFILE mMol/L 1. [facility] Chest 1view Chest 1view EXAM: XR CHEST 1 VIEW 07/13 - [facility] DX DX /2016 - [facility] DATE: 07/13/2016 Read by: Ivon George MD [...] Phosphorus 2.5 mg/dL 2.5 - 4.5 07/12 [facility] CHEM PANEL Magnesium Lvl 2.0 mg/dL 1.8 - 2.4 07/12 [facility] /2016 [facility] ELECTROLYTE AGAP 8.3 meq/L 10.0 - 07/12 [facility] 20.0 [facility] ELECTROLYTE eGFR 107 07/12 Result Comment: The eGFR is calculated using the CKD-EPI formula. In most young, healthy individuals the eGFR will be > 90 mL/min/1.73m2. The eGFR declines with age. An eGFR of 60-89 may be normal in [facility] mL/min/1.7 some populations, particularly the elderly, for whom the CKD-EPI formula has not been extensively validated. Use of the eGFR is not recommended in the following populations: [address] Individuals with unstable creatinine concentrations, including [...] Lvl 3.3 meq/L 3.5 - 5.1 07/12 [facility] ELECTROLYTE Calcium Lvl 8.0 mg/dL 8.5 - 10.5 07/12 [facility]2016 [facility] ELECTROLYTE CO2 26 meq/L 24 - 32 07/12 [facility]2016 [facility] ELECTROLYTE Chloride Lvl 112 meq/L 95 - 109 07/12 [facility]2016 [facility] ELECTROLYTE Creatinine 0.65 mg/dL 0.50 - 07/12 [facility] Lvl 1.40 [facility] ELECTROLYTE Sodium Lvl 143 meq/L 135 - 145 07/12 [facility] ELECTROLYTE BUN 10 mg/dL 7 - 22 07/12 [facility]2016 [facility] ELECTROLYTE Glucose Lvl 135 mg/dL 70 - 99 07/12 [facility] HEMATOLOGY MPV 7.9 fL 7.4 - 10.4 07/12 [facility] HEMATOLOGY Platelet 203 K/CMM 133 - 450 07/12 [facility] HEMATOLOGY RDW 16.2 % 11.5 - 07/12 [place] 14.5 [facility] HEMATOLOGY MCH 31.7 pg 27.0 - 07/12 [place] 31.0 [facility] HEMATOLOGY MCV 95.9 fL 80.0 - 07/12 [place] 94.0 [facility] HEMATOLOGY Hct 37.2 % 42.0 - 07/12 [place] 54.0 [facility] HEMATOLOGY RBC 3.88 M/CMM 4.70 - 07/12 [place] 6.10 [facility] HEMATOLOGY WBC 10.6 K/CMM 3.7 - 10.4 07/12 2016 [facility] HEMATOLOGY MCHC 33.1 g/dL 32.0 - 07/12 [facility] [place] 36.0 [facility] HEMATOLOGY Hgb 12.3 g/dL 14.0 - 07/12 [facility] 18.0 [facility] HEMATOLOGY Eosinophils # 0.1 K/CMM 0.0 - 0.5 07/12 2016 [facility] HEMATOLOGY Monocytes # 0.8 K/CMM 0.0 - 0.8 07/[address] HEMATOLOGY Lymphocytes # 0.8 K/CMM 1.0 - 5.5 07/12 [facility]2016 [facility] HEMATOLOGY Segs-Bands # 8.9 K/CMM 1.5 - 8.1 07/12 2016 [facility] HEMATOLOGY Basophils 0.2 % 0.0 - 1.0 07/12 [facility]2016 [facility] HEMATOLOGY Eosinophils 0.5 % 0.0 - 4.0 07/12 [facility]2016 [facility] HEMATOLOGY Segs 84.4 % 45.0 - 07/12 [facility] 75.0 [facility] HEMATOLOGY Lymphocytes 7.4 % 20.0 - 07/12 [facility] 40.0 [facility] HEMATOLOGY Monocytes 7.5 % 2.0 - 12.0 07/[address] Abdomen AP Abdomen AP DX EXAM: XR ABDOMEN 1 VIEW 07/11 - [facility] DX - Medical This report was dictated by a Finishing Frame Runner/Fellow. I have personally reviewed the images as [...] Bowel: The bowel gas pattern is nonobstructive. [id number]-[id number] stool burden is noted in the colon. [...] eGFR of 60-89 may be normal in [facility] mL/min/1.7 some populations, particularly the elderly, for whom the CKD-EPI formula has not been extensively validated. Use of the eGFR is not recommended in the following populations: [address] Individuals with unstable creatinine concentrations, including [...] BUN 21 mg/dL 7 - 22 07/[address] [place] [address] CHEM PANEL Glucose Lvl 165 mg/dL 70 - 99 07/[address] CHEM PANEL Calcium Lvl 9.1 mg/dL 8.5 - 10.5 07/[address] CHEM PANEL CO2 29 meq/L 24 - 32 07/[address] CHEM PANEL Chloride Lvl 103 meq/L 95 - 109 07/[address] CHEM PANEL Potassium Lvl 3.6 meq/L 3.5 - 5.1 07/[address] CHEM PANEL Sodium Lvl 139 meq/L 135 - 145 07/[address] CHEM PANEL Creatinine 0.89 mg/dL 0.50 - 07/11 [facility] Lvl 1.40 [facility] CHEM PANEL AGAP 10.6 meq/L 10.0 - 07/11 [facility] 20.0 [facility] CHEM PANEL Phosphorus 2.2 mg/dL 2.5 - 4.5 07/[address] CHEM PANEL Magnesium Lvl 2.3 mg/dL 1.8 - 2.4 07/[address] CHEM PANEL Globulin 3.7 g/dL 2.7 - 4.2 07/[address] CHEM PANEL Albumin Lvl 2.1 g/dL 3.5 - 5.0 07/[address] CHEM PANEL A/G Ratio 0.6 0.7 - 1.6 07/[address] CHEM PANEL Total Protein 5.8 g/dL 6.4 - 8.4 07/[address] CHEM PANEL Alk Phos 68 unit/L 39 - 136 07/[address] CHEM PANEL AST 12 unit/L 0 - 37 07/[address] CHEM PANEL ALT 9 unit/L 0 - 65 07/[address] CHEM PANEL Bili Indirect 0.1 mg/dL 0.0 - 1.0 07/[address] CHEM PANEL Bili Total 0.2 mg/dL 0.2 - 1.3 07/[address] CHEM PANEL Bili Direct 0.1 mg/dL 0.0 - 0.3 07/[address] HEMATOLOGY Lymphocytes 4.8 % 20.0 - 07/11 [facility] 40.0 [facility] HEMATOLOGY Monocytes 4.4 % 2.0 - 12.0 07/[address] HEMATOLOGY Segs 90.7 % 45.0 - 07/11 [facility] 75.0 [facility] HEMATOLOGY Segs-Bands # 13.4 K/CMM 1.5 - 8.1 07/[address] HEMATOLOGY Lymphocytes # 0.7 K/CMM 1.0 - 5.5 07/[address] HEMATOLOGY Monocytes # 0.7 K/CMM 0.0 - 0.8 07/[address] HEMATOLOGY Basophils 0.1 % 0.0 - 1.0 07/[address] HEMATOLOGY RDW 16.3 % 11.5 - 07/11 [facility] 14.5 [facility] HEMATOLOGY Platelet 178 K/CMM 133 - 450 07/[address] HEMATOLOGY MPV 8.4 fL 7.4 - 10.4 07/[address] HEMATOLOGY Hgb 10.8 g/dL 14.0 - 07/11 [facility] 18.0 [facility] HEMATOLOGY WBC 14.7 K/CMM 3.7 - 10.4 07/[address] HEMATOLOGY MCV 95.3 fL 80.0 - 07/11 [facility] 94.0 [facility] HEMATOLOGY Hct 32.7 % 42.0 - 07/11 [facility] 54.0 [facility] HEMATOLOGY MCHC 32.9 g/dL 32.0 - 07/11 [facility] 36.0 [facility] HEMATOLOGY MCH 31.4 pg 27.0 - 07/11 [facility] 31.0 [facility] HEMATOLOGY RBC 3.43 M/CMM 4.70 - 07/11 [facility] 6.10 [facility] Chest 1view Chest 1view EXAM: XR CHEST 1 VIEW 07/11 - [facility] DX DX - [facility] DATE: 07/11/2016 3:00 AM CDT Read by: [...] EXAM: CT NECK WITH CONTRAST 07/10 - [facility] tissue w tissue w - Medical contrast CT contrast CT This report was dictated by a Finishing Frame Runner/Fellow. I have personally reviewed the images as [...] w EXAM: CT CHEST WITH CONTRAST 07/10 [facility] contrast CT contrast - [facility] This report was dictated by a Finishing Frame Runner/Fellow. I have personally reviewed the images as [...] BACTERIAL - MRSA by PCR Negative 07/[address] [facility] (07/10/16 1:53 AM) [place] CHEM PANEL Procalcitonin 0.95 ng/mL 0.00 - 07/10 [facility] 0.10 [facility] CHEM PANEL Lactic Acid 1.7 mMol/L 0.5 - 2.2 07/10 [facility] /2016 [facility] DRUG SCREEN UDS Note See Note 07/[address] [facility] *NA* [place] (07/10/16 1:53 AM) DRUG SCREEN U Methadone Negative Negative 07/10 [facility] [place] [facility] [place] (07/10/16 1:53 AM) DRUG SCREEN U Propoxyph Negative Negative 07/[address] [facility] [place] [facility] *NA* [place] (07/10/16 1:53 AM) DRUG SCREEN U Phencyc Scr Negative Negative 07/[address] [facility] *NA* [place] (07/10/16 1:53 AM) DRUG SCREEN U Cannab Scr Negative Negative 07/10 Medical *NA* Center (07/10/16 1:53 AM) DRUG SCREEN U Opiate Scr Negative Negative 07/[address] [facility] *NA* Center (07/10/16 1:53 AM) DRUG SCREEN U Benzodia Negative Negative 07/10 [facility] [address]r [facility] *NA* Center (07/10/16 1:53 AM) DRUG SCREEN U Cocaine Scr Negative Negative 07/[address] [facility] *NA* Center (07/10/16 1:53 AM) DRUG SCREEN U Marycruz Scr Negative Negative 07/[address] [facility] *NA* Center (07/10/16 1:53 AM) DRUG SCREEN U Amph Scr Negative Negative 07/[address] [facility] *NA* [place] (07/10/16 1:53 AM) IMMUNOLOGY HIV Ag/Ab 4th Negative Negative 07/[address] [facility] [address] [facility] *NA* [place] (07/10/16 1:53 AM) LIPIDS LDL 55 mg/dL <=99 mg/dL 07/10 [facility] (Calculated) [facility] LIPIDS VLDL 10 07/10 [facility] LIPIDS Chol 163 mg/dL <=199 07/10 [facility] mg/dL [facility] LIPIDS Trig 52 mg/dL <=149 07/10 [facility] mg/dL [facility] LIPIDS HDL 98 mg/dL >=61 mg/dL 07/10 [facility] /2016 [facility] LIPIDS CHD Risk 1.66 4.00 - 07/10 [facility] 7.30 [facility] MOLECULAR RSV PCR Negative Negative 07/10 [facility] DIAGNOSTIC Medical (07/10/16 1:53 AM) Center MOLECULAR Influenza B Negative Negative 07/10 [facility] DIAGNOSTIC PCR Medical (07/10/16 1:53 AM) Center MOLECULAR Influenza A Negative Negative 07/10 [facility] DIAGNOSTIC PCR Medical (07/10/16 1:53 AM) Center MOLECULAR Source Flocked [employer]UNER Swab 07/10 [facility] DIAGNOSTIC Respiratory Medical Panel PCR (07/10/16 1:53 AM) Center SPECIAL Hgb A1C 5.1 % <=5.6 % 07/10 [facility] CHEMISTRY /2016 [facility] URINE AND UA Spec Grav 1.028 <=1.030 07/10 [facility] STOOL /2016 [facility] URINE AND UA pH 5.5 5.0 - 8.0 07/10 [facility] URINE AND UA Ketones Negative Negative 07/10 [facility] [place] mg/dL mg/dL [facility] URINE AND UA Protein Negative Negative 07/10 [facility] [place] mg/dL mg/dL [facility] URINE AND UA Blood Negative Negative 07/[address] [facility] (07/10/16 1:53 AM) [place] URINE AND UA Nitrite Negative Negative 07/[address] [facility] (07/10/16 1:53 AM) [place] URINE AND UA Bili Negative Negative 07/10 [facility] Medical *NA* [place] (07/10/16 1:53 AM) URINE AND UA Leuk Est Negative Negative 07/[address] [facility] (07/10/16 1:53 AM) [place] URINE AND UA Glucose Negative Negative 07/10 [facility] [place] mg/dL mg/dL [facility] URINE AND UA <=1.0 0.1 - 1.0 07/10 [facility] [place] Urobilinogen mg/dL [facility] URINE AND UA WBC 1 /HPF 0 - 5 07/10 [facility] URINE AND UA Sq Epi Few /LPF Few /LPF 07/10 [facility] URINE AND UA Turbidity Clear Clear 07/[address] [facility] (07/10/16 1:53 AM) [place] URINE AND UA Color Yellow Yellow 07/10 [facility] Medical *NA* [place] (07/10/16 1:53 AM) BLOOD BANK Antibody Scrn Negative 07/[address] [facility] (07/09/16 9:20 PM) Center BLOOD BANK ABO/Rh A POS 07/10 [facility] HEMATOLOGY PT 12.5 s 12.0 - 07/10 [place] 14.7 [facility] HEMATOLOGY INR 0.91 0.85 - 07/10 [place] 1. [facility] HEMATOLOGY PTT 32.8 s 22.9 - 07/10 [place] 35.8 [facility] HEMATOLOGY Toxic Gran See Note 2 None Seen 07/10 Result Comment: [facility] (07/09/16 9:20 PM) [facility] Center HEMATOLOGY Bands 27.0 % 0.0 - 11.0 07/10 [facility] HEMATOLOGY Metamyelocyte 1.0 % 0.0 - 1.0 07/10 [facility] s [facility] HEMATOLOGY Atypical 0.0 % <=0.0 % 07/10 [facility] Lymphs [facility] HEMATOLOGY Plt Morph Normal 07/[address] [facility] (07/09/16 9:20 PM) [place] HEMATOLOGY Anisocyte See Note 1 None Seen 07/10 [facility] Comment: Medical (07/09/16 9:20 PM) [facility] Center Chest 1view Chest 1view EXAM: XR CHEST 1 VIEW 07/10 - [facility] DX DX /2016 - [facility] DATE: 07/10/2016 1:09 AM CDT Read by: Rene Kaplan Dictated Date/time: 07/10/16 07:34 Electronically Signed by: [...] Source Temperature Oral (F) 98.8 F 07/15/2016 [facility] Heart Rate 76 07/15/2016 [facility] Respitory Rate 20 07/15/2016 [facility] Systolic (mm Hg) 145 07/15/2016 [facility] Diastolic (mm Hg) 68 07/15/2016 [facility] Systolic (mm Hg) 170 07/15/2016 [facility] Diastolic (mm Hg) 87 07/15/2016 [facility] Respitory Rate 20 07/15/2016 [facility] Heart Rate 72 07/15/2016 [facility] Temperature Oral (F) 98.5 F 07/15/2016 [facility] Temperature Oral (F) 98.5 F 07/15/2016 [facility] Systolic (mm Hg) 160 07/15/2016 [facility] Diastolic (mm Hg) 79 07/15/2016 [facility] Respitory Rate 20 07/15/2016 [facility] Heart Rate 73 07/15/2016 [facility] Height 170.18 cm 07/11/2016 [facility] Height 170.18 cm 07/11/2016 [facility] Height 170.18 cm 07/11/2016 [facility] Weight 68.182 07/10/2016 [facility] BMI Calculated 23.54 07/10/2016 [facility] BMI Calculated 21.75 07/10/2016 [facility] Weight 72.727 07/10/2016 [facility] Encounters Location Location Encounter Encounter Reason Attending ADM DC Status Source Details Type Number For Provider Date Date Visit [facility] [id number] Bhavani 07/10 07/15 [facility] Guzman De Paz /2016 [facility] Procedures Procedure Code Date Perfomer Comments Source
[2017-09-23 23:43] LABS: Urine Blood NEGATIVE (NEG); Urine Glucose NEGATIVE (NEG); Urine Protein NEGATIVE (NEG); Urine Specific Gravity 1.015 (1.005-1.030); Urine pH 8.5 (5.0-7.0)
[2017-09-23 23:55] LABS: Absolute Lymphocytes (CBC) 0.8 K/uL (0.7-4.9); Absolute Monocytes 0.8 K/uL (0.1-1.3); Absolute Neutrophil 5.8 K/uL (1.8-8.0); Basophils % 0.8 % (0-1.3); Eosinophils % 1.6 % (0-4.4); Hematocrit 28.3 % (39.6-49.0); Lymphocytes % 10.6 % (15.3-44.8); MCH 31.7 pg (27.0-35.0); MCV 92.2 fL (80-100); Monocytes % 10.9 % (3.3-12.3); RBC Red Blood Cell Count 3.06 M/uL (4.33-5.43)
[2017-09-24] LABS: Protime INR 1.03
[2017-09-24] MEDS ORDERED: ONDANSETRON 4 MG/2 ML VIAL ONE (00:02)
[2017-09-24] MEDS ORDERED: MORPHINE 4 MG/ML SYR ONE (00:02)
[2017-09-24 00:13] LABS: ALT/SGPT 29 U/L (12-78); AST/SGOT 42 U/L (15-37); Albumin 1.4 g/dL (3.4-5.0); Alkaline Phosphatase 156 U/L (45-117); BUN Blood Urea Nitrogen 22 mg/dL (7-18); Bicarbonate 28 mmol/L (21-32); Bilirubin Total 0.3 mg/dL (0.2-1.0); Glucose Level 81 mg/dL (74-106); Magnesium 1.9 mg/dL (1.8-2.4); Potassium 3.8 mmol/L (3.5-5.1); Protein, Total 5.4 g/dL (6.4-8.2); Sodium Level 137 mmol/L (136-145)
--- NOTE | 2017-09-24 02:51 | EDPHYS ---
Physician Documentation [facility] Name: Rudolph Corral Age: 57 yrs Sex: Male : 1960 Arrival Date: 09/23/2017 Time: 21:20 Bed 20 Private MD: Clyde Brandt ED Physician Paul Lewis HPI: 09/23 22:10 This 57 yrs old Male presents to ER via Wheelchair with complaints of DVT IN ps1 ARM, SWOLLEN LEAKING. 22:10 Recent admission, DVT in left arm and swelling. Now having right arm pain and swelling, ps1 concerned for new DVT. On Eliquis. No shortness of breath. 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 Long history of non-compliance. Pt of Dr. Brandt. . Historical: - Allergies: 21:52 No Known Allergies; aj1 - Home Meds: 21:52 Eliquis Oral [Active]; levothyroxine 112 mcg tab 1 tab once daily [Active]; lisinopril aj1 Oral [Active]; Metoprolol Tartrate Oral [Active]; doxycycline hyclate 100 mg Oral cap 1 cap every 12 hours [Active]; Bactrim DS 800-160 mg Oral tab 1 tab 2 times per day [Active]; - PMHx: 21:52 bladder infection; DVT; GERD; Hypothyroidism; osteonecrosis of jaw; Throat Cancer-2012; aj1 - PSHx: 21:52 trach; PEG tube; aj1 - Immunization history:: Flu vaccine is not up to date. - Social history:: Smoking status: Patient/guardian denies using tobacco. - Ebola Screening: : Patient denies travel to an Ebola-affected area in the 21 days before illness onset. ROS: 22:10 Constitutional: Negative for fever, chills, and weight loss, Eyes: Negative for injury, ps1 pain, redness, and discharge, Cardiovascular: Negative for chest pain, palpitations, and edema, Respiratory: Negative for shortness of breath, cough, wheezing, and pleuritic chest pain, Abdomen/GI: Negative for abdominal pain, nausea, vomiting, diarrhea, and constipation. 22:10 MS/extremity: Positive for pain, swelling, left and right arm. . Exam: 22:10 Constitutional: This is a well developed, well nourished patient who is awake, alert, ps1 and in no acute distress. Head/Face: Normocephalic, atraumatic. 22:10 Cardiovascular: Regular rate and rhythm. No gallops, murmurs, or rubs. Normal PMI, no JVD. No pulse deficits. Respiratory: Lungs have equal breath sounds bilaterally, clear to auscultation and percussion. No rales, rhonchi or wheezes noted. No increased work of breathing, no retractions or nasal flaring. MS/ Extremity: Pulses equal, no cyanosis. Neurovascular intact. Full, normal range of motion. Neuro: Awake and alert, GCS 15, oriented to person, place, time, and situation. Cranial nerves II-XII grossly intact. Sensory grossly intact. Psych: Awake, alert, with orientation to person, place and time. Behavior, mood, and affect are within normal limits. 22:10 ENT: tracheostomy present. 22:10 Abdomen/GI: Inspection: PEG tube in place. Vital Signs: 21:52 BP 129 / 78; Pulse 65; Resp 20; Temp 97.1(O); Pulse Ox 95% on R/A; Weight 58.97 kg (R); aj1 Height 6 ft. 0 in. (182.88 cm) (R); Pain 10/10; 22:52 BP 154 / 83; Pulse 69; Resp 18; Pulse Ox 100% on R/A; bs1 23:52 BP 135 / 79; Pulse 70; Resp 18; Pulse Ox 99% on R/A; bs1 09/24 00:52 BP 142 / 73; Pulse 66; Resp 17 S; Pulse Ox 95% on R/A; bs1 01:30 BP 119 / 65; Pulse 69; Resp 18; Pulse Ox 99% on R/A; bs1 02:30 BP 118 / 68; Pulse 64; Resp 18; Pulse Ox 100% on R/A; bs1 03:05 BP 122 / 75; Pulse 69; Resp 16; Temp 97.5(O); Pulse Ox 100% on R/A; Pain 0/10; bs1 09/23 21:52 Body Mass Index 17.63 (58.97 kg, 182.88 cm) aj MDM: 09/23 22:19 Patient medically screened. ps1 09/24 02:48 Data reviewed: vital signs, nurses notes, lab test result(s), radiologic studies, ps1 ultrasound, and as a result, I will discharge patient. Counseling: I had a detailed discussion with the patient and/or guardian regarding: the historical points, exam findings, and any diagnostic results supporting the discharge/admit diagnosis, the need for outpatient follow up. Special discussion: I discussed with the patient/guardian in detail that at this point there is no indication for admission to the hospital. It is understood, however, that if the symptoms persist or worsen the patient needs to return immediately for re-evaluation. 09/23 23:04 Order name: CBC with Diff; Complete Time: 23:59 ps1 09/23 23:04 Order name: Magnesium; Complete Time: 00:14 ps1 09/23 23:04 Order name: PT-INR; Complete Time: 00:08 ps1 09/23 23:04 Order name: Ptt, Activated; Complete Time: 00:08 ps1 09/23 23:04 Order name: CMP; Complete Time: 00:14 ps1 09/23 23:04 Order name: EKG; Complete Time: 23:05 ps1 09/23 23:04 Order name: Cardiac monitoring; Complete Time: 23:52 ps1 09/23 23:04 Order name: EKG - Nurse/Tech; Complete Time: 23:52 ps1 09/23 23:27 Order name: Urine Dipstick--Ancillary (enter results); Complete Time: 23:44 ms 09/23 23:35 Order name: UPPER EXTREMITY VENOUS UNILATE EDMS 09/23 23:04 Order name: IV Saline Lock; Complete Time: 23:52 ps1 09/23 23:04 Order name: Labs collected and sent; Complete Time: 23:52 ps1 09/23 23:04 Order name: O2 Per Protocol; Complete Time: 23:38 ps1 09/23 23:04 Order name: O2 Sat Monitoring; Complete Time: 23:38 ps1 09/23 23:04 Order name: Urine Dipstick-Ancillary (obtain specimen); Complete Time: 23:38 ps1 Administered Medications: 00:04 Drug: morphine 4 mg Route: IVP; Site: right antecubital; bs1 03:24 Follow up: Response: No adverse reaction bs1 00:04 Drug: Zofran 4 mg Route: IVP; Site: right antecubital; bs1 03:24 Follow up: Response: No adverse reaction bs1 Disposition: 09/24/17 02:50 Discharged to Home. Impression: Right arm edema. - Condition is Stable. - Discharge Instructions: Peripheral Edema. - Medication Reconciliation Form, Thank You Letter, Antibiotic Education, Prescription Opioid Use form. - Follow up: Clyde Brandt MD; When: As needed; Reason: Recheck today's complaints, Continuance of care, Re-evaluation by your physician. Follow up: Emergency Department; When: As needed; Reason: Fever > 102 F, Trouble breathing, Worsening of condition. - Problem is chronic. - Symptoms are unchanged. Signatures: Dispatcher [employer] EDMS Chhaya Denise RN RN aj1 Paul Lewis MD MD ps1 Shirley Saldana RN RN bs1 Corrections: (The following items were deleted from the chart) 09/23 22:18 22:10 Recent admission, DVT in left arm and swelling. Now having right arm pain and ps1 swelling, concerned for new DVT. On Eliquis. No shortness of breath. . ps1 23:05 23:05 BASIC METABOLIC PANEL+C.LAB.BRZ ordered. EDMS EDMS 23:35 23:05 Extremity Venous Uni Ltd+[id number].RAD.BRZ ordered. EDMD EDMS 09/24 03:26 02:50 09/24/2017 02:50 Discharged to Home. Impression: Right arm edema. Condition is bs1 Stable. Forms are Medication Reconciliation Form, Thank You Letter, Antibiotic Education, Prescription Opioid Use. Follow up: Clyde Brandt; When: As needed; Reason: Recheck today's complaints, Continuance of care, Re-evaluation by your physician. Follow up: Emergency Department; When: As needed; Reason: Fever > 102 F, Trouble breathing, Worsening of condition. Problem is chronic. Symptoms are unchanged. ps1
--- NOTE | 2017-09-24 02:51 | ER ---
Nurse's Notes [facility] Name: Rudolph Corral Age: 57 yrs Sex: Male : 1960 Arrival Date: 09/23/2017 Time: 21:20 Bed 20 Private MD: Clyde Brandt Diagnosis: Right arm edema Presentation: 09/23 21:44 Presenting complaint: Patient states: He was discharged from this hospital yesterday, aj1 where he had been admitted for cellulitis. Patient states that he has a DVT in his left arm and now the arm is oozing fluid. Left arm and hand appears swollen. Patient states that last night he noticed some swelling beginning in his right arm as well. Patient also states that he is having pain in his back, neck and left arm that is preventing him from sleeping. Patient states that his primary reason for coming to the emergency room was because his pain is keeping him awake. Transition of care: patient was not received from another setting of care. Onset of symptoms was September 22, 2017. Risk Assessment: Do you want to hurt yourself or someone else? Patient reports no desire to harm self or others. Initial Sepsis Screen: Does the patient meet any 2 criteria? No. Patient's initial sepsis screen is negative. Does the patient have a suspected source of infection? No. Patient's initial sepsis screen is negative. Care prior to arrival: None. 21:44 Method Of Arrival: Wheelchair aj1 21:44 Acuity: THEA 3 aj1 Triage Assessment: 21:52 General: Appears in no apparent distress. uncomfortable, Behavior is calm, cooperative, aj1 appropriate for age. Pain: Complains of pain in back, left arm and neck. Neuro: Level of Consciousness is awake, alert, obeys commands. Cardiovascular: Patient's skin is warm and dry. Edema is 2+ to left forearm is 3+ to left wrist and left hand. Respiratory: Airway is patent Respiratory effort is even, unlabored, Respiratory pattern is regular, symmetrical. Historical: - Allergies: 21:52 No Known Allergies; aj1 - Home Meds: 21:52 Eliquis Oral [Active]; levothyroxine 112 mcg tab 1 tab once daily [Active]; lisinopril aj1 Oral [Active]; Metoprolol Tartrate Oral [Active]; doxycycline hyclate 100 mg Oral cap 1 cap every 12 hours [Active]; Bactrim DS 800-160 mg Oral tab 1 tab 2 times per day [Active]; - PMHx: 21:52 bladder infection; DVT; GERD; Hypothyroidism; osteonecrosis of jaw; Throat Cancer-2013; aj1 - PSHx: 21:52 trach; PEG tube; aj1 - Immunization history:: Flu vaccine is not up to date. - Social history:: Smoking status: Patient/guardian denies using tobacco. - Ebola Screening: : Patient denies travel to an Ebola-affected area in the 21 days before illness onset. Screenin:53 Abuse screen: Denies threats or abuse. Denies injuries from another. Nutritional bs1 screening: No deficits noted. Tuberculosis screening: No symptoms or risk factors identified. Fall Risk Fall in past 12 months (25 points). No secondary diagnosis (0 pts). IV access (20 points). Ambulatory Aid- None/Bed Rest/Nurse Assist (0 pts). Gait- Normal/Bed Rest/Wheelchair (0 pts) Mental Status- Oriented to own ability (0 pts). Total Purvis Fall Scale indicates Low Risk Score (25-44 pts). Assessment: 21:52 General: Appears in no apparent distress. uncomfortable, slender, Behavior is flat, aj1 quiet. Pain: Complains of pain in left arm, upper back. Pain:. Neuro: Level of Consciousness is awake, alert. Cardiovascular: Denies chest pain, shortness of breath, Heart tones S1 S2 present Capillary refill < 3 seconds Patient's skin is warm and dry. Respiratory: Airway is patent via trache open to air Trachea midline Respiratory effort is even, unlabored, Respiratory pattern is regular, symmetrical, Breath sounds are clear bilaterally. GI: No signs and/or symptoms were reported involving the gastrointestinal system. PEG tube in place, clamped. Site clean. : No signs and/or symptoms were reported regarding the genitourinary system. EENT: No signs and/or symptoms were reported regarding the EENT system. Derm: pressure wound to upper back, covered in dressing, clean, dry, intact. Musculoskeletal: Swelling present in left forearm and left hand and left wrist and neck and left arm/right arm left/right arm swollen/ noted to be weeping fluid. Patient states "I had a DVT in the left arm." Patient reports pain to left arm/upper back. 22:45 Reassessment: No changes from previously documented assessment. Patient and/or family bs1 updated on plan of care and expected duration. Pain level reassessed. Patient is alert, oriented x 3, equal unlabored respirations, skin warm/dry/pink. Informed patient and significant other of POC/pending lab results/US. 09/24 00:30 Reassessment: Patient appears in no apparent distress at this time. Patient and/or bs1 family updated on plan of care and expected duration. Pain level reassessed. Patient is alert, oriented x 3, equal unlabored respirations, skin warm/dry/pink. No further needs at this time. 02:00 Reassessment: No changes from previously documented assessment. Patient and/or family bs1 updated on plan of care and expected duration. Pain level reassessed. Patient is alert, oriented x 3, equal unlabored respirations, skin warm/dry/pink. Patient denies pain at this time. 03:10 Reassessment: Patient appears in no apparent distress at this time. Patient and/or bs1 family updated on plan of care and expected duration. Pain level reassessed. Patient is alert, oriented x 3, equal unlabored respirations, skin warm/dry/pink. Informed patient and of discharge instructions. States understanding of POC Patient denies pain at this time. Patient states feeling better. Vital Signs: 09/23 21:52 BP 129 / 78; Pulse 65; Resp 20; Temp 97.1(O); Pulse Ox 95% on R/A; Weight 58.97 kg (R); aj1 Height 6 ft. 0 in. (182.88 cm) (R); Pain 10/10; 22:52 BP 154 / 83; Pulse 69; Resp 18; Pulse Ox 100% on R/A; bs1 23:52 BP 135 / 79; Pulse 70; Resp 18; Pulse Ox 99% on R/A; bs1 09/24 00:52 BP 142 / 73; Pulse 66; Resp 17 S; Pulse Ox 95% on R/A; bs1 01:30 BP 119 / 65; Pulse 69; Resp 18; Pulse Ox 99% on R/A; bs1 02:30 BP 118 / 68; Pulse 64; Resp 18; Pulse Ox 100% on R/A; bs1 03:05 BP 122 / 75; Pulse 69; Resp 16; Temp 97.5(O); Pulse Ox 100% on R/A; Pain 0/10; bs1 09/23 21:52 Body Mass Index 17.63 (58.97 kg, 182.88 cm) aj1 ED Course: 09/23 21:20 Patient arrived in ED. es 21:21 Clyde Brandt MD is Private Physician. es 21:43 Shirley Saldana, RN is Primary Nurse. bs1 21:47 Triage completed. aj1 21:51 Paul Lewis MD is Attending Physician. ps1 21:52 Arm band placed on Patient placed in an exam room. aj1 21:57 Patient has correct armband on for positive identification. Bed in low position. Call aj1 light in reach. Side rails up X 1. Pulse ox on. NIBP on. Warm blanket given. 23:35 Radiology exam delayed due to IV insertion attempt and/or patient not having cy appropriate IV at this time. and EKG. 23:40 Initial lab(s) drawn, by me, sent to lab. Inserted saline lock: 20 gauge in right bb antecubital area, using aseptic technique. Blood collected. Missed attempt(s): 22 gauge in right hand. Bleeding controlled, band aid applied, catheter tip intact. 23:53 EKG done, by ED staff, reviewed by Paul Lewis MD. bs1 09/24 00:03 Ultrasound completed. Patient tolerated well. cy 00:04 UPPER EXTREMITY VENOUS UNILATE In Process Unspecified. EDMS 02:50 Clyde Brandt MD is Referral Physician. ps1 03:21 No provider procedures requiring assistance completed. IV discontinued, bleeding bs1 controlled, No redness/swelling at site. Pressure dressing applied. Administered Medications: 00:04 Drug: morphine 4 mg Route: IVP; Site: right antecubital; bs1 03:24 Follow up: Response: No adverse reaction bs1 00:04 Drug: Zofran 4 mg Route: IVP; Site: right antecubital; bs1 03:24 Follow up: Response: No adverse reaction bs1 Outcome: 02:50 Discharge ordered by . ps1 03:21 Discharged to home via wheelchair, with significant other. bs1 03:21 Condition: stable 03:21 Discharge instructions given to patient, significant other, Instructed on discharge instructions, follow up and referral plans. Demonstrated understanding of instructions, follow-up care. 03:26 Patient left the ED. bs1 Signatures: Dispatcher [employer] Chhaya Castro RN RN aj1 Radha Park Brenda, RN RN Paul Christina MD MD ps1 Salazar, Brittany, RN RN bs1 Yanelis Valencia Corrections: (The following items were deleted from the chart) 09/23 23:56 21:52 GI: No signs and/or symptoms were reported involving the gastrointestinal system. bs1 aj1
[2017-09-24 03:35] VITALS: O2SAT 100
[2017-09-24 03:37] VITALS: BP 122/75; TEMP 97.5
--- NOTE | 2017-09-24 08:53 | RAD REPORT ---
EXAM DESCRIPTION: - UPPER EXTREMITY VENOUS UNILATE - 09/24/2017 12:07 am CLINICAL HISTORY: Right arm pain and swelling A preliminary report was provided at the time of the study and reviewed prior to final report. COMPARISON: None. TECHNIQUE: Real-time sonographic evaluation of the right upper extremity deep venous systems was per formed. FINDINGS: Normal compressibility, flow augmentation, phasic flow and spontaneous flow are identified in the right upper axial and brachial deep veins. The basilic and cephalic veins are clear of thromb us as well. No ulnar vein thrombus seen. . No intraluminal filling defects seen. Internal jugular and subclavian veins are normal as well. IMPRESSION: No DVT in the right upper extremity.
--- NOTE | 2017-09-24 12:47 | EKG ---
Test Date: 2017-09-23 Test Time: 23:43:51 Emergency Room Technician: OLEKSANDR MEASUREMENT RESULTS: Intervals: Rate: 65 DE: 158 QRSD: 90 QT: 442 QTc: 459 [place]: P: 19 DE: 158 QRS: 2 T: 3 INTERPRETIVE STATEMENTS: Normal sinus rhythm Low voltage QRS Borderline ECG Compared to ECG 09/16/2017 21:33:02 No significant changes Electronically Signed On 09-24-17 12:47:19 CDT by Reynaldo Nguyen
== END 2017-09-24 03:26 | disposition home or self-care (01) ==
LOC: ER 21:17
DX: R60.9 Edema, unspecified (principal); Z85.89 Personal history of malignant neoplasm of other organs and systems; Z86.718 Personal history of other venous thrombosis and embolism; Z79.01 Long term (current) use of anticoagulants; Z91.19 Patient's noncompliance with other medical treatment and regimen; E03.9 Hypothyroidism, unspecified
CPT/HCPCS: 36415; 80053; 81003; 83735; 85025; 85610; 85730; 93005; 93971; 96374; 96375; 99284; J2405

== ENCOUNTER 2017-10-10 21:58 | Emergency (ER) | payer OTHER ==
[2017-10-10 22:32] LABS: Absolute Lymphocytes (CBC) 0.7 K/uL (0.7-4.9); Absolute Monocytes 1.2 K/uL (0.1-1.3); Absolute Neutrophil 4.7 K/uL (1.8-8.0); Basophils % 0.7 % (0-1.3); Eosinophils % 2.4 % (0-4.4); Hematocrit 25.4 % (39.6-49.0); Lymphocytes % 10.7 % (15.3-44.8); MCH 31.6 pg (27.0-35.0); MCV 93.3 fL (80-100); MPV 8.3 fL (7.6-11.3); Monocytes % 17.6 % (3.3-12.3); RBC Red Blood Cell Count 2.72 M/uL (4.33-5.43)
[2017-10-10 22:36] LABS: Protime INR 2.39
[2017-10-10 22:59] LABS: ALT/SGPT 24 U/L (12-78); AST/SGOT 89 U/L (15-37); Albumin 1.8 g/dL (3.4-5.0); Alkaline Phosphatase 192 U/L (45-117); BUN Blood Urea Nitrogen 24 mg/dL (7-18); Bicarbonate 25 mmol/L (21-32); Bilirubin Direct 0.2 mg/dL (0-0.2); Bilirubin Total 0.3 mg/dL (0.2-1.0); Glucose Level 96 mg/dL (74-106); Magnesium 1.7 mg/dL (1.8-2.4); Protein, Total 6.2 g/dL (6.4-8.2); Sodium Level 133 mmol/L (136-145)
[2017-10-10 23:02] LABS: Alcohol Serum/Plasma < 3 mg/dL (<3)
[2017-10-10 23:09] LABS: Barbiturates NEGATIVE (NEGATIVE); Benzodiazepines NEGATIVE (NEGATIVE); Cocaine NEGATIVE (NEGATIVE); METHAMPHETAM NEGATIVE (NEGATIVE); Methadone NEGATIVE (NEGATIVE); Opiates NEGATIVE (NEGATIVE); Phencyclidine NEGATIVE (NEGATIVE); THC Cannibis POSITIVE (NEGATIVE)
[2017-10-10 23:15] LABS: Blood Morphology Comment NOT SEEN (NOT SEEN); Platelet Estimate ADEQ
[2017-10-10] MEDS ORDERED: MAGNESIUM SULFATE 1 gm IVPB 1 GM/100 ML BAG IV ONE (23:17)
[2017-10-10] MEDS ORDERED: NA CHLORIDE 0.9% 100 ML IV ONE (23:17)
[2017-10-10] MEDS ORDERED: NA CHLORIDE 0.9% 1,000 ML ONE (23:17)
[2017-10-10] MEDS ORDERED: FOSPHENYTOIN PE 500 MG/10 ML VIAL ONE (23:18)
--- NOTE | 2017-10-11 00:34 | EDPHYS ---
Physician Documentation [facility] Name: Rudolph Corral Age: 57 yrs Sex: Male : 1960 Arrival Date: 10/10/2017 Time: 21:59 Bed 3 Private MD: Rudolph Bartlett ED Physician Russ Fuentes HPI: 10/10 22:11 This 57 yrs old Male presents to ER via EMS with complaints of Seizure. jr8 22:11 The patient presents after having a single isolated seizure, that lasted 25 minute(s). jr8 Character of seizure(s): Loss of consciousness: the patient experienced loss of consciousness, Motor activity: generalized, Apnea: the patient did not experience apnea, Circulation: the patient did not experience evidence of pulse disturbance. Seizure onset: 30 minute(s) ago. Context: the seizure(s) was witnessed, by family. It is unknown whether or not the patient has had similar symptoms in the past. It is unknown whether or not the patient has recently seen a physician. 22:12 EMS care: Ativan, 4 mg(s), IV, with resolution of the seizure, supplemental oxygen. jr8 Historical: - Allergies: 22:08 No Known Allergies; bb - Home Meds: 22:08 Bactrim DS 800-160 mg Oral tab 1 tab 2 times per day [Active]; Eliquis 5 mg oral tab 1 bb tab 2 times per day [Active]; Synthroid 137 mcg Oral tab 1 tab once daily [Active]; metoprolol tartrate 50 mg oral tab 2 times per day [Active]; sertraline 100 mg oral tab 1 tab once daily [Active]; lisiniopril hydrochlothiazide 10-12.5 mg daily [Active]; pantoprazole 40 mg oral TbEC 1 tab once daily [Active]; folic acid 1 mg Oral tab 1 tab once daily [Active]; - PMHx: 22:08 bladder infection; DVT; GERD; Hypothyroidism; osteonecrosis of jaw; Throat Cancer-2012; bb - PSHx: 22:08 trach; PEG tube; bb - Immunization history:: Adult Immunizations up to date, Adult Immunizations unknown. - Social history:: Smoking status: unknown Smoking status: unknown. - Ebola Screening: : Patient negative for fever greater than or equal to 101.5 degrees Fahrenheit, and additional compatible Ebola Virus Disease symptoms Patient denies exposure to infectious person Patient denies travel to an Ebola-affected area in the 21 days before illness onset No symptoms or risks identified at this time No symptoms or risks identified at this time. ROS: 22:06 Unable to obtain ROS due to obtunded state. jr8 Exam: 22:06 Head/Face: Normocephalic, atraumatic. Eyes: Pupils equal round and reactive to light. jr8 Lids and lashes normal. Conjunctiva and sclera are non-icteric and not injected. Cornea within normal limits. Periorbital areas with no swelling, redness, or edema. ENT: Nares patent. No nasal discharge, no septal abnormalities noted. Tympanic membranes are normal and external auditory canals are clear. Oropharynx with no redness, swelling, or masses, exudates, or evidence of obstruction, uvula midline. Mucous membranes moist. Trach in place Neck: Trachea midline, no thyromegaly or masses palpated, and no cervical lymphadenopathy. Supple, full range of motion without nuchal rigidity, or vertebral point tenderness. No Meningismus. Cardiovascular: Regular rate and rhythm with a normal S1 and S2. No gallops, murmurs, or rubs. Normal PMI, no JVD. No pulse deficits. Respiratory: Lungs have equal breath sounds bilaterally, clear to auscultation and percussion. No rales, rhonchi or wheezes noted. No increased work of breathing, no retractions or nasal flaring. Abdomen/GI: Soft with normal bowel sounds. No distension or tympany. No guarding or rebound. Gastrostomy tube in place and without acute abnormalities 22:06 Back: Large right scapular decubitus wound noted . 22:06 Musculoskeletal/extremity: skin tears and ecchymosis noted to bilateral arms . 22:06 Skin: Appearance: Color: pink, Temperature: normal temperature, Moisture: normal moisture, Stage 1/2 decubitus wounds to buttocks . 22:06 Neuro: Orientation: Not oriented to person, place, time, situation, Mentation: somnolent, Memory: unable to test, Cranial nerves: unable to test, Cerebellar function: unable to test, Motor: unable to test, No posturing , Sensation: unable to test, seizure activity, is not currently displayed, but the patient is post-ictal. Vital Signs: 22:08 BP 100 / 67; Pulse 89; Resp 18 S; Temp 98.7(R); Pulse Ox 100% on R/A; Weight 54.43 kg bb (R); Height 5 ft. 10 in. (177.80 cm) (R); 22:45 BP 92 / 68; Pulse 86; Resp 18; Pulse Ox 99% ; bp 23:19 BP 88 / 65; Pulse 88; Resp 17; Pulse Ox 100% ; bp 23:45 BP 96 / 69; Pulse 91; Resp 17; Pulse Ox 100% ; bp 10/11 00:45 BP 91 / 66; Pulse 88; Resp 15; Pulse Ox 100% ; bp 01:15 BP 90 / 65; Pulse 88; Resp 14; Pulse Ox 100% ; bp 10/10 22:08 Body Mass Index 17.22 (54.43 kg, 177.80 cm) bb [place] Coma Score: 10/10 22:32 Eye Response: none(1). Verbal Response: none(1). Motor Response: flexion bp (decorticate)(3). Total: 5. MDM: 22:02 Patient medically screened. 10/11 00:26 Data reviewed: vital signs, nurses notes, lab test result(s), EKG, radiologic studies, [facility] CT scan. Data interpreted: Pulse oximetry: on room air is 100 %. Interpretation: normal. Counseling: I had a detailed discussion with the patient and/or guardian regarding: the historical points, exam findings, and any diagnostic results supporting the discharge/admit diagnosis, lab results, radiology results, the need to transfer to another facility, [facility] does not immediately have the required specialist. 00:33 ED course: Discussed Case with Dr. Carmona and accepted patient to ICU at [facility] . 10/10 22:03 Order name: Acetaminophen; Complete Time: 23:16 10/10 22:03 Order name: Basic Metabolic Panel; Complete Time: 23:16 10/10 22:03 Order name: CBC with Diff; Complete Time: 23:16 10/10 22:03 Order name: ETOH Level; Complete Time: 23:16 10/10 22:03 Order name: Hepatic Function; Complete Time: 23:16 10/10 22:03 Order name: PT-INR; Complete Time: 23:03 10/10 22:03 Order name: Ptt, Activated; Complete Time: 23:03 [facility] 10/10 22:03 Order name: Salicylate; Complete Time: 23:03 [facility] 10/10 22:03 Order name: Urine Drug Screen; Complete Time: 23:16 [facility] 10/10 22:03 Order name: Magnesium; Complete Time: 23:16 [facility] 10/10 22:03 Order name: Blood Culture Adult (2) [facility] 10/10 22:04 Order name: TSH; Complete Time: 23:16 [facility] 10/10 22:40 Order name: Manual Differential; Complete Time: 23:16 EDMS 10/10 22:58 Order name: Urine Dipstick--Ancillary (enter results) [facility] 10/10 22:03 Order name: EKG; Complete Time: 22:04 [facility] 10/10 22:03 Order name: EKG - Nurse/Tech; Complete Time: 22:29 [facility] 10/10 22:03 Order name: IV Saline Lock; Complete Time: 22:13 [facility] 10/10 22:03 Order name: Labs collected and sent; Complete Time: 22:13 [facility] 10/10 22:03 Order name: Urine Dipstick-Ancillary (obtain specimen); Complete Time: 22:49 [facility] 10/10 22:03 Order name: CT Head Brain wo Cont [facility] 10/10 22:14 Order name: XRAY Chest (1 view) [facility] 10/10 22:14 Order name: Roy; Complete Time: 22:32 [facility] 10/10 23:03 Order name: T4 Free; Complete Time: 23:16 EDMS Administered Medications: 10/10 22:50 Drug: NS 0.9% 1000 ml Route: IV; Rate: 1 bolus; Site: right forearm; bp 23:40 Follow up: IV Status: Completed infusion; IV Intake: 1000ml bp 22:50 Drug: CEREbyx 1 grams Route: IVPB; Site: right forearm; bp 23:40 Follow up: IV Status: Completed infusion; IV Intake: 100ml bp 23:39 Drug: Magnesium Sulfate 1 grams Route: IVPB; Infused Over: 1 hrs; Site: right forearm; bp 10/11 00:45 Drug: NS 0.9% 1000 ml Route: IV; Rate: 125 ml/hr; Site: right forearm; bp 01:26 Follow up: IV Status: Infusion continued upon transfer bp Disposition: 01:53 Co-signature as Attending Physician, Russ Fuentes MD. pkl Disposition: 10/11/17 00:34 Transfer ordered to [facility]. Diagnosis are Seizures, Altered mental status, unspecified. - Reason for transfer: Higher level of care. - Accepting physician is Dr. Carmona. - Condition is Fair. - Problem is new. - Symptoms are unchanged. Signatures: Dispatcher [employer] EDMS Russ Fuentes MD MD pkJanel Owen, LORENA RN Lucius Francis PA PA jr8 Wiley Hernandez RN RN bp Corrections: (The following items were deleted from the chart) 01:38 00:34 10/11/2017 00:34 Transfer ordered to [facility]. Diagnosis is bp Seizures; Altered mental status, unspecified. Reason for transfer: Higher level of care. Accepting physician is Dr. Carmona. Condition is Fair. Problem is new. Symptoms are unchanged. jr8
--- NOTE | 2017-10-11 00:34 | ER ---
Nurse's Notes [facility] Name: Rudolph Corral Age: 57 yrs Sex: Male : 1960 Arrival Date: 10/10/2017 Time: 21:59 Bed 3 Private MD: Rudolph Bartlett Diagnosis: Seizures;Altered mental status, unspecified Presentation: 10/10 22:02 Presenting complaint: EMS states: they were toned out for report of pt having seizures bb on their arrival pt was continuing to seize they initiated an IV and gave Ativan 4 mg prior to arrival. Transition of care: patient was not received from another setting of care. Onset of symptoms is unknown. Risk Assessment: Do you want to hurt yourself or someone else? Other: pt unresponsive. Initial Sepsis Screen: Does the patient meet any 2 criteria? No. Patient's initial sepsis screen is negative. Does the patient have a suspected source of infection? Yes: Skin breakdown/wound. Care prior to arrival: Medication(s) given: Ativan 4 mg IV initiated. 20 GA, in the left wrist. 22:02 Method Of Arrival: [facility] bb 22:02 Acuity: THEA 1 bb Triage Assessment: 22:32 General: Appears distressed, slender, unkempt, malnourished. bp Historical: - Allergies: 22:08 No Known Allergies; bb - Home Meds: 22:08 Bactrim DS 800-160 mg Oral tab 1 tab 2 times per day [Active]; Eliquis 5 mg oral tab 1 bb tab 2 times per day [Active]; Synthroid 137 mcg Oral tab 1 tab once daily [Active]; metoprolol tartrate 50 mg oral tab 2 times per day [Active]; sertraline 100 mg oral tab 1 tab once daily [Active]; lisiniopril hydrochlothiazide 10-12.5 mg daily [Active]; pantoprazole 40 mg oral TbEC 1 tab once daily [Active]; folic acid 1 mg Oral tab 1 tab once daily [Active]; - PMHx: 22:08 bladder infection; DVT; GERD; Hypothyroidism; osteonecrosis of jaw; Throat Cancer-2012; bb - PSHx: 22:08 trach; PEG tube; bb - Immunization history:: Adult Immunizations up to date, Adult Immunizations unknown. - Social history:: Smoking status: unknown Smoking status: unknown. - Ebola Screening: : Patient negative for fever greater than or equal to 101.5 degrees Fahrenheit, and additional compatible Ebola Virus Disease symptoms Patient denies exposure to infectious person Patient denies travel to an Ebola-affected area in the 21 days before illness onset No symptoms or risks identified at this time No symptoms or risks identified at this time. Screenin:06 Abuse screen: Denies threats or abuse. Denies injuries from another. Nutritional bp screening: No deficits noted. Tuberculosis screening: No symptoms or risk factors identified. Fall Risk No fall in past 12 months (0 pts). Secondary diagnosis (15 points) seizures, IV access (20 points). Ambulatory Aid- None/Bed Rest/Nurse Assist (0 pts). Gait- Normal/Bed Rest/Wheelchair (0 pts) Mental Status- Overestimates/Forgets Limitations (15 pts.). Total Purvis Fall Scale indicates High Risk Score (45 or more points). Fall prevention measures have been instituted. Side Rails Up X 2 Placed Close to Nursing Station Frequent Obs/Assessments Occuring. Assessment: 22:09 General: Appears distressed, ill, unkempt, emaciated, malnourished, Behavior is bp unresponsive. Pain: Unable to use pain scale. Patient is unresponsive. Neuro: Level of Consciousness is post ictal, Oriented to none. Cardiovascular: Rhythm is sinus rhythm. Respiratory: Airway via trache Respiratory effort is even, unlabored, Respiratory pattern is regular, symmetrical. GI: PEG tube in place, clamped. : No signs and/or symptoms were reported regarding the genitourinary system. EENT: H/O THROAT CA, TRACH IN PLACE. Derm: Skin is fragile, is thin, with poor turgor has skin tears on SCATTERED Decubitus located on STAGE TWO TO BUTTOCK AND SACRUM, STAGE 4 TO R SCAPULA. Musculoskeletal: Range of motion: intact in all extremities. 22:29 Reassessment: PT TO CT WITH DIABETES EDUCATION COORDINATOR. bp 22:51 Reassessment: PT RETURNED TO ROOM. ALL CURRENT ORDERS COMPLETED. PER PROVIDER, PT TO BE bp TRANSFERRED AFTER STUDIES RESULTED. 23:45 Reassessment: ALL CURRENT STUDIES IN PROCESS, PT REMAINS MINIMALLY RESPONSIVE. bp 10/11 00:45 Reassessment: REPORT TO [facility], 7S4, EDA CARRILLO. TRANSPORT EN ROUTE. bp 01:26 Reassessment: EMS AT B/S FOR TRANSPORT. bp Vital Signs: 10/10 22:08 BP 100 / 67; Pulse 89; Resp 18 S; Temp 98.7(R); Pulse Ox 100% on R/A; Weight 54.43 kg bb (R); Height 5 ft. 10 in. (177.80 cm) (R); 22:45 BP 92 / 68; Pulse 86; Resp 18; Pulse Ox 99% ; bp 23:19 BP 88 / 65; Pulse 88; Resp 17; Pulse Ox 100% ; bp 23:45 BP 96 / 69; Pulse 91; Resp 17; Pulse Ox 100% ; bp 08 00:45 BP 91 / 66; Pulse 88; Resp 15; Pulse Ox 100% ; bp 01:15 BP 90 / 65; Pulse 88; Resp 14; Pulse Ox 100% ; bp 10/10 22:08 Body Mass Index 17.22 (54.43 kg, 177.80 cm) bb Morro Coma Score: 10/10 22:32 Eye Response: none(1). Verbal Response: none(1). Motor Response: flexion bp (decorticate)(3). Total: 5. ED Course: 21:59 Patient arrived in ED. ds1 22:00 Rudolph Bartlett DO is Private Physician. ds1 22:02 [facility] jr8 22:02 Russ Fuentes MD is Attending Physician. jr8 22:04 Triage completed. bb 22:05 Wiley Hernandez, LORENA is Primary Nurse. bp 22:05 Inserted saline lock: 20 gauge in right forearm, using aseptic technique. Blood bp collected. Maintain EMS IV. Dressing intact. Good blood return noted. Site clean \T\ dry. Gauge \T\ site: 20 GAUGE LEFT WRIST. 22:05 Seizure precautions initiated. ea 22:08 Arm band placed on. bp 22:29 Roy cath inserted, using sterile technique, 14 Fr., by me, balloon inflated, to bp gravity drainage, other MINIMAL RETURN. 22:31 Patient has correct armband on for positive identification. Placed in gown. Bed in low bp position. Side rails up X2. 22:35 CT Head Brain wo Cont In Process Unspecified. EDMS 22:39 CT completed. Patient tolerated procedure well. Patient moved back from CT. bq 23:00 XRAY Chest (1 view) In Process Unspecified. EDMS 10/11 01:36 No provider procedures requiring assistance completed. Patient transferred, IV remains bp in place. Administered Medications: 10/10 22:50 Drug: NS 0.9% 1000 ml Route: IV; Rate: 1 bolus; Site: right forearm; bp 23:40 Follow up: IV Status: Completed infusion; IV Intake: 1000ml bp 22:50 Drug: CEREbyx 1 grams Route: IVPB; Site: right forearm; bp 23:40 Follow up: IV Status: Completed infusion; IV Intake: 100ml bp 23:39 Drug: Magnesium Sulfate 1 grams Route: IVPB; Infused Over: 1 hrs; Site: right forearm; bp 10/11 00:45 Drug: NS 0.9% 1000 ml Route: IV; Rate: 125 ml/hr; Site: right forearm; bp 01:26 Follow up: IV Status: Infusion continued upon transfer bp Intake: 10/10 23:40 IV: 100ml; Total: 100ml. bp 23:40 IV: 1000ml; Total: 1100ml. bp Outcome: 10/11 00:34 ER care complete, transfer ordered by MD. cerrato 01:36 Transferred by ground EMS to [facility], Transfer form completed. bp 01:36 Condition: stable 01:36 Instructed on the need for admit. 01:38 Patient left the ED. bp Signatures: Dispatcher [employer] EDPR Lara Cárdenas bq Ortega, Rahel ds1 Janel Dominguez RN RN bb Roszak, Josh, PA PA jr8 Sheila Calero RN RN ea Peltier, Brian RN RN bp
[2017-10-11] MEDS ORDERED: NA CHLORIDE 0.9% 1,000 ML ONE (01:12)
[2017-10-11 01:46] VITALS: TEMP 98.7
[2017-10-11 01:48] VITALS: O2SAT 100
[2017-10-11 01:48] LABS: Urine Blood NEGATIVE (NEG); Urine Glucose NEGATIVE (NEG); Urine Protein NEGATIVE (NEG)
[2017-10-11 01:52] VITALS: BP 90/65
--- NOTE | 2017-10-11 07:28 | RAD REPORT ---
EXAM DESCRIPTION: CT - Head Brain Wo Cont - 10/11/2017 4:56 am CLINICAL HISTORY: Seizure A preliminary written report was provided at the time of the study, and the report was reviewed prio r to final dictation. COMPARISON: CT radiation planning study November 2012 TECHNIQUE: Axial 5 mm thick images of the head were obtained without IV contrast. All CT scans are performed using dose optimization technique as appropriate and may include automated exposure control or mA/KV adjustment according to patient size. FINDINGS: No intracranial hemorrhage, mass, edema or shift of mid-line structures. No acute infarcti on changes seen. No cortical edema or sulcal effacement. Patient has advanced for age volume loss. Th ere is also advanced for age white matter disease. Comparison with the radiation planning study is li mited ; however, these findings are progressive since 2012. Ventricles are in proportion to volume lo ss. Mastoid air cells and visualized portions of the paranasal sinuses are clear. No acute bony findings. IMPRESSION: No hemorrhage or acute cortical based infarction. No mass or other finding to suspect in tracranial metastatic disease. Advanced for age atrophy and chronic ischemic change progressive from 2012.
--- NOTE | 2017-10-11 07:28 | RAD REPORT ---
EXAM DESCRIPTION: RAD - Chest Single View - 10/10/2017 11:00 pm CLINICAL HISTORY: Seizure, head and neck cancer history COMPARISON: September 17 TECHNIQUE: AP portable chest image was obtained 2246 hours in supine positioning . FINDINGS: Trach tube is in place. Left lung field is clear. No failure or volume overload. There is hazy opacification in the mid and lower right lung field. No mass or consolidation. Heart and vascula ture are normal. No pneumothorax. No gross bony abnormality seen. No acute aortic findings suspected. IMPRESSION: Supine portable chest shows hazy opacification in the mid and lower right lung field. Th is could be a layering pleural effusion, atelectasis or a combination. Minimal infiltrate could be obscured in portable supine position. No significant failure or volume overload. Left lung field is clear.
--- NOTE | 2017-10-11 07:46 | EKG ---
Test Date: 2017-10-10 Test Time: 22:20:03 Skirt Maker: ALEJANDRA MEASUREMENT RESULTS: Intervals: Rate: 93 UT: 156 QRSD: 98 QT: 386 QTc: 479 [place]: P: 98 UT: 156 QRS: -37 T: 58 INTERPRETIVE STATEMENTS: Normal sinus rhythm Left axis deviation Pulmonary disease pattern Abnormal ECG Compared to ECG 09/23/2017 23:43:51 Left-axis deviation now present Electronically Signed On 10-11-17 07:44:59 CDT by Merrill Shultz
== END 2017-10-11 01:38 | disposition short-term general hospital (02) ==
LOC: ER 21:58
DX: R56.9 Unspecified convulsions (principal); R41.82 Altered mental status, unspecified; Z86.718 Personal history of other venous thrombosis and embolism; Z79.01 Long term (current) use of anticoagulants; K21.9 Gastro-esophageal reflux disease without esophagitis; E03.9 Hypothyroidism, unspecified; Z85.89 Personal history of malignant neoplasm of other organs and systems; L89.302 Pressure ulcer of unspecified buttock, stage 2; L89.114 Pressure ulcer of right upper back, stage 4
CPT/HCPCS: 36415; 51702; 70450; 71045; 80048; 80076; 80307; 80320; 80329; 81003; 83735; 84439; 84443; 85025; 85610; 85730; 87040; 93005; 96361; 96365; 96375; 99291; 99292; J3475; J7030; Q2009

== ENCOUNTER 2018-07-29 16:52 | Emergency (ER) | payer OTHER ==
--- OUTSIDE RECORDS SUMMARY | 2018-07-29 17:36 | XMS REPORT | Clinical Summary ---
:1960 Author Organization [facility] Address [address] [place] [address] Care Team Providers Name Role Phone Unavailable Primary Care Provider Unavailable Allergies No Known Allergies Medications Medication Sig Dispensed Refills Start Date End Date Status levothyroxine Take 137 mcg by 0 Active (SYNTHROID, mouth Every LEVOTHROID) 137 morning on an MCG tablet empty stomach. pantoprazole Take 40 mg by 0 Active (PROTONIX) 40 MG mouth daily. tablet sertraline Take 100 mg by 0 Active (ZOLOFT) 100 MG mouth daily. tablet folic acid Take 1 mg by 0 Active (FOLVITE) 1 MG mouth daily. tablet thiamine (VITAMIN Take 100 mg by 0 Active B-1) 100 MG tablet mouth daily. ascorbic acid, Take 1 tablet 0 10/17/2017 Active vitamin C, (500 mg total) by 9 (VITAMIN C) 500 MG mouth 2 (two) tablet times daily. ferrous sulfate Take 1.7 mLs (102 150 mL 0 10/17/2017 Active 300 mg (60 mg mg total) by 9 iron)/5 mL syrup mouth 2 (two) times daily. ipratropium-albute Take 3 mLs by 0 10/17/2017 Active rol (DUO-NEB) 0.5 nebulization 9 mg-3 mg(2.5 mg every 6 (six) base)/3 mL hours for 360 nebulizer solution days. multivitamin Take 1 tablet by 0 10/18/2017 Active (THERAGRAN) tablet mouth daily. 9 phenytoin Take 1 capsule 0 10/17/2017 Active (DILANTIN) 100 MG (100 mg total) by 9 ER capsule mouth 3 (three) times daily. zinc Per wound care 0 10/17/2017 Active oxide-petrolatum directions. (CRITIC-AID) 20-51 % Pste topical paste zinc sulfate Take 1 capsule 0 10/18/2017 Active (ZINCATE) 220 (50) (220 mg total) by 9 mg capsule mouth daily. sulfamethoxazole-t Take 1 tablet by 0 Discontinued rimethoprim mouth 2 (two) 8 (BACTRIM DS) times daily. 800-160 mg per tablet metoprolol Take 50 mg by 0 Discontinued (LOPRESSOR) 50 MG mouth 2 (two) 8 tablet times daily. lisinopril-hydroCH Take 1 tablet by 0 Discontinued LOROthiazide mouth daily. 8 (PRINZIDE,ZESTORET IC) 10-12.5 mg per tablet apixaban (ELIQUIS) Take 5 mg by 0 Discontinued 5 mg Tab tablet mouth 2 (two) 8 times daily. sodium Apply topically 2 473 mL 0 10/17/2017 hypochlorite (two) times daily 8 (DAKIN'S, for 7 days. HALF-STRENGTH,) 0.25 % external solution Active Problems Problem Noted Date Circulatory failure 10/12/2017 Chronic deep vein thrombosis (DVT) of femoral vein of left lower extremity Status epilepticus, generalized convulsive 10/11/2017 Acute encephalopathy 10/11/2017 Pressure ulcer of contiguous region involving back and right buttock, 2017 stage 3 Iron deficiency anemia due to chronic blood loss 10/11/2017 Encounters Date Type Specialty Care Team Description 10/14/2017 Anesthesia Event Gastroenterology Page Calderon MD 10/14/2017 Surgery Gastroenterology Chelsy Paul MD UPPER ENDOSCOPY 10/11/2017 - Hospital Encounter Intensive Care Bryan Carmona, Status epilepticus, generalized convulsive (HCC); 10/17/2017 Luke Acute encephalopathy; MD Diego Pressure ulcer of contiguous region involving back and right buttock, stage 3 (HCC); Darlyn Pond, Iron deficiency anemia due to chronic blood loss; Circulatory failure (HCC); Chronic deep vein thrombosis (DVT) of femoral vein of left lower extremity (HCC); Alcoholism (HCC) after 07/28/2017 Social History Tobacco Use Types Packs/Day Years Used Date Former Smoker Quit: 07/11/2017 Smokeless Tobacco: Never Used Sex Assigned at Date Recorded Not on file Job Start Date Occupation Industry Not on file Not on file Not on file Travel History Travel Start Travel End No recent travel history available. Last Filed Vital Signs Vital Sign Reading Time Taken Blood Pressure 130/83 10/17/2017 2:40 PM CDT Pulse 94 10/17/2017 2:40 PM CDT Temperature 36.6 C (97.9 F) 10/17/2017 12:20 PM CDT Respiratory Rate 22 10/17/2017 2:40 PM CDT Oxygen Saturation 100% 10/17/2017 2:40 PM CDT Inhaled Oxygen Concentration 50% 10/16/2017 7:32 PM CDT Weight 49 kg (108 lb 0.4 oz) 10/17/2017 5:58 AM CDT Height 175.3 cm (5' 9") 10/11/2017 6:00 AM CDT Body Mass Index 15.95 10/17/2017 5:58 AM CDT Plan of Treatment Not on file Procedures Procedure Name Priority Date/Time Associated Comments Diagnosis RHYTHM STRIP - SCAN 10/20/2017 10:10 AM CDT REPORT OF PROCEDURE - 10/20/2017 10:10 ENDOSCOPY SCAN AM CDT POCT-GLUCOSE METER Routine 10/17/2017 12:29 Results for this PM CDT procedure are in the results section. POCT-GLUCOSE METER Routine 10/17/2017 6:31 Results for this AM CDT procedure are in the results section. ALBUMIN Routine 10/17/2017 5:52 Results for this AM CDT procedure are in the results section. PHENYTOIN LEVEL, TOTAL Routine 10/17/2017 5:52 Results for this AM CDT procedure are in the results section. BASIC METABOLIC PANEL Routine 10/17/2017 5:52 Results for this (7) AM CDT procedure are in the results section. POCT-GLUCOSE METER Routine 10/17/2017 12:34 Results for this AM CDT procedure are in the results section. POCT-GLUCOSE METER Routine 10/16/2017 5:59 Results for this PM CDT procedure are in the results section. POCT-GLUCOSE METER Routine 10/16/2017 12:35 Results for this PM CDT procedure are in the results section. POCT-GLUCOSE METER Routine 10/16/2017 6:02 Results for this AM CDT procedure are in the results section. BASIC METABOLIC PANEL Routine 10/16/2017 4:06 Results for this (7) AM CDT procedure are in the results section. POCT-GLUCOSE METER Routine 10/16/2017 12:07 Results for this AM CDT procedure are in the results section. POCT-GLUCOSE METER Routine 10/15/2017 6:24 Results for this PM CDT procedure are in the results section. POCT-GLUCOSE METER Routine 10/15/2017 1:05 Results for this PM CDT procedure are in the results section. POCT-GLUCOSE METER Routine 10/15/2017 6:02 Results for this AM CDT procedure are in the results section. ALBUMIN Routine 10/15/2017 3:48 Results for this AM CDT procedure are in the results section. PHENYTOIN LEVEL, TOTAL Routine 10/15/2017 3:48 Results for this AM CDT procedure are in the results section. BASIC METABOLIC PANEL Routine 10/15/2017 3:48 Results for this (7) AM CDT procedure are in the results section. POCT-GLUCOSE METER Routine 10/14/2017 11:21 Results for this PM CDT procedure are in the results section. CBC W/PLT COUNT & AUTO Routine 10/14/2017 10:42 Results for this DIFFERENTIAL PM CDT procedure are in the results section. CBC W/PLT COUNT & AUTO Routine 10/14/2017 10:42 Results for this DIFFERENTIAL PM CDT procedure are in the results section. POCT-GLUCOSE METER Routine 10/14/2017 6:28 Results for this PM CDT procedure are in the results section. REPORT OF PROCEDURE - 10/14/2017 1:17 ENDOSCOPY URL PM CDT POCT-GLUCOSE METER Routine 10/14/2017 12:07 Results for this PM CDT procedure are in the results section. UPPER ENDOSCOPY 10/14/2017 11:00 Hematemesis, AM CDT presence of nausea not specified CBC W/PLT COUNT & AUTO Routine 10/14/2017 5:44 Results for this DIFFERENTIAL AM CDT procedure are in the results section. PROTHROMBIN TIME/INR Routine 10/14/2017 5:44 Results for this AM CDT procedure are in the results section. CBC W/PLT COUNT & AUTO Routine 10/14/2017 5:44 Results for this DIFFERENTIAL AM CDT procedure are in the results section. BASIC METABOLIC PANEL Routine 10/14/2017 5:44 Results for this (7) AM CDT procedure are in the results section. IR IVC FILTER Routine 10/13/2017 6:24 Results for this PLACEMENT PM CDT procedure are in the results section. TRANSFUSION SERVICE 10/13/2017 6:02 REPORT - SCAN PM CDT POTASSIUM Routine 10/13/2017 2:21 Results for this PM CDT procedure are in the results section. POCT-GLUCOSE METER Routine 10/13/2017 5:47 Results for this AM CDT procedure are in the results section. POCT-GLUCOSE METER Routine 10/13/2017 4:59 Results for this AM CDT procedure are in the results section. PT/APTT Routine 10/13/2017 4:49 Results for this AM CDT procedure are in the results section. CBC W/PLT COUNT & AUTO Routine 10/13/2017 4:05 Results for this DIFFERENTIAL AM CDT procedure are in the results section. BASIC METABOLIC PANEL Routine 10/13/2017 4:05 Results for this (7) AM CDT procedure are in the results section. CBC W/PLT COUNT & AUTO Routine 10/13/2017 4:05 Results for this DIFFERENTIAL AM CDT procedure are in the results section. PREPARE LEUKO-REDUCED Routine 10/12/2017 11:54 Results for this RBC PM CDT procedure are in the results section. TRANSFUSION SERVICE 10/12/2017 6:01 REPORT - SCAN PM CDT URINALYSIS W/ Routine 10/12/2017 9:19 Results for this MICROSCOPIC AM CDT procedure are in the results section. PROCALCITONIN Routine 10/12/2017 9:19 Results for this AM CDT procedure are in the results section. CBC W/PLT COUNT & AUTO Routine 10/12/2017 3:39 Results for this DIFFERENTIAL AM CDT procedure are in the results section. BASIC METABOLIC PANEL Routine 10/12/2017 3:39 Results for this (7) AM CDT procedure are in the results section. CBC W/PLT COUNT & AUTO Routine 10/12/2017 3:39 Results for this DIFFERENTIAL AM CDT procedure are in the results section. CT BRAIN WITH/WITHOUT ONEIDA 10/12/2017 12:30 Results for this IV CONTRAST AM CDT procedure are in the results section. TRANSFUSE Routine 10/11/2017 3:22 LEUKO-REDUCED RED PM CDT BLOOD CELLS BLOOD GAS, ARTERIAL Routine 10/11/2017 3:14 Results for this PM CDT procedure are in the results section. TROPONIN I STAT 10/11/2017 3:14 Results for this PM CDT procedure are in the results section. EEG AWAKE AND DROWSY STAT 10/11/2017 2:01 Results for this PM CDT procedure are in the results section. ECG 12-LEAD Routine 10/11/2017 10:31 Results for this AM CDT procedure are in the results section. VENOUS DOPPLER LEGS ONEIDA 10/11/2017 9:38 Results for this BILATERAL AM CDT procedure are in the results section. VENOUS DOPPLER ARMS ONEIDA 10/11/2017 9:30 Results for this BILATERAL AM CDT procedure are in the results section. TYPE AND SCREEN, Routine 10/11/2017 8:51 Results for this AUTOMATED AM CDT procedure are in the results section. PROCALCITONIN Add-On 10/11/2017 8:45 Results for this AM CDT procedure are in the results section. POCT-GLUCOSE METER Routine 10/11/2017 8:13 Results for this AM CDT procedure are in the results section. CBC W/PLT COUNT & AUTO STAT 10/11/2017 8:08 Results for this DIFFERENTIAL AM CDT procedure are in the results section. T4, FREE Routine 10/11/2017 8:08 Results for this AM CDT procedure are in the results section. COMPREHENSIVE STAT 10/11/2017 8:08 Results for this METABOLIC PANEL AM CDT procedure are in the results section. LACTIC ACID, VENOUS STAT 10/11/2017 8:08 Results for this AM CDT procedure are in the results section. CBC W/PLT COUNT & AUTO STAT 10/11/2017 8:08 Results for this DIFFERENTIAL AM CDT procedure are in the results section. PREALBUMIN Routine 10/11/2017 8:08 Results for this AM CDT procedure are in the results section. IRON, TIBC, % SAT. Routine 10/11/2017 8:08 Results for this (WITHOUT FERRITIN) AM CDT procedure are in the results section. FERRITIN Routine 10/11/2017 8:08 Results for this AM CDT procedure are in the results section. VITAMIN B12 AND FOLATE Routine 10/11/2017 8:08 Results for this AM CDT procedure are in the results section. TSH/FREE T4 IF Routine 10/11/2017 8:08 Results for this INDICATED AM CDT procedure are in the results section. RAPID DRUG SCREEN, Routine 10/11/2017 6:39 Results for this URINE AM CDT procedure are in the results section. URINALYSIS W/ REFLEX Routine 10/11/2017 6:39 Results for this URINE CULTURE AM CDT procedure are in the results section. BLOOD CULTURE Routine 10/11/2017 4:45 Results for this AM CDT procedure are in the results section. PHENYTOIN LEVEL, TOTAL Routine 10/11/2017 4:44 Results for this AM CDT procedure are in the results section. PHENYTOIN LEVEL, TOTAL Routine 10/11/2017 4:44 Results for this AND FREE AM CDT procedure are in the results section. AMMONIA Routine 10/11/2017 4:44 Results for this AM CDT procedure are in the results section. PHOSPHORUS Routine 10/11/2017 4:33 Results for this AM CDT procedure are in the results section. MAGNESIUM Routine 10/11/2017 4:33 Results for this AM CDT procedure are in the results section. BLOOD GAS, ARTERIAL Routine 10/11/2017 4:33 Results for this AM CDT procedure are in the results section. PROCALCITONIN Routine 10/11/2017 4:33 Results for this AM CDT procedure are in the results section. HEPATIC FUNCTION PANEL Routine 10/11/2017 4:33 Results for this AM CDT procedure are in the results section. BASIC METABOLIC PANEL Routine 10/11/2017 4:33 Results for this (7) AM CDT procedure are in the results section. TROPONIN I STAT 10/11/2017 4:33 Results for this AM CDT procedure are in the results section. CBC W/PLT COUNT & AUTO Routine 10/11/2017 4:32 Results for this DIFFERENTIAL AM CDT procedure are in the results section. LACTIC ACID, VENOUS Routine 10/11/2017 4:32 Results for this AM CDT procedure are in the results section. APTT Routine 10/11/2017 4:32 Results for this AM CDT procedure are in the results section. PROTHROMBIN TIME/INR Routine 10/11/2017 4:32 Results for this AM CDT procedure are in the results section. CBC W/PLT COUNT & AUTO Routine 10/11/2017 4:32 Results for this DIFFERENTIAL AM CDT procedure are in the results section. BLOOD CULTURE Routine 10/11/2017 4:32 Results for this AM CDT procedure are in the results section. XR CHEST 1 VIEW Routine 10/11/2017 4:25 Results for this PORTABLE/BEDSIDE AM CDT procedure are in the results section. after 07/28/2017 Results RHYTHM STRIP - SCAN (10/20/2017 10:10 AM CDT) Narrative Performed At EKG-SCANNED (10/20/2017 10:10 AM CDT) Narrative Performed At POC-Glucose meter (10/17/2017 12:29 PM CDT)Only the most recent of16 resultswithin the time period is included. POC-Glucose Meter 120 (H)Comment: TESTED AT 70 - 110 mg/dL [address] [address] Specimen Blood Performing Organization Address [facility] Phone Number [address] [address] CENTER Albumin (10/17/2017 5:52 AM CDT)Only the most recent of2 resultswithin the time period is included. Albumin 1.7 (L) 3.5 - 5.0 g/dL [facility] Specimen Blood Performing Organization Address [facility] Phone Number [address] [address] [phone] CENTER Phenytoin level, total (10/17/2017 5:52 AM CDT)Only the most recent of3 resultswithin the time period is included. Phenytoin 14.6 10.0 - 20.0 ug/mL [facility] Specimen Blood Performing Organization Address [facility] Phone Number [address] [address] CENTER Basic Metabolic Panel (10/17/2017 5:52 AM CDT)Only the most recent of7 resultswithin the time period is included. Sodium 134 (L) 136 - 145 meq/L [facility] Potassium 4.3 3.5 - 5.1 meq/L [facility] Chloride 101 98 - 107 meq/L [facility] CO2 31 (H) 22 - 29 meq/L [facility] BUN 12 7 - 21 mg/dL [facility] Creatinine 0.45 (L) 0.57 - 1.25 mg/dL [facility] Glucose 107 (H) 70 - 105 mg/dL [facility] Calcium 8.3 (L) 8.4 - 10.2 mg/dL [facility] EGFR 192Comment: ESTIMATED GFR IS mL/min/1.73 sq m [facility] NOT ACCURATE CREATININE [facility] CENTER CLEARANCE IN PREDICTING GLOMERULAR FILTRATION RATE. ESTIMATED GFR IS NOT APPLICABLE FOR DIALYSIS PATIENTS. Specimen Blood Performing Organization Address City/State/Zipcode Phone Number [facility] [address] [place] [address] CENTER CBC with platelet count + automated diff (10/14/2017 10:42 PM CDT)Only the most recent of6 resultswithin the time period is included. WBC 10.1 3.5 - 10.5 K/L [facility] RBC 3.09 (L) 4.63 - 6.08 M/L [facility] Hemoglobin 9.1 (L) 13.7 - 17.5 GM/DL [facility] Hematocrit 28.6 (L) 40.1 - 51.0 % [facility] MCV 92.6 (H) 79.0 - 92.2 fL [facility] MCH 29.4 25.7 - 32.2 pg [facility] MCHC 31.8 (L) 32.3 - 36.5 GM/DL [facility] RDW 18.9 (H) 11.6 - 14.4 % [facility] Platelets 237 150 - 450 K/CU MM [facility] MPV 9.7 9.4 - 12.4 fL [facility] nRBC 0 0 - 0 /100 WBC [facility] % Neutros 77 % [facility] % Lymphs 8 % [facility] % Monos 10 % [facility] % Eos 3 % [facility] % Baso 1 % [facility] # Neutros 7.79 (H) 1.78 - 5.38 K/L [facility] # Lymphs 0.83 (L) 1.32 - 3.57 K/L [facility] # Monos 1.00 (H) 0.30 - 0.82 K/L [facility] # Eos 0.33 0.04 - 0.54 K/L [facility] # Baso 0.08 0.01 - 0.08 K/L [facility] Immature Granulocytes-Relative 1 0 - 1 % [facility] Specimen Blood Performing Organization Address City/State/Zipcode Phone Number [facility] [address] [place] [address] [phone] CENTER REPORT OF PROCEDURE - ENDOSCOPY URL (10/14/2017 1:17 PM CDT) Narrative Performed At Prothrombin time/INR (10/14/2017 5:44 AM CDT)Only the most recent of2 resultswithin the time period is included. Protime 18.5 (H) 11.7 - 14.7 seconds [facility] INR 1.5 <=5.9 [facility] Specimen Blood Narrative Performed At [facility] RECOMMENDED COUMADIN/WARFARIN INR THERAPY RANGES STANDARD DOSE: 2.0 - 3.0 Includes: PROPHYLAXIS for venous thrombosis, systemic embolization; TREATMENT for venous thrombosis and/or pulmonary embolus. HIGH RISK: Target INR is 2.5-3.5 for patients with mechanical heart valves. Performing Organization Address City/State/Zipcode Phone Number [facility] [address] [place] [address] [phone] CENTER IR IVC Filter Placement (10/13/2017 6:24 PM CDT) Specimen Narrative Performed At FINAL REPORT [facility] History: Lower extremity DVT, recent GI bleed and contraindication to anticoagulation.. Procedure: Following informed written consent, the patient's right femoral region was prepped and draped in the usual sterile manner. 2% lidocaine was given locally for anesthesia. No conscious sedation was administered. Vital signs were monitored and remained stable. Continuous patient monitoring were performed by the attending radiologist and a registered nurse for approximately 30 minutes during the procedure. Access was gained the right common femoral vein and a 5 Sudanese omniflush catheter was placed over a wire into the inferior vena cava. An inferior venacavogram was performed. The catheter was then exchanged over a wire for a filter deployment sheath. A retrievable Option elite filter was successfully deployed in infrarenal IVC without complications. Findings: Inferior venacavogram demonstrates a patent IVC without visible filling defects or thrombus. No venous anomalies are identified. Patent renal veins are noted bilaterally at the L1 level, as expected. Following filter deployment, the filter is noted to lie in an infrarenal position within the IVC. Impression: 1. Successful uncomplicated placement of an infrarenal IVC retrievable Option elite filter. Fluoroscopy time: 2.2 minutes Estimated dose reported as (Ka,r): 96 mGy Note: This IVC filter is retrievable and an attempt can be made to remove it if indicated.The decision of if and when to attempt IVC filter removal is left to the ordering physician. Attempt at filter removal should ideally be made within 60 days if there is not an indication to keep the IVC filter beyond this time. Many times, however, filter retrieval is possible beyond this time period. Signed: Gail Dalton MD Report Verified Date/Time:10/13/2017 20:35:13 Reading Location: [place] [address] Angio Body Reading Room Procedure Note Interface, External Ris In - 10/13/2017 8:37 PM CDT FINAL REPORT History: Lower extremity DVT, recent GI bleed and contraindication to anticoagulation.. Procedure: Following informed written consent, the patient's right femoral region was prepped and draped in the usual sterile manner. 2% lidocaine was given locally for anesthesia. No conscious sedation was administered. Vital signs were monitored and remained stable. Continuous patient monitoring were performed by the attending radiologist and a registered nurse for approximately 30 minutes during the procedure. Access was gained the right common femoral vein and a 5 Sudanese omniflush catheter was placed over a wire into the inferior vena cava. An inferior venacavogram was performed. The catheter was then exchanged over a wire for a filter deployment sheath. A retrievable Option elite filter was successfully deployed in infrarenal IVC without complications. Findings: Inferior venacavogram demonstrates a patent IVC without visible filling defects or thrombus. No venous anomalies are identified. Patent renal veins are noted bilaterally at the L1 level, as expected. Following filter deployment, the filter is noted to lie in an infrarenal position within the IVC. Impression: 1. Successful uncomplicated placement of an infrarenal IVC retrievable Option elite filter. Fluoroscopy time: 2.2 minutes Estimated dose reported as (Ka,r): 96 mGy Note: This IVC filter is retrievable and an attempt can be made to remove it if indicated. The decision of if and when to attempt IVC filter removal is left to the ordering physician. Attempt at filter removal should ideally be made within 60 days if there is not an indication to keep the IVC filter beyond this time. Many times, however, filter retrieval is possible beyond this time period. Signed: Gail Dalton MD Report Verified Date/Time: 10/13/2017 20:35:13 Reading Location: [place] [address] Angio Body Reading Room Performing Organization Address City/State/Zipcode Phone Number [facility] TRANSFUSION SERVICE REPORT - SCAN (10/13/2017 6:02 PM CDT)Only the most recent of2 resultswithin the time period is included. Narrative Performed At Potassium (10/13/2017 2:21 PM CDT) Potassium 3.7 3.5 - 5.1 meq/L [facility] Specimen Blood Performing Organization Address [facility] Phone Number [address] [address] CENTER PT/aPTT (10/13/2017 4:49 AM CDT) Protime 16.2 (H) 11.7 - 14.7 seconds [facility] INR 1.3 <=5.9 [facility] PTT 44.9 (H) 22.5 - 36.0 seconds [facility] Specimen Blood Narrative Performed At [facility] RECOMMENDED COUMADIN/WARFARIN INR THERAPY RANGES STANDARD DOSE: 2.0 - 3.0 Includes: PROPHYLAXIS for venous thrombosis, systemic embolization; TREATMENT for venous thrombosis and/or pulmonary embolus. HIGH RISK: Target INR is 2.5-3.5 for patients with mechanical heart valves. Performing Organization Address [facility] Number [address] [id number] [phone] CENTER Prepare Leuko-Red RBC (10/12/2017 11:54 PM CDT) CROSSMATCH COMPATIBLE SAFETRACE TX Unit ABO A Pos SAFETRACE TX UNIT NUMBER [id number] [facility]ACE TX Status TRANSFUSED SAFETRACE TX Blood Bank Product RED BLOOD CELLS [facility]AFET[facility]ACE TX PRODUCT CODE [id number] [facility] [place] Specimen Other Performing Organization Address [facility] Number SAFETRACE [place] Procalcitonin (10/12/2017 9:19 AM CDT)Only the most recent of3 resultswithin the time period is included. Procalcitonin 0.60 (H) <0.05 ng/mL [facility] Specimen Blood Narrative Performed At [facility] SEPSIS RISK (ng/mL) Low:0.05-0.50 Intermediate: 0.51-2.00 High: >=2.01 Performing Organization Address City/State/Zipcode Phone Number [facility] [address] [place], [place] [id number] [phone] [place] Urinalysis w/Microscopic (10/12/2017 9:19 AM CDT) Color, UA Yellow [facility] Clarity, UA Clear [facility] Specific Allison, UA 1.036 (H) 1.001 - 1.035 [facility] pH, UA 5.5 5.0 - 8.0 [facility] Protein, UA Negative Negative [facility] Glucose, UA Negative Negative [facility] Ketones, UA Trace (A) Negative [facility] Bilirubin, UA Negative Negative [facility] Blood, UA Negative Negative [facility] Nitrite, UA Negative Negative [facility] Leukocytes, UA Negative Negative [facility] Urobilinogen, UA 0.2 0.2 - 1.0 mg/dL [facility] RBC, UA <1 /HPF [facility] WBC, UA 1 /HPF [facility] Mucus Rare [facility] Specimen Source Urine, Roy [facility] Specimen Urine Performing Organization Address City/State/Zipcode Phone Number [facility] [address], [place] [address] [phone] brain without & with IV contrast (10/12/2017 12:30 AM CDT) Specimen Narrative Performed At FINAL REPORT AppSame EXAMINATIONS: NONCONTRAST AND CONTRAST-ENHANCED HEAD CT CLINICAL HISTORY:Seizure COMPARISON CT: None EPISODE OF CARE: Initial TECHNIQUE: Axial noncontrast tomographic images were initially acquired from the vertex to skull base. Following the administration of IV contrast, the examination was repeated. The exam was performed according to our departmental dose optimization program which includes automated exposure control, adjustment of the mA and/or kV according to patient's size and/or use of iterative reconstructive technique. FINDINGS: The exam is limited by motion degradation. Moderate generalized volume loss, periventricular deep white matter changes and intracranial calcific atherosclerosis are noted. The deep white matter changes are most conspicuous along the frontal horns. No definite evidence of acute intracranial hemorrhage, mass effect, midline shift, cerebral edema or abnormal extra-axial fluid collection. Mild symmetric prominence of the ventricular system is favored to be related to the involutional changes. Although there are no definite findings to suggest evolving ischemia, CT is not sensitive for the detection of early or small infarcts. Contrast grossly opacifies the major dural sinuses as well as the central arteries of the [place]. No definite evidence of abnormal contrast enhancement, however, the contrast-enhanced examination is degraded by motion. No evidence of an acute orbital process. The visualized paranasal sinuses, tympanic cavities and mastoid air cells are well pneumatized. No evidence of an acute skull fracture. The mandibular condyles project anatomically. IMPRESSION: Motion degraded but grossly negative examination for an acute intracranial process. Chronic involutional and the deep white matter changes. Brain MRI (seizure protocol, preferably with gadolinium) could be performed for further evaluation if warranted. Signed: Stephanie Dey MD Report Verified Date/Time:10/12/2017 01:49:16 Reading Location: [address] Transitional Reading Room Procedure Note Interface, External Ris In - 10/12/2017 3:22 AM CDT FINAL REPORT EXAMINATIONS: NONCONTRAST AND CONTRAST-ENHANCED HEAD CT CLINICAL HISTORY:Seizure COMPARISON CT: None EPISODE OF CARE: Initial TECHNIQUE: Axial noncontrast tomographic images were initially acquired from the vertex to skull base. Following the administration of IV contrast, the examination was repeated. The exam was performed according to our departmental dose optimization program which includes automated exposure control, adjustment of the mA and/or kV according to patient's size and/or use of iterative reconstructive technique. FINDINGS: The exam is limited by motion degradation. Moderate generalized volume loss, periventricular deep white matter changes and intracranial calcific atherosclerosis are noted. The deep white matter changes are most conspicuous along the frontal horns. No definite evidence of acute intracranial hemorrhage, mass effect, midline shift, cerebral edema or abnormal extra-axial fluid collection. Mild symmetric prominence of the ventricular system is favored to be related to the involutional changes. Although there are no definite findings to suggest evolving ischemia, CT is not sensitive for the detection of early or small infarcts. Contrast grossly opacifies the major dural sinuses as well as the central arteries of the [place]. No definite evidence of abnormal contrast enhancement, however, the contrast-enhanced examination is degraded by motion. No evidence of an acute orbital process. The visualized paranasal sinuses, tympanic cavities and mastoid air cells are well pneumatized. No evidence of an acute skull fracture. The mandibular condyles project anatomically. IMPRESSION: Motion degraded but grossly negative examination for an acute intracranial process. Chronic involutional and the deep white matter changes. Brain MRI (seizure protocol, preferably with gadolinium) could be performed for further evaluation if warranted. Signed: Stephanie Dey MD Report Verified Date/Time: 10/12/2017 01:49:16 Reading Location: [address] Reading Room Performing Organization Address City/State/Zipcode Phone Number GE RIS Transfuse Leuko-Red RBC (10/11/2017 3:22 PM CDT)Only the most recent of2 resultswithin the time period is included.Troponin I (10/11/2017 3:14 PM CDT) Only the most recent of2 resultswithin the time period is included. Troponin I <0.01 0.00 - 0.03 ng/mL [facility] Specimen Blood Narrative Performed At [facility] Troponin I (TnI) levels must be interpreted in the context of the presenting symptoms and the clinical findings. Elevated TnI levels indicate myocardial damage, but are not specific for ischemic heart disease. Elevated TnI levels are seen in patients with other cardiac conditions (including myocarditis and congestive heart failure), and slight TnI elevations occur in patients with other conditions, including sepsis, renal failure, acidosis, acute neurological disease, and persistent tachyarrhythmia. Performing Organization Address City/State/Zipcode Phone Number [facility] [address] [place] [phone] [place] Blood gas, arterial (10/11/2017 3:14 PM CDT)Only the most recent of2 resultswithin the time period is included. pH, Arterial 7.44 7.35 - 7.45 [facility] pCO2, Arterial 33 (L) 35 - 45 mmHg [facility] pO2, Arterial 121 (H) 80 - 90 mmHg [facility] O2 Sat, Arterial 98.6 (H) 96.0 - 97.0 % [facility] HCO3, Arterial 22 21 - 29 mmol/L [facility] Base Excess, Arterial -2.1 (L) -2.0 - 3.0 mmol/L [facility] Patient Temperature 36.1 C [facility] FIO2 40.0 % [facility] Specimen Blood, Arterial Performing Organization Address City/State/Zipcode Phone Number [facility] [address] [place] [address] [place] EEG AWAKE AND DROWSY (10/11/2017 2:01 PM CDT) Specimen Narrative Performed At Dates of EE10/11/17 [facility] DATE OF REPORT: 10/11/17 ACC: [id number] EEG Number: [id number] Test Location: Inpatient Start time: 10/11/17 at 13:40 Stop time: 10/11/17 at 14:00 ICD-10: R56.9 CPT Code: 96365 HISTORY: 57 y/o right-handed male with history of HTN, GERD throat cancer s/p trach and PEG who was admitted 10/11/17. He was found actively seizing, described at GTC and was given Ativan 2x2mg in the field which aborted the event. Per report, he appeared to have post-ictal confusion lasting 10-15min. MEDICATIONS THAT COULD AFFECT EEG: Phenytoin, s/p Ativan TECHNICAL SUMMARY: This is a digital video-EEG recorded with 32 input channels reviewed with bipolar and referential montages using the modified combinatorial system nomenclature. Background: During the stimulated state, the EEG background demonstrates diffuse admixtures of low amplitude, 1.5-3 Hz delta, as well as some 4-7 Hz activity. There is otherwise a relative paucity of faster activity. Neither an occipital dominant rhythm nor a frequency amplitude gradient is present. Sleep architectures are not evident in this study. Photic Stimulation: No additional changes were seen. Impression:This patient's EEG is abnormal due to moderate diffuse slowing of the background rhythms. There is no evidence for epileptiform abnormalities or electrographic seizure in this record. Clinical Correlation: Diffuse slowing as in this case supports an underlying moderate encephalopathy. Collins Covarrubias MD Clinical Neurophysiology Fellow Lucila Vu MD Attending Neurophysiologist Procedure Note Interface, External Ris In - 10/11/2017 2:59 PM CDT Dates of EE10/11/17 DATE OF REPORT: 10/11/17 ACC: [id number] EEG Number: [id number] Test Location: Inpatient Start time: 10/11/17 at 13:40 Stop time: 10/11/17 at 14:00 ICD-10: R56.9 CPT Code: 77265 HISTORY: 57 y/o right-handed male with history of HTN, GERD throat cancer s/p trach and PEG who was admitted 10/11/17. He was found actively seizing, described at GTC and was given Ativan 2x2mg in the field which aborted the event. Per report, he appeared to have post-ictal confusion lasting 10-15min. MEDICATIONS THAT COULD AFFECT EEG: Phenytoin, s/p Ativan TECHNICAL SUMMARY: This is a digital video-EEG recorded with 32 input channels reviewed with bipolar and referential montages using the modified combinatorial system nomenclature. Background: During the stimulated state, the EEG background demonstrates diffuse admixtures of low amplitude, 1.5-3 Hz delta, as well as some 4-7 Hz activity. There is otherwise a relative paucity of faster activity. Neither an occipital dominant rhythm nor a frequency amplitude gradient is present. Sleep architectures are not evident in this study. Photic Stimulation: No additional changes were seen. Impression: This patient's EEG is abnormal due to moderate diffuse slowing of the background rhythms. There is no evidence for epileptiform abnormalities or electrographic seizure in this record. Clinical Correlation: Diffuse slowing as in this case supports an underlying moderate encephalopathy. Collins Covarrubias MD Clinical Neurophysiology Fellow Lucila Vu MD Attending Neurophysiologist Performing Organization Address City/State/[facility] Cent[facility] Phone Number [facility] RIS ECG 12 lead (10/11/2017 10:31 AM CDT) Specimen Narrative Performed At Ventricular Rate 63 BPM GE MUSE Atrial Rate 63 BPM P-R Interval 166 ms QRS Duration 102 ms Q-T Interval 440 ms QTC Calculation(Bazett) 451 ms P [place] 81 degrees R [place] -16 degrees T [place] 46 degrees Normal sinus rhythm Low voltage QRS Prolonged QT Abnormal ECG No previous ECGs available Confirmed by Stalin MILLER BASANT ([id number]) on 10/11/2017 1:28:23 PM Procedure Note Interface, External Ris In - 10/11/2017 1:28 PM CDT Ventricular Rate 63 BPM Atrial Rate 63 BPM P-R Interval 166 ms QRS Duration 102 ms Q-T Interval 440 ms QTC Calculation(Bazett) 451 ms P [place] 81 degrees R [place] -16 degrees T [place] 46 degrees Normal sinus rhythm Low voltage QRS Prolonged QT Abnormal ECG No previous ECGs available Confirmed by Stalin MILLER BASANT ([id number]) on 10/11/2017 1:28:23 PM Performing Organization Address City/[facility] Phone Number GE MUSE Venous doppler legs bilateral (10/11/2017 9:38 AM CDT) Ejection Fraction [facility] ECHO [facility]ART[facility] CPACS Specimen Impressions Performed At Right Impression [facility] CPACS 1. There is no deep venous obstruction in the common femoral, profunda femoral, femoral, popliteal, posterior tibial or peroneal veins. 2. There is no superficial venous obstruction in the great saphenous vein. Left Impression 1. There is partial echogenic deep venous obstruction in the common femoral vein . 2. There is no deep venous obstruction in the profunda femoral, femoral, popliteal, posterior tibial or peroneal veins. 3. There is no superficial venous obstruction in the great saphenous vein. Conclusions Summary Venous duplex imaging and compression of the bilateral lower extremities were performed. The veins were technically difficult to visualize due to a patient's inability to position. The veins were adequately visualized. The right deep venous system was patent and compressible with no evidence of thrombus. The left deep venous system was positive with chronic thrombus. Signature Velocities are measured in cm/s ; Diameters are measured in cm Narrative Performed At PV LAB - Lower Extremities DVT Study [facility]CHO [facility]ART[facility] Demographics Patient RUDOLPH Zamora Date of Study10/11/2017 57 Visit [id number] Gender Male of Birth1960 Number Referring Bryan Carmona [facility] [id number] Physician Diego Supervisor Carding Stephanie Figueroa T Interpreting Nitin Carter Procedure Type of Study: Veins: Lower Extremities DVT Study, VENOUS DOPPLER LEG, BILATERAL. Indications for Study:DVT. Patient Status:ONEIDA. Study Location:Portable. Technical Quality:Adequate visualization. - Results were reported to:@9:10. Risk Factors History of Disease +---------+----+ + !Diagnosis!Date!Comments ! +---------+----+ + !Other!!Throat Cancer, Trach, On Eliquis ! +---------+----+ + Procedure Note Interface, External Ris In - 10/12/2017 12:05 PM CDT PV LAB - Lower Extremities DVT Study Demographics Patient Name RUDOLPH DOWELL Date of Study 10/11/2017 Age 57 Visit Number [id number] Gender Male Date of 1960 Number Referring Bryan Butler Room Number [id number] Physician Diego Supervisor Carding Stephanie Figueroa T Interpreting Nitin Adkins Physician Procedure Type of Study: Veins: Lower Extremities DVT Study, VENOUS DOPPLER LEG, BILATERAL. Indications for Study:DVT. Patient Status:[place]. Study Location:Portable. Technical Quality:Adequate visualization. - Results were reported to:@9:10. Risk Factors History of Disease +---------+----+ + !Diagnosis!Date!Comments ! +---------+----+ + !Other ! !Throat Cancer, Trach, On Eliquis ! +---------+----+ + Impressions Right Impression 1. There is no deep venous obstruction in the common femoral, profunda femoral, femoral, popliteal, posterior tibial or peroneal veins. 2. There is no superficial venous obstruction in the great saphenous vein. Left Impression 1. There is partial echogenic deep venous obstruction in the common femoral vein . 2. There is no deep venous obstruction in the profunda femoral, femoral, popliteal, posterior tibial or peroneal veins. 3. There is no superficial venous obstruction in the great saphenous vein. Conclusions Summary Venous duplex imaging and compression of the bilateral lower extremities were performed. The veins were technically difficult to visualize due to a patient's inability to position. The veins were adequately visualized. The right deep venous system was patent and compressible with no evidence of thrombus. The left deep venous system was positive with chronic thrombus. Signature Velocities are measured in cm/s ; Diameters are measured in cm Performing Organization Address City/State/Zipcode Phone Number [facility] [employer] Venous doppler arms bilateral (10/11/2017 9:30 AM CDT) Ejection Fraction [facility] [employer] [facility] Specimen Impressions Performed At Right Impression [facility] [employer] [facility] 1. There is no deep venous obstruction in the distal subclavian, axillary, brachial, radial or ulnar veins. 2. The jugular and proximal subclavian veins were not visualized due to trach collar. 3. The cephalic or basilic veins were not visualized. Left Impression 1. There is no deep venous obstruction in the distal subclavian, axillary, brachial, radial or ulnar veins. 2. The jugular and proximal subclavian veins were not visualized due to trach collar. 3. The cephalic or basilic veins were not visualized. Conclusions Summary Venous duplex imaging and compression of the bilateral upper extremities was performed. The veins were technically difficult to visualize due to a trach collar and patient's inability to position. The bilateral venous systems were patent and compressible with no evidence of thrombus where visualized. Signature Velocities are measured in cm/s ; Diameters are measured in cm Narrative Performed At PV LAB - Upper Extremities Veins [facility]CHO [facility]ART[facility] Demographics Patient NameRUDOLPH DOWELL Date of Study10/11/2017 57 Visit [id number] Gender Male of Birth1960 Number Referring [facility] [id number] Physician Diego Supervisor Carding Stephanie Figueroa [facility] Interpreting Nitin Adkins PhysicianMD Procedure Type of Study: Veins: Upper Extremities Veins, VENOUS DOPPLER ARMS, BILATERAL. Indications for Study:History of deep vein thrombosis. Patient Status:[place]. Study Location:Portable. Technical Quality:Adequate visualization. Risk Factors History of Disease +---------+----+ + !Diagnosis!Date!Comments ! +---------+----+ + !Other!!Throat Cancer, Trach, On Eliquis ! +---------+----+ + Procedure Note Interface, External Ris In - 10/12/2017 12:07 PM CDT PV LAB - Upper Extremities Veins Demographics Patient Name RUDOLPH DOWELL Date of Study 10/11/2017 Age 57 Visit Number [id number] Gender Male Date of [address] [facility] Room Number [id number] Physician Diego Supervisor Carding Stephanie Figueroa T Interpreting Nitin Adkins Physician Procedure Type of Study: Veins: Upper Extremities Veins, VENOUS DOPPLER ARMS, BILATERAL. Indications for Study:History of deep vein thrombosis. Patient Status:[place]. Study Location:Portable. Technical Quality:Adequate visualization. Risk Factors History of Disease +---------+----+ + !Diagnosis!Date!Comments ! +---------+----+ + !Other ! !Throat Cancer, Trach, On Eliquis ! +---------+----+ + Impressions Right Impression 1. There is no deep venous obstruction in the distal subclavian, axillary, brachial, radial or ulnar veins. 2. The jugular and proximal subclavian veins were not visualized due to trach collar. 3. The cephalic or basilic veins were not visualized. Left Impression 1. There is no deep venous obstruction in the distal subclavian, axillary, brachial, radial or ulnar veins. 2. The jugular and proximal subclavian veins were not visualized due to trach collar. 3. The cephalic or basilic veins were not visualized. Conclusions Summary Venous duplex imaging and compression of the bilateral upper extremities was performed. The veins were technically difficult to visualize due to a trach collar and patient's inability to position. The bilateral venous systems were patent and compressible with no evidence of thrombus where visualized. Signature Velocities are measured in cm/s ; Diameters are measured in cm Performing Organization Address City/State/Zipcode Phone Number [facility] CPA Type and screen, automated (10/11/2017 8:51 AM CDT) ABO/RH AUTOMATED (FELICITY) A POSITIVE [facility] Ab Scrn [facility]GATIVE [facility] Specimen Blood Performing Organization Address City/[facility]/Zipcode Phone Number [facility] [address] Vitamin B12 and Folate (10/11/2017 8:08 AM CDT) Vitamin B12 395 213 - 816 pg/mL [facility] Folate 13.4 >=7.0 ng/mL [facility] Specimen Blood Performing Organization Address [facility] Phone Number [address] [address] [phone] CENTER TSH/Free T4 If Indicated (10/11/2017 8:08 AM CDT) TSH 5.87 (H) 0.35 - 4.94 uIU/mL [facility] Specimen Blood Performing Organization Address [facility] Phone Number [address] [address] CENTER Iron, TIBC, % sat. (without ferritin) (10/11/2017 8:08 AM CDT) Iron 9 (L) 40 - 160 ug/dL [facility] TIBC 108 (L) 250 - 450 ug/dL [facility] Iron % Saturation 8 (L) 20 - 55 % [facility] Specimen Blood Performing Organization Address [facility] Phone Number [address] [address] CENTER Lactic acid, venous, whole blood (10/11/2017 8:08 AM CDT)Only the most recent of2 resultswithin the time period is included. Lactate, Venous 1.1 0.5 - 2.2 mmol/L [facility] Specimen Blood Narrative Performed At [facility] Effective 06/27/2015: Units/Reference Range Change New: 0.5-2.2 mmol/LPrevious: 5-20 mg/dL Performing Organization Address [facility] Phone Number [address] [address] [phone] [place] T4, free (10/11/2017 8:08 AM CDT) Free T4 0.78 0.70 - 1.48 ng/dL [facility] Specimen Blood Performing Organization Address City/[facility]/Zipcode Phone Number [address] [address] [phone] [place] Prealbumin (10/11/2017 8:08 AM CDT) Prealbumin 5 (L) 14 - 45 mg/dL [facility] Specimen Blood Performing Organization Address City/[facility]/Zipcode Phone Number [address] [address] [place] Ferritin (10/11/2017 8:08 AM CDT) Ferritin 1,284 (H) 5 - 275 ng/mL [facility] Specimen Blood Performing Organization Address City/[facility] Phone Number [address] [address] [place] Comprehensive metabolic panel (10/11/2017 8:08 AM CDT) Protein, Total 5.4 (L) 6.0 - 8.3 gm/dL [facility] Albumin 2.1 (L) 3.5 - 5.0 g/dL [facility] Alkaline Phosphatase 155 (H) 40 - 150 U/L [facility] Total Bilirubin 0.3 0.2 - 1.2 mg/dL [facility] Sodium 132 (L) 136 - 145 meq/L [facility] Potassium 3.9 3.5 - 5.1 meq/L [facility] Chloride 102 98 - 107 meq/L [facility] CO2 24 22 - 29 meq/L [facility] BUN 22 (H) 7 - 21 mg/dL [facility] Creatinine 0.94 0.57 - 1.25 mg/dL [facility] Glucose 117 (H) 70 - 105 mg/dL [facility] Calcium 8.5 8.4 - 10.2 mg/dL [facility] AST 58 (H) 5 - 34 U/L [facility] ALT 19 6 - 55 U/L [facility] EGFR 82Comment: ESTIMATED GFR mL/min/1.[address] [facility] IS NOT ACCURATE [facility] CREATININE CLEARANCE IN PREDICTING GLOMERULAR FILTRATION RATE. ESTIMATED GFR IS NOT APPLICABLE FOR DIALYSIS PATIENTS. Specimen Blood Performing Organization Address City/State/Zipcode Phone Number [facility] [address] [place] [address] CENTER Urinalysis w/Microscopic + Reflex to Culture (10/11/2017 6:39 AM CDT) Color, UA Yellow [facility] Clarity, UA Clear [facility] Specific Allison, UA 1.020 1.001 - 1.035 [facility] pH, UA 6.0 5.0 - 8.0 [facility] Protein, UA 10 mg/dL (A) Negative [facility] Glucose, UA Negative Negative [facility] Ketones, UA Negative Negative [facility] Bilirubin, UA Negative Negative [facility] Blood, UA Negative Negative [facility] Nitrite, UA Negative Negative [facility] Leukocytes, UA Negative Negative [facility] Urobilinogen, UA 0.2 0.2 - 1.0 mg/dL [facility] RBC, UA 3 /HPF [facility] WBC, UA 1 /HPF [facility] Mucus Rare [facility] Squam Epithel, UA 5 /HPF [facility] Hyaline Casts, UA 17 /LPF [facility] Amorphous Crystals Occasional [facility] Specimen Source [facility] Specimen Urine Performing Organization Address City/State/Zipcode Phone Number [phone] [address] [address] [place] Rapid drug screen, urine (10/11/2017 6:39 AM CDT) Barbiturate Screen Negative Negative [facility] Benzodiazepine Screen Negative Negative [facility] Cocaine (Metab.) Screen Negative Negative [facility] Methadone Screen Negative Negative [facility] Opiate Screen Positive (A) Negative [facility] Cannabinoid Screen Negative Negative [facility] Amph/Methamph Screen Negative Negative [facility] Phencyclidine Screen Negative Negative [facility] Oxycodone Screen Negative Negative [facility] Specimen Urine Narrative Performed At [facility] DRUGCUTOFF CONC. Cocaine 300 ng/mL Kqhxdzywkzk50 ng/mL Huetlglezfluvi254 ng/mL Barbiturate 200 ng/mL Adfteylvjvgpt90 ng/mL Wdembx657 ng/mL Methadone 300 ng/mL Amphetamine/ 1000 ng/mL Methamphetamine Oxycodone 300 ng/mL This assay provides an unconfirmed qualitative test result for the clinical management of patients in emergency situations. Chain of custody not maintained. Some dumh-owi-yzdqdkb medications, as well as adulterants, may cause inaccurate results. Clinical correlation should be applied. A more comprehensive drug screen or confirmation of a detected drug may be performed upon request. Performing Organization Address City/State/Zipcode Phone Number [facility] [address] [place] [address] [phone] [place] Blood culture (10/11/2017 4:45 AM CDT)Only the most recent of2 resultswithin the time period is included. Result No growth in 5 days [facility] Specimen Blood Performing Organization Address City/[facility] Phone Number [address] [address] C[place] Phenytoin level, total and free (10/11/2017 4:44 AM CDT) Phenytoin 16.1 10.0 - 20.0 ug/mL [facility] Dilantin, Free 2.45 (H) 1.00 - 2.00 mcg/ml [facility] Specimen Blood Narrative Performed At Performing Organization Address City/[facility] Phone Number [facility] [address], [address] [place] [address] Ammonia (10/11/2017 4:44 AM CDT) Ammonia 33 18 - 72 mol/L [facility] Specimen Blood Performing Organization Address City/[facility] Phone Number [address] [address] [place] Phosphorus (10/11/2017 4:33 AM CDT) Phosphorus 3.3 2.3 - 4.7 mg/dL [facility] Specimen Blood Performing Organization Address City/[facility] Phone Number [address] [address] [place] Magnesium (10/11/2017 4:33 AM CDT) Magnesium 1.7 1.6 - 2.6 mg/dL [facility] Specimen Blood Performing Organization Address City/[facility] Phone Number [address] [address] [place] Hepatic function panel (10/11/2017 4:33 AM CDT) Protein, Total 5.2 (L) 6.0 - 8.3 gm/dL [facility] Albumin 2.1 (L) 3.5 - 5.0 g/dL [facility] Total Bilirubin 0.3 0.2 - 1.2 mg/dL [facility] Bilirubin, Direct 0.2 0.1 - 0.5 mg/dL [facility] Alkaline Phosphatase 154 (H) 40 - 150 U/L [facility] AST 60 (H) 5 - 34 U/L [facility] ALT 20 6 - 55 U/L [facility] Specimen Blood Performing Organization Address City/State/Zipcode Phone Number [address] [phone] CENTER aPTT (10/11/2017 4:32 AM CDT) PTT 31.1 22.5 - 36.0 seconds [facility] Specimen Blood Performing Organization Address City/State/Zipcode Phone Number [address] [phone] [place] XR chest 1 view portable / bedside (10/11/2017 4:25 AM CDT) Specimen Narrative Performed At FINAL REPORT [facility] EXAMINATION: AP PORTABLE CHEST RADIOGRAPH CLINICAL INDICATION: Tracheostomy. Pulmonary evaluation. IMPRESSION: No comparison studies are available. Tip of the tracheostomy tube projects over the midline near the superior margin of the clavicles. Curvilinear and reticular opacities are noted in both lungs, right greater than left. Although a component may reflect atelectasis and/or scarring, a pneumonia should also be considered. The heart is borderline enlarged for this projection. Mediastinal contours are relatively sharp. No definite evidence of an acute osseous abnormality or pneumothorax. Signed: Stephanie Dey MD Report Verified Date/Time:10/11/2017 04:42:33 Reading Location: [facility] C013 Transitional Reading Room Procedure Note Interface, External Ris In - 10/11/2017 4:44 AM CDT FINAL REPORT EXAMINATION: AP PORTABLE CHEST RADIOGRAPH CLINICAL INDICATION: Tracheostomy. Pulmonary evaluation. IMPRESSION: No comparison studies are available. Tip of the tracheostomy tube projects over the midline near the superior margin of the clavicles. Curvilinear and reticular opacities are noted in both lungs, right greater than left. Although a component may reflect atelectasis and/or scarring, a pneumonia should also be considered. The heart is borderline enlarged for this projection. Mediastinal contours are relatively sharp. No definite evidence of an acute osseous abnormality or pneumothorax. Signed: Stephanie Dey MD Report Verified Date/Time: 10/11/2017 04:42:33 Reading Location: [address] Transitional Reading Room Performing Organization Address City/State/Zipcode Phone Number GE RIS after 07/28/2017 Insurance Payer Benefit Plan / Group Subscriber ID Type Phone Address [facility] CHOICE xxxxxxxxxxxx HMO/POS [phone] CHOICE EXCHANGE Advance Directives For more information, please contact:[address] [phone] Code Status Date Activated Date Inactivated Comments Partial Code 10/14/2017 9:42 PM 10/17/2017 6:32 PM This code status was determined by: Patient and spouse Drug Protocol After Arrest Occurs? No Mechanical Ventilation with Intubation? No Bag/Mask? Yes Internal/External Pacemaker? No Transfer to Critical Care? Yes Chest Compressions? No Defibrillation/Cardioversion? No Full Code 10/11/2017 3:50 AM 10/14/2017 9:42 PM This code status was determined by: Patient
--- OUTSIDE RECORDS SUMMARY | 2018-07-29 17:37 | XMS REPORT | Continuity of Care Document ---
:1960 Author Organization Interface Problems Problem Status Onset Classification Date Comments Source Date Reported LEFT FACIAL Active [facility] SWELLING [address] [place] [address] Center LFLT TRANSFER Active [facility] AIRWAY Active [facility] COMPROMISE [address] [place] [address] Throat cancer Resolved Problem 07/18/2016 [facility] OTHER SPECIFIED Active [facility] RESPIRATORY Medical DISORDERS Center Medications Medication Details Route Status Patient Ordering Order Source Instructions Provider Date lisinopril 10 mg 10 mg=1 tab, Active 07/15[facility] oral tablet PO, Daily, # 30 2016 Medical tab, 0 Center Refill(s) Hydrochlorothiazide 12.5 mg=1 cap, Active 07/15[facility] 12.5 MG Oral PO, Daily, # 30 2016 Medical Capsule cap, 0 Center Refill(s) Beneprotein 7 gm 1 pkt, Route: Inactive [facility] pkt PO, Drug Form: 2017 Medical PWDR, Dosing Center Weight 68.182, kg, TID-Before Meals, Start date: 07/15/16 11:30:00 CDT, Duration: 30 day, Stop date: 08/14/16 7:30:00 CDTNotes: (Same as: Beneprotein) Amoxicillin 875 MG 1 tab, PO, BID, No Longer [facility] / Clavulanate 125 X 2 day, # 4 Active 2017 Medical MG Oral Tablet tab, 0 Center [Augmentin 875-mg] Refill(s) tramadol 50 mg=1 tab, Active 07/15[facility] hydrochloride 50 MG PO, Q6H, PRN 2017 Medical Oral Tablet Pain Score 1-5, Center 0 Refill(s) Morphine 2 mg, 1 mL, Inactive 07/15[facility] Route: IVP, 2017 Medical Drug form: INJ, Center ONCE, Dosing Weight 68.182, kg, Start date: 07/15/16 4:46:00 CDT, Stop date: 07/15/16 4:46:00 CDTNotes: (Same as:MORPhine Sulfate) Morphine 2 mg, 1 mL, Inactive [facility] Route: IVP, 2017 Medical Drug form: INJ, Center ONCE, Dosing Weight 68.182, kg, Start date: 07/14/16 19:48:00 CDT, Stop date: 07/14/16 19:48:00 CDTNotes: (Same as:MORPhine Sulfate) Morphine 1 mg, 0.5 mL, Inactive [facility] Route: IV, Drug 2016 Medical form: INJ, Center ONCE, Dosing Weight 68.182, kg, Start date: 07/14/16 16:51:00 CDT, Stop date: 07/14/16 16:51:00 CDTNotes: (Same as:MORPhine Sulfate) Beneprotein 7 gm 1 pkt, Route: T No Longer [facility] pkt FEED, Drug Active 2016 Medical Form: PWDR, Center Dosing Weight 68.182, kg, TID-Before Meals, Start date: 07/14/16 11:30:00 CDT, Duration: 30 day, Stop date: 08/13/16 7:30:00 CDTNotes: (Same as: Beneprotein) Fentanyl 50 microgram, Inactive [facility] Route: IV, 2017 Medical ONCE, Dosing Center Weight 68.182, kg, Start date: 07/14/16 10:25:00 CDT, Stop date: 07/14/16 10:25:00 CDT Glucagon 1 mg, Route: Inactive 07/14[facility] IV, ONCE, 2016 Medical Dosing Weight Center 68.182, kg, Start date: 07/14/16 10:15:00 CDT, Stop date: 07/14/16 10:15:00 CDT Midazolam 1 mg, Route: Inactive [facility] IV, ONCE, 2017 Medical Dosing Weight Center 68.182, kg, Start date: 07/14/16 10:15:00 CDT, Stop date: 07/14/16 10:15:00 CDT Fentanyl 50 microgram, Inactive [facility] Route: IV, 2017 Medical ONCE, Dosing Center Weight 68.182, kg, Start date: 07/14/16 9:55:00 CDT, Stop date: 07/14/16 9:55:00 CDT Glucagon 1 mg, Route: Inactive 05/22[facility] IV, ONCE, 2017 Medical Dosing Weight [...] Unasyn 3 gm, 1 ea, No Longer [place] Route: IVPB, Active 2016 Medical Drug form: [place] PDR/INJ, ABXQ6H, Start date: 07/13/16 14:00:00 CDT, Duration: 4 day, Stop date: 07/17/16 8:00:00 CDTNotes: Dosing based on Ampicillin component (Same as: Unasyn) Hydralazine 10 mg, 0.5 mL, No Longer [place] Route: IV, Drug Active 2016 Medical form: INJ, Q8H, Center Dosing Weight 68.182, kg, PRN Other -See Comment, prn sbp>180, dbp>100, Start date: 07/13/16 13:12:00 CDT, Duration: 30 day, Stop date: 08/12/16 13:11:00 CDTNotes: (Same as: Apresoline) Push over 5 minutes Morphine 1 mg, 0.5 mL, No Longer [place] Route: IV, Drug Active 2016 Medical form: INJ, Q8H, [place] Dosing Weight 68.182, kg, PRN Pain Score 6-10, Start date: 07/13/16 12:56:00 CDT, Duration: 30 day, Stop date: 08/12/16 12:55:00 CDTNotes: (Same as:MORPhine Sulfate) Amoxicillin 875 MG 875 mg, 10.94 Inactive [place] / Clavulanate 125 mL, Route: NG, 2017 Medical MG Oral Tablet Drug Form: [place] [Augmentin 875-mg] SOLN, Dosing Weight 68.182, kg, [...] 5 MG TAB, Dosing Center Oral Tablet [[place] Weight 68.182, 5/325] kg, Q6H, PRN Pain 4-6/Temp > 100.4 F, Start date: 07/12/16 19:32:00 CDT, Duration: 30 day, Stop date: 08/11/16 19:31:00 CDTNotes: (Same as: [place] 325/5) Do not exceed 4gm/day of acetaminophen. [...] Tylenol w/Codeine) Fentanyl 50 microgram, 1 Inactive [facility] mL, Route: IV, 2017 Medical Drug form: [...] CDT Protonix 40 mg, Route: No Longer [facility] IVP, Drug form: Active 2016 Medical INJ, Before Center Breakfast, Dosing Weight 68.182, kg, Start date: 07/11/16 7:30:00 CDT, Duration: 30 day, Stop date: 08/09/16 7:30:00 CDT lansoprazole 30 mg, Route: No Longer [place] NG, Drug form: Active 2016 Medical SUSP, Before Center Breakfast, Dosing Weight 68.182, kg, Start date: 07/11/16 7:30:00 CDT, Duration: 30 day, Stop date: 08/09/16 7:30:00 CDT sodium phosphate + 30 mmol, 10 mL, No Longer [place] sodium chloride Route: IVPB, Active 2016 Medical 0.9% INJ 250 mL PRN, Dosing Center Weight 68.182, kg, PRN Abnormal Lab Result, Start date: 07/11/16 4:00:00 CDT, Duration: 30 day, Stop date: 08/10/16 3:59:00 CDT, FOR ICU USE ONLY potassium chloride 20 mEq, 1 tab, No Longer [place] Route: PO, Drug Active 2016 Medical form: ERTAB, Center PRN, Dosing Weight 68.182, kg, PRN Abnormal Lab Result, Start date: 07/11/16 4:00:00 CDT, Duration: 30 day, Stop date: 08/10/16 3:59:00 CDT, FOR ICU USE ONLYNotes: (Same as: K-Dur 20) "Do Not Crush" With food and full glass of water Magnesium Oxide 800 mg, 2 tab, No Longer [place] Route: PO, Drug Active 2016 Medical form: TAB, PRN, Center Dosing Weight 68.182, kg, PRN Abnormal Lab Result, FOR ICU USE ONLY, Start date: 07/11/16 4:00:00 CDT, Duration: 30 day, Stop date: 08/10/16 3:59:00 CDTNotes: (Same as: Mag-Ox 400) Magnesium oxide [id number] elemental magnesium Dose=____mg magnesium oxide (___mg elemental magnesium) Calcium Carbonate 500 mg, 1 tab, No Longer [place] 500 MG Chewable Route: PO, Drug Active 2016 Medical Tablet form: CHEWTAB, Center PRN, Dosing Weight 68.182, kg, PRN Abnormal Lab Result, FOR ICU USE ONLY, Start date: 07/11/16 4:00:00 CDT, Duration: 30 day, Stop date: 08/10/16 3:59:00 CDTNotes: (Same As: Tums) Calcium Carbonate 500 ic=804 mg elemental calcium Dose= mg calcium carbonate ( mg elemental calcium) Calcium Gluconate 1 gm, 10 mL, No Longer [place] Route: IVPB, Active 2016 Medical PRN, Dosing Center Weight 68.182, kg, PRN Abnormal Lab Result, Start date: 07/11/16 4:00:00 CDT, Duration: 30 day, Stop date: 08/10/16 3:59:00 CDT, FOR ICU USE ONLYNotes: WASTE: F/P - Sink; E - Municipal Trash Bin Magnesium Sulfate 2 gm, 50 mL, No Longer [place] Route: IVPB, Active 2016 Medical Drug form: [...] hours potassium 2 pkt, Route: No Longer [place] phosphate-sodium PO, Drug Form: Active 2017 Medical [...] stir. Zyprexa 10 mg, Route: No Longer [place] IM, Drug form: Active 2017 Medical INJ, Daily, Center Dosing Weight 68.182, kg, Start date: 07/10/16 16:00:00 CDT, Duration: 30 day, Stop date: 08/08/16 16:00:00 CDTNotes: (Same As: ZyPREXA IM). sterile water 2.1 mL, Route: No Longer [place] MISC, Drug Active 2016 Medical Form: INJ, Center Daily, Start date: 07/10/16 16:00:00 CDT, Duration: 30 day, Stop date: 08/08/16 16:00:00 CDT potassium chloride 20 mEq, 100 mL, Inactive [facility] Route: IVPB, 2016 Medical Drug form: INJ, Center Q2H, Dosing Weight 68.182, kg, Total dose=40 mEq, Start date: 07/10/16 12:00:00 CDT, Duration: 2 doses or times, Stop date: 07/10/16 14:00:00 CDT, Central LineNotes: (Same as: KCL) Infuse no faster than 10 mEq/hr if given peripherally. D5NS 1,000 mL 1,000 mL, Rate: No Longer [facility] 100 ml/hr, Active 2017 Medical Infuse over: [...] Stop date: 07/10/16 23:00:00 CDT, Dose=2.2ml/kg, Max [id number] -- "To be infused by Radiology Staff [...] sennosides, PO, Drug Form: Active 2017 Medical RESIDENTIAL 8.6 MG Oral TAB, Dosing Center Tablet Weight 68.182, kg, Q12H, Start date: 07/10/16 9:00:00 CDT, Duration: 30 day, Stop date: 08/08/16 21:00:00 CDTNotes: (Same as Senokot-S) Equiv. to Yvette-Colace. 1 tab, Route: No Longer [place] Multivitamins with PO, Drug Form: Active 2017 Medical Folic Acid 0.8 mg TAB, Dosing Center oral tablet Weight 68.182, kg, Daily, Start date: 07/10/16 9:00:00 CDT, Duration: 30 day, Stop date: 08/08/16 9:00:00 CDT Thiamine 100 mg, 1 tab, No Longer [place] Route: PO, Drug Active 2016 Medical form: [...] Insulin regular 5 unit, 0.05 No Longer [place] mL, Route: Active 2016 Medical SUB-Q, Drug [...] ate Glucagon 1 mg, Route: No Longer [place] IM, Drug form: Active 2017 Medical PDR/INJ, PRN, Center Dosing Weight 68.182, kg, PRN Blood Glucose Results, Start date: 07/10/16 8:17:00 CDT, Duration: 30 day, Stop date: 08/09/16 8:16:00 CDT Dextrose 50% 25 gm, 50 mL, No Longer [facility] Syringe Route: IVP, Active 2016 Medical Drug Form: INJ, [place] Dosing Weight 68.182, kg, PRN, PRN Blood Glucose Results, Start date: 07/10/16 8:17:00 CDT, Duration: 30 day, Stop date: 08/09/16 8:16:00 CDT Acetaminophen 650 mg, 20.3 No Longer [facility] mL, Route: PO, Active 2016 Medical Drug form: LIQ, [place] Q6H, Dosing Weight 68.182, kg, PRN Pain 1-3/Temp > 100.4 F, Start date: 07/10/16 8:11:00 CDT, Duration: 30 day, Stop date: 08/09/16 8:10:00 CDT Synthroid 112 microgram, No Longer [facility] 1 tab, Route: Active 2017 Medical PO, Drug form: [place] TAB, [id number], Dosing Weight 68.182, kg, Start date: 07/10/16 8:09:00 CDT, Duration: 30 day, Stop date: 08/09/16 6:30:00 CDTNotes: Take 1 hour before or 2 hours after meal; Enteral feeds may interefere with the absorption of this medication.(Maurisio e as:Levothroid) Amitriptyline 50 mg, PO, Active [facility] Bedtime, 0 2016 Medical Refill(s) [place] levothyroxine 112 112 microgram=1 Active [place] mcg (0.112 mg) oral tab, PO, Daily, 2016 [facility] tablet # 60 tab, 0 [place] Refill(s) ocular lubricant 1 appl, Route: No Longer [place] BOTH EYES, Q6H, Active 2016 Medical Drug form: [place] OINT, Start date: 07/10/16 6:00:00 CDT, Duration: 30 day, Stop date: 08/09/16 0:00:00 CDTNotes: (Same as: Duratears Naturale and Artificial Tears, Tears Again ) Protonix 40 mg, Route: Inactive [place] IVP, Drug form: 2016 Medical INJ, Before [place] Breakfast, Dosing Weight 68.182, kg, Patient is NPO, Start date: 07/10/16 5:00:00 CDT, Duration: 30 day, Stop date: 08/08/16 7:30:00 CDTNotes: For IV push reconstitute with 10 ml 0.9% sodium chloride and push over 2 minutes. (Same as: Protonix) Enoxaparin 40 mg, 0.4 mL, No Longer [place] Route: SUB-Q, Active 2016 Medical Drug form: INJ, [place] [id number], Dosing Weight 68.182, kg, Start date: 07/10/16 5:00:00 CDT, Duration: 30 day, Stop date: 08/08/16 5:00:00 CDTNotes: (Same as: Lovenox) Fentanyl 1,000 No Longer [place] microgram, 20 Active 2016 Medical mL, Rate: [place] Titrate, Start Dose: 50 microgram/hr, Titration: 25 microgram/hour every 15 minutes, Goal(s): RASS - 1, Max Dose: 300 microgram/hr, Route: IV, Dosing Weight 68.182 kg, Total Volume: 20, Start date: 07/10/16 2:45:00 CDT, D... Unasyn 3 gm, 1 ea, No Longer [place] Route: IVPB, Active 2016 Medical Drug form: [place] PDR/INJ, ABXQ6H, Dosing Weight 72.727, kg, Start date: 07/10/16 2:00:00 CDT, Duration: 30 day, Stop date: 08/08/16 20:00:00 CDTNotes: Dosing based on Ampicillin component (Same as: Unasyn) chlorhexidine 15 mL, Route: No Longer [facility] gluconate 1.2 MG/ML Swab Mouth, Active 2016 Medical Mouthwash PRN, Drug form: [place] LIQ, PRN Other -See Comment, Start date: [...] NEB, Active 2017 Medical Solution Drug form: [place] SOLN, PRN, Dosing Weight 72.727, kg, PRN Respiratory Protocol, Start date: 07/10/16 0:19:00 CDT, Duration: 30 day, Stop date: 08/09/16 0:18:00 CDTNotes: SEE RT DOCUMENTATION (Same as: Proventil) Ipratropium 0.5 mg, 2.5 mL, No Longer [facility] Route: NEB, Active 2016 Medical Drug form: [place] SOLN, PRN, Dosing Weight 72.727, kg, PRN Respiratory Protocol, Start date: 07/10/16 0:19:00 CDT, Duration: 30 day, Stop date: 08/09/16 0:18:00 CDTNotes: SEE RT DOCUMENTATION (Same as:Atrovent) Unasyn 3 gm, 1 ea, No Longer [facility] Route: IVPB, Active 2016 Medical Drug form: [place] PDR/INJ, ONCE, Dosing Weight 72.727, kg, Priority: STAT, Start date: 07/09/16 23:11:00 CDT, Stop date: 07/09/16 23:11:00 CDTNotes: Dosing based on Ampicillin component (Same as: Unasyn) Racepinephrine 22.5 11.25 mg, 0.5 No Longer [place] MG/ML Inhalant mL, Route: [facility], Active 2016 Medical Solution Drug Form: [place] SOLN, Dosing Weight 72.727, kg, ONCE, STAT, Start date: 07/09/16 21:32:00 CDT, Stop date: 07/09/16 21:32:00 CDTNotes: (racepinephrine *2.25% inh 0.5ml SOLN) (Same as:S2) Lidocaine 5 mL, Route: Inactive [facility], Drug Form: 2016 Medical SOLN, Dosing Center Weight 72.727, kg, ONCE, Start date: 07/09/16 21:27:00 CDT, Stop date: 07/09/16 21:27:00 CDT Benzocaine 140 1 spray, Route: No Longer [place] MG/ML / butamben 20 TOP, ONCE, Drug Active 2016 Medical MG/ML / Tetracaine form: AERO, [place] 20 MG/ML Mucosal Start date: [place] [Cetacaine] 07/09/16 21:27:00 CDT, Stop date: 07/09/16 21:27:00 CDTNotes: (Same As: Cetacaine) Cetacaine (benzocaine-tet racaine-butambe n 14-2-2%) Allergies, Adverse Reactions, Alerts Substance Category Reaction Severity Reaction Status Date Comments Source type Reported Immunizations Immunization Date Given Site Status Last Comments Source Updated pneumococcal 07/11/2016 Left completed Torres [facility] 23-valent vaccine [facility] Results Order Name Results Value Reference Date Interpretation Comments Source Range PARATHYROID Ca Ion WB 1.16 1.05 - 07/15 [facility] PROFILE mMol/L 1. [facility] PARATHYROID Ca Norm WB 1.12 1.05 - 07/15 [facility] PROFILE mMol/L 1. [facility] Chest tube Chest tube STUDY: VIR Gastrostomy Tube Placement 07/14 - [facility] placement placement /2016 - Medical insertion insertion [...] imaging to evaluate positioning of the catheter. FLYING SQUAD WORKER: Dr Cortez CONTROL TOWER RADIO OPERATOR(S): None CONSENT: Written consent obtained after discussing [...] sterile fashion. Under fluoroscopy guidance a 5 [place] Kumpe catheter and glide wire were manipulated [...] and subsequently a was insufflated through the 5-[place] Kumpe catheter to distend the stomach. Preliminary CT imaging identified an appropriate access site. The anterio r abdominal surface was then prepped and draped in the usual sterile fashion. Next local anesthesia(lidocaine with epinephrine) to the skin, three Marlin-Giorgi safety pexy T tacks were advanced and [...] was eventually able to dilate up to 16-[place] African. Given this difficu lty a decision was therefore taken to place a 16-[place] monique lock pigtail gastrostomy catheter on this [...] guided placement of a gastrostomy catheter. A 16-[place] monique low drain has been placed due to difficulties in dilating the tract primarily due to the anterior abdominal wall surgical mesh. COMPLICATIONS: None. ESTIMATED BLOOD LOSS: None FLUOROSCOPIC TIME: 3.1 minutes RADIATION DOSE: [address] RADIATION DOSE (DLP): 3022 mGy.cm CONTRAST VOLUME: None IMPRESSION: Successful ultrasound, fluoroscopic and CT guided placement of a feeding percutaneous 16 [place] Mac lock gastrostomy. PLAN/FOLLOW UP: 1 Please [...] for the procedure. Gastric Gastric tube STUDY: VIR Gastrostomy Tube Placement 07/14 - [facility] tube placement - Medical placement Center VR DATE: 07/14/2016 8:05 AM [...] imaging to evaluate positioning of the catheter. FLYING SQUAD WORKER: Dr Cortez CONTROL TOWER RADIO OPERATOR(S): None CONSENT: Written consent obtained after discussing [...] sterile fashion. Under fluoroscopy guidance a 5 [place] Kumpe catheter and glide wire were manipulated [...] and subsequently a was insufflated through the 5-[place] Kumpe catheter to distend the stomach. Preliminary CT imaging identified an appropriate access site. The anterio r abdominal surface was then prepped and draped in the usual sterile fashion. Next local anesthesia(lidocaine with epinephrine) to the skin, three Nimble CRM safety pexy T tacks were advanced and [...] was eventually able to dilate up to 16-[place]. Given this difficu lty a decision was therefore taken to place a 16-[place] monique lock pigtail gastrostomy catheter on this [...] guided placement of a gastrostomy catheter. A 16-[place] monique low drain has been placed due to difficulties in dilating the tract primarily due to the anterior abdominal wall surgical mesh. COMPLICATIONS: None. ESTIMATED BLOOD LOSS: None FLUOROSCOPIC TIME: 3.1 minutes RADIATION DOSE: [address] RADIATION DOSE (DLP): 3022 mGy.cm CONTRAST VOLUME: None IMPRESSION: Successful ultrasound, fluoroscopic and CT guided placement of a feeding percutaneous 16 [place] Mac lock gastrostomy. PLAN/FOLLOW UP: 1 Please [...] Ca Norm WB 1.11 1.05 - 07/14 [facility] PROFILE mMol/L 1. [facility] PARATHYROID Ca Ion WB 1.14 1.05 - 07/14 [facility] PROFILE mMol/L 1. [facility] CHEM PANEL Magnesium Lvl 1.8 mg/dL 1.8 - 2.4 07/13 [facility] CHEM PANEL eGFR 100 07/13 Result Comment: The eGFR is calculated using the CKD-EPI formula. In most young, healthy individuals the eGFR will be >90 mL/ min/1.73m2. The eGFR declines with age. An eGFR of 60-89 may be normal in [facility] mL/min/1. some populations, particularly the elderly, for whom the CKD-EPI formula has not been extensively validated. Use of the eGFR is not recommended in the following populations: [address] Individuals with unstable creatinine concentrations, including [...] Lvl 8.6 mg/dL 8.5 - 10.5 07/13 [facility] CHEM PANEL Chloride Lvl 107 meq/L 95 - 109 07/13 [facility] CHEM PANEL Potassium Lvl 3.6 meq/L 3.5 - 5.1 07/[address] [place] [address] CHEM PANEL CO2 27 meq/L 24 - 32 07/13 [facility] [address] [place] [address] CHEM PANEL Sodium Lvl 140 meq/L 135 - 145 07/13 [facility] CHEM PANEL Creatinine 0.78 mg/dL 0.50 - 07/13 [facility] Lvl 1.40 [facility] CHEM PANEL BUN 8 mg/dL 7 - 22 07/[address] CHEM PANEL Glucose Lvl 105 mg/dL 70 - 99 07/13 [facility] CHEM PANEL AGAP 9.6 meq/L 10.0 - 07/13 [facility] 20.0 [facility] CHEM PANEL Phosphorus 2.3 mg/dL 2.5 - 4.5 07/13 [facility] HEMATOLOGY Monocytes # 1.0 K/CMM 0.0 - 0.8 07/13 [facility] HEMATOLOGY Lymphocytes # 1.0 K/CMM 1.0 - 5.5 07/13 [facility] HEMATOLOGY Segs-Bands # 5.7 K/CMM 1.5 - 8.1 07/13 [facility] HEMATOLOGY Basophils 0.3 % 0.0 - 1.0 07/13 [facility] HEMATOLOGY Eosinophils 4.0 % 0.0 - 4.0 07/13 [facility] HEMATOLOGY Eosinophils # 0.3 K/CMM 0.0 - 0.5 07/13 [facility] HEMATOLOGY Segs 70.5 % 45.0 - 07/13 [place] 75.0 [facility] HEMATOLOGY Lymphocytes 12.2 % 20.0 - 07/13 40.0 [facility] HEMATOLOGY Monocytes 13.0 % 2.0 - 12.0 07/13 [facility] HEMATOLOGY MPV 8.0 fL 7.4 - 10.4 07/13 [facility] HEMATOLOGY Platelet 187 K/CMM 133 - 450 07/13 [facility] HEMATOLOGY RDW 16.2 % 11.5 - 07/13 14.5 [facility] HEMATOLOGY Hgb 12.4 g/dL 14.0 - 07/13 18.0 [facility] HEMATOLOGY Hct 37.8 % 42.0 - 07/13 54.0 [facility] HEMATOLOGY MCV 95.9 fL 80.0 - 07/13 [place] 94.0 [facility] HEMATOLOGY MCH 31.6 pg 27.0 - 07/13 31.0 [facility] HEMATOLOGY MCHC 32.9 g/dL 32.0 - 07/13 36.0 [facility] HEMATOLOGY WBC 8.0 K/CMM 3.7 - 10.4 07/13 [facility] HEMATOLOGY RBC 3.94 M/CMM 4.70 - 07/13 [place] 6.10 [facility] HEMATOLOGY INR 0.99 0.85 - 07/13 [facility] [place] 1.17 [facility] HEMATOLOGY PT 13.3 s 12.0 - 07/13 [facility] 14.7 [facility] HEMATOLOGY PTT 31.2 s 22.9 - 07/13 [facility] 35.8 [facility] PARATHYROID Ca Norm WB 1.19 1.05 - 07/13 [facility] PROFILE mMol/L 1. [facility] PARATHYROID Ca Ion WB 1.20 1. - 07/13 [facility] PROFILE mMol/L 1. [facility] PARATHYROID Ca Norm WB 1.14 1. - 07/13 [facility] PROFILE mMol/L 1. [facility] PARATHYROID Ca Ion WB 1.13 1. - 07/13 [facility] PROFILE mMol/L 1. [facility] Chest 1view Chest 1view EXAM: XR CHEST 1 VIEW 07/13 - [facility] DX DX - [facility] DATE: 07/13/2016 Read by: Ivon George [...] Phosphorus 2.5 mg/dL 2.5 - 4.5 07/12 [facility] CHEM PANEL Magnesium Lvl 2.0 mg/dL 1.8 - 2.4 07/12 [facility]2016 [facility] ELECTROLYTE AGAP 8.3 meq/L 10.0 - 07/12 [facility] .0 [facility] ELECTROLYTE eGFR 107 07/12 Result Comment: The eGFR is calculated using the CKD-EPI formula. In most young, healthy individuals the eGFR will be > 90 mL/min/1.73m2. The eGFR declines with age. An eGFR of 60-89 may be normal in [facility] mL/min/1. some populations, particularly the elderly, for whom the CKD-EPI formula has not been extensively validated. Use of the eGFR is not recommended in the following populations: Medical [address] [place] [address] Individuals with unstable creatinine concentrations, including patients [...] Lvl 3.3 meq/L 3.5 - 5.1 07/12 [facility] ELECTROLYTE Calcium Lvl 8.0 mg/dL 8.5 - 10.5 07/12 [facility] ELECTROLYTE CO2 26 meq/L 24 - 32 07/12 [facility] 2016 [facility] ELECTROLYTE Chloride Lvl 112 meq/L 95 - 109 07/12 [facility] 2016 [facility] ELECTROLYTE Creatinine 0.65 mg/dL 0.50 - 07/12 [facility] Lvl 1.40 [facility] ELECTROLYTE Sodium Lvl 143 meq/L 135 - 145 07/12 [facility] 2016 [facility] ELECTROLYTE BUN 10 mg/dL 7 - 22 07/12 [facility] 2016 [facility] ELECTROLYTE Glucose Lvl 135 mg/dL 70 - 99 07/12 [facility] HEMATOLOGY MPV 7.9 fL 7.4 - 10.4 07/12 [facility] HEMATOLOGY Platelet 203 K/CMM 133 - 450 07/12 [facility] HEMATOLOGY RDW 16.2 % 11.5 - 07/12 [place] 14.5 [facility] HEMATOLOGY MCH 31.7 pg 27.0 - 07/12 [place] 31.0 [facility] HEMATOLOGY MCV 95.9 fL 80.0 - 07/12 [place] 94.0 [facility] HEMATOLOGY Hct 37.2 % 42.0 - 07/12 [place] 54.0 [facility] HEMATOLOGY RBC 3.88 M/CMM 4.70 - 07/12 [place] 6.10 [facility] HEMATOLOGY WBC 10.6 K/CMM 3.7 - 10.4 07/12 2016 [facility] HEMATOLOGY MCHC 33.1 g/dL 32.0 - 07/12 [place] 36.0 [facility] HEMATOLOGY Hgb 12.3 g/dL 14.0 - 07/12 [place] 18.0 [facility] HEMATOLOGY Eosinophils # 0.1 K/CMM 0.0 - 0.5 07/12 [facility]2016 [facility] HEMATOLOGY Monocytes # 0.8 K/CMM 0.0 - 0.8 07/12 2016 [facility] HEMATOLOGY Lymphocytes # 0.8 K/CMM 1.0 - 5.5 07/12 2016 [facility] HEMATOLOGY Segs-Bands # 8.9 K/CMM 1.5 - 8.1 07/12 [facility] HEMATOLOGY Basophils 0.2 % 0.0 - 1.0 07/12 2016 [facility] HEMATOLOGY Eosinophils 0.5 % 0.0 - 4.0 07/12 2016 [facility] HEMATOLOGY Segs 84.4 % 45.0 - 07/12 [facility] 75.0 [facility] HEMATOLOGY Lymphocytes 7.4 % 20.0 - 07/12 [place] 40.0 [facility] HEMATOLOGY Monocytes 7.5 % 2.0 - 12.0 07/[address] Abdomen AP Abdomen AP DX EXAM: XR ABDOMEN 1 VIEW 07/11 - [facility] DX - Medical This report was dictated by a Heat Treatment Technician/Fellow. I have personally reviewed the images as [...] Bowel: The bowel gas pattern is nonobstructive. Iota-fo-ffaqzwha stool burden is noted in the colon. [...] eGFR of 60-89 may be normal in [facility] mL/min/1.7 /2016 some populations, particularly the elderly, for whom the CKD-EPI formula has not been extensively validated. Use of the eGFR is not recommended in the following populations: [address] Individuals with unstable creatinine concentrations, including [...] BUN 21 mg/dL 7 - 22 07/11 [facility] [address] [place] [address] CHEM PANEL Glucose Lvl 165 mg/dL 70 - 99 07/[address] CHEM PANEL Calcium Lvl 9.1 mg/dL 8.5 - 10.5 07/[address] CHEM PANEL CO2 29 meq/L 24 - 32 07/[address] CHEM PANEL Chloride Lvl 103 meq/L 95 - 109 07/[address] CHEM PANEL Potassium Lvl 3.6 meq/L 3.5 - 5.1 07/[address] CHEM PANEL Sodium Lvl 139 meq/L 135 - 145 07/[address] CHEM PANEL Creatinine 0.89 mg/dL 0.50 - 07/11 [facility] Lvl 1.40 [facility] CHEM PANEL AGAP 10.6 meq/L 10.0 - 07/11 [place] 20.0 [facility] CHEM PANEL Phosphorus 2.2 mg/dL 2.5 - 4.5 07/[address] CHEM PANEL Magnesium Lvl 2.3 mg/dL 1.8 - 2.4 07/[address] CHEM PANEL Globulin 3.7 g/dL 2.7 - 4.2 07/[address] CHEM PANEL Albumin Lvl 2.1 g/dL 3.5 - 5.0 07/[address] CHEM PANEL A/G Ratio 0.6 0.7 - 1.6 07/[address] CHEM PANEL Total Protein 5.8 g/dL 6.4 - 8.4 07/[address] CHEM PANEL Alk Phos 68 unit/L 39 - 136 07/[address] CHEM PANEL AST 12 unit/L 0 - 37 07/[address] CHEM PANEL ALT 9 unit/L 0 - 65 07/[address] CHEM PANEL Bili Indirect 0.1 mg/dL 0.0 - 1.0 07/[address] CHEM PANEL Bili Total 0.2 mg/dL 0.2 - 1.3 07/[address] CHEM PANEL Bili Direct 0.1 mg/dL 0.0 - 0.3 07/[address] HEMATOLOGY Lymphocytes 4.8 % 20.0 - 07/11 [facility] 40.0 [facility] HEMATOLOGY Monocytes 4.4 % 2.0 - 12.0 07/[address] HEMATOLOGY Segs 90.7 % 45.0 - 07/11 [facility] 75.0 [facility] HEMATOLOGY Segs-Bands # 13.4 K/CMM 1.5 - 8.1 07/[address] HEMATOLOGY Lymphocytes # 0.7 K/CMM 1.0 - 5.5 07/[address] HEMATOLOGY Monocytes # 0.7 K/CMM 0.0 - 0.8 07/[address] HEMATOLOGY Basophils 0.1 % 0.0 - 1.0 07/[address] HEMATOLOGY RDW 16.3 % 11.5 - 07/11 [facility] 14.5 [facility] HEMATOLOGY Platelet 178 K/CMM 133 - 450 07/[address] HEMATOLOGY MPV 8.4 fL 7.4 - 10.4 07/[address] HEMATOLOGY Hgb 10.8 g/dL 14.0 - 07/11 [facility] 18.0 [facility] HEMATOLOGY WBC 14.7 K/CMM 3.7 - 10.4 07/[address] HEMATOLOGY MCV 95.3 fL 80.0 - 07/11 [facility] 94.0 /2016 [facility] HEMATOLOGY Hct 32.7 % 42.0 - 07/11 [facility] 54.0 /2016 [facility] HEMATOLOGY MCHC 32.9 g/dL 32.0 - 07/11 [facility] 36.0 /2016 [facility] HEMATOLOGY MCH 31.4 pg 27.0 - 07/11 [facility] 31.0 [facility] HEMATOLOGY RBC 3.43 M/CMM 4.70 - 07/11 [facility] 6.10 [facility] Chest 1view Chest 1view EXAM: XR CHEST 1 VIEW 07/11 - [facility] DX DX - [facility] DATE: 07/11/2016 3:00 AM CDT Read [...] EXAM: CT NECK WITH CONTRAST 07/10 - [facility] tissue w tissue w - Medical contrast CT contrast CT This report was dictated by a Heat Treatment Technician/Fellow. I have personally reviewed the images as [...] w EXAM: CT CHEST WITH CONTRAST 07/10 [facility] contrast CT contrast - [facility] This report was dictated by a Heat Treatment Technician/Fellow. I have personally reviewed the images as [...] BACTERIAL - MRSA by PCR Negative 07/10 [facility] (07/10/16 1:53 AM) [place] CHEM PANEL Procalcitonin 0.95 ng/mL 0.00 - 07/10 [facility] 0.10 [facility] CHEM PANEL Lactic Acid 1.7 mMol/L 0.5 - 2.2 07/10 [facility] /2016 [facility] DRUG SCREEN UDS Note See Note 07/10 [facility] *NA* [place] (07/10/16 1:53 AM) DRUG SCREEN U Methadone Negative Negative 07/10 [facility] *NA* [place] (07/10/16 1:53 AM) DRUG SCREEN U Propoxyph Negative Negative 07/10 [facility] [place] [facility] [place] (07/10/16 1:53 AM) DRUG SCREEN U Phencyc Scr Negative Negative 07/10 [facility] *NA* [place] (07/10/16 1:53 AM) DRUG SCREEN U Cannab Scr Negative Negative 07/10 Medical *NA* Center (07/10/16 1:53 AM) DRUG SCREEN U Opiate Scr Negative Negative 07/10 [place] [facility] *NA* Center (07/10/16 1:53 AM) DRUG SCREEN U Benzodia Negative Negative 07/10 [facility] *NA* Center (07/10/16 1:53 AM) DRUG SCREEN U Cocaine Scr Negative Negative 07/10 [facility] *NA* Center (07/10/16 1:53 AM) DRUG SCREEN U Marycruz Scr Negative Negative 07/10 [facility] *NA* Center (07/10/16 1:53 AM) DRUG SCREEN U Amph Scr Negative Negative 07/10 [facility] *NA* Center (07/10/16 1:53 AM) IMMUNOLOGY HIV Ag/Ab 4th Negative Negative 07/10 [facility] Gen [facility] *NA* [place] (07/10/16 1:53 AM) LIPIDS LDL 55 mg/dL <=99 mg/dL 07/10 [facility] (Calculated) [facility] LIPIDS VLDL 10 07/10 [facility] LIPIDS Chol 163 mg/dL <=199 07/10 [facility] mg/dL [facility] LIPIDS Trig 52 mg/dL <=149 07/10 [facility] mg/dL [facility] LIPIDS HDL 98 mg/dL >=61 mg/dL 07/10 [facility] /2016 [facility] LIPIDS CHD Risk 1.66 4.00 - 07/10 [facility] 7.30 [facility] MOLECULAR RSV PCR Negative Negative 07/10 [facility] DIAGNOSTIC [facility] (07/10/16 1:53 AM) Center MOLECULAR Influenza B Negative Negative 07/10 [facility] DIAGNOSTIC PCR [facility] (07/10/16 1:53 AM) Center MOLECULAR Influenza A Negative Negative 07/10 [facility] DIAGNOSTIC PCR Medical (07/10/16 1:53 AM) Center MOLECULAR Source Flocked TRIPLE VALVE TESTER Swab 07/10 [facility] DIAGNOSTIC Respiratory Medical Panel PCR (07/10/16 1:53 AM) Center SPECIAL Hgb A1C 5.1 % <=5.6 % 07/10 [facility] CHEMISTRY [facility] URINE AND UA Spec Grav 1.028 <=1.030 07/10 [facility] STOOL /2016 [facility] URINE AND UA pH 5.5 5.0 - 8.0 07/10 [facility] URINE AND UA Ketones Negative Negative 07/10 [facility] mg/dL mg/dL /2016 [facility] URINE AND UA Protein Negative Negative 07/10 [facility] mg/dL mg/dL [facility] URINE AND UA Blood Negative Negative 07/10 [facility] (07/10/16 1:53 AM) [place] URINE AND UA Nitrite Negative Negative 07/10 [facility] (07/10/16 1:53 AM) [place] URINE AND UA Bili Negative Negative 07/10 [facility] Medical *NA* [place] (07/10/16 1:53 AM) URINE AND UA Leuk Est Negative Negative 07/10 [facility] (07/10/16 1:53 AM) [place] URINE AND UA Glucose Negative Negative 07/10 [facility] mg/dL mg/dL [facility] URINE AND UA <=1.0 0.1 - 1.0 07/10 [facility] Urobilinogen mg/dL [facility] URINE AND UA WBC 1 /HPF 0 - 5 07/10 [facility] URINE AND UA Sq Epi Few /LPF Few /LPF 07/10 [facility] URINE AND UA Turbidity Clear Clear 07/10 [facility] (07/10/16 1:53 AM) [place] URINE AND UA Color Yellow Yellow 07/10 [facility] *NA* [place] (07/10/16 1:53 AM) BLOOD BANK Antibody Scrn Negative 07/10 [facility] (07/09/16 9:20 PM) [place] BLOOD BANK ABO/Rh A POS 07/10 [facility] HEMATOLOGY PT 12.5 s 12.0 - 07/10 [place] 14.7 [facility] HEMATOLOGY INR 0.91 0.85 - 07/10 1. [facility] HEMATOLOGY PTT 32.8 s 22.9 - 07/10 [place] 35.8 [facility] HEMATOLOGY Toxic Gran See Note 2 None Seen 07/10 Result Comment: Medical (07/09/16 9:20 PM) [facility] Center HEMATOLOGY Bands 27.0 % 0.0 - 11.0 07/10 [facility] HEMATOLOGY Metamyelocyte 1.0 % 0.0 - 1.0 07/10 s [facility] HEMATOLOGY Atypical 0.0 % <=0.0 % 07/10 [facility] Lymphs [facility] HEMATOLOGY Plt Morph Normal 07/10 [facility] (07/09/16 9:20 PM) [place] HEMATOLOGY Anisocyte See Note 1 None Seen 07/10 Result Comment: Medical (07/09/16 9:20 PM) [facility] Center Chest 1view Chest 1view EXAM: XR CHEST 1 VIEW 07/10 - [facility] DX DX /2016 - [facility] DATE: 07/10/2016 1:09 AM CDT Read [...] Source Temperature Oral (F) 98.8 F 07/15/2016 [facility] Heart Rate 76 07/15/2016 [facility] Respitory Rate 20 07/15/2016 [facility] Systolic (mm Hg) 145 07/15/2016 [facility] Diastolic (mm Hg) 68 07/15/2016 [facility] Systolic (mm Hg) 170 07/15/2016 [facility] Diastolic (mm Hg) 87 07/15/2016 [facility] Respitory Rate 20 07/15/2016 [facility] Heart Rate 72 07/15/2016 [facility] Temperature Oral (F) 98.5 F 07/15/2016 [facility] Temperature Oral (F) 98.5 F 07/15/2016 [facility] Systolic (mm Hg) 160 07/15/2016 [facility] Diastolic (mm Hg) 79 07/15/2016 [facility] Respitory Rate 20 07/15/2016 [facility] Heart Rate 73 07/15/2016 [facility] Height 170.18 cm 07/11/2016 [facility] Height 170.18 cm 07/11/2016 [facility] Height 170.18 cm 07/11/2016 [facility] Weight 68.182 07/10/2016 [facility] BMI Calculated 23.54 07/10/2016 [facility] BMI Calculated 21.75 07/10/2016 [facility] Weight 72.727 07/10/2016 [facility] Encounters Location Location Encounter Encounter Reason Attending ADM DC Status Source Details Type Number For Provider Date Date Visit [facility] [id number] Bhavani 07/10 07/15 [facility] [place]zman De Pazere /2016 [facility] Procedures Procedure Code Date Perfomer Comments Source
--- OUTSIDE RECORDS SUMMARY | 2018-07-29 17:40 | XMS REPORT ---
:1960 [facility] Address [address] [place] [address] [address] [place] [address] Care Team Providers Name Role Phone MERCEDES GRANADOS Unavailable Unavailable Problems This patient has no known problems. Allergies, Adverse Reactions, Alerts This patient has no known allergies or adverse reactions. Medications This patient has no known medications. Results Test Description Test Time Test Comments Text Results Atomic Results Result Comments POCT-GLUCOSE METER 2017-10-17 12:33:00 Test Item Value Reference Range Comments POC-GLUCOSE METER (BEAKER) (test 120 mg/dL 70-110 TESTED AT [facility] [address] nsjz=6134) [facility] [address] [id number] 07:23:00 Test Item Value Reference Range Comments ALBUMIN (BEAKER) (test lhso=2639) 1.7 g/dL 3.5-5.0 BASIC METABOLIC [id number] 07:20:00 Test Item Value Reference Range Comments SODIUM (BEAKER) (test 134 meq/L 136-145 yngy=728) POTASSIUM (BEAKER) (test 4.3 meq/L 3.5-5.1 rxqv=434) CHLORIDE (BEAKER) (test 101 meq/L 98-107 djic=833) CO2 (BEAKER) (test 31 meq/L 22-29 jude=489) BLOOD UREA NITROGEN 12 mg/dL 7-21 (BEAKER) (test mtwn=332) CREATININE (BEAKER) (test 0.45 mg/dL 0.57-1.25 dpsq=220) GLUCOSE RANDOM (BEAKER) 107 mg/dL 70-105 (test cskx=801) CALCIUM (BEAKER) (test 8.3 mg/dL 8.4-10.2 qbdw=757) EGFR (BEAKER) (test 192 mL/min/1.73 sq m ESTIMATED GFR IS NOT nuws=5735) ACCURATE CREATININE CLEARANCE IN PREDICTING GLOMERULAR FILTRATION RATE. ESTIMATED GFR IS NOT APPLICABLE FOR DIALYSIS PATIENTS. PHENYTOIN LEVEL, [id number] 06:58:00 Test Item Value Reference Range Comments PHENYTOIN (DILANTIN) (BEAKER) (test paah=422) 14.6 ug/mL 10.0-20.0 POCT-GLUCOSE [id number] 06:33:00 Test Item Value Reference Range Comments POC-GLUCOSE METER (BEAKER) 119 mg/dL 70-110 TESTED AT [address] (test ycgn=5291) [place] [address] POCT-GLUCOSE [id number] 00:39:00 Test Item Value Reference Range Comments POC-GLUCOSE METER (BEAKER) 145 mg/dL 70-110 TESTED AT [address] (test fzvs=3221) [place] [address] POCT-GLUCOSE [id number] 18:03:00 Test Item Value Reference Range Comments POC-GLUCOSE METER (BEAKER) 140 mg/dL 70-110 TESTED AT [address] (test luqf=2627) [place] [address] POCT-GLUCOSE [id number] 12:40:00 Test Item Value Reference Range Comments POC-GLUCOSE METER (BEAKER) 152 mg/dL 70-110 TESTED AT [address] (test bntm=8966) [place] [address] BLOOD [id number] 11:00:00 Test Item Value Reference Range Comments CULTURE (BEAKER) (test hkdq=0135) No growth in 5 days BLOOD [id number] 11:00:00 Test Item Value Reference Range Comments CULTURE (BEAKER) (test ohzy=4906) No growth in 5 days POCT-GLUCOSE [id number] 06:09:00 Test Item Value Reference Range Comments POC-GLUCOSE METER (BEAKER) 158 mg/dL 70-110 TESTED AT [address] (test pymt=5726) [place] [address] BASIC METABOLIC [id number] 04:40:00 Test Item Value Reference Range Comments SODIUM (BEAKER) (test 138 meq/L 136-145 lbun=290) POTASSIUM (BEAKER) (test 4.0 meq/L 3.5-5.1 nuuv=911) CHLORIDE (BEAKER) (test 107 meq/L 98-107 whzk=454) CO2 (BEAKER) (test 24 meq/L 22-29 rnnp=632) BLOOD UREA NITROGEN 9 mg/dL 7-21 (BEAKER) (test swlo=621) CREATININE (BEAKER) (test 0.50 mg/dL 0.57-1.25 eztj=206) GLUCOSE RANDOM (BEAKER) 109 mg/dL 70-105 (test ylol=411) CALCIUM (BEAKER) (test 8.3 mg/dL 8.4-10.2 qfrl=062) EGFR (BEAKER) (test 170 mL/min/1.73 sq m ESTIMATED GFR IS NOT fpsb=6274) ACCURATE CREATININE CLEARANCE IN PREDICTING GLOMERULAR FILTRATION RATE. ESTIMATED GFR IS NOT APPLICABLE FOR DIALYSIS PATIENTS. POCT-GLUCOSE [id number] 00:15:00 Test Item Value Reference Range Comments POC-GLUCOSE METER (BEAKER) 146 mg/dL 70-110 TESTED AT [address] (test kyrf=2267) [place] [id number] POCT-GLUCOSE [id number] 18:30:00 Test Item Value Reference Range Comments POC-GLUCOSE METER (BEAKER) 150 mg/dL 70-110 TESTED AT [address] (test qaab=7011) [place] [address] POCT-GLUCOSE [id number] 13:13:00 Test Item Value Reference Range Comments POC-GLUCOSE METER (BEAKER) 135 mg/dL 70-110 TESTED AT [address] (test alkg=9594) [place] [address] POCT-GLUCOSE [id number] 06:12:00 Test Item Value Reference Range Comments POC-GLUCOSE METER (BEAKER) 148 mg/dL 70-110 TESTED AT [address] (test bdxd=4960) [place] [address] PHENYTOIN LEVEL, [id number] 05:12:00 Test Item Value Reference Range Comments PHENYTOIN (DILANTIN) (BEAKER) (test jppg=080) 15.3 ug/mL 10.0-20.0 BASIC METABOLIC [id number] 05:12:00 Test Item Value Reference Range Comments SODIUM (BEAKER) (test 139 meq/L 136-145 xrcz=356) POTASSIUM (BEAKER) (test 3.0 meq/L 3.5-5.1 wfqy=535) CHLORIDE (BEAKER) (test 110 meq/L 98-107 htny=542) CO2 (BEAKER) (test 23 meq/L 22-29 dsxl=197) BLOOD UREA NITROGEN 4 mg/dL 7-21 (BEAKER) (test nlky=971) CREATININE (BEAKER) (test 0.50 mg/dL 0.57-1.25 csbt=309) GLUCOSE RANDOM (BEAKER) 128 mg/dL 70-105 (test bhil=589) CALCIUM (BEAKER) (test 7.9 mg/dL 8.4-10.2 ywro=925) EGFR (BEAKER) (test 170 mL/min/1.73 sq m ESTIMATED GFR IS NOT ehgy=6238) ACCURATE CREATININE CLEARANCE IN PREDICTING GLOMERULAR FILTRATION RATE. ESTIMATED GFR IS NOT APPLICABLE FOR DIALYSIS PATIENTS. [id number] 05:12:00 Test Item Value Reference Range Comments ALBUMIN (BEAKER) (test fswz=3535) 1.8 g/dL 3.5-5.0 CBC W/PLT COUNT & AUTO [id number] 00:01:00 Test Item Value Reference Range Comments WHITE BLOOD CELL COUNT (BEAKER) (test mbik=090) 10.1 K/ L 3.5-10.5 RED BLOOD CELL COUNT (BEAKER) (test yshr=756) 3.09 M/ L 4.63-6.08 HEMOGLOBIN (BEAKER) (test jael=736) 9.1 GM/DL 13.7-17.5 HEMATOCRIT (BEAKER) (test fryg=198) 28.6 % 40.1-51.0 MEAN CORPUSCULAR VOLUME (BEAKER) (test ayjn=079) 92.6 fL 79.0-92.2 MEAN CORPUSCULAR HEMOGLOBIN (BEAKER) (test 29.4 pg 25.7-32.2 vxrr=012) MEAN CORPUSCULAR HEMOGLOBIN CONC (BEAKER) (test 31.8 GM/DL 32.3-36.5 tnmh=458) RED CELL DISTRIBUTION WIDTH (BEAKER) (test 18.9 % 11.6-14.4 qkgk=165) PLATELET COUNT (BEAKER) (test jfcw=647) 237 K/CU MM 150-450 MEAN PLATELET VOLUME (BEAKER) (test fhcl=804) 9.7 fL 9.4-12.4 NUCLEATED RED BLOOD CELLS (BEAKER) (test 0 /100 WBC 0-0 lucv=180) NEUTROPHILS RELATIVE PERCENT (BEAKER) (test 77 % klwr=500) LYMPHOCYTES RELATIVE PERCENT (BEAKER) (test 8 % cjhe=221) MONOCYTES RELATIVE PERCENT (BEAKER) (test 10 % cwzh=424) EOSINOPHILS RELATIVE PERCENT (BEAKER) (test 3 % zuey=269) BASOPHILS RELATIVE PERCENT (BEAKER) (test 1 % zphp=242) NEUTROPHILS ABSOLUTE COUNT (BEAKER) (test 7.79 K/ L 1.78-5.38 ecgv=937) LYMPHOCYTES ABSOLUTE COUNT (BEAKER) (test 0.83 K/ L 1.32-3.57 lotc=239) MONOCYTES ABSOLUTE COUNT (BEAKER) (test 1.00 K/ L 0.30-0.82 move=308) EOSINOPHILS ABSOLUTE COUNT (BEAKER) (test 0.33 K/ L 0.04-0.54 sbat=605) BASOPHILS ABSOLUTE COUNT (BEAKER) (test 0.08 K/ L 0.01-0.08 qagj=788) IMMATURE GRANULOCYTES-RELATIVE PERCENT (BEAKER) 1 % 0-1 (test vqhr=2748) POCT-GLUCOSE [id number] 23:27:00 Test Item Value Reference Range Comments POC-GLUCOSE METER (BEAKER) 96 mg/dL 70-110 TESTED AT [address] (test fyto=7756) [place] [address] POCT-GLUCOSE [id number] 18:32:00 Test Item Value Reference Range Comments POC-GLUCOSE METER (BEAKER) 84 mg/dL 70-110 TESTED AT [address] (test wbhl=7945) [place] [address] POCT-GLUCOSE [id number] 12:13:00 Test Item Value Reference Range Comments POC-GLUCOSE METER (BEAKER) 105 mg/dL 70-110 TESTED AT [address] (test cbsi=9611) [place] [address] CBC W/PLT COUNT & AUTO [id number] 07:24:00 Test Item Value Reference Range Comments WHITE BLOOD CELL COUNT (BEAKER) (test arzj=233) 9.5 K/ L 3.5-10.5 RED BLOOD CELL COUNT (BEAKER) (test tqvw=534) 3.13 M/ L 4.63-6.08 HEMOGLOBIN (BEAKER) (test josl=911) 9.3 GM/DL 13.7-17.5 HEMATOCRIT (BEAKER) (test rufe=108) 30.0 % 40.1-51.0 MEAN CORPUSCULAR VOLUME (BEAKER) (test bgra=564) 95.8 fL 79.0-92.2 MEAN CORPUSCULAR HEMOGLOBIN (BEAKER) (test 29.7 pg 25.7-32.2 wsfs=391) MEAN CORPUSCULAR HEMOGLOBIN CONC (BEAKER) (test 31.0 GM/DL 32.3-36.5 fsrk=442) RED CELL DISTRIBUTION WIDTH (BEAKER) (test 19.2 % 11.6-14.4 yntq=982) PLATELET COUNT (BEAKER) (test taib=719) 244 K/CU MM 150-450 MEAN PLATELET VOLUME (BEAKER) (test htak=924) 9.7 fL 9.4-12.4 NUCLEATED RED BLOOD CELLS (BEAKER) (test 0 /100 WBC 0-0 ntfv=785) NEUTROPHILS RELATIVE PERCENT (BEAKER) (test 77 % vvbw=389) LYMPHOCYTES RELATIVE PERCENT (BEAKER) (test 9 % yrqq=870) MONOCYTES RELATIVE PERCENT (BEAKER) (test 11 % lqyc=622) EOSINOPHILS RELATIVE PERCENT (BEAKER) (test 2 % lcbv=156) BASOPHILS RELATIVE PERCENT (BEAKER) (test 1 % jymc=450) NEUTROPHILS ABSOLUTE COUNT (BEAKER) (test 7.26 K/ L 1.78-5.38 gbhu=351) LYMPHOCYTES ABSOLUTE COUNT (BEAKER) (test 0.87 K/ L 1.32-3.57 cnrf=556) MONOCYTES ABSOLUTE COUNT (BEAKER) (test 1.04 K/ L 0.30-0.82 lokh=982) EOSINOPHILS ABSOLUTE COUNT (BEAKER) (test 0.17 K/ L 0.04-0.54 zsmm=544) BASOPHILS ABSOLUTE COUNT (BEAKER) (test 0.05 K/ L 0.01-0.08 owpj=746) IMMATURE GRANULOCYTES-RELATIVE PERCENT (BEAKER) 1 % 0-1 (test dwgu=7716) BASIC METABOLIC [id number] 07:15:00 Test Item Value Reference Range Comments SODIUM (BEAKER) (test 138 meq/L 136-145 kyeb=119) POTASSIUM (BEAKER) (test 3.6 meq/L 3.5-5.1 qacp=094) CHLORIDE (BEAKER) (test 110 meq/L 98-107 ouam=150) CO2 (BEAKER) (test 18 meq/L 22-29 hwuj=078) BLOOD UREA NITROGEN 5 mg/dL 7-21 (BEAKER) (test xfnl=053) CREATININE (BEAKER) (test 0.53 mg/dL 0.57-1.25 hcko=675) GLUCOSE RANDOM (BEAKER) 94 mg/dL 70-105 (test qxdp=115) CALCIUM (BEAKER) (test 8.2 mg/dL 8.4-10.2 itcj=025) EGFR (BEAKER) (test 159 mL/min/1.73 sq m ESTIMATED GFR IS NOT siep=2716) ACCURATE CREATININE CLEARANCE IN PREDICTING GLOMERULAR FILTRATION RATE. ESTIMATED GFR IS NOT APPLICABLE FOR DIALYSIS PATIENTS. PROTHROMBIN [id number] 06:54:00 Test Item Value Reference Range Comments PROTIME (BEAKER) (test yhjg=655) 18.5 seconds 11.7-14.7 INR (BEAKER) (test vtcr=860) 1.5 <=5.9 RECOMMENDED COUMADIN/WARFARIN INR THERAPY RANGESSTANDARD DOSE: 2.0 - 3.0 Includes: PROPHYLAXIS forvenous thrombosis, systemic embolization; TREATMENT for venous thrombosis and/or pulmonary embolus.HIGH RISK: Target INR is 2.5-3.5 for patients with mechanical heart valves.EVA, CAVAL FILTER [id number] 20:35:00Reason for exam:->Hx of DVT, previously on xarelto now with possible upper GI bleeding.FINAL REPORT History: Lower extremity DVT, recent GI [...] right common femoral vein and a 5 [place]uv[place] omniflush catheter was placed over a wire [...] retrievable Option elite filter. Fluoroscopy time: 2.2 minutesEstimated dose reported as (Ka,r): 96 mGy Note: [...] possible beyond this time period. Signed: Gail [place] Verified Date/Time: 20:35:13 Reading Location: [place] [address] Angio Body Reading Room [id number] 14:44:00 Test Item Value Reference Range Comments POTASSIUM (BEAKER) (test lrdu=271) 3.7 meq/L 3.5-5.1 [id number] 05:53:00 Test Item Value Reference Range Comments PROTIME (BEAKER) (test fyem=889) 16.2 seconds 11.7-14.7 INR (BEAKER) (test ekqd=309) 1.3 <=5.9 PARTIAL THROMBOPLASTIN TIME (BEAKER) (test 44.9 seconds 22.5-36.0 jkri=773) RECOMMENDED COUMADIN/WARFARIN INR THERAPY RANGESSTANDARD DOSE: 2.0 - 3.0 Includes: PROPHYLAXIS forvenous thrombosis, systemic embolization; TREATMENT for venous thrombosis and/or pulmonary embolus.HIGH RISK: Target INR is 2.5-3.5 for patients with mechanical heart valves.POCT-GLUCOSE [id number] 05:48:00 Test Item Value Reference Range Comments POC-GLUCOSE METER (BEAKER) 113 mg/dL 70-110 TESTED AT [address] (test ueyu=6857) [facility] [address] POCT-GLUCOSE [id number] 05:00:00 Test Item Value Reference Range Comments POC-GLUCOSE METER (BEAKER) 69 mg/dL 70-110 TESTED AT [facility] [address] (test cdre=1450) [facility] [address] BASIC METABOLIC [id number] 04:46:00 Test Item Value Reference Range Comments SODIUM (BEAKER) (test 137 meq/L 136-145 qcdh=811) POTASSIUM (BEAKER) (test 3.5 meq/L 3.5-5.1 zxky=620) CHLORIDE (BEAKER) (test 112 meq/L 98-107 qhbu=367) CO2 (BEAKER) (test 17 meq/L 22-29 wwds=571) BLOOD UREA NITROGEN 8 mg/dL 7-21 (BEAKER) (test gepu=259) CREATININE (BEAKER) (test 0.53 mg/dL 0.57-1.25 bhal=069) GLUCOSE RANDOM (BEAKER) 68 mg/dL 70-105 (test kwki=284) CALCIUM (BEAKER) (test 7.6 mg/dL 8.4-10.2 gwkh=223) EGFR (BEAKER) (test 159 mL/min/1.73 sq m ESTIMATED GFR IS NOT oqng=6975) ACCURATE CREATININE CLEARANCE IN PREDICTING GLOMERULAR FILTRATION RATE. ESTIMATED GFR IS NOT APPLICABLE FOR DIALYSIS PATIENTS. CBC W/PLT COUNT & AUTO [id number] 04:26:00 Test Item Value Reference Range Comments WHITE BLOOD CELL COUNT (BEAKER) (test atxg=942) 6.1 K/ L 3.5-10.5 RED BLOOD CELL COUNT (BEAKER) (test ewbo=274) 2.98 M/ L 4.63-6.08 HEMOGLOBIN (BEAKER) (test noph=218) 8.9 GM/DL 13.7-17.5 HEMATOCRIT (BEAKER) (test mtpv=880) 28.1 % 40.1-51.0 MEAN CORPUSCULAR VOLUME (BEAKER) (test fdod=967) 94.3 fL 79.0-92.2 MEAN CORPUSCULAR HEMOGLOBIN (BEAKER) (test 29.9 pg 25.7-32.2 hkmk=284) MEAN CORPUSCULAR HEMOGLOBIN CONC (BEAKER) (test 31.7 GM/DL 32.3-36.5 vbma=595) RED CELL DISTRIBUTION WIDTH (BEAKER) (test 19.1 % 11.6-14.4 yrko=137) PLATELET COUNT (BEAKER) (test psje=181) 191 K/CU MM 150-450 MEAN PLATELET VOLUME (BEAKER) (test wbgp=107) 9.4 fL 9.4-12.4 NUCLEATED RED BLOOD CELLS (BEAKER) (test 0 /100 WBC 0-0 nebw=010) NEUTROPHILS RELATIVE PERCENT (BEAKER) (test 66 % jftu=758) LYMPHOCYTES RELATIVE PERCENT (BEAKER) (test 12 % geok=311) MONOCYTES RELATIVE PERCENT (BEAKER) (test 14 % wnar=163) EOSINOPHILS RELATIVE PERCENT (BEAKER) (test 5 % ntvg=363) BASOPHILS RELATIVE PERCENT (BEAKER) (test 1 % evsz=341) NEUTROPHILS ABSOLUTE COUNT (BEAKER) (test 4.02 K/ L 1.78-5.38 vvgx=403) LYMPHOCYTES ABSOLUTE COUNT (BEAKER) (test 0.75 K/ L 1.32-3.57 hyuc=748) MONOCYTES ABSOLUTE COUNT (BEAKER) (test 0.87 K/ L 0.30-0.82 xpxp=968) EOSINOPHILS ABSOLUTE COUNT (BEAKER) (test 0.32 K/ L 0.04-0.54 qlpu=817) BASOPHILS ABSOLUTE COUNT (BEAKER) (test 0.06 K/ L 0.01-0.08 hzeq=681) IMMATURE GRANULOCYTES-RELATIVE PERCENT (BEAKER) 1 % 0-1 (test wfbo=7179) [id number] 11:52:00 Test Item Value Reference Range Comments PROCALCITONIN (BEAKER) (test lynf=3634) 0.60 ng/mL <0.05 SEPSIS RISK (ng/mL)Low: 0.05-0.50Intermediate: 0.51-2.00High: & gt;=2.01URINALYSIS W/ [id number] 10:15:00 Test Item Value Reference Range Comments COLOR (BEAKER) (test knuz=816) Yellow CLARITY (BEAKER) (test btfj=810) Clear SPECIFIC GRAVITY UA (BEAKER) (test xfzz=611) 1.036 1.001-1.035 PH UA (BEAKER) (test ykpe=699) 5.5 5.0-8.0 PROTEIN UA (BEAKER) (test yliu=753) Negative Negative GLUCOSE UA (BEAKER) (test exsc=390) Negative Negative KETONES UA (BEAKER) (test iewt=492) Trace Negative BILIRUBIN UA (BEAKER) (test ouqr=995) Negative Negative BLOOD UA (BEAKER) (test kitp=845) Negative Negative NITRITE UA (BEAKER) (test szhj=478) Negative Negative LEUKOCYTE ESTERASE UA (BEAKER) (test aagi=124) Negative Negative UROBILINOGEN UA (BEAKER) (test gnjc=942) 0.2 mg/dL 0.2-1.0 RBC UA (BEAKER) (test mjtk=007) < /HPF WBC UA (BEAKER) (test ujeq=353) 1 /HPF MUCUS (BEAKER) (test tmxx=2491) Rare SOURCE(BEAKER) (test yzqc=8240) Urine, [place] BASIC METABOLIC [id number] 04:13:00 Test Item Value Reference Range Comments SODIUM (BEAKER) (test 134 meq/L 136-145 qtzo=660) POTASSIUM (BEAKER) (test 4.0 meq/L 3.5-5.1 utni=836) CHLORIDE (BEAKER) (test 110 meq/L 98-107 laxf=121) CO2 (BEAKER) (test 18 meq/L 22-29 qmib=614) BLOOD UREA NITROGEN 15 mg/dL 7-21 (BEAKER) (test zwgt=132) CREATININE (BEAKER) (test 0.64 mg/dL 0.57-1.25 yczu=940) GLUCOSE RANDOM (BEAKER) 76 mg/dL 70-105 (test zhio=124) CALCIUM (BEAKER) (test 7.8 mg/dL 8.4-10.2 gwcm=204) EGFR (BEAKER) (test 128 mL/min/1.73 sq m ESTIMATED GFR IS NOT jrog=9931) ACCURATE CREATININE CLEARANCE IN PREDICTING GLOMERULAR FILTRATION RATE. ESTIMATED GFR IS NOT APPLICABLE FOR DIALYSIS PATIENTS. CBC W/PLT COUNT & AUTO [id number] 03:55:00 Test Item Value Reference Range Comments WHITE BLOOD CELL COUNT (BEAKER) (test brcm=637) 5.9 K/ L 3.5-10.5 RED BLOOD CELL COUNT (BEAKER) (test zlre=408) 2.84 M/ L 4.63-6.08 HEMOGLOBIN (BEAKER) (test cogd=214) 8.5 GM/DL 13.7-17.5 HEMATOCRIT (BEAKER) (test rxek=493) 26.3 % 40.1-51.0 MEAN CORPUSCULAR VOLUME (BEAKER) (test lxth=370) 92.6 fL 79.0-92.2 MEAN CORPUSCULAR HEMOGLOBIN (BEAKER) (test 29.9 pg 25.7-32.2 txtn=325) MEAN CORPUSCULAR HEMOGLOBIN CONC (BEAKER) (test 32.3 GM/DL 32.3-36.5 kzbm=811) RED CELL DISTRIBUTION WIDTH (BEAKER) (test 18.6 % 11.6-14.4 thxx=648) PLATELET COUNT (BEAKER) (test qeqj=603) 147 K/CU MM 150-450 MEAN PLATELET VOLUME (BEAKER) (test abpd=901) 9.4 fL 9.4-12.4 NUCLEATED RED BLOOD CELLS (BEAKER) (test 0 /100 WBC 0-0 jwmk=832) NEUTROPHILS RELATIVE PERCENT (BEAKER) (test 70 % wovh=272) LYMPHOCYTES RELATIVE PERCENT (BEAKER) (test 12 % oqiy=138) MONOCYTES RELATIVE PERCENT (BEAKER) (test 12 % aief=138) EOSINOPHILS RELATIVE PERCENT (BEAKER) (test 5 % twvf=806) BASOPHILS RELATIVE PERCENT (BEAKER) (test 1 % esfq=235) NEUTROPHILS ABSOLUTE COUNT (BEAKER) (test 4.13 K/ L 1.78-5.38 nmdh=716) LYMPHOCYTES ABSOLUTE COUNT (BEAKER) (test 0.69 K/ L 1.32-3.57 pbdh=528) MONOCYTES ABSOLUTE COUNT (BEAKER) (test 0.73 K/ L 0.30-0.82 bwip=671) EOSINOPHILS ABSOLUTE COUNT (BEAKER) (test 0.30 K/ L 0.04-0.54 thlm=320) BASOPHILS ABSOLUTE COUNT (BEAKER) (test 0.04 K/ L 0.01-0.08 mccs=320) IMMATURE GRANULOCYTES-RELATIVE PERCENT (BEAKER) 1 % 0-1 (test mude=3713) CT, BRAIN, [id number] 01:49:00OK to go down without nurseFINAL REPORT EXAMINATIONS: NONCONTRAST AND CONTRAST-ENHANCED HEAD CT CLINICAL HISTORY:Seizure COMPARISON CT: None EPISODE OF CARE: Initial TECHNIQUE: Axial noncontrast tomographic images were initially acquired from the vertex to skull base. Following the administration of IVcontrast, the examination was repeated. The exam was performed according to our departmental dose optimization program which includes automated exposure control, adjustment of the mA and/or kV according to patient's size and/or use of iterative reconstructive technique. FINDINGS: The exam is limited by motion degradation. Moderate generalized volume loss, periventricular deep white matter changes andintracranial calcific atherosclerosis are noted. The deep white [...] well as the central arteries of the [place]. No definite evidence of abnormal [...] Chronic involutional and the deep white matter changes.Brain MRI (seizure protocol, preferably with gadolinium) could be performed for further evaluation if warranted. Signed: Stephanie Dey MDReport Verified Date/Time: 10/12/2017 01:49: 16 Reading Location:[address] Reading Room ENTIN [id number] 15:46: 00 Test Item Value Reference Range Comments TROPONIN I (BEAKER) (test mrtm=087) < ng/mL 0.00-0.03 Troponin I (TnI) levels must be interpreted [...] failure, acidosis, acute neurological disease, and persistent tachyarrhythmia.BLOOD GAS, [id number] 15:22:00 Test Item Value Reference Range Comments PH ARTERIAL (BEAKER) (test atmz=888) 7.44 7.35-7.45 PCO2 ARTERIAL (BEAKER) (test soiz=901) 33 mmHg 35-45 PO2 ARTERIAL (BEAKER) (test dqwo=309) 121 mmHg 80-90 O2 SATURATION ARTERIAL (BEAKER) (test xakz=541) 98.6 % 96.0-97.0 HCO3 ARTERIAL (BEAKER) (test zavp=677) 22 mmol/L 21-29 BASE EXCESS ARTERIAL (BEAKER) (test andy=391) -2.1 mmol/L -2.0-3.0 PATIENT TEMPERATURE (BEAKER) (test mgan=9258) 36.1 C FIO2 (BEAKER) (test aipi=8514) 40.0 % EEG AWAKE AND [id number] 14:59:00Reason for exam:->new onset seizureShould this be performed at the bedside?->YesDates of EE10/11/17 DATE OF REPORT: 10/11/17 ACC: [id number] EEG Number: [id number] Test Location: Inpatient Start time: 10/11/17 at 13:40 Stop time: 10/11/17 at 14:00 ICD-10 : R56.9 CPT Code:00068 HISTORY: 57 y/o right-handed male with history of HTN, GERD throat cancer s/p trach andPEG who was admitted 10/11/17. He was found actively seizing, described at [facility] and was given Ativan 2x2mg in the field which aborted the event. Per report, he appeared to have post-ictal confusion lasting 10-15min. MEDICATIONS THAT COULD AFFECT EEG: Phenytoin , s/p Ativan TECHNICAL SUMMARY: This is a [...] encephalopathy. Collins Covarrubias MD Clinical Neurophysiology Fellow Patricia Vu MD Attending Neurophysiologist T4, [id number] 11:19:00 Test Item Value Reference Range Comments FREE T4 (BEAKER) (test kdsv=724) 0.78 ng/dL 0.70-1.48 [id number] 10:53:00 Test Item Value Reference Range Comments PROCALCITONIN (BEAKER) (test ecti=4149) 1.44 ng/mL <0.05 SEPSIS RISK (ng/mL)Low: 0.05-0.50Intermediate: 0.51-2.00High: & gt;=[id number] 10:52:00 Test Item Value Reference Range Comments PROCALCITONIN (BEAKER) (test zzee=9096) 1.74 ng/mL <0.05 SEPSIS RISK (ng/mL)Low: 0.05-0.50Intermediate: 0.51-2.00High: & gt;=2.01TSH/FREE T4 IF [id number] 09:53:00 Test Item Value Reference Range Comments THYROID STIMULATING HORMONE (BEAKER) (test 5.87 uIU/mL 0.35-4.94 fpzp=769) [id number] 09:33:00 Test Item Value Reference Range Comments FERRITIN (BEAKER) (test nvmw=487) 1284 ng/mL 5-275 VITAMIN B12 AND [id number] 09:33:00 Test Item Value Reference Range Comments VITAMIN B12 (BEAKER) (test qlog=974) 395 pg/mL 213-816 FOLATE (BEAKER) (test bnjt=776) 13.4 ng/mL >=7.0 [id number] 08:58:00 Test Item Value Reference Range Comments PREALBUMIN (BEAKER) (test wdfi=046) 5 mg/dL 14-45 IRON, TIBC, % SAT. (WITHOUT FERRITIN)2017-10-11 08:58:00 Test Item Value Reference Range Comments IRON (BEAKER) (test mzmt=190) 9 ug/dL 40-160 TOTAL IRON BINDING CAPACITY (BEAKER) (test 108 ug/dL 250-450 khmf=852) IRON % SATURATION (2) (BEAKER) (test hzfj=7422) 8 % 20-55 COMPREHENSIVE METABOLIC [id number] 08:44:00 Test Item Value Reference Range Comments TOTAL PROTEIN (BEAKER) 5.4 gm/dL 6.0-8.3 (test mshu=095) ALBUMIN (BEAKER) (test 2.1 g/dL 3.5-5.0 dlka=1429) ALKALINE PHOSPHATASE 155 U/L 40-150 (BEAKER) (test wmef=140) BILIRUBIN TOTAL (BEAKER) 0.3 mg/dL 0.2-1.2 (test wvpf=153) SODIUM (BEAKER) (test 132 meq/L 136-145 gcha=529) POTASSIUM (BEAKER) (test 3.9 meq/L 3.5-5.1 vxwf=580) CHLORIDE (BEAKER) (test 102 meq/L 98-107 gzri=587) CO2 (BEAKER) (test 24 meq/L 22-29 mkit=122) BLOOD UREA NITROGEN 22 mg/dL 7-21 (BEAKER) (test opta=673) CREATININE (BEAKER) (test 0.94 mg/dL 0.57-1.25 zlfd=354) GLUCOSE RANDOM (BEAKER) 117 mg/dL 70-105 (test qdgj=965) CALCIUM (BEAKER) (test 8.5 mg/dL 8.4-10.2 aswn=321) AST (SGOT) (BEAKER) (test 58 U/L 5-34 tjro=958) ALT (SGPT) (BEAKER) (test 19 U/L 6-55 jhhi=234) EGFR (BEAKER) (test 82 mL/min/1.73 sq m ESTIMATED GFR IS NOT wrdt=1613) ACCURATE CREATININE CLEARANCE IN PREDICTING GLOMERULAR FILTRATION RATE. ESTIMATED GFR IS NOT APPLICABLE FOR DIALYSIS PATIENTS. LACTIC ACID, VENOUS, WHOLE [id number] 08:38:00 Test Item Value Reference Range Comments LACTATE BLOOD VENOUS (2) (BEAKER) (test 1.1 mmol/L 0.5-2.2 buzx=2606) Effective 06/27/2015: Units/Reference Range ChangeNew: 0.5-2.2 mmol/L Previous: 5 -20 mg/dLCBC W/PLT COUNT & AUTO [id number] 08:27:00 Test Item Value Reference Range Comments WHITE BLOOD CELL COUNT (BEAKER) (test erqa=804) 5.4 K/ L 3.5-10.5 RED BLOOD CELL COUNT (BEAKER) (test jqvi=283) 2.39 M/ L 4.63-6.08 HEMOGLOBIN (BEAKER) (test rfqp=601) 7.3 GM/DL 13.7-17.5 HEMATOCRIT (BEAKER) (test jbed=222) 23.0 % 40.1-51.0 MEAN CORPUSCULAR VOLUME (BEAKER) (test trun=574) 96.2 fL 79.0-92.2 MEAN CORPUSCULAR HEMOGLOBIN (BEAKER) (test 30.5 pg 25.7-32.2 rhth=722) MEAN CORPUSCULAR HEMOGLOBIN CONC (BEAKER) (test 31.7 GM/DL 32.3-36.5 gudl=879) RED CELL DISTRIBUTION WIDTH (BEAKER) (test 17.0 % 11.6-14.4 frnc=899) PLATELET COUNT (BEAKER) (test wrxc=014) 142 K/CU MM 150-450 MEAN PLATELET VOLUME (BEAKER) (test zujv=109) 10.2 fL 9.4-12.4 NUCLEATED RED BLOOD CELLS (BEAKER) (test 0 /100 WBC 0-0 goaf=830) NEUTROPHILS RELATIVE PERCENT (BEAKER) (test 73 % ogeu=540) LYMPHOCYTES RELATIVE PERCENT (BEAKER) (test 11 % oxle=383) MONOCYTES RELATIVE PERCENT (BEAKER) (test 14 % flqp=002) EOSINOPHILS RELATIVE PERCENT (BEAKER) (test 2 % ebxj=665) BASOPHILS RELATIVE PERCENT (BEAKER) (test 0 % beop=713) NEUTROPHILS ABSOLUTE COUNT (BEAKER) (test 3.96 K/ L 1.78-5.38 avsl=876) LYMPHOCYTES ABSOLUTE COUNT (BEAKER) (test 0.59 K/ L 1.32-3.57 qgoc=719) MONOCYTES ABSOLUTE COUNT (BEAKER) (test 0.75 K/ L 0.30-0.82 epov=910) EOSINOPHILS ABSOLUTE COUNT (BEAKER) (test 0.09 K/ L 0.04-0.54 lzaz=598) BASOPHILS ABSOLUTE COUNT (BEAKER) (test 0.02 K/ L 0.01-0.08 zwkx=845) IMMATURE GRANULOCYTES-RELATIVE PERCENT (BEAKER) 0 % 0-1 (test nguv=7299) URINALYSIS W/ REFLEX URINE [id number] 08:22:00 Test Item Value Reference Range Comments COLOR (BEAKER) (test atqz=544) Yellow CLARITY (BEAKER) (test wnnj=793) Clear SPECIFIC GRAVITY UA (BEAKER) (test urau=200) 1.020 1.001-1.035 PH UA (BEAKER) (test lhwg=190) 6.0 5.0-8.0 PROTEIN UA (BEAKER) (test rvtd=405) 10 mg/dL Negative GLUCOSE UA (BEAKER) (test ktgv=780) Negative Negative KETONES UA (BEAKER) (test vlin=476) Negative Negative BILIRUBIN UA (BEAKER) (test rinp=397) Negative Negative BLOOD UA (BEAKER) (test wedr=538) Negative Negative NITRITE UA (BEAKER) (test wfbz=377) Negative Negative LEUKOCYTE ESTERASE UA (BEAKER) (test ofzm=815) Negative Negative UROBILINOGEN UA (BEAKER) (test fcqd=493) 0.2 mg/dL 0.2-1.0 RBC UA (BEAKER) (test vyns=190) 3 /HPF WBC UA (BEAKER) (test bajx=155) 1 /HPF MUCUS (BEAKER) (test isyc=6210) Rare SQUAMOUS EPITHELIAL (BEAKER) (test ezhi=025) 5 /HPF HYALINE CASTS (BEAKER) (test fcji=572) 17 /LPF AMORPHOUS CRYSTALS (BEAKER) (test rkyt=4038) Occasional SOURCE(BEAKER) (test eqsq=8604) POCT-GLUCOSE [id number] 08:20:00 Test Item Value Reference Range Comments POC-GLUCOSE METER (BEAKER) 120 mg/dL 70-110 TESTED AT [place] [address] [facility] (test dccy=7569) [facility] [address] RAPID DRUG SCREEN, [id number] 07:35:00 Test Item Value Reference Range Comments BARBITURATE URINE (BEAKER) (test ksca=206) Negative Negative BENZODIAZEPINE SCREEN URINE (BEAKER) (test Negative Negative ottp=577) COCAINE (METAB.) SCREEN (BEAKER) (test jdys=2083) Negative Negative METHADONE SCREEN (BEAKER) (test tgko=8727) Negative Negative OPIATE SCREEN URINE (BEAKER) (test qbte=627) Positive Negative CANNABINOID SCREEN URINE (BEAKER) (test cbki=274) Negative Negative AMPH/METHAMPH SCREEN (BEAKER) (test bmyn=1046) Negative Negative PHENCYCLIDINE SCREEN URINE (BEAKER) (test lfhq=350) Negative Negative OXYCODONE SCREEN URINE (BEAKER) (test eryh=8205) Negative Negative DRUG CUTOFF CONC.Cocaine 300 ng/mL Cannabinoid 50 ng/mL Benzodiazepine 200 ng/mLBarbiturate 200 ng/ mLPhencyclidine 25 ng/mLOpiate 300 ng/mLMethadone 300 ng/mLAmphetamine/ 1000 ng/mL MethamphetamineOxycodone 300 ng/mLThis assay provides an unconfirmed qualitative test result for the clinical management of patients in emergency situations. Chain of custody not maintained. Some lwwp-uyp-nzoaazn medications, as well as adulterants, may cause inaccurate results. Clinical correlation should be applied. A more comprehensive drug screen or confirmation of a detected drug may be performed upon request.HEPATIC FUNCTION [id number] 06:16:00 Test Item Value Reference Range Comments TOTAL PROTEIN (BEAKER) (test yuzv=269) 5.2 gm/dL 6.0-8.3 ALBUMIN (BEAKER) (test schb=6222) 2.1 g/dL 3.5-5.0 BILIRUBIN TOTAL (BEAKER) (test mdul=831) 0.3 mg/dL 0.2-1.2 BILIRUBIN DIRECT (BEAKER) (test knmr=698) 0.2 mg/dL 0.1-0.5 ALKALINE PHOSPHATASE (BEAKER) (test crdl=824) 154 U/L 40-150 AST (SGOT) (BEAKER) (test fkhq=860) 60 U/L 5-34 ALT (SGPT) (BEAKER) (test axbz=375) 20 U/L 6-55 [id number] 06:16:00 Test Item Value Reference Range Comments MAGNESIUM (BEAKER) (test dbtt=287) 1.7 mg/dL 1.6-2.6 [id number] 06:16:00 Test Item Value Reference Range Comments PHOSPHORUS (BEAKER) (test jyjo=159) 3.3 mg/dL 2.3-4.7 BASIC METABOLIC [id number] 06:16:00 Test Item Value Reference Range Comments SODIUM (BEAKER) (test 132 meq/L 136-145 bjpd=457) POTASSIUM (BEAKER) (test 3.8 meq/L 3.5-5.1 aqqa=092) CHLORIDE (BEAKER) (test 103 meq/L 98-107 jpbt=446) CO2 (BEAKER) (test 21 meq/L 22-29 ggoc=140) BLOOD UREA NITROGEN 22 mg/dL 7-21 (BEAKER) (test lstw=741) CREATININE (BEAKER) (test 0.95 mg/dL 0.57-1.25 qozs=688) GLUCOSE RANDOM (BEAKER) 125 mg/dL 70-105 (test cmaz=608) CALCIUM (BEAKER) (test 8.5 mg/dL 8.4-10.2 ajww=743) EGFR (BEAKER) (test 81 mL/min/1.73 sq m ESTIMATED GFR IS NOT xsou=9829) ACCURATE CREATININE CLEARANCE IN PREDICTING GLOMERULAR FILTRATION RATE. ESTIMATED GFR IS NOT APPLICABLE FOR DIALYSIS PATIENTS. TROPONIN [id number] 06:13:00 Test Item Value Reference Range Comments TROPONIN I (BEAKER) (test dwaf=509) < ng/mL 0.00-0.03 Troponin I (TnI) levels must be interpreted [...] failure, acidosis, acute neurological disease, and persistent tachyarrhythmia.CBC W/PLT COUNT & AUTO [id number] 05:58:00 Test Item Value Reference Range Comments WHITE BLOOD CELL COUNT (BEAKER) (test pjqc=366) 5.4 K/ L 3.5-10.5 RED BLOOD CELL COUNT (BEAKER) (test dkcz=726) 2.41 M/ L 4.63-6.08 HEMOGLOBIN (BEAKER) (test hkyi=181) 7.4 GM/DL 13.7-17.5 HEMATOCRIT (BEAKER) (test yfir=871) 22.9 % 40.1-51.0 MEAN CORPUSCULAR VOLUME (BEAKER) (test ojax=107) 95.0 fL 79.0-92.2 MEAN CORPUSCULAR HEMOGLOBIN (BEAKER) (test 30.7 pg 25.7-32.2 atxv=089) MEAN CORPUSCULAR HEMOGLOBIN CONC (BEAKER) (test 32.3 GM/DL 32.3-36.5 ixxl=966) RED CELL DISTRIBUTION WIDTH (BEAKER) (test 16.8 % 11.6-14.4 niug=563) PLATELET COUNT (BEAKER) (test fqvc=420) 136 K/CU MM 150-450 MEAN PLATELET VOLUME (BEAKER) (test nmnl=272) 10.2 fL 9.4-12.4 NUCLEATED RED BLOOD CELLS (BEAKER) (test 0 /100 WBC 0-0 xwox=464) NEUTROPHILS RELATIVE PERCENT (BEAKER) (test 72 % zhzx=687) LYMPHOCYTES RELATIVE PERCENT (BEAKER) (test 9 % nugd=743) MONOCYTES RELATIVE PERCENT (BEAKER) (test 16 % qmay=915) EOSINOPHILS RELATIVE PERCENT (BEAKER) (test 2 % vpzi=863) BASOPHILS RELATIVE PERCENT (BEAKER) (test 1 % ynqr=232) NEUTROPHILS ABSOLUTE COUNT (BEAKER) (test 3.91 K/ L 1.78-5.38 zgqx=468) LYMPHOCYTES ABSOLUTE COUNT (BEAKER) (test 0.50 K/ L 1.32-3.57 sofk=508) MONOCYTES ABSOLUTE COUNT (BEAKER) (test 0.86 K/ L 0.30-0.82 zpcm=668) EOSINOPHILS ABSOLUTE COUNT (BEAKER) (test 0.12 K/ L 0.04-0.54 rebr=885) BASOPHILS ABSOLUTE COUNT (BEAKER) (test 0.03 K/ L 0.01-0.08 pkqp=380) IMMATURE GRANULOCYTES-RELATIVE PERCENT (BEAKER) 0 % 0-1 (test zhvi=2911) PROTHROMBIN TIME/[id number] 05:40:00 Test Item Value Reference Range Comments PROTIME (BEAKER) (test dbyq=894) 19.7 seconds 11.7-14.7 INR (BEAKER) (test ppan=946) 1.7 <=5.9 RECOMMENDED COUMADIN/WARFARIN INR THERAPY RANGESSTANDARD DOSE: 2.0 - 3.0 Includes: PROPHYLAXIS forvenous thrombosis, systemic embolization; TREATMENT for venous thrombosis and/or pulmonary embolus.HIGH RISK: Target INR is 2.5-3.5 for patients with mechanical heart valves.[id number] 05:40:00 Test Item Value Reference Range Comments PARTIAL THROMBOPLASTIN TIME (BEAKER) (test 31.1 seconds 22.5-36.0 vrvl=398) [id number] 05:37:00 Test Item Value Reference Range Comments AMMONIA (BEAKER) (test egbd=097) 33 mol/L 18-72 PHENYTOIN LEVEL, [id number] 05:30:00 Test Item Value Reference Range Comments PHENYTOIN (DILANTIN) (BEAKER) (test zenx=868) 12.4 ug/mL 10.0-20.0 BLOOD GAS, [id number] 05:29:00 Test Item Value Reference Range Comments PH ARTERIAL (BEAKER) (test ablb=829) 7.42 7.35-7.45 PCO2 ARTERIAL (BEAKER) (test sphc=936) 36 mmHg 35-45 PO2 ARTERIAL (BEAKER) (test vxjv=878) 204 mmHg 80-90 O2 SATURATION ARTERIAL (BEAKER) (test tfgk=298) 99.4 % 96.0-97.0 HCO3 ARTERIAL (BEAKER) (test iyha=203) 23 mmol/L 21-29 BASE EXCESS ARTERIAL (BEAKER) (test jnrb=249) -1.3 mmol/L -2.0-3.0 PATIENT TEMPERATURE (BEAKER) (test wfyj=0357) 36.4 C FIO2 (BEAKER) (test xahs=5480) 40.0 % LACTIC ACID, VENOUS, WHOLE [id number] 05:27:00 Test Item Value Reference Range Comments LACTATE BLOOD VENOUS (2) (BEAKER) (test 0.5 mmol/L 0.5-2.2 vfiy=1738) Effective 06/27/2015: Units/Reference Range ChangeNew: 0.5-2.2 mmol/L Previous: 5 -20 mg/dLRAD, CHEST, 1 VIEW, NON [id number] 04:42:00Reason for exam:-> pulm evaluationShould this be performed at the bedside?->YesFINAL REPORT EXAMINATION: AP PORTABLE CHEST RADIOGRAPH CLINICAL [...] osseous abnormality or pneumothorax. Signed: [facility] Verified Date/Time: 10/11/2017 04: 42:33Reading Location: [address] Reading Room
[2018-07-29 17:53] LABS: Absolute Lymphocytes (CBC) 1.2 K/uL (0.7-4.9); Absolute Monocytes 0.8 K/uL (0.1-1.3); Absolute Neutrophil 4.1 K/uL (1.8-8.0); Eosinophils % 1.5 % (0-4.4); Hematocrit 22.3 % (39.6-49.0); Lymphocytes % 19.3 % (15.3-44.8); MPV 7.5 fL (7.6-11.3); Monocytes % 12.6 % (3.3-12.3); RBC Red Blood Cell Count 2.21 M/uL (4.33-5.43)
[2018-07-29 18:18] LABS: ALT/SGPT 18 U/L (12-78); AST/SGOT 23 U/L (15-37); Albumin 2.7 g/dL (3.4-5.0); Alkaline Phosphatase 162 U/L (45-117); BUN Blood Urea Nitrogen 7 mg/dL (7-18); Bicarbonate 24 mmol/L (21-32); Bilirubin Total 0.1 mg/dL (0.2-1.0); Glucose Level 64 mg/dL (74-106); Potassium 3.9 mmol/L (3.5-5.1); Protein, Total 6.6 g/dL (6.4-8.2); Sodium Level 131 mmol/L (136-145)
[2018-07-29] MEDS ORDERED: CODEINE 30MG/APAP 300MG TAB ONE (18:31)
[2018-07-29] MEDS ORDERED: NA CHLORIDE 0.9% 500 ML ONE (20:04)
[2018-07-29] MEDS ORDERED: FENTANYL CITR 100 MCG/2 ML ONE (20:04)
[2018-07-29] MEDS ORDERED: DIPHENHYDRAMINE 50 MG/ML VIAL ONE (22:22)
[2018-07-29] MEDS ORDERED: HYDROCORTISONE SUC 100 MG INJ ONE (22:22)
--- NOTE | 2018-07-29 22:43 | EDPHYS ---
Physician Documentation [facility] Name: Rudolph Corral Age: 58 yrs Sex: Male : 1960 Arrival Date: 07/29/2018 Time: 16:55 Bed 24 Private MD: ED Physician HPI: 07/29 17:07 This 58 yrs old Male presents to ER via Ambulatory with complaints of Low jmm Hemoglobin. 17:07 Patient complains of fatigue, weakness which has been ongoing for approximately 1 jmm month. Patient currently denies chest pain or shortness of breath. patient was notified of low hemoglobin and advised by PCP to come to the ED for blood transfusion. . Onset: The symptoms/episode began/occurred gradually, 1 month(s) ago. The patient has not experienced similar symptoms in the past. Historical: - Allergies: 17:01 No Known Allergies; aj - Home Meds: 17:01 folic acid 1 mg Oral tab 1 tab once daily [Active]; Synthroid 137 mcg Oral tab 1 tab aj once daily [Active]; - PMHx: 17:01 bladder infection; DVT; GERD; Hypothyroidism; osteonecrosis of jaw; Throat Cancer-2012; aj - PSHx: 17:01 trach; PEG tube; aj - Immunization history:: Adult Immunizations up to date. - Social history:: Smoking status: Patient uses tobacco products, denies chronic smoking, but will smoke occasionally. - Ebola Screening: : Patient negative for fever greater than or equal to 101.5 degrees Fahrenheit, and additional compatible Ebola Virus Disease symptoms Patient denies exposure to infectious person Patient denies travel to an Ebola-affected area in the 21 days before illness onset No symptoms or risks identified at this time. ROS: 17:07 Constitutional: Positive for fatigue. jmm 17:07 Cardiovascular: Negative for chest pain. 17:07 Respiratory: Negative for shortness of breath. 17:07 Abdomen/GI: Negative for black/tarry stool. 17:07 All other systems are negative. Exam: 17:07 Head/Face: atraumatic. Eyes: EOMI, no conjunctival erythema appreciated ENT: Moist jmm Mucus Membranes Neck: Trachea midline, Supple Chest/axilla: Normal chest wall appearance and motion. 17:07 Constitutional: The patient appears in no acute distress, alert, awake. 17:07 Cardiovascular: Rate: normal, Rhythm: regular, Pulses: no pulse deficits are appreciated. 17:07 Respiratory: the patient does not display signs of respiratory distress, Respirations: normal, Breath sounds: are clear throughout. 17:07 Abdomen/GI: Inspection: abdomen appears normal, Bowel sounds: normal, Palpation: abdomen is soft and non-tender, in all quadrants. 17:07 Back: ROM is normal. 17:07 Musculoskeletal/extremity: ROM: intact in all extremities. 17:07 Skin: Appearance: Color: normal in color, Temperature: normal temperature. 17:07 Neuro: Orientation: is normal, Mentation: is normal, Memory: is normal, Gait: is steady. 17:07 Psych: Behavior/mood is pleasant, cooperative. Vital Signs: 17:01 BP 107 / 65; Pulse 80; Resp 21; Temp 97.9; Weight 61.23 kg; Height 6 ft. 0 in. (182.88 aj cm); 18:34 BP 157 / 62; Pulse 71; Resp 16; Temp 97.8; Pulse Ox 99% on R/A; Pain 7/10; ch 19:31 BP 160 / 64; Pulse 76; Resp 18; Temp 98.8; Pulse Ox 99% on R/A; Pain 7/10; ch 21:17 BP 151 / 67; Pulse 85; Resp 18; Temp 97.4; Pulse Ox 99% on R/A; Pain 7/10; ch 22:01 BP 140 / 101; Pulse 92; Resp 18; Temp 97.4; Pulse Ox 100% on R/A; Pain 7/10; ch 23:00 BP 146 / 92; Pulse 74; Resp 14; Temp 98; Pulse Ox 100% on R/A; Pain 7/10; ch 17:01 Body Mass Index 18.31 (61.23 kg, 182.88 cm) aj MDM: 17:07 Patient medically screened. shayan 23:19 Data reviewed: vital signs, nurses notes. Counseling: I had a detailed discussion with anna the patient and/or guardian regarding: the historical points, exam findings, and any diagnostic results supporting the discharge/admit diagnosis, lab results. ED course: I discussed the patient with Dr. Brandt whom recommended giving the patient 1 unit of blood and will follow up in clinic next week. patient signed out ama before we could draw a repeat cbc. patient was made aware of the risks of leaving before final disposition and appears to be able to make rational decisions. . 07/29 17:10 Order name: CBC with Diff; Complete Time: 18:22 [facility] 07/29 17:10 Order name: CMP; Complete Time: 18:22 [facility] 07/29 17:10 Order name: Type And Screen [facility] 07/29 17:10 Order name: Saline Lock; Complete Time: 18:14 [facility] 07/29 19:16 Order name: Packed RBC Leukored EDMS Administered Medications: 11:50 Drug: NS 0.9% 500 ml Route: IV; Rate: bolus; Site: right forearm; ch 20:30 Follow up: IV Status: Completed infusion ch 18:14 Drug: Tylenol #3 (300 mg-30 mg) 1 tablet Route: PO; ch 18:35 Follow up: Response: No adverse reaction ch 20:08 Follow up: Response: No adverse reaction; No change in condition ch 19:50 Drug: fentaNYL (PF) 25 mcg Route: IVP; Site: right forearm; ch 20:08 Follow up: Response: No adverse reaction; Pain is decreased ch 20:30 Drug: Tylenol 650 mg Route: PO; ch 23:19 Follow up: Response: No adverse reaction ch 20:30 Drug: Benadryl 12.5 mg Route: IVP; Site: right forearm; ch 23:20 Follow up: Response: No adverse reaction ch 20:30 Drug: Solu-CORTEF 50 mg Route: IVP; Site: right forearm; ch 23:20 Follow up: Response: No adverse reaction ch Disposition: 07/30 07:13 Co-signature as Attending Physician, Mino Morales MD I agree with the assessment and shayan plan of care. Disposition: 07/29/18 22:43 Patient has left against medical advice. Impression: Anemia. - Patients states they are going to Home. - Condition is Stable. Follow up: Clyde Brandt MD; When: 2 - 3 days; Reason: Recheck today's complaints, Continuance of care, Re-evaluation by your physician. - Problem is new. - Symptoms are unchanged. Signatures: Dispatcher [employer] EDMS Bryanna Quintero RN RN ch Myers, Amanda, RN RN aj Anderson, Corey, MD MD cha Mickail, Joel, PA PA [facility] Corrections: (The following items were deleted from the chart) 07/29 19:15 19:10 ABO/RH typing ordered. [facility] 19:15 19:10 Antibody Screen ordered. [facility] 19:16 19:09 PACKED RBC LEUKORED -1+BB.LAB.BRZ ordered. [facility] 23:06 22:43 07/29/2018 22:43 Patients has left against medical advice. Impression: Anemia. Patient states they are going to Home. Condition is Stable. Follow up: Clyde Brandt; When: 2 - 3 days; Reason: Recheck today's complaints, Continuance of care, Re-evaluation by your physician. Problem is new. Symptoms are unchanged. [facility] : 23:07/29/2018 22:43 Patients has left against medical advice. Impression: Anemia. Patient states they are going to Home. Condition is Stable. Follow up: Clyde Brandt; When: 2 - 3 days; Reason: Recheck today's complaints, Continuance of care, Re-evaluation by your physician. Problem is new. Symptoms are unchanged. ch
--- NOTE | 2018-07-29 22:43 | ER ---
Nurse's Notes [facility] Name: Rudolph Corral Age: 58 yrs Sex: Male : 1960 Arrival Date: 07/29/2018 Time: 16:55 Bed 24 Private MD: Diagnosis: Anemia Presentation: 07/29 17:00 Presenting complaint: Patient states: Sent by Dr Huynh for low hemaglobin. Transition aj of care: patient was not received from another setting of care. Onset of symptoms was July 29, 2018. Risk Assessment: Do you want to hurt yourself or someone else? Patient reports no desire to harm self or others. Initial Sepsis Screen: Does the patient meet any 2 criteria? No. Patient's initial sepsis screen is negative. Does the patient have a suspected source of infection? No. Patient's initial sepsis screen is negative. Care prior to arrival: None. 17:00 Method Of Arrival: Ambulatory aj 17:00 Acuity: THEA 3 aj Triage Assessment: 17:01 General: Appears in no apparent distress. comfortable, Behavior is calm, cooperative, aj appropriate for age. Pain: Denies pain. Neuro: Level of Consciousness is awake, alert, obeys commands, Oriented to person, place, time, situation, Appropriate for age. Respiratory: Airway is patent Respiratory effort is even, unlabored, Respiratory pattern is regular, symmetrical. Respiratory: Reports shortness of breath. Derm: Skin is intact, is healthy with good turgor, Skin is pink, warm \\T\\ dry. normal. Musculoskeletal: Reports. Historical: - Allergies: 17:01 No Known Allergies; aj - Home Meds: 17:01 folic acid 1 mg Oral tab 1 tab once daily [Active]; Synthroid 137 mcg Oral tab 1 tab aj once daily [Active]; - PMHx: 17:01 bladder infection; DVT; GERD; Hypothyroidism; osteonecrosis of jaw; Throat Cancer-2012; aj - PSHx: 17: trach; PEG tube; aj - Immunization history:: Adult Immunizations up to date. - Social history:: Smoking status: Patient uses tobacco products, denies chronic smoking, but will smoke occasionally. - Ebola Screening: : Patient negative for fever greater than or equal to 101.5 degrees Fahrenheit, and additional compatible Ebola Virus Disease symptoms Patient denies exposure to infectious person Patient denies travel to an Ebola-affected area in the 21 days before illness onset No symptoms or risks identified at this time. Screenin:32 Abuse screen: Denies threats or abuse. Denies injuries from another. Nutritional sv screening: No deficits noted. Tuberculosis screening: No symptoms or risk factors identified. Fall Risk None identified. Assessment: 17:32 General: Appears in no apparent distress. comfortable, Behavior is calm, cooperative, sv appropriate for age. Pain: Complains of pain in head, neck, left arm and left leg Pain currently is 8 out of 10 on a pain scale. Pain began years ago. Neuro: No deficits noted. Neuro: Reports feeling tired and weak. Respiratory: Airway is patent Respiratory effort is even, unlabored. Derm: Skin is fragile, is thin, Skin is pale. 18:35 Reassessment: Patient appears in no apparent distress at this time. No changes from previously documented assessment. Patient and/or family updated on plan of care and expected duration. Pain level reassessed. Patient is alert, oriented x 3, equal unlabored respirations, skin warm/dry/pink. pt given wheelchair to sit in for comfort. Ulices in room to discuss plan of care with pt. no s/s of distress. Dr. Zamora to be contacted by Ulices. pt educated on non smoking facility and how pt is supposed to stay in his room. pt verb understanding. 19:58 Reassessment: Patient appears in no apparent distress at this time. Patient and/or family updated on plan of care and expected duration. Pain level reassessed. Patient is alert, oriented x 3, equal unlabored respirations, skin warm/dry/pink. pt stayin in room, hooked up to monitor, awaiting lab to call with the blood for the patient. no s/s of distress, pt requests more pain medication, pt medicated per orders. Reassessment: pt is missing from room, returned from outside to room. pt told if he wants to leave room again, especially after blood is running, he must sign an AMA paper. pt verb understanding. Cardiovascular: Denies chest pain, Heart tones S1 S2 present Capillary refill is sluggish in bilateral fingers Clubbing of nail beds is present Patient's skin is warm and dry. Pulses are all present. Edema is absent. Rhythm is regular. Respiratory: Airway via trache Trachea midline Respiratory pattern is regular, Breath sounds are coarse bilaterally. GI: Abdomen is flat, distended, pt has peg tube, site is clean without drainage, patent and flows freely to flush PEG tube in place, Site clean. : No signs and/or symptoms were reported regarding the genitourinary system. Musculoskeletal: Circulation, motion, and sensation intact. Capillary refill is > 3 seconds, in bilateral fingers. toes. 21:17 Reassessment: Patient appears in no apparent distress at this time. Patient and/or ch family updated on plan of care and expected duration. Pain level reassessed. Patient is alert, oriented x 3, equal unlabored respirations, skin warm/dry/pink. pt blood transfusing now, see transfusion sheet for details. pt tolerating well, states he feels good. pt oob to restroom, voids 350mL. 22:01 Reassessment: Patient appears in no apparent distress at this time. Patient and/or ch family updated on plan of care and expected duration. Pain level reassessed. Patient is alert, oriented x 3, equal unlabored respirations, skin warm/dry/pink. pt states he still has a headache, but he doesn't feel as tired. pt toleraing blood well, vs improved. Patient states feeling better. Patient states symptoms have improved. 22:30 Reassessment: Patient appears in no apparent distress at this time. Patient and/or ch family updated on plan of care and expected duration. Pain level reassessed. Patient is alert, oriented x 3, equal unlabored respirations, skin warm/dry/pink. Patient states feeling better. 23:00 Reassessment: Patient appears in no apparent distress at this time. Patient and/or ch family updated on plan of care and expected duration. Pain level reassessed. Patient is alert, oriented x 3, equal unlabored respirations, skin warm/dry/pink. pt states when the blood is finished he is leaving, whether we want him to or not. pt refuses other care. pt verb understanding of need to have repeat blood draw, and of further observation after transfusion. pt states "I am responsible for me, and Im Leaving. Ill come back Thursday at 0500 to get my blood rechecked, but if yall arent giving me something for my head im going." pt educated on having two rounds of narcotics for his headache. offered Tylenol, Motrin, or tordal, non narcotic interventions. pt refuses. pt states take this thing out of my arm, I am going home. Ulices notified, pt signs ama form and leaves . Patient states feeling better. Patient states symptoms have improved. Vital Signs: 17:01 BP 107 / 65; Pulse 80; Resp 21; Temp 97.9; Weight 61.23 kg; Height 6 ft. 0 in. (182.88 aj cm); 18:34 BP 157 / 62; Pulse 71; Resp 16; Temp 97.8; Pulse Ox 99% on R/A; Pain 7/10; ch 19:31 BP 160 / 64; Pulse 76; Resp 18; Temp 98.8; Pulse Ox 99% on R/A; Pain 7/10; ch 21:17 BP 151 / 67; Pulse 85; Resp 18; Temp 97.4; Pulse Ox 99% on R/A; Pain 7/10; ch 22:01 BP 140 / 101; Pulse 92; Resp 18; Temp 97.4; Pulse Ox 100% on R/A; Pain 7/10; ch 23:00 BP 146 / 92; Pulse 74; Resp 14; Temp 98; Pulse Ox 100% on R/A; Pain 7/10; ch 17:01 Body Mass Index 18.31 (61.23 kg, 182.88 cm) ED Course: 16:55 Patient arrived in ED. ds1 17:01 Triage completed. 17:01 Arm band placed on right wrist. Patient placed in an exam room. 17:06 Ulices Abarca PA is PHCP. [facility] 17:06 Mino Morales MD is Attending Physician. [facility] 17:16 Bryanna Quintero, LORENA is Primary Nurse. 17:32 Patient has correct armband on for positive identification. Placed in gown. Bed in low sv position. Call light in reach. Side rails up X 1. Pulse ox on. NIBP on. 18:19 Notified Nurse Practitioner and/or Physician [employer] Sensing Scientist of a critical lab result(s), sv hemoglobin-7.5. 18:40 No provider procedures requiring assistance completed. Inserted saline lock: 20 gauge ch in right forearm, using aseptic technique. Blood collected. started by Rola. 19:58 hall monitor on. Door closed. Noise minimized. Lights dimmed. Warm blanket given. ch Pillow given. 22:42 Clyde Brandt MD is Referral Physician. anna 23:00 IV discontinued, intact, bleeding controlled, No redness/swelling at site. Pressure ch dressing applied. 23:08 Primary Nurse role handed off by Bryanna Quintero RN 23:08 Attending Physician role handed off by Mino Morales MD ch 23:09 Bryanna Quintero RN is Primary Nurse. ch Administered Medications: 11:50 Drug: NS 0.9% 500 ml Route: IV; Rate: bolus; Site: right forearm; ch 20:30 Follow up: IV Status: Completed infusion ch 18:14 Drug: Tylenol #3 (300 mg-30 mg) 1 tablet Route: PO; ch 18:35 Follow up: Response: No adverse reaction ch 20:08 Follow up: Response: No adverse reaction; No change in condition ch 19:50 Drug: fentaNYL (PF) 25 mcg Route: IVP; Site: right forearm; ch 20:08 Follow up: Response: No adverse reaction; Pain is decreased ch 20:30 Drug: Tylenol 650 mg Route: PO; ch 23:19 Follow up: Response: No adverse reaction ch 20:30 Drug: Benadryl 12.5 mg Route: IVP; Site: right forearm; ch 23:20 Follow up: Response: No adverse reaction ch 20:30 Drug: Solu-CORTEF 50 mg Route: IVP; Site: right forearm; ch 23:20 Follow up: Response: No adverse reaction Outcome: 23:00 AMA AMA form signed ch 23:00 Condition: stable 23:00 Instructed on follow up and referral plans. return precautions for worsening in condition or concerns. 23:06 Patient left the ED. ch 23:09 Patient left the ED. Signatures: Bryanna Quintero RN RN ch Verde, Stephanie, RN RN sv Myers, Amanda, RN RN aj Mickail, Joel, PA PA jmm Sanford, Demi ds1 Corrections: (The following items were deleted from the chart) 22:03 18:34 BP 117 / 62; Pulse 71bpm; Resp 16bpm; Pulse Ox 99% RA; Temp 97.8F; Pain 7/10; ch ch 22:03 19:31 BP 106 / 64; Pulse 76bpm; Resp 18bpm; Pulse Ox 99% RA; Temp 98.8F; Pain 7/10; ch ch 23:16 23:10 Reassessment: Patient appears in no apparent distress at this time. Patient ch and/or family updated on plan of care and expected duration. Pain level reassessed. Patient is alert, oriented x 3, equal unlabored respirations, skin warm/dry/pink. Patient states feeling better. Patient states symptoms have improved. ch
[2018-07-30 01:02] VITALS: TEMP 97.4
[2018-07-30 01:03] VITALS: BP 140/101; O2SAT 100
== END 2018-07-29 23:09 | disposition left against medical advice (07) ==
LOC: ER 16:52
DX: D64.9 Anemia, unspecified (principal); K21.9 Gastro-esophageal reflux disease without esophagitis; E03.9 Hypothyroidism, unspecified; C14.0 Malignant neoplasm of pharynx, unspecified; Z72.0 Tobacco use; Z53.29 Procedure and treatment not carried out because of patient's decision for other reasons
CPT/HCPCS: 96361; 85025; 36415; 86900; 86850; 86901; 80053; 96375; 96374; 99284; J3010; P9016; J1720; 80061; 83036; 84443; 86803; 96372

== ENCOUNTER 2019-06-07 10:03 | Inpatient (IN) | payer OTHER ==
[2019-06-07] MEDS ORDERED: THIAMINE 200 MG/2 ML INJ ONE (10:22)
[2019-06-07] MEDS ORDERED: NA CHLORIDE 0.9% 1,000 ML ONE (10:23)
[2019-06-07 10:52] LABS: Absolute Lymphocytes (CBC) 0.4 K/uL (0.7-4.9); Basophils % 0.3 % (0-1.3); Hematocrit 32.2 % (39.6-49.0); Lymphocytes % 4.8 % (15.3-44.8); MPV 8.3 fL (7.6-11.3); RBC Red Blood Cell Count 3.24 M/uL (4.33-5.43)
[2019-06-07 10:53] LABS: Protime INR 1.12
--- OUTSIDE RECORDS SUMMARY | 2019-06-07 10:59 | XMS REPORT ---
:1960 Author Organization [facility] t Address [address] [place] [address] [address]. [address] [place] [address] Care Team Providers Name Role Phone COLT GRANADOS Unavailable Unavail able Problems This patient has no known problems. Allergies, Adverse Reactions, Alerts This patient has no known allergies or adverse reactions. Medications This patient has no known medications. Results Test Description Test Time Test Comments Text Results Atomic Results Result Comments POCT-GLUCOSE METER 2017-10-17 12:33:00 Test Item Value Reference Range Comments POC-GLUCOSE METER (BEAKER) (test 120 mg/dL 70-[address] [facility] [address] [facility] code = 1538) [facility] [address] [id number] 07:23:00 Test Item Value Reference Range Comments ALBUMIN (BEAKER) (test code = 1145) 1.7 g/dL 3.5-5.0 BASIC METABOLIC [id number] 07:20:00 Test Item Value Reference Range Comments SODIUM (BEAKER) (test 134 meq/L 136-145 code = 381) POTASSIUM (BEAKER) (test 4.3 meq/L 3.5-5.1 code = 379) CHLORIDE (BEAKER) (test 101 meq/L 98-107 code = 382) CO2 (BEAKER) (test code = 31 meq/L 22-29 355) BLOOD UREA NITROGEN 12 mg/dL 7-21 (BEAKER) (test code = 354) CREATININE (BEAKER) (test 0.45 mg/dL 0.57-1.25 code = 358) GLUCOSE RANDOM (BEAKER) 107 mg/dL 70-105 (test code = 652) CALCIUM (BEAKER) (test 8.3 mg/dL 8.4-10.2 code = 697) EGFR (BEAKER) (test code 192 mL/min/1.73 sq m ES TIMATED GFR IS NOT = 1092) ACCURATE CREA TININE CLEARANCE IN PRE DICTING GLOMERULAR FILTR ATION RATE. ESTIMATED GFR IS NOT APPLICABLE F OR DIALYSIS PATIENT S. PHENYTOIN LEVEL, [id number] 06:58:00 Test Item Value Reference Range Comments PHENYTOIN (DILANTIN) (BEAKER) (test code = 605) 14.6 ug/mL 10.0-20.0 POCT-GLUCOSE [id number] 06:33:00 Test Item Value Reference Range Comments POC-GLUCOSE METER (BEAKER) 119 mg/dL 70-110 TESTE D AT [address] (test code = 1538) [place] [address] POCT-GLUCOSE [id number] 00:39:00 Test Item Value Reference Range Comments POC-GLUCOSE METER (BEAKER) 145 mg/dL 70-110 TESTE D AT [address] (test code = 1538) [place] [address] POCT-GLUCOSE [id number] 18:03:00 Test Item Value Reference Range Comments POC-GLUCOSE METER (BEAKER) 140 mg/dL 70-110 TESTE D AT [address] (test code = 1538) [place] [address] POCT-GLUCOSE [id number] 12:40:00 Test Item Value Reference Range Comments POC-GLUCOSE METER (BEAKER) 152 mg/dL 70-110 TESTE D AT [address] (test code = 1538) [place] [address] BLOOD [id number] 11:00:00 Test Item Value Reference Range Comments CULTURE (BEAKER) (test code = 1095) No growth in 5 days BLOOD [id number] 11:00:00 Test Item Value Reference Range Comments CULTURE (BEAKER) (test code = 1095) No growth in 5 days POCT-GLUCOSE [id number] 06:09:00 Test Item Value Reference Range Comments POC-GLUCOSE METER (BEAKER) 158 mg/dL 70-110 TESTE D AT [address] (test code = 1538) [place] [address] BASIC METABOLIC [id number] 04:40:00 Test Item Value Reference Range Comments SODIUM (BEAKER) (test 138 meq/L 136-145 code = 381) POTASSIUM (BEAKER) (test 4.0 meq/L 3.5-5.1 code = 379) CHLORIDE (BEAKER) (test 107 meq/L 98-107 code = 382) CO2 (BEAKER) (test code = 24 meq/L 22-29 355) BLOOD UREA NITROGEN 9 mg/dL 7-21 (BEAKER) (test code = 354) CREATININE (BEAKER) (test 0.50 mg/dL 0.57-1.25 code = 358) GLUCOSE RANDOM (BEAKER) 109 mg/dL 70-105 (test code = 652) CALCIUM (BEAKER) (test 8.3 mg/dL 8.4-10.2 code = 697) EGFR (BEAKER) (test code 170 mL/min/1.73 sq m ES TIMATED GFR IS NOT = 1092) ACCURATE CREA TININE CLEARANCE IN PRE DICTING GLOMERULAR FILTR ATION RATE. ESTIMATED GFR IS NOT APPLICABLE F OR DIALYSIS PATIENT S. POCT-GLUCOSE [id number] 00:15:00 Test Item Value Reference Range Comments POC-GLUCOSE METER (BEAKER) 146 mg/dL 70-110 TESTE D AT [address] (test code = 1538) [place] [address] POCT-GLUCOSE [id number] 18:30:00 Test Item Value Reference Range Comments POC-GLUCOSE METER (BEAKER) 150 mg/dL 70-110 TESTE D AT [address] (test code = 1538) [place] [address] POCT-GLUCOSE [id number] 13:13:00 Test Item Value Reference Range Comments POC-GLUCOSE METER (BEAKER) 135 mg/dL 70-110 TESTE D AT [address] (test code = 1538) [place] [address] POCT-GLUCOSE [id number] 06:12:00 Test Item Value Reference Range Comments POC-GLUCOSE METER (BEAKER) 148 mg/dL 70-110 TESTE D AT [address] (test code = 1538) [place] [address] PHENYTOIN LEVEL, [id number] 05:12:00 Test Item Value Reference Range Comments PHENYTOIN (DILANTIN) (BEAKER) (test code = 605) 15.3 ug/mL 10.0-20.0 BASIC METABOLIC [id number] 05:12:00 Test Item Value Reference Range Comments SODIUM (BEAKER) (test 139 meq/L 136-145 code = 381) POTASSIUM (BEAKER) (test 3.0 meq/L 3.5-5.1 code = 379) CHLORIDE (BEAKER) (test 110 meq/L 98-107 code = 382) CO2 (BEAKER) (test code = 23 meq/L 22-29 355) BLOOD UREA NITROGEN 4 mg/dL 7-21 (BEAKER) (test code = 354) CREATININE (BEAKER) (test 0.50 mg/dL 0.57-1.25 code = 358) GLUCOSE RANDOM (BEAKER) 128 mg/dL 70-105 (test code = 652) CALCIUM (BEAKER) (test 7.9 mg/dL 8.4-10.2 code = 697) EGFR (BEAKER) (test code 170 mL/min/1.73 sq m ES TIMATED GFR IS NOT = 1092) ACCURATE CREA TININE CLEARANCE IN PRE DICTING GLOMERULAR FILTR ATION RATE. ESTIMATED GFR IS NOT APPLICABLE F OR DIALYSIS PATIENT S. [id number] 05:12:00 Test Item Value Reference Range Comments ALBUMIN (BEAKER) (test code = 1145) 1.8 g/dL 3.5-5.0 CBC W/PLT COUNT & AUTO [id number] 00:01:00 Test Item Value Reference Range Comments WHITE BLOOD CELL COUNT (BEAKER) (test code = 10.1 K/ L 3.5 -10.5 775) RED BLOOD CELL COUNT (BEAKER) (test code = 761) 3.09 M/ L 4.63-6.08 HEMOGLOBIN (BEAKER) (test code = 410) 9.1 GM/DL 13.7-17.5 HEMATOCRIT (BEAKER) (test code = 411) 28.6 % 40.1-51.0 MEAN CORPUSCULAR VOLUME (BEAKER) (test code = 92.6 fL 79 .0-92.2 753) MEAN CORPUSCULAR HEMOGLOBIN (BEAKER) (test code 29.4 pg 25.7-32.2 = 751) MEAN CORPUSCULAR HEMOGLOBIN CONC (BEAKER) (test 31.8 GM/DL 32.3-36.5 code = 752) RED CELL DISTRIBUTION WIDTH (BEAKER) (test code 18.9 % 11.6-14.4 = 412) PLATELET COUNT (BEAKER) (test code = 756) 237 K/CU MM 150-45 0 MEAN PLATELET VOLUME (BEAKER) (test code = 754) 9.7 fL 9.4-12.4 NUCLEATED RED BLOOD CELLS (BEAKER) (test code = 0 /100 WBC 0-0 413) NEUTROPHILS RELATIVE PERCENT (BEAKER) (test code 77 % = 429) LYMPHOCYTES RELATIVE PERCENT (BEAKER) (test code 8 % = 430) MONOCYTES RELATIVE PERCENT (BEAKER) (test code = 10 % 431) EOSINOPHILS RELATIVE PERCENT (BEAKER) (test code 3 % = 432) BASOPHILS RELATIVE PERCENT (BEAKER) (test code = 1 % 437) NEUTROPHILS ABSOLUTE COUNT (BEAKER) (test code = 7.79 K/ L 1.78-5.38 670) LYMPHOCYTES ABSOLUTE COUNT (BEAKER) (test code = 0.83 K/ L 1.32-3.57 414) MONOCYTES ABSOLUTE COUNT (BEAKER) (test code = 1.00 K/ L 0 .30-0.82 415) EOSINOPHILS ABSOLUTE COUNT (BEAKER) (test code = 0.33 K/ L 0.04-0.54 416) BASOPHILS ABSOLUTE COUNT (BEAKER) (test code = 0.08 K/ L 0 .01-0.08 417) IMMATURE GRANULOCYTES-RELATIVE PERCENT (BEAKER) 1 % 0-1 (test code = 2801) POCT-GLUCOSE [id number] 23:27:00 Test Item Value Reference Range Comments POC-GLUCOSE METER (BEAKER) 96 mg/dL 70-110 TESTE D AT [address] (test code = 1538) [place] [address] POCT-GLUCOSE [id number] 18:32:00 Test Item Value Reference Range Comments POC-GLUCOSE METER (BEAKER) 84 mg/dL 70-110 TESTE D AT [address] (test code = 1538) [place] [address] POCT-GLUCOSE [id number] 12:13:00 Test Item Value Reference Range Comments POC-GLUCOSE METER (BEAKER) 105 mg/dL 70-110 TESTE D AT [address] (test code = 1538) [place] [address] CBC W/PLT COUNT & AUTO [id number] 07:24:00 Test Item Value Reference Range Comments WHITE BLOOD CELL COUNT (BEAKER) (test code = 9.5 K/ L 3.5 -10.5 775) RED BLOOD CELL COUNT (BEAKER) (test code = 761) 3.13 M/ L 4.63-6.08 HEMOGLOBIN (BEAKER) (test code = 410) 9.3 GM/DL 13.7-17.5 HEMATOCRIT (BEAKER) (test code = 411) 30.0 % 40.1-51.0 MEAN CORPUSCULAR VOLUME (BEAKER) (test code = 95.8 fL 79 .0-92.2 753) MEAN CORPUSCULAR HEMOGLOBIN (BEAKER) (test code 29.7 pg 25.7-32.2 = 751) MEAN CORPUSCULAR HEMOGLOBIN CONC (BEAKER) (test 31.0 GM/DL 32.3-36.5 code = 752) RED CELL DISTRIBUTION WIDTH (BEAKER) (test code 19.2 % 11.6-14.4 = 412) PLATELET COUNT (BEAKER) (test code = 756) 244 K/CU MM 150-45 0 MEAN PLATELET VOLUME (BEAKER) (test code = 754) 9.7 fL 9.4-12.4 NUCLEATED RED BLOOD CELLS (BEAKER) (test code = 0 /100 WBC 0-0 413) NEUTROPHILS RELATIVE PERCENT (BEAKER) (test code 77 % = 429) LYMPHOCYTES RELATIVE PERCENT (BEAKER) (test code 9 % = 430) MONOCYTES RELATIVE PERCENT (BEAKER) (test code = 11 % 431) EOSINOPHILS RELATIVE PERCENT (BEAKER) (test code 2 % = 432) BASOPHILS RELATIVE PERCENT (BEAKER) (test code = 1 % 437) NEUTROPHILS ABSOLUTE COUNT (BEAKER) (test code = 7.26 K/ L 1.78-5.38 670) LYMPHOCYTES ABSOLUTE COUNT (BEAKER) (test code = 0.87 K/ L 1.32-3.57 414) MONOCYTES ABSOLUTE COUNT (BEAKER) (test code = 1.04 K/ L 0 .30-0.82 415) EOSINOPHILS ABSOLUTE COUNT (BEAKER) (test code = 0.17 K/ L 0.04-0.54 416) BASOPHILS ABSOLUTE COUNT (BEAKER) (test code = 0.05 K/ L 0 .01-0.08 417) IMMATURE GRANULOCYTES-RELATIVE PERCENT (BEAKER) 1 % 0-1 (test code = 2801) BASIC METABOLIC [id number] 07:15:00 Test Item Value Reference Range Comments SODIUM (BEAKER) (test 138 meq/L 136-145 code = 381) POTASSIUM (BEAKER) (test 3.6 meq/L 3.5-5.1 code = 379) CHLORIDE (BEAKER) (test 110 meq/L 98-107 code = 382) CO2 (BEAKER) (test code = 18 meq/L 22-29 355) BLOOD UREA NITROGEN 5 mg/dL 7-21 (BEAKER) (test code = 354) CREATININE (BEAKER) (test 0.53 mg/dL 0.57-1.25 code = 358) GLUCOSE RANDOM (BEAKER) 94 mg/dL 70-105 (test code = 652) CALCIUM (BEAKER) (test 8.2 mg/dL 8.4-10.2 code = 697) EGFR (BEAKER) (test code 159 mL/min/1.73 sq m ES TIMATED GFR IS NOT = 1092) ACCURATE CREA TININE CLEARANCE IN PRE DICTING GLOMERULAR FILTR ATION RATE. ESTIMATED GFR IS NOT APPLICABLE F OR DIALYSIS PATIENT S. PROTHROMBIN [id number] 06:54:00 Test Item Value Reference Range Comments PROTIME (BEAKER) (test code = 759) 18.5 seconds 11.7-14.7 INR (BEAKER) (test code = 370) 1.5 <=5.9 RECOMMENDED COUMADIN/WARFARIN INR THERAPY RANGESSTANDARD DOSE: 2.0 - 3.0 Includes: PROPHYLAXIS forvenous thrombosis, systemic embolization; TREATMENT for venous thrombosis and/or pulmonary embolus.HIGH RISK: Target INR is 2.5-3.5 for patients with mechanical heart valves.ANG, CAVAL FILTER [id number] 20:35:00Reason for exam:->Hx of DVT, previously on [...] right common femoral vein and a 5 [place]amese omniflush catheter was placed over a wire into the inferior vena cava. An inferior venacavogram was performed. The catheter was then exchanged over a wire for a filter deployment sheath. A retrievable Option elite filter was successfully deployed in infrarenal IVC without complications. Findings: Inferi or venacavogram demonstrates a patent IVC without visible [...] beyond this time period. Signed: Gail Dalton Verified Date/Time: 10/13/2017 20:35:13 Reading Location: [place] [address] [facility] Reading Room [id number] 14:44:00 Test Item Value Reference Range Comments POTASSIUM (BEAKER) (test code = 379) 3.7 meq/L 3.5-5.1 [id number] 05:53:00 Test Item Value Reference Range Comments PROTIME (BEAKER) (test code = 759) 16.2 seconds 11.7-14.7 INR (BEAKER) (test code = 370) 1.3 <=5.9 PARTIAL THROMBOPLASTIN TIME (BEAKER) (test code 44.9 seconds 22.5-36.0 = 760) RECOMMENDED COUMADIN/WARFARIN INR THERAPY RANGESSTANDARD DOSE: 2.0 - 3.0 Includes: PROPHYLAXIS forvenous thrombosis, systemic embolization; TREATMENT for venous thrombosis and/or pulmonary embolus.HIGH RISK: Target INR is 2.5-3.5 for patients with mechanical heart valves.POCT-GLUCOSE [id number] 05:48:00 Test Item Value Reference Range Comments POC-GLUCOSE METER (BEAKER) 113 mg/dL 70-[address] [facility] [address] (test code = 1538) [place] [address] POCT-GLUCOSE [id number] 05:00:00 Test Item Value Reference Range Comments POC-GLUCOSE METER (BEAKER) 69 mg/dL 70-[address] [facility] [address] (test code = 1538) [place] [address] BASIC METABOLIC [id number] 04:46:00 Test Item Value Reference Range Comments SODIUM (BEAKER) (test 137 meq/L 136-145 code = 381) POTASSIUM (BEAKER) (test 3.5 meq/L 3.5-5.1 code = 379) CHLORIDE (BEAKER) (test 112 meq/L 98-107 code = 382) CO2 (BEAKER) (test code = 17 meq/L 22-29 355) BLOOD UREA NITROGEN 8 mg/dL 7-21 (BEAKER) (test code = 354) CREATININE (BEAKER) (test 0.53 mg/dL 0.57-1.25 code = 358) GLUCOSE RANDOM (BEAKER) 68 mg/dL 70-105 (test code = 652) CALCIUM (BEAKER) (test 7.6 mg/dL 8.4-10.2 code = 697) EGFR (BEAKER) (test code 159 mL/min/1.73 sq m ES TIMATED GFR IS NOT = 1092) ACCURATE CREA TININE CLEARANCE IN PRE DICTING GLOMERULAR FILTR ATION RATE. ESTIMATED GFR IS NOT APPLICABLE F OR DIALYSIS PATIENT S. CBC W/PLT COUNT & AUTO [id number] 04:26:00 Test Item Value Reference Range Comments WHITE BLOOD CELL COUNT (BEAKER) (test code = 6.1 K/ L 3.5 -10.5 775) RED BLOOD CELL COUNT (BEAKER) (test code = 761) 2.98 M/ L 4.63-6.08 HEMOGLOBIN (BEAKER) (test code = 410) 8.9 GM/DL 13.7-17.5 HEMATOCRIT (BEAKER) (test code = 411) 28.1 % 40.1-51.0 MEAN CORPUSCULAR VOLUME (BEAKER) (test code = 94.3 fL 79 .0-92.2 753) MEAN CORPUSCULAR HEMOGLOBIN (BEAKER) (test code 29.9 pg 25.7-32.2 = 751) MEAN CORPUSCULAR HEMOGLOBIN CONC (BEAKER) (test 31.7 GM/DL 32.3-36.5 code = 752) RED CELL DISTRIBUTION WIDTH (BEAKER) (test code 19.1 % 11.6-14.4 = 412) PLATELET COUNT (BEAKER) (test code = 756) 191 K/CU MM 150-45 0 MEAN PLATELET VOLUME (BEAKER) (test code = 754) 9.4 fL 9.4-12.4 NUCLEATED RED BLOOD CELLS (BEAKER) (test code = 0 /100 WBC 0-0 413) NEUTROPHILS RELATIVE PERCENT (BEAKER) (test code 66 % = 429) LYMPHOCYTES RELATIVE PERCENT (BEAKER) (test code 12 % = 430) MONOCYTES RELATIVE PERCENT (BEAKER) (test code = 14 % 431) EOSINOPHILS RELATIVE PERCENT (BEAKER) (test code 5 % = 432) BASOPHILS RELATIVE PERCENT (BEAKER) (test code = 1 % 437) NEUTROPHILS ABSOLUTE COUNT (BEAKER) (test code = 4.02 K/ L 1.78-5.38 670) LYMPHOCYTES ABSOLUTE COUNT (BEAKER) (test code = 0.75 K/ L 1.32-3.57 414) MONOCYTES ABSOLUTE COUNT (BEAKER) (test code = 0.87 K/ L 0 .30-0.82 415) EOSINOPHILS ABSOLUTE COUNT (BEAKER) (test code = 0.32 K/ L 0.04-0.54 416) BASOPHILS ABSOLUTE COUNT (BEAKER) (test code = 0.06 K/ L 0 .01-0.08 417) IMMATURE GRANULOCYTES-RELATIVE PERCENT (BEAKER) 1 % 0-1 (test code = 2801) [id number] 11:52:00 Test Item Value Reference Range Comments PROCALCITONIN (BEAKER) (test code = 3036) 0.60 ng/mL <0.05 SEPSIS RISK (ng/mL)Low: 0.05-0.50Intermediate: 0.51-2.00High: >=2.01URINALYSIS W/ [id number] 10:15:00 Test Item Value Reference Range Comments COLOR (BEAKER) (test code = 470) Yellow CLARITY (BEAKER) (test code = 469) Clear SPECIFIC GRAVITY UA (BEAKER) (test code = 468) 1.036 1 .001-1.035 PH UA (BEAKER) (test code = 467) 5.5 5.0-8.0 PROTEIN UA (BEAKER) (test code = 464) Negative Negative GLUCOSE UA (BEAKER) (test code = 365) Negative Negative KETONES UA (BEAKER) (test code = 371) Trace Negative BILIRUBIN UA (BEAKER) (test code = 462) Negative Negative BLOOD UA (BEAKER) (test code = 461) Negative Negative NITRITE UA (BEAKER) (test code = 465) Negative Negative LEUKOCYTE ESTERASE UA (BEAKER) (test code = Negative Nega tive 466) UROBILINOGEN UA (BEAKER) (test code = 463) 0.2 mg/dL 0.2-1 .0 RBC UA (BEAKER) (test code = 519) < /HPF WBC UA (BEAKER) (test code = 520) 1 /HPF MUCUS (BEAKER) (test code = 1574) Rare SOURCE(BEAKER) (test code = 2791) Urine, Roy BASIC METABOLIC [id number] 04:13:00 Test Item Value Reference Range Comments SODIUM (BEAKER) (test 134 meq/L 136-145 code = 381) POTASSIUM (BEAKER) (test 4.0 meq/L 3.5-5.1 code = 379) CHLORIDE (BEAKER) (test 110 meq/L 98-107 code = 382) CO2 (BEAKER) (test code = 18 meq/L 22-29 355) BLOOD UREA NITROGEN 15 mg/dL 7-21 (BEAKER) (test code = 354) CREATININE (BEAKER) (test 0.64 mg/dL 0.57-1.25 code = 358) GLUCOSE RANDOM (BEAKER) 76 mg/dL 70-105 (test code = 652) CALCIUM (BEAKER) (test 7.8 mg/dL 8.4-10.2 code = 697) EGFR (BEAKER) (test code 128 mL/min/1.73 sq m ES TIMATED GFR IS NOT = 1092) ACCURATE CREA TININE CLEARANCE IN PRE DICTING GLOMERULAR FILTR ATION RATE. ESTIMATED GFR IS NOT APPLICABLE F OR DIALYSIS PATIENT S. CBC W/PLT COUNT & AUTO [id number] 03:55:00 Test Item Value Reference Range Comments WHITE BLOOD CELL COUNT (BEAKER) (test code = 5.9 K/ L 3.5 -10.5 775) RED BLOOD CELL COUNT (BEAKER) (test code = 761) 2.84 M/ L 4.63-6.08 HEMOGLOBIN (BEAKER) (test code = 410) 8.5 GM/DL 13.7-17.5 HEMATOCRIT (BEAKER) (test code = 411) 26.3 % 40.1-51.0 MEAN CORPUSCULAR VOLUME (BEAKER) (test code = 92.6 fL 79 .0-92.2 753) MEAN CORPUSCULAR HEMOGLOBIN (BEAKER) (test code 29.9 pg 25.7-32.2 = 751) MEAN CORPUSCULAR HEMOGLOBIN CONC (BEAKER) (test 32.3 GM/DL 32.3-36.5 code = 752) RED CELL DISTRIBUTION WIDTH (BEAKER) (test code 18.6 % 11.6-14.4 = 412) PLATELET COUNT (BEAKER) (test code = 756) 147 K/CU MM 150-45 0 MEAN PLATELET VOLUME (BEAKER) (test code = 754) 9.4 fL 9.4-12.4 NUCLEATED RED BLOOD CELLS (BEAKER) (test code = 0 /100 WBC 0-0 413) NEUTROPHILS RELATIVE PERCENT (BEAKER) (test code 70 % = 429) LYMPHOCYTES RELATIVE PERCENT (BEAKER) (test code 12 % = 430) MONOCYTES RELATIVE PERCENT (BEAKER) (test code = 12 % 431) EOSINOPHILS RELATIVE PERCENT (BEAKER) (test code 5 % = 432) BASOPHILS RELATIVE PERCENT (BEAKER) (test code = 1 % 437) NEUTROPHILS ABSOLUTE COUNT (BEAKER) (test code = 4.13 K/ L 1.78-5.38 670) LYMPHOCYTES ABSOLUTE COUNT (BEAKER) (test code = 0.69 K/ L 1.32-3.57 414) MONOCYTES ABSOLUTE COUNT (BEAKER) (test code = 0.73 K/ L 0 .30-0.82 415) EOSINOPHILS ABSOLUTE COUNT (BEAKER) (test code = 0.30 K/ L 0.04-0.54 416) BASOPHILS ABSOLUTE COUNT (BEAKER) (test code = 0.04 K/ L 0 .01-0.08 417) IMMATURE GRANULOCYTES-RELATIVE PERCENT (BEAKER) 1 % 0-1 (test code = 2801) CT, BRAIN, [id number] 01:49:00OK to go down without nurseFINAL REPORT [...] deep white matter changes are most conspicuous a long the frontal horns. No definite evidence of [...] well as the central arteries of the [place]. No definite evidence of abnormal contrast enhancement, however, the contrast-enhanced examination is degraded by motion. No evidence of an acute orbital process. The visualized paranasal sinuse s, tympanic cavities and mastoid air cells are well pneumatized. No evidence of an acute skull fracture. The mandibular condyles project anatomically. IMPRESSION: Motion degraded but grossly negative examination for an acute intracranial process. Chronic involutional and the deep white matter changes. Brain MRI (seizure protocol, preferably with gadolinium) could be performed for further evaluation if warranted. Signed: Stephanie Dey MDReport Verified Date/Time: 10/12/2017 01:49:16 Reading Location:[address] Reading Room NEFRANCIS [id number] 15:46:00 Test Item Value Reference Range Comments TROPONIN I (BEAKER) (test code = 397) < ng/mL 0.00-0.03 Troponin I (TnI) levels [...] acute neurological disease, and persistent tachyarrhythmia.BLOOD GAS, [id number] 15:22:00 Test Item Value Reference Range Comments PH ARTERIAL (BEAKER) (test code = 383) 7.44 7.35-7.45 PCO2 ARTERIAL (BEAKER) (test code = 384) 33 mmHg 35-45 PO2 ARTERIAL (BEAKER) (test code = 385) 121 mmHg 80-90 O2 SATURATION ARTERIAL (BEAKER) (test code = 98.6 % 96. 0-97.0 386) HCO3 ARTERIAL (BEAKER) (test code = 388) 22 mmol/L 21-29 BASE EXCESS ARTERIAL (BEAKER) (test code = 387) -2.1 mmol/L -2.0-3.0 PATIENT TEMPERATURE (BEAKER) (test code = 1818) 36.1 C FIO2 (BEAKER) (test code = 1819) 40.0 % EEG AWAKE AND [id number] 14:59:00Reason for exam:->new onset seizureShould this be performed at the bedside?->YesDates of EE10/11/17 DATE OF REPORT: 10/11/17 ACC: [id number] EEG Number: [id number] Test Location: Inpatient Start time: 10/11/17 at 13:40 Stop time: 10/11/17 at 14:00 ICD-10: R56.9 CPT Code:08277 HISTORY: 57 y/o right-handed male with history [...] No additional changes were seen. Impression: This p atient's EEG is abnormal due to moderate diffuse slowing of the background rhythms. There is no evidence for epileptiform abnormalities or electrographic seizure in this record. Clinical Correlation: Diffuse slowing as in this case supports an underlying moderate encephalopathy. Collins Covarrubias MD Clinical Neurophysiology Fellow Patricia Vu MD Attending Neurophysiologist T4, [id number] 11:19:00 Test Item Value Reference Range Comments FREE T4 (BEAKER) (test code = 655) 0.78 ng/dL 0.70-1.48 [id number] 10:53:00 Test Item Value Reference Range Comments PROCALCITONIN (BEAKER) (test code = 3036) 1.44 ng/mL <0.05 SEPSIS RISK (ng/mL)Low: 0.05-0.50Intermediate: 0.51-2.00High: >=[id number] 10:52:00 Test Item Value Reference Range Comments PROCALCITONIN (BEAKER) (test code = 3036) 1.74 ng/mL <0.05 SEPSIS RISK (ng/mL)Low: 0.05-0.50Intermediate: 0.51-2.00High: >=2.01TSH/FREE T4 IF [id number] 09:53:00 Test Item Value Reference Range Comments THYROID STIMULATING HORMONE (BEAKER) (test code 5.87 uIU/mL 0.35-4.94 = 772) [id number] 09:33:00 Test Item Value Reference Range Comments FERRITIN (BEAKER) (test code = 361) 1284 ng/mL 5-275 VITAMIN B12 AND [id number] 09:33:00 Test Item Value Reference Range Comments VITAMIN B12 (BEAKER) (test code = 774) 395 pg/mL 213-816 FOLATE (BEAKER) (test code = 362) 13.4 ng/mL >=7.0 [id number] 08:58:00 Test Item Value Reference Range Comments PREALBUMIN (BEAKER) (test code = 586) 5 mg/dL 14-45 IRON, TIBC, % SAT. (WITHOUT FERRITIN)[id number] 08:58:00 Test Item Value Reference Range Comments IRON (BEAKER) (test code = 547) 9 ug/dL 40-160 TOTAL IRON BINDING CAPACITY (BEAKER) (test code = 108 ug/dL 250-450 769) IRON % SATURATION (2) (BEAKER) (test code = 2590) 8 % 20-55 COMPREHENSIVE METABOLIC [id number] 08:44:00 Test Item Value Reference Range Comments TOTAL PROTEIN (BEAKER) 5.4 gm/dL 6.0-8.3 (test code = 770) ALBUMIN (BEAKER) (test 2.1 g/dL 3.5-5.0 code = 1145) ALKALINE PHOSPHATASE 155 U/L 40-150 (BEAKER) (test code = 346) BILIRUBIN TOTAL (BEAKER) 0.3 mg/dL 0.2-1.2 (test code = 377) SODIUM (BEAKER) (test code 132 meq/L 136-145 = 381) POTASSIUM (BEAKER) (test 3.9 meq/L 3.5-5.1 code = 379) CHLORIDE (BEAKER) (test 102 meq/L 98-107 code = 382) CO2 (BEAKER) (test code = 24 meq/L 22-29 355) BLOOD UREA NITROGEN 22 mg/dL 7-21 (BEAKER) (test code = 354) CREATININE (BEAKER) (test 0.94 mg/dL 0.57-1.25 code = 358) GLUCOSE RANDOM (BEAKER) 117 mg/dL 70-105 (test code = 652) CALCIUM (BEAKER) (test 8.5 mg/dL 8.4-10.2 code = 697) AST (SGOT) (BEAKER) (test 58 U/L 5-34 code = 353) ALT (SGPT) (BEAKER) (test 19 U/L 6-55 code = 347) EGFR (BEAKER) (test code = 82 mL/min/1.73 sq m E STIMATED GFR IS NOT 1092) ACCURATE CREA TININE CLEARANCE IN PRE DICTING GLOMERULAR FILTR ATION RATE. ESTIMATED GFR IS NOT APPLICABLE F OR DIALYSIS PATIENT S. LACTIC ACID, VENOUS, WHOLE [id number] 08:38:00 Test Item Value Reference Range Comments LACTATE BLOOD VENOUS (2) (BEAKER) (test code = 1.1 mmol/L 0 .5-2.2 2872) Effective 06/27/2015: Units/Reference Range ChangeNew: 0.5-2.2 mmol/L Previous: 5-20 mg/dLCBC W/PLT COUNT & AUTO [id number] 08:27:00 Test Item Value Reference Range Comments WHITE BLOOD CELL COUNT (BEAKER) (test code = 5.4 K/ L 3.5 -10.5 775) RED BLOOD CELL COUNT (BEAKER) (test code = 761) 2.39 M/ L 4.63-6.08 HEMOGLOBIN (BEAKER) (test code = 410) 7.3 GM/DL 13.7-17.5 HEMATOCRIT (BEAKER) (test code = 411) 23.0 % 40.1-51.0 MEAN CORPUSCULAR VOLUME (BEAKER) (test code = 96.2 fL 79 .0-92.2 753) MEAN CORPUSCULAR HEMOGLOBIN (BEAKER) (test code 30.5 pg 25.7-32.2 = 751) MEAN CORPUSCULAR HEMOGLOBIN CONC (BEAKER) (test 31.7 GM/DL 32.3-36.5 code = 752) RED CELL DISTRIBUTION WIDTH (BEAKER) (test code 17.0 % 11.6-14.4 = 412) PLATELET COUNT (BEAKER) (test code = 756) 142 K/CU MM 150-45 0 MEAN PLATELET VOLUME (BEAKER) (test code = 754) 10.2 fL 9.4-12.4 NUCLEATED RED BLOOD CELLS (BEAKER) (test code = 0 /100 WBC 0-0 413) NEUTROPHILS RELATIVE PERCENT (BEAKER) (test code 73 % = 429) LYMPHOCYTES RELATIVE PERCENT (BEAKER) (test code 11 % = 430) MONOCYTES RELATIVE PERCENT (BEAKER) (test code = 14 % 431) EOSINOPHILS RELATIVE PERCENT (BEAKER) (test code 2 % = 432) BASOPHILS RELATIVE PERCENT (BEAKER) (test code = 0 % 437) NEUTROPHILS ABSOLUTE COUNT (BEAKER) (test code = 3.96 K/ L 1.78-5.38 670) LYMPHOCYTES ABSOLUTE COUNT (BEAKER) (test code = 0.59 K/ L 1.32-3.57 414) MONOCYTES ABSOLUTE COUNT (BEAKER) (test code = 0.75 K/ L 0 .30-0.82 415) EOSINOPHILS ABSOLUTE COUNT (BEAKER) (test code = 0.09 K/ L 0.04-0.54 416) BASOPHILS ABSOLUTE COUNT (BEAKER) (test code = 0.02 K/ L 0 .01-0.08 417) IMMATURE GRANULOCYTES-RELATIVE PERCENT (BEAKER) 0 % 0-1 (test code = 2801) URINALYSIS W/ REFLEX URINE [id number] 08:22:00 Test Item Value Reference Range Comments COLOR (BEAKER) (test code = 470) Yellow CLARITY (BEAKER) (test code = 469) Clear SPECIFIC GRAVITY UA (BEAKER) (test code = 468) 1.020 1 .001-1.035 PH UA (BEAKER) (test code = 467) 6.0 5.0-8.0 PROTEIN UA (BEAKER) (test code = 464) 10 mg/dL Negative GLUCOSE UA (BEAKER) (test code = 365) Negative Negative KETONES UA (BEAKER) (test code = 371) Negative Negative BILIRUBIN UA (BEAKER) (test code = 462) Negative Negative BLOOD UA (BEAKER) (test code = 461) Negative Negative NITRITE UA (BEAKER) (test code = 465) Negative Negative LEUKOCYTE ESTERASE UA (BEAKER) (test code = 466) Negative Negative UROBILINOGEN UA (BEAKER) (test code = 463) 0.2 mg/dL 0.2-1 .0 RBC UA (BEAKER) (test code = 519) 3 /HPF WBC UA (BEAKER) (test code = 520) 1 /HPF MUCUS (BEAKER) (test code = 1574) Rare SQUAMOUS EPITHELIAL (BEAKER) (test code = 516) 5 /HPF HYALINE CASTS (BEAKER) (test code = 514) 17 /LPF AMORPHOUS CRYSTALS (BEAKER) (test code = 1584) Occasional SOURCE(BEAKER) (test code = 2795) POCT-GLUCOSE [id number] 08:20:00 Test Item Value Reference Range Comments POC-GLUCOSE METER (BEAKER) 120 mg/dL 70-[address] [facility] [address] [facility] (test code = 1538) [facility] 77 030 RAPID DRUG SCREEN, [id number] 07:35:00 Test Item Value Reference Range Comments BARBITURATE URINE (BEAKER) (test code = 725) Negative Neg ative BENZODIAZEPINE SCREEN URINE (BEAKER) (test code = Negative Negative 726) COCAINE (METAB.) SCREEN (BEAKER) (test code = 1164) Negative Negative METHADONE SCREEN (BEAKER) (test code = 1436) Negative Neg ative OPIATE SCREEN URINE (BEAKER) (test code = 734) Positive N egative CANNABINOID SCREEN URINE (BEAKER) (test code = 727) Negative Negative AMPH/METHAMPH SCREEN (BEAKER) (test code = 1438) Negative Negative PHENCYCLIDINE SCREEN URINE (BEAKER) (test code = Negative Negative 608) OXYCODONE SCREEN URINE (BEAKER) (test code = 2761) Negative Negative DRUG CUTOFF CONC.Cocaine 300 ng/mL Cannabinoid 50 ng/mL Benzodiazepine 200 ng/mLBarbiturate 200 ng/mLPhencyclidine 25 ng/mLOpiate 300 ng/mLMethadone 300 ng/mLAmphetamine/ 1000 ng/mL MethamphetamineOxycodone 300 ng/mLThis assay provides an unconfirmed qualitative test result for the clinical management of patients in emergency situations. Chain of custody not maintained. Some jayj-eei-smppkjw medications, as well as adulterants, may cause inaccurate results. Clinical correlation should be applied. A more comprehensive drug screen or confirmation of a detected drug may be performed upon request. HEPATIC FUNCTION [id number] 06:16:00 Test Item Value Reference Range Comments TOTAL PROTEIN (BEAKER) (test code = 770) 5.2 gm/dL 6.0-8.3 ALBUMIN (BEAKER) (test code = 1145) 2.1 g/dL 3.5-5.0 BILIRUBIN TOTAL (BEAKER) (test code = 377) 0.3 mg/dL 0.2-1 .2 BILIRUBIN DIRECT (BEAKER) (test code = 706) 0.2 mg/dL 0.1- 0.5 ALKALINE PHOSPHATASE (BEAKER) (test code = 346) 154 U/L 40-150 AST (SGOT) (BEAKER) (test code = 353) 60 U/L 5-34 ALT (SGPT) (BEAKER) (test code = 347) 20 U/L 6-55 [id number] 06:16:00 Test Item Value Reference Range Comments MAGNESIUM (BEAKER) (test code = 627) 1.7 mg/dL 1.6-2.6 [id number] 06:16:00 Test Item Value Reference Range Comments PHOSPHORUS (BEAKER) (test code = 604) 3.3 mg/dL 2.3-4.7 BASIC METABOLIC [id number] 06:16:00 Test Item Value Reference Range Comments SODIUM (BEAKER) (test 132 meq/L 136-145 code = 381) POTASSIUM (BEAKER) (test 3.8 meq/L 3.5-5.1 code = 379) CHLORIDE (BEAKER) (test 103 meq/L 98-107 code = 382) CO2 (BEAKER) (test code = 21 meq/L 22-29 355) BLOOD UREA NITROGEN 22 mg/dL 7-21 (BEAKER) (test code = 354) CREATININE (BEAKER) (test 0.95 mg/dL 0.57-1.25 code = 358) GLUCOSE RANDOM (BEAKER) 125 mg/dL 70-105 (test code = 652) CALCIUM (BEAKER) (test 8.5 mg/dL 8.4-10.2 code = 697) EGFR (BEAKER) (test code 81 mL/min/1.73 sq m EST IMATED GFR IS NOT = 1092) ACCURATE CREA TININE CLEARANCE IN PRE DICTING GLOMERULAR FILTR ATION RATE. ESTIMATED GFR IS NOT APPLICABLE F OR DIALYSIS PATIENT S. TROPONIN [id number] 06:13:00 Test Item Value Reference Range Comments TROPONIN I (BEAKER) (test code = 397) < ng/mL 0.00-0.03 Troponin I (TnI) levels [...] and persistent tachyarrhythmia.CBC W/PLT COUNT & AUTO DIFFERENTIAL 2017-10-11 05:58:00 Test Item Value Reference Range Comments WHITE BLOOD CELL COUNT (BEAKER) (test code = 5.4 K/ L 3.5 -10.5 775) RED BLOOD CELL COUNT (BEAKER) (test code = 761) 2.41 M/ L 4.63-6.08 HEMOGLOBIN (BEAKER) (test code = 410) 7.4 GM/DL 13.7-17.5 HEMATOCRIT (BEAKER) (test code = 411) 22.9 % 40.1-51.0 MEAN CORPUSCULAR VOLUME (BEAKER) (test code = 95.0 fL 79 .0-92.2 753) MEAN CORPUSCULAR HEMOGLOBIN (BEAKER) (test code 30.7 pg 25.7-32.2 = 751) MEAN CORPUSCULAR HEMOGLOBIN CONC (BEAKER) (test 32.3 GM/DL 32.3-36.5 code = 752) RED CELL DISTRIBUTION WIDTH (BEAKER) (test code 16.8 % 11.6-14.4 = 412) PLATELET COUNT (BEAKER) (test code = 756) 136 K/CU MM 150-45 0 MEAN PLATELET VOLUME (BEAKER) (test code = 754) 10.2 fL 9.4-12.4 NUCLEATED RED BLOOD CELLS (BEAKER) (test code = 0 /100 WBC 0-0 413) NEUTROPHILS RELATIVE PERCENT (BEAKER) (test code 72 % = 429) LYMPHOCYTES RELATIVE PERCENT (BEAKER) (test code 9 % = 430) MONOCYTES RELATIVE PERCENT (BEAKER) (test code = 16 % 431) EOSINOPHILS RELATIVE PERCENT (BEAKER) (test code 2 % = 432) BASOPHILS RELATIVE PERCENT (BEAKER) (test code = 1 % 437) NEUTROPHILS ABSOLUTE COUNT (BEAKER) (test code = 3.91 K/ L 1.78-5.38 670) LYMPHOCYTES ABSOLUTE COUNT (BEAKER) (test code = 0.50 K/ L 1.32-3.57 414) MONOCYTES ABSOLUTE COUNT (BEAKER) (test code = 0.86 K/ L 0 .30-0.82 415) EOSINOPHILS ABSOLUTE COUNT (BEAKER) (test code = 0.12 K/ L 0.04-0.54 416) BASOPHILS ABSOLUTE COUNT (BEAKER) (test code = 0.03 K/ L 0 .01-0.08 417) IMMATURE GRANULOCYTES-RELATIVE PERCENT (BEAKER) 0 % 0-1 (test code = 2801) PROTHROMBIN [id number] 05:40:00 Test Item Value Reference Range Comments PROTIME (BEAKER) (test code = 759) 19.7 seconds 11.7-14.7 INR (BEAKER) (test code = 370) 1.7 <=5.9 RECOMMENDED COUMADIN/WARFARIN INR THERAPY RANGESSTANDARD DOSE: 2.0 - 3.0 Includes: PROPHYLAXIS forvenous thrombosis, systemic embolization; TREATMENT for venous thrombosis and/or pulmonary embolus.HIGH RISK: Target INR is 2.5-3.5 for patients with mechanical heart valves.[id number] 05:40:00 Test Item Value Reference Range Comments PARTIAL THROMBOPLASTIN TIME (BEAKER) (test code 31.1 seconds 22.5-36.0 = 760) [id number] 05:37:00 Test Item Value Reference Range Comments AMMONIA (BEAKER) (test code = 348) 33 mol/L 18-72 PHENYTOIN LEVEL, [id number] 05:30:00 Test Item Value Reference Range Comments PHENYTOIN (DILANTIN) (BEAKER) (test code = 605) 12.4 ug/mL 10.0-20.0 BLOOD GAS, [id number] 05:29:00 Test Item Value Reference Range Comments PH ARTERIAL (BEAKER) (test code = 383) 7.42 7.35-7.45 PCO2 ARTERIAL (BEAKER) (test code = 384) 36 mmHg 35-45 PO2 ARTERIAL (BEAKER) (test code = 385) 204 mmHg 80-90 O2 SATURATION ARTERIAL (BEAKER) (test code = 99.4 % 96. 0-97.0 386) HCO3 ARTERIAL (BEAKER) (test code = 388) 23 mmol/L 21-29 BASE EXCESS ARTERIAL (BEAKER) (test code = 387) -1.3 mmol/L -2.0-3.0 PATIENT TEMPERATURE (BEAKER) (test code = 1818) 36.4 C FIO2 (BEAKER) (test code = 1819) 40.0 % LACTIC ACID, VENOUS, WHOLE [id number] 05:27:00 Test Item Value Reference Range Comments LACTATE BLOOD VENOUS (2) (BEAKER) (test code = 0.5 mmol/L 0 .5-2.2 2872) Effective 06/27/2015: Units/Reference Range ChangeNew: 0.5-2.2 mmol/L Previous: 5-20 mg/dLRAD, CHEST, 1 VIEW, NON [id number] 04:42:00Reason for exam:- >pulm evaluationShould this be performed at the bedside?->YesFINAL [...] osseous abnormality or pneumothorax. Signed: Stephanie Dey MDReport Verified Date/Time: 10/11/2017 04:42:33Reading Location: [address] Reading Room
[2019-06-07 11:11] LABS: ALT/SGPT 30 U/L (12-78); AST/SGOT 79 U/L (15-37); Albumin 2.7 g/dL (3.4-5.0); Alkaline Phosphatase 159 U/L (45-117); BUN Blood Urea Nitrogen 20 mg/dL (7-18); Bicarbonate 23 mmol/L (21-32); Bilirubin Direct 0.3 mg/dL (0-0.2); Bilirubin Total 0.8 mg/dL (0.2-1.0); Creatine Phosphokinase 644 U/L (39-308); Lipase 29 U/L (73-393); Magnesium 2.2 mg/dL (1.8-2.4); NT PRO-BNP 8126 pg/mL (<125); Potassium 4.8 mmol/L (3.5-5.1); Protein, Total 6.9 g/dL (6.4-8.2); Sodium Level 134 mmol/L (136-145); Troponin (Emerg Dept Use Only) < 0.02 ng/mL (0.0-0.045)
[2019-06-07 11:13] LABS: Glucose Level 47 mg/dL (74-106)
--- NOTE | 2019-06-07 11:13 | RAD REPORT ---
EXAM DESCRIPTION: CT - Head Brain Wo Cont - 06/07/2019 10:48 am CLINICAL HISTORY: Dizziness;Declining state Headache, drowsiness COMPARISON: Maxillofacial Wo Con dated 04/15/2018; Head Brain Wo Cont dated 10/10/2017 TECHNIQUE: All CT scans are performed using dose optimization technique as appropriate and may inclu de automated exposure control or mA/KV adjustment according to patient size. FINDINGS: No intracranial hemorrhage, hydrocephalus or extra-axial fluid collection.Moderate general ized brain atrophy is present with moderate periventricular and deep white matter chronic microvascul ar ischemic changes.No areas of brain edema or evidence of midline shift. The paranasal sinuses and mastoids are clear. The calvarium is intact. IMPRESSION: No acute intracranial abnormality.
[2019-06-07 11:15] LABS: CKMB Creatine Kinase MB 11.9 ng/mL (0.3-3.6)
--- NOTE | 2019-06-07 11:19 | RAD REPORT ---
EXAM DESCRIPTION: RAD - Chest Single View - 06/07/2019 10:39 am CLINICAL HISTORY: COUGH Chest pain. COMPARISON: Chest Single View dated 10/10/2017; Chest Single View dated 09/17/2017; Abdomen 1 View ([facility]) dated 07/09/2017; Chest Single View dated 07/03/2017 FINDINGS: Portable technique limits examination quality. The lungs are grossly clear. The heart is normal in size. No displaced fractures.Tip of the ET tube i s above the caroline. IMPRESSION: No acute intrathoracic process suspected.
[2019-06-07] MEDS ORDERED: D50W 25 GM/50 ML SYRINGE/VIAL IV ONE (11:21)
--- NOTE | 2019-06-07 11:28 | ER ---
Nurse's Notes [facility] Name: Rudolph Corral Age: 59 yrs Sex: Male : 1960 Arrival Date: 06/07/2019 Time: 10:09 Bed 2 Private MD: Diagnosis: Tobacco abuse counseling;Tobacco use;Alcohol abuse;Tracheostomy status;Gastrostomy status;Hypoglycemia, unspecified;Anorexia;Rhabdomyolysis;Repeated falls Presentation: 06/06 10:12 Chief complaint: EMS states: Toned out for lift assist, pt's G-tube appears infected, jl7 pt with trach and pulse ox was reading 70%. Coronavirus screen: Proceed with normal triage. Patient denies a cough. Patient denies shortness of breath or difficulty breathing. Patient denies measured and/or subjective temperature greater than 100.4F prior to today's visit. Patient denies travel on a cruise ship or to a country the [facility] currently lists as an affected area. Patient denies contact with known and/or suspected case of COVID-19. Ebola Screen: No symptoms or risks identified at this time. Initial Sepsis Screen: Does the patient meet any 2 criteria? No. Patient's initial sepsis screen is negative. Does the patient have a suspected source of infection? No. Patient's initial sepsis screen is negative. Risk Assessment: Do you want to hurt yourself or someone else? Patient reports no desire to harm self or others. Onset of symptoms is unknown. 10:12 Method Of Arrival: EMS: [facility] 10:12 Acuity: THEA 3 jl7 Triage Assessment: 10:17 General: Appears in no apparent distress. uncomfortable, Behavior is calm, cooperative, jl7 appropriate for age. Pain: Denies pain. Neuro: Level of Consciousness is awake, alert, obeys commands, Oriented to person, place, time, situation. Cardiovascular: Patient's skin is warm and dry. Respiratory: Airway via trache Respiratory effort is even, unlabored, Respiratory pattern is regular, symmetrical. GI: PEG tube Site reddened. Site with drainage. Derm: Skin is dry, Skin is pale, Skin temperature is cool. Historical: - Allergies: 10:17 No Known Allergies; jl7 - Home Meds: 10:17 Eliquis 5 mg Oral tab 1 tab 2 times per day [Active]; folic acid 1 mg Oral tab 1 tab jl7 once daily [Active]; lisiniopril hydrochlothiazide 10-12.5 mg daily [Active]; metoprolol tartrate 50 mg Oral tab 2 times per day [Active]; pantoprazole 40 mg Oral TbEC 1 tab once daily [Active]; sertraline 100 mg Oral tab 1 tab once daily [Active]; Synthroid 137 mcg Oral tab 1 tab once daily [Active]; - PMHx: 10:17 bladder infection; DVT; GERD; Hypothyroidism; osteonecrosis of jaw; Throat Cancer-2013; jl7 - PSHx: 10:17 PEG tube; trach; jl7 - Immunization history:: Adult Immunizations unknown. - Social history:: Smoking status: Patient reports the use of cigarette tobacco products, smokes one pack cigarettes per day. Screenin:27 Abuse screen: Denies threats or abuse. Denies injuries from another. Nutritional jl7 screening: No deficits noted. Tuberculosis screening: No symptoms or risk factors identified. Fall Risk Fall in past 12 months (25 points). Secondary diagnosis (15 points) impaired mobility, IV access (20 points). Ambulatory Aid- None/Bed Rest/Nurse Assist (0 pts). Gait- Weak (10 pts.). Mental Status- Overestimates/Forgets Limitations (15 pts.). Total Purvis Fall Scale indicates High Risk Score (45 or more points). Fall prevention measures have been instituted. Side Rails Up X 2 Placed Close to Nursing Station Frequent Obs/Assessments Occuring As available patient and family educated on Fall Prevention Program and Strategies. Assessment: 10:20 General: See triage assessment. jl7 10:20 GI: PEG tube tube appears black. jl7 11:00 Reassessment: Breanna, pt's ex- and medical POA reports pt has not been acting right jl7 for a few weeks. Bessie had EMS do a welfare check on him yesterday and he was A\\T\\Ox4 so EMS could not make him come to the ER. She called again for a welfare check today and EMS made him come today. Bessie reports he drinks at least a 12 pack of beer a day and even though he is answering orientation questions appropriately there is something off about him. 11:30 Reassessment: Patient appears in no apparent distress at this time. No changes from jl7 previously documented assessment. Patient and/or family updated on plan of care and expected duration. Pain level reassessed. Patient is alert, oriented x 3, equal unlabored respirations, skin warm/dry/pink. 12:30 Reassessment: Patient appears in no apparent distress at this time. No changes from jl7 previously documented assessment. Patient and/or family updated on plan of care and expected duration. Pain level reassessed. 13:20 Reassessment: Pt removed IV, when asked about it he stated "I did not remove it, it was jl7 the nurse." Pt is A\\T\\Ox4 but confused. Vital Signs: 10:12 BP 140 / 86; Pulse 90; Resp 17 S; Temp 97.5(O); Pulse Ox 100% on R/A; Pain 0/10; jl7 10:29 BP 111 / 97; Pulse 90; Resp 19 S; Pulse Ox 100% on R/A; jl7 11:30 BP 125 / 92; Pulse 89; Resp 16; Pulse Ox 100% ; jl7 12:30 BP 156 / 92; Pulse 88; Resp 16; Pulse Ox 100% ; jl7 13:30 BP 167 / 93; Pulse 86; Resp 16; Pulse Ox 100% ; jl7 ED Course: 10:09 Patient arrived in ED. shayan 10:09 Mino Morales MD is Attending Physician. shayan 10:12 Yolanda De Leon, LORENA is Primary Nurse. jl7 10:15 Triage completed. jl7 10:17 Arm band placed on right wrist. jl7 10:27 Patient has correct armband on for positive identification. Placed in gown. Bed in low jl7 position. Call light in reach. Side rails up X2. pinking machine operator on. Pulse ox on. NIBP on. Warm blanket given. 10:27 Initial lab(s) drawn, by ED staff, sent to lab. Inserted saline lock: 22 gauge in right jl7 forearm, using aseptic technique. Blood collected. 10:39 XRAY Chest (1 view) In Process Unspecified. EDMS 10:47 CT Head Brain wo Cont: on eliquis In Process Unspecified. EDMS 11:13 Notified ED physician of a critical lab result(s). glucose 47. aa5 11:26 Prince Sarmiento MD is Hospitalizing Provider. shayan 13:30 Inserted saline lock: 20 gauge in right forearm, using aseptic technique. jl7 13:56 No provider procedures requiring assistance completed. Patient admitted, IV remains in jl7 place. intact, No redness/swelling at site. Administered Medications: 10:30 Drug: NS 0.9% 500 ml Route: IV; Rate: bolus; Site: right forearm; jl7 11:00 Follow up: Response: No adverse reaction; IV Status: Completed infusion; IV Intake: jl7 500ml 10:30 Drug: NS 0.9% 1000 ml Route: IV; Rate: 125 ml/hr; Site: right forearm; jl7 13:00 Follow up: Response: No adverse reaction; IV Status: Infusion continued upon admission jl7 10:30 Drug: Thiamine 100 mg Route: IV; Rate: per protocol; Site: right forearm; jl7 10:33 Follow up: IV Status: Completed infusion jl7 11:17 Drug: D50W 50 ml Route: IVP; Site: right forearm; aa5 12:59 Follow up: Response: Blood sugar is elevated jl7 11:17 Drug: NS 0.9% 500 ml Route: IV; Rate: bolus; Site: right forearm; aa5 12:58 Follow up: Response: No adverse reaction; IV Status: Completed infusion; IV Intake: jl7 500ml Intake: 11:00 IV: 500ml; Total: 500ml. jl7 12:58 IV: 500ml; Total: 1000ml. jl7 Outcome: 11:28 Decision to Hospitalize by Provider. shayan 13:30 Admitted to Med/surg accompanied by tech, via stretcher, room 232, with chart, Report jl7 called to LORENA El 13:30 Condition: stable 13:30 Discharge instructions given to patient, Instructed on the need for admit, Demonstrated understanding of instructions. 13:57 Patient left the ED. jl7 Signatures: Dispatcher [employer] Mino Ruiz MD MD cha Calderon, Audri, RN RN Yolanda Maxwell RN RN jl7
--- NOTE | 2019-06-07 11:28 | EDPHYS ---
Physician Documentation [facility] Name: Rudolph Corral Age: 59 yrs Sex: Male : 1960 Arrival Date: 06/07/2019 Time: 10:09 Bed 2 Private MD: ED Physician Mino Morales HPI: 06/06 10:15 This 59 yrs old Male presents to ER via EMS with complaints of unkept and shayan lying on the floor at home. 10:15 weak, trach and peg,lives alone , multiple ems calls to the house,unkept on the floor , shayan not eating or drinking. heavy etoh and tobacco. The patient has experienced near-syncope, almost passed out, slid off sofa. Onset: The symptoms/episode began/occurred 2 day(s) ago. Duration: This was a single episode, that lasted an unknown period of time. 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 Associated injury: The patient did not suffer any apparent associated injury. Associated signs and symptoms: The patient has no apparent associated signs or symptoms. Current symptoms: weakness. Unable to obtain HPI due to patient is being uncooperative. Historical: - Allergies: 10:17 No Known Allergies; jl7 - Home Meds: 10:17 Eliquis 5 mg Oral tab 1 tab 2 times per day [Active]; folic acid 1 mg Oral tab 1 tab jl7 once daily [Active]; lisiniopril hydrochlothiazide 10-12.5 mg daily [Active]; metoprolol tartrate 50 mg Oral tab 2 times per day [Active]; pantoprazole 40 mg Oral TbEC 1 tab once daily [Active]; sertraline 100 mg Oral tab 1 tab once daily [Active]; Synthroid 137 mcg Oral tab 1 tab once daily [Active]; - PMHx: 10:17 bladder infection; DVT; GERD; Hypothyroidism; osteonecrosis of jaw; Throat Cancer- jl7 - PSHx: 10:17 PEG tube; trach; jl7 - Immunization history:: Adult Immunizations unknown. - Social history:: Smoking status: Patient reports the use of cigarette tobacco products, smokes one pack cigarettes per day. ROS: 10:22 Eyes: Negative for injury, pain, redness, and discharge, ENT: Negative for injury, shayan pain, and discharge, Cardiovascular: Negative for chest pain, palpitations, and edema, Back: Negative for injury and pain, : Negative for injury, bleeding, discharge, and swelling, Skin: Negative for injury, rash, and discoloration, Psych: Negative for depression, anxiety, suicide ideation, homicidal ideation, and hallucinations, Allergy/Immunology: Negative for hives, rash, and allergies, Endocrine: Negative for neck swelling, polydipsia, polyuria, polyphagia, and marked weight changes. 10:22 Constitutional: Positive for fatigue, malaise, poor PO intake. 10:22 ENT: Positive for trach positive, unkept. 10:22 Cardiovascular: Negative for chest pain. 10:22 Respiratory: Positive for cough, wheezing, expiratory. 10:22 Abdomen/GI: Positive for anorexia. 10:22 : Negative for injury or acute deformity. 10:22 Skin: Positive for abrasion(s), hematoma, pallor, of the right arm, left arm, right leg and left leg. 10:22 Neuro: Positive for altered mental status, weakness. Exam: 10:22 Constitutional: This is a well developed, well nourished patient who is awake, alert, shayan and in no acute distress. Head/Face: Normocephalic, atraumatic. Eyes: Pupils equal round and reactive to light, extra-ocular motions intact. Lids and lashes normal. Conjunctiva and sclera are non-icteric and not injected. Cornea within normal limits. Periorbital areas with no swelling, redness, or edema. ENT: Nares patent. No nasal discharge, no septal abnormalities noted. Tympanic membranes are normal and external auditory canals are clear. Oropharynx with no redness, swelling, or masses, exudates, or evidence of obstruction, uvula midline. Mucous membranes moist. Neck: Trachea midline, no thyromegaly or masses palpated, and no cervical lymphadenopathy. Supple, full range of motion without nuchal rigidity, or vertebral point tenderness. No Meningismus. Chest/axilla: Normal chest wall appearance and motion. Nontender with no deformity. No lesions are appreciated. Cardiovascular: Regular rate and rhythm with a normal S1 and S2. No gallops, murmurs, or rubs. Normal PMI, no JVD. No pulse deficits. Respiratory: Lungs have equal breath sounds bilaterally, clear to auscultation and percussion. No rales, rhonchi or wheezes noted. No increased work of breathing, no retractions or nasal flaring. Back: No spinal tenderness. No costovertebral tenderness. Full range of motion. Male : Normal genitalia with no discharge or lesions. MS/ Extremity: Pulses equal, no cyanosis. Neurovascular intact. Full, normal range of motion. Psych: Awake, alert, with orientation to person, place and time. Behavior, mood, and affect are within normal limits. 10:22 Abdomen/GI: Inspection: scaphoid, Palpation: abdomen is soft and non-tender, soft, Rectal exam: is unremarkable, Prostate: Liver: Hernia: not appreciated. 11:35 Cardiovascular: Rate: normal, Rhythm: regular, Pulses: Pulses are 4+ in bilateral shayan radial, brachial, femoral, popliteal, posterior tibial and and dorsalis pedis arteries.. Heart sounds: normal, Edema: is not appreciated, JVD: is not appreciated. 11:35 ECG was reviewed by the Attending Physician. Vital Signs: 10:12 BP 140 / 86; Pulse 90; Resp 17 S; Temp 97.5(O); Pulse Ox 100% on R/A; Pain 0/10; jl7 10:29 BP 111 / 97; Pulse 90; Resp 19 S; Pulse Ox 100% on R/A; jl7 11:30 BP 125 / 92; Pulse 89; Resp 16; Pulse Ox 100% ; jl7 12:30 BP 156 / 92; Pulse 88; Resp 16; Pulse Ox 100% ; jl7 13:30 BP 167 / 93; Pulse 86; Resp 16; Pulse Ox 100% ; jl7 MDM: 10:09 Patient medically screened. shayan 10:10 Patient medically screened. [place] 10:22 Data reviewed: vital signs, nurses notes, lab test result(s), EKG, radiologic studies, [place] CT scan, plain films. 11:21 ED course: ct head ordered on patient, found on floor, on eliquis, atraumatic, multiple [place] ems calls recently for lift assist. 11:28 Differential Diagnosis altered mental status. Data interpreted: potline monitor: rate shayan is 80 beats/min, Pulse oximetry: on 2L(s) per nasal canula. ED course: discussed with dr fagan, unkept pt, multiple falls, trach, peg not eating smoking and drinking . pt full admission, torsten agrees with labs and plan, assumes care. 06/06 10:13 Order name: Basic Metabolic Panel; Complete Time: 11:18 06/06 10:13 Order name: CBC with Diff; Complete Time: 11:18 06/06 10:13 Order name: LFT's; Complete Time: 11:18 06/06 10:13 Order name: Magnesium; Complete Time: 11:18 06/06 10:13 Order name: NT PRO-BNP; Complete Time: 11:18 06/06 10:13 Order name: PT-INR; Complete Time: 11:18 06/06 10:13 Order name: Troponin (emerg Dept Use Only); Complete Time: :18 06/06 10:13 Order name: Lipase; Complete Time: :18 shayan 06/06 10:13 Order name: CK; Complete Time: :18 06/06 10:13 Order name: Ckmb; Complete Time: 11:18 06/06 10:13 Order name: Urine Culture [place] 06/06 11:59 Order name: Basic Metabolic Panel EDMS 06/06 11:59 Order name: CBC with Automated Diff EDMS 06/06 11:59 Order name: Lactate EDMS 06/06 10:13 Order name: XRAY Chest (1 view); Complete Time: 11:23 06/06 10:13 Order name: Cardiac monitoring; Complete Time: 10:31 06/06 10:13 Order name: EKG - Nurse/Tech; Complete Time: 11:31 06/06 10:22 Order name: CT Head Brain wo Cont: on eliquis; Complete Time: 11:18 06/06 11:59 Order name: NPO EDMS 06/06 11:59 Order name: NT PRO-BNP EDMS 06/06 11:59 Order name: Phosphorus EDMS 06/06 11:59 Order name: Protime (+INR) EDMS 06/06 11:59 Order name: PTT, Activated Partial Thromb EDMS 06/06 12:56 Order name: Glucose, Ancillary Testing; Complete Time: 13:48 EDMS 06/06 10:13 Order name: IV Saline Lock; Complete Time: 10:31 06/06 10:13 Order name: Labs collected and sent; Complete Time: 10:30 06/06 10:13 Order name: O2 Per Protocol; Complete Time: :30 shayan 06/06 10:13 Order name: O2 Sat Monitoring; Complete Time: : shayan EC:35 Rate is 93 beats/min. Rhythm is regular. QRS [place] is Normal. AL interval is normal. QRS shayan interval is normal. QT interval is normal. No Q waves. No ST changes noted. Administered Medications: 10:30 Drug: NS 0.9% 500 ml Route: IV; Rate: bolus; Site: right forearm; jl7 11:00 Follow up: Response: No adverse reaction; IV Status: Completed infusion; IV Intake: jl7 500ml 10:30 Drug: NS 0.9% 1000 ml Route: IV; Rate: 125 ml/hr; Site: right forearm; jl7 13:00 Follow up: Response: No adverse reaction; IV Status: Infusion continued upon admission jl7 10:30 Drug: Thiamine 100 mg Route: IV; Rate: per protocol; Site: right forearm; jl7 10:33 Follow up: IV Status: Completed infusion 11:17 Drug: D50W 50 ml Route: IVP; Site: right forearm; aa5 12:59 Follow up: Response: Blood sugar is elevated 7 11:17 Drug: NS 0.9% 500 ml Route: IV; Rate: bolus; Site: right forearm; aa5 12:58 Follow up: Response: No adverse reaction; IV Status: Completed infusion; IV Intake: jl7 500ml Disposition: 06/07/19 11:28 Hospitalization ordered by Prince Torsten for Inpatient Admission. Preliminary diagnosis are Tobacco abuse counseling, Tobacco use, Alcohol abuse, Tracheostomy status, Gastrostomy status, Hypoglycemia, unspecified, Anorexia, Rhabdomyolysis, Repeated falls. - Bed requested for Telemetry/MedSurg (Inpatient). - Status is Inpatient Admission. jl7 - Condition is Fair. - Problem is new. - Symptoms have improved. Signatures: Dispatcher [employer] Milly Harris RN RN dw Anderson, Corey, MD MD cha Calderon, Audri RN LORENA aa5 Yolanda De Leon RN RN jl7 Corrections: (The following items were deleted from the chart) 10:26 10:22 Psych: Positive for shayan shayan 13:08 11:28 Hospitalization Ordered by Prince Torsten MAYER for Inpatient Admission. Preliminary dw diagnosis is Tobacco abuse counseling; Tobacco use; Alcohol abuse; Tracheostomy status; Gastrostomy status; Hypoglycemia, unspecified; Anorexia; Rhabdomyolysis; Repeated falls. Bed requested for Telemetry/MedSurg (Inpatient). Status is Inpatient Admission. Condition is Fair. Problem is new. Symptoms have improved. shayan 13:57 13:08 06/07/2019 11:28 Hospitalization Ordered by Prince Torsten MAYER for Inpatient jl7 Admission. Preliminary diagnosis is Tobacco abuse counseling; Tobacco use; Alcohol abuse; Tracheostomy status; Gastrostomy status; Hypoglycemia, unspecified; Anorexia; Rhabdomyolysis; Repeated falls. Bed requested for Telemetry/MedSurg (Inpatient). Status is Inpatient Admission. Condition is Fair. Problem is new. Symptoms have improved. dw
[2019-06-07] MEDS ORDERED: D5 0.45 NS 1,000 ML IV SCH (12:00)
--- NOTE | 2019-06-07 14:04 | P.HP ---
Certification for Inpatient Patient admitted to: Observation With expected LOS: <2 Midnights Patient will require the following post-hospital care: Other (APS, SNF) Practitioner: I am a practitioner with admitting privileges, knowledge of patient current condition, hospital course, and medical plan of care. Services: Services provided to patient in accordance with Admission requirements found in Title 42 Section 412.3 of the Code of Federal Regulations Patient History Date of Service: 06/07/19 Reason for admission: Altered mental status History of Present Illness: 59-year-old male the past medical history of hypertension, hyperthyroidism, currently with a trach and PEG. He presented to the ER via ambulance for after mental status after her ex girlfriend found him down. The patient himself is unable to remember the sequence of events. He was found to be hypoglycemic the blood sugar of 47. He was given an amp of dextrose on route to the ER. During our encounter in the ER, patient was alert and oriented. He responded appropriately to questions but could not explain what had taken place. Allergies No Known Allergies Allergy (Verified 06/07/19 13:33) Home medications list reviewed: Yes Home Medications: Levothyroxine [Synthroid*] 137 mcg FT [id number] 11/15/16 Lisinopril/Hydrochlorothiazide [Lisinopril-Hctz 10-12.5 mg Tab] 1 tab PO DAILY 07/04/17 Apixaban [Eliquis] 5 mg PO BID #60 tablet 07/08/17 Jevity 1.5 Donny Liquid 237 ml FT 5XD bot 07/08/17 Metoprolol Tartrate [Lopressor*] 50 mg FT BID #60 tab 07/08/17 Pantoprazole [Protonix Tab*] 40 mg PO DAILYAC #30 tab 07/08/17 Thiamine HCl [Vitamin B-1*] 100 mg PO DAILY #30 tablet 07/08/17 Ferrous Sulfate [Ferrous Sulfate*] 1 tab PO SEECOM 09/17/17 Folic Acid 1 mg PO SEECOM 09/17/17 - Past Medical/Surgical History Has patient received pneumonia vaccine in the past: No Diabetic: No -: Throat cancer status post surgery -: History of osteonecrosis of the jaw -: COPD -: Tobacco abuse -: Alcohol abuse -: Hypertension -: Hypothyroidism -: History atrial fibrillation status post ablation -: GERD -: Tracheostomy -: PEG tube placement -: Malnutrition -: Peg tube placement/removal x3 -: History cardiac ablation -: Hernia repair Psychosocial/ Personal History: The patient is . Ex appears to be close. - Family History Father -: Cancer Mother -: Heart disease, Hypertension, Stroke - Social History Alcohol use: Yes CD- Drugs: No Caffeine use: Yes Physical Examination - Physical Exam General: Alert, In no apparent distress HEENT: Atraumatic, Normocephalic Neck: Supple, Other (tracheostomy tube) Gastrointestinal: Soft and benign, Non-distended, Other (PEG tube with purulence around insertion site) Integumentary: No rashes, No breakdown, No significant lesion, No tenderness/swelling, No erythema, No warmth Neurological: Normal speech, Normal strength at 5/5 x4 extr, Normal tone - Studies Laboratory Data (last 24 hrs) 06/07/19 10:28: PT 13.2 H, INR 1.12 06/07/19 10:28: WBC 8.9, Hgb 10.7 L, Hct 32.2 L, Plt Count 242 06/07/19 10:28: Sodium 134 L, Potassium 4.8, BUN 20 H, Creatinine 1.39 H, Glucose 47 L*, Magnesium 2.2 D, Total Bilirubin 0.8, AST 79 H, ALT 30, Alkaline Phosphatase 159 H, Lipase 29 L Assessment and Plan - Problems (Diagnosis) (1) Metabolic encephalopathy Current Visit: Yes Status: Acute (2) PEG (percutaneous endoscopic gastrostomy) status Current Visit: No Status: Chronic (3) Sacral decubitus ulcer, stage II Current Visit: No Status: Chronic (4) Tobacco abuse Onset Date: 07/06/17 Current Visit: No Status: Chronic (5) Tracheostomy care Onset Date: 11/17/16 Current Visit: No Status: Chronic (6) malignant neoplasm of pharynx Onset Date: 11/17/16 Current Visit: No Status: Chronic (7) Cirrhosis Current Visit: No Status: Suspected Qualifiers: Hepatic cirrhosis type: unspecified hepatic cirrhosis Ascites presence: unspecified Qualified Code(s): K74.60 - Unspecified cirrhosis of liver - Plan Assessment Patient is a see 1-year-old male with a past medical history of a day neck cancer status post tracheostomy tube placement, hypertension and hypothyroidism who presented to the ER with metabolic encephalopathy. His blood glucose was 47 on site was given an amp of dextrose on route to the ER. He is currently alert an oriented. Has no issues with PEG tube placement nor supplies. Plan: Fingerstick q.1 hr hr until blood glucose returned to a normal limits START dextrose infusion Will check for hemoglobin A1c sanitation worker consult placed to assess for disposition. Patient may need a PS Will consult dietitian to optimize nutritional status - Advance Directives Does patient have a Living Will: No Does patient have a Durable POA for Healthcare: No
[2019-06-07 14:07] VITALS: BMI 16.8
[2019-06-07] MEDS: D5 0.45 NS 1,000 ML IV SCH (15:00)
[2019-06-07 15:14] LABS: Absolute Lymphocytes (CBC) 0.3 K/uL (0.7-4.9); Basophils % 0.2 % (0-1.3); Hematocrit 30.5 % (39.6-49.0); Lymphocytes % 4.3 % (15.3-44.8); MPV 8.1 fL (7.6-11.3); RBC Red Blood Cell Count 3.08 M/uL (4.33-5.43)
[2019-06-07 15:17] LABS: Protime INR 1.09
[2019-06-07 15:33] LABS: Phosphorus 3.8 mg/dL (2.5-4.9); Potassium 4.4 mmol/L (3.5-5.1)
[2019-06-07 16:02] LABS: Blood Morphology Comment NOT SEEN (NOT SEEN); Platelet Estimate ADEQ; Urine White Blood Cell Casts OK
[2019-06-07] MEDS ORDERED: LORazepam 2 MG/ML VIAL IV PRN (18:00)
[2019-06-07] MEDS ORDERED: HALOPERIDOL LACT 5 MG/ML INJ IM PRN (18:10)
[2019-06-07] MEDS ORDERED: DIPHENHYDRAMINE 50 MG/ML VIAL IM ONE (18:15)
[2019-06-07] MEDS: ZIPRASIDONE 20 MG CAP PO SCH (22:47)
[2019-06-08] MEDS: D5 0.45 NS 1,000 ML IV SCH ×3 (01:51→21:11)
[2019-06-08] MEDS: ENOXAPARIN 40 MG/0.4 ML SQ SCH (07:51)
[2019-06-08] MEDS: FOLIC ACID 1 MG TABLET PO SCH (07:51)
[2019-06-08] MEDS: THIAMINE HCL 100 MG TABLET PO SCH (07:51)
--- NOTE | 2019-06-08 07:57 | EKG ---
Test Date: 2019-06-07 Test Time: 11:24:38 Installer Inspector Final: RIO MEASUREMENT RESULTS: Intervals: Rate: 93 ND: 186 QRSD: 94 QT: 384 QTc: 477 [place]: P: 107 ND: 186 QRS: 14 T: 75 INTERPRETIVE STATEMENTS: Normal sinus rhythm Low voltage QRS Cannot rule out Anterior infarct, age undetermined Abnormal ECG Compared to ECG 10/10/2017 22:20:03 Low QRS voltage now present Myocardial infarct finding now present Left-axis deviation no longer present Electronically Signed On 06-08-19 07:56:00 CDT by Merrill Shultz
[2019-06-08] MEDS: LABETALOL 20 MG/4ML SYRINGE IV PRN (11:07)
--- NOTE | 2019-06-08 11:22 | P.PN ---
Subjective Date of Service: 06/08/19 Chief Complaint: Altered mental status Subjective: Worsening, Other (Patient was agitated overnight, getting out of bed. Haldol given. Sitter at bedside this morning. Very hypertensive with SBP > 180 mmHg. Labetalol push ordered) Physical Examination - Vital Signs Temperature: 97.2 F Blood Pressure: 170/90 Pulse: 88 Respirations: 17 Pulse Ox (%): 97 - Physical Exam General: Other (sleeping, slightly somnolent) HEENT: Atraumatic, Normocephalic, Other (Tracheostomy tube in place) Respiratory: Clear to auscultation bilaterally, Normal air movement Cardiovascular: No edema, Normal pulses, Regular rate/rhythm, Normal S1 S2 Gastrointestinal: Normal bowel sounds, Soft and benign, Non-distended, Other (PEG tube in place) Musculoskeletal: No clubbing, No swelling, No contractures, No erythema, No tenderness, No warmth Integumentary: No rashes, No breakdown, No significant lesion, No tenderness/swelling, No erythema, No warmth, No cyanosis Neurological: Other (sedated) Assessment & Plan - Problems (Diagnosis) (1) Metabolic encephalopathy Current Visit: Yes Status: Acute (2) PEG (percutaneous endoscopic gastrostomy) status Current Visit: No Status: Chronic (3) Sacral decubitus ulcer, stage II Current Visit: No Status: Chronic (4) Tobacco abuse Onset Date: 07/06/17 Current Visit: No Status: Chronic (5) Tracheostomy care Onset Date: 11/17/16 Current Visit: No Status: Chronic (6) malignant neoplasm of pharynx Onset Date: 11/17/16 Current Visit: No Status: Chronic (7) Cirrhosis Current Visit: No Status: Suspected Qualifiers: Hepatic cirrhosis type: unspecified hepatic cirrhosis Ascites presence: unspecified Qualified Code(s): K74.60 - Unspecified cirrhosis of liver Physician Review Additional Text: Assessment Patient is a see 59 year-old male with a past medical history of a head and neck cancer status post tracheostomy tube placement, hypertension and hypothyroidism who presented to the ER with metabolic encephalopathy. His blood glucose was 47 on site was given an amp of dextrose on route to the ER. His blood glucose has been stable since. A1c of 4.3. His hospital course was complicated by agitations, requiring medical sedation. Plan: Continue 1:1 sitter Continue frequent fingerstick check Nutrition consulted Case management/Social work up on board as patient demonstrates failure to thrive Adult protective services also on board
[2019-06-08 11:57] LABS: Urine Appearance CLEAR; Urine Blood NEGATIVE (NEG); Urine Color DK YELLOW; Urine Glucose NEGATIVE (NEG); Urine Protein NEGATIVE (NEG); Urine Specific Gravity 1.015 (1.005-1.030); Urine Urobilinogen 0.2 mg/dL (0.2-1.0); Urine pH 5.5 (5.0-7.0)
[2019-06-08 12:04] LABS: Urine Bilirubin 1+ (NEG); Urine Microscopic Reflex NO UMIC
[2019-06-08] MEDS: ZIPRASIDONE 20 MG CAP PO SCH (21:12)
[2019-06-09] MEDS: D5 0.45 NS 1,000 ML IV SCH ×2 (06:45→15:49)
[2019-06-09] MEDS: JEVITY 1.5 CAL LIQUID 1,000 ML BOT RTH SCH (07:05)
[2019-06-09] MEDS: FOLIC ACID 1 MG TABLET PO SCH (08:02)
[2019-06-09] MEDS: THIAMINE HCL 100 MG TABLET PO SCH (08:02)
[2019-06-09] MEDS: ENOXAPARIN 40 MG/0.4 ML SQ SCH (08:04)
[2019-06-09] MEDS: LABETALOL 20 MG/4ML SYRINGE IV PRN (08:05)
--- NOTE | 2019-06-09 12:23 | P.PN ---
Subjective Date of Service: 06/09/19 Chief Complaint: Altered mental status Subjective: Other (Continues to requiring medical sedation and intermittent labetalol injections for elevated BP.) Physical Examination - Vital Signs Temperature: 96.8 F Blood Pressure: 109/70 Pulse: 53 Respirations: 20 Pulse Ox (%): 99 - Physical Exam General: Other (sleeping comfortably in bed) HEENT: Atraumatic, Normocephalic, Other (Tracheostomy tube in place) Respiratory: Clear to auscultation bilaterally, Normal air movement Cardiovascular: No edema, Normal pulses, Regular rate/rhythm, Normal S1 S2 Gastrointestinal: Normal bowel sounds, Soft and benign, Non-distended, Other (Jejenostomy tube in place) Musculoskeletal: No clubbing, No swelling, No contractures, No erythema, No tenderness, No warmth Integumentary: No rashes, No breakdown, No significant lesion, No tenderness/swelling, No erythema, No warmth, No cyanosis Neurological: Other (guarded), Abnormal affect Assessment & Plan - Problems (Diagnosis) (1) Metabolic encephalopathy Current Visit: Yes Status: Acute (2) PEG (percutaneous endoscopic gastrostomy) status Current Visit: No Status: Chronic (3) Sacral decubitus ulcer, stage II Current Visit: No Status: Chronic (4) Tobacco abuse Onset Date: 07/06/17 Current Visit: No Status: Chronic (5) Tracheostomy care Onset Date: 11/17/16 Current Visit: No Status: Chronic (6) malignant neoplasm of pharynx Onset Date: 11/17/16 Current Visit: No Status: Chronic (7) Cirrhosis Current Visit: No Status: Suspected Qualifiers: Hepatic cirrhosis type: unspecified hepatic cirrhosis Ascites presence: unspecified Qualified Code(s): K74.60 - Unspecified cirrhosis of liver Physician Review Additional Text: Assessment Patient is a see 59 year-old male with a past medical history of a head and neck cancer status post tracheostomy tube placement, hypertension and J tube placement after an EGD revealed radiation-induced stricture of distal esophagus. He is well known to Dr. Johnston from GI. He presented to the ER with metabolic encephalopathy. His blood glucose was 47 on site was given an amp of dextrose on route to the ER. His blood glucose has been stable since. A1c of 4.3. His hospital course was complicated by agitations and accelerated HTN. His J tube site has purulence around insertion site, and black debris in the lumen itself. Tube is functional. GI was consulted but Dr. Johnston feels a Surgery consult will benefit the patient. Plan: Consulted Surgery, have not been able to reach the. I have yet to discuss the case with surgery Will start patient on a short course of doxycycline for superimposed skin infection Continue 1:1 sitter Continue frequent fingerstick check Nutrition consulted Case management/Social work up on board as patient demonstrates failure to thrive Adult protective services also on board
[2019-06-09] MEDS: DOXYCYCLINE 100 MG CAP PO SCH ×2 (13:16→20:30)
[2019-06-09] MEDS: ZIPRASIDONE 20 MG CAP PO SCH (20:30)
--- NOTE | 2019-06-09 22:25 | P.CNS ---
Date of Consult: 06/09/19 PC: I was asked to see this patient regarding his J-tube. HPC: Patient has a history of throat cancer. Has received radiation. He has a stricture at the distal end of the esophagus. He has a G-tube placed for nutritional support. He presented with the failure to thrive and hypoglycemia. He has an area around the G-tube that shows redness erythema and some skin erosion. PMH: Hypertension PSHx: Previous PEG tubes placed times 3 SOC: No known allergies O/E sleeping at the moment HEENT: Tracheostomy tube Chest: Chest movement equal bilaterally ABD: The insertion site on this patient's G-tube so some erosion around the G- tube with some superficial ulceration as well as some surrounding erythema consistent with a yeast infection on top of the erosion IMPRESSION: Malfunctioning of a G-tube PLAN: This patient is G-tube has been placed for a while, and has slipped in. This has allowed for laxity between the balloon and the anterior abdominal wall. By gently manipulating the flange, it was possible to easily slide the tube back up. The skin irritation and surrounding yeast infection are superficial. They will most likely respond to nystatin cream applied 3 times a day for a few days. Maalox could also be applied topically to the skin if preferred. It may be possible to stop the antibiotics as he has is not showing signs of any systemic infection. Thank you very much for the console. I did not change out the G- tube at this time, but it may be time to do so soon. While it does have discolo ration, this is quite commonly seen in this device. He is currently being advanced on his alimentation, and I do not want to interrupt it for a [employer] did well to clean the tube. The can be done at a later date once he has stabilized his nutritional status. Thank you for the consult. Feel free to call me if any be of further benefit.
[2019-06-10] MEDS: D5 0.45 NS 1,000 ML IV SCH ×2 (02:21→14:27)
[2019-06-10] MEDS: THIAMINE HCL 100 MG TABLET PO SCH (08:44)
[2019-06-10] MEDS: DOXYCYCLINE 100 MG CAP PO SCH (08:44)
[2019-06-10] MEDS: JEVITY 1.5 CAL LIQUID 1,000 ML BOT RTH SCH (08:44)
[2019-06-10] MEDS: FOLIC ACID 1 MG TABLET PO SCH (08:44)
[2019-06-10] MEDS: ENOXAPARIN 40 MG/0.4 ML SQ SCH (08:44)
[2019-06-10] MEDS: NYSTATIN 100MU/GM CREAM 15GM TOP SCH ×3 (09:51→21:24)
[2019-06-10] MEDS ORDERED: TRAMADOL HCL 50 MG TAB PO ONE (13:20)
[2019-06-10] MEDS ORDERED: LABETALOL 20 MG/4ML SYRINGE IV PRN (16:48)
[2019-06-10] MEDS: AMLODIPINE 10 MG TAB PO SCH (17:02)
[2019-06-10] MEDS: ACETAMINOPHEN 325 MG TABLET PO PRN (17:03)
--- NOTE | 2019-06-10 20:05 | P.PN ---
Subjective Date of Service: 06/10/19 Chief Complaint: Altered mental status Subjective: Other (Patient is having headaches. Blood pressure continues to be elevated) Physical Examination - Vital Signs Temperature: 97.4 F Blood Pressure: 150/90 Pulse: 71 Respirations: 18 Pulse Ox (%): 100 - Physical Exam General: Alert, In no apparent distress, Cooperative HEENT: Atraumatic, Normocephalic, Other (tracheostomy tube) Neck: Supple, Other (tracheostomy tube ) Respiratory: Clear to auscultation bilaterally, Normal air movement Cardiovascular: No edema, Normal pulses, Regular rate/rhythm, Normal S1 S2 Gastrointestinal: Normal bowel sounds, Soft and benign, Non-distended, Other (J tube in place) Musculoskeletal: No clubbing, No swelling, No contractures, No erythema, No tenderness, No warmth Integumentary: No rashes, No breakdown, No significant lesion, No tenderness/swelling, No erythema, No warmth Neurological: Normal speech, Sensation intact, Normal affect Assessment & Plan - Problems (Diagnosis) (1) Metabolic encephalopathy Current Visit: Yes Status: Acute (2) PEG (percutaneous endoscopic gastrostomy) status Current Visit: No Status: Chronic (3) Sacral decubitus ulcer, stage II Current Visit: No Status: Chronic (4) Tobacco abuse Onset Date: 07/06/17 Current Visit: No Status: Chronic (5) Tracheostomy care Onset Date: 11/17/16 Current Visit: No Status: Chronic (6) malignant neoplasm of pharynx Onset Date: 11/17/16 Current Visit: No Status: Chronic (7) Cirrhosis Current Visit: No Status: Suspected Qualifiers: Hepatic cirrhosis type: unspecified hepatic cirrhosis Ascites presence: unspecified Qualified Code(s): K74.60 - Unspecified cirrhosis of liver Physician Review Additional Text: Assessment Patient is a see 59 year-old male with a past medical history of a head and neck cancer status post tracheostomy tube placement, hypertension and J tube placement after an EGD revealed radiation-induced stricture of distal esophagus. He is well known to Dr. Johnston from GI. He presented to the ER with metabolic encephalopathy. His blood glucose was 47 on site was given an amp of dextrose on route to the ER. His blood glucose has been stable since. A1c of 4.3. His hospital course was complicated by agitations and accelerated HTN. His J tube site has purulence around insertion site, and black debris in the lumen itself. Tube is functional. Surgery recommends exchange but at a future date Plan: DC doxycycline, continue with nystatin along J tube Start norvasc for persistent HTN with PRN hydralazine Tylenol for headache Continue 1:1 sitter Nutrition on board Case management/Social work up on board as patient demonstrates failure to thrive Adult protective services also on board
[2019-06-10] MEDS: ZIPRASIDONE 20 MG CAP PO SCH (21:23)
[2019-06-11] MEDS: D5 0.45 NS 1,000 ML IV SCH ×3 (00:15→20:13)
[2019-06-11] MEDS: LEVOTHYROXINE SOD 0.025 MG TAB FT SCH (05:40)
[2019-06-11] MEDS: LEVOTHYROXINE SOD 0.112 MG TAB FT SCH (05:41)
[2019-06-11] MEDS: JEVITY 1.5 CAL LIQUID 1,000 ML BOT RTH SCH (05:48)
[2019-06-11] MEDS ORDERED: LEVOTHYROXINE SOD 0.112 MG TAB FT SCH (06:00)
[2019-06-11] MEDS ORDERED: FERROUS SULFATE 325 MG TAB PO SCH (09:00)
[2019-06-11] MEDS: AMLODIPINE 10 MG TAB PO SCH (09:00)
[2019-06-11] MEDS: ENOXAPARIN 40 MG/0.4 ML SQ SCH (09:31)
[2019-06-11] MEDS: THIAMINE HCL 100 MG TABLET PO SCH (09:31)
[2019-06-11] MEDS: FOLIC ACID 1 MG TABLET PO SCH (09:31)
[2019-06-11] MEDS: NYSTATIN 100MU/GM CREAM 15GM TOP SCH ×3 (09:33→20:09)
[2019-06-11] MEDS: ACETAMINOPHEN 325 MG TABLET PO PRN ×2 (09:39→15:36)
--- NOTE | 2019-06-11 18:53 | P.PN ---
Subjective Date of Service: 06/11/19 Chief Complaint: Altered mental status Subjective: No new changes (Patient is reporting pain around shoulder, back and head) Physical Examination - Vital Signs Temperature: 97.1 F Blood Pressure: 171/97 Pulse: 79 Respirations: 18 Pulse Ox (%): 100 - Physical Exam General: Alert, In no apparent distress, Cachectic HEENT: Atraumatic, Normocephalic, Other (Tracheostomy tube present) Neck: Supple Respiratory: Clear to auscultation bilaterally, Normal air movement Cardiovascular: No edema, Normal pulses, Regular rate/rhythm, Normal S1 S2 Gastrointestinal: Normal bowel sounds, Soft and benign, Non-distended, Other (J tube present) Musculoskeletal: No clubbing, No swelling, No contractures, No erythema, No tenderness, No warmth Neurological: Normal speech, Normal affect Assessment & Plan - Problems (Diagnosis) (1) Metabolic encephalopathy Current Visit: Yes Status: Acute (2) PEG (percutaneous endoscopic gastrostomy) status Current Visit: No Status: Chronic (3) Sacral decubitus ulcer, stage II Current Visit: No Status: Chronic (4) Tobacco abuse Onset Date: 07/06/17 Current Visit: No Status: Chronic (5) Tracheostomy care Onset Date: 11/17/16 Current Visit: No Status: Chronic (6) malignant neoplasm of pharynx Onset Date: 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 He is well known to Dr. Johnston from GI. He presented to the ER with metabolic encephalopathy. His blood glucose was 47 on site was given an amp of dextrose on route to the ER. His blood glucose has been stable since. A1c of 4.3. His hospital course was complicated by agitations and accelerated HTN. His J tube site has purulence around insertion site, and black debris in the lumen itself. Tube is functional. GI was consulted but Dr. Johnston feels a Surgery consult will benefit the patient. Surgery recommends exchange but at a future date Plan: Continue nystatin for local wound care around J tube insertion site Continue tube feeds via J tube Continue 1:1 sitter Case management/Social work up on board as patient demonstrates failure to thrive Adult protective services also on board Medically cleared, pending dispo.
[2019-06-11] MEDS: ZIPRASIDONE 20 MG CAP PO SCH (20:09)
[2019-06-12] MEDS: JEVITY 1.5 CAL LIQUID 1,000 ML BOT RTH SCH (04:10)
[2019-06-12] MEDS: LEVOTHYROXINE SOD 0.025 MG TAB FT SCH (05:32)
[2019-06-12] MEDS: LEVOTHYROXINE SOD 0.112 MG TAB FT SCH (05:32)
[2019-06-12] MEDS: D5 0.45 NS 1,000 ML IV SCH ×2 (05:33→14:20)
[2019-06-12] MEDS: THIAMINE HCL 100 MG TABLET PO SCH (09:22)
[2019-06-12] MEDS: ENOXAPARIN 40 MG/0.4 ML SQ SCH (09:22)
[2019-06-12] MEDS: AMLODIPINE 10 MG TAB PO SCH (09:23)
[2019-06-12] MEDS: FOLIC ACID 1 MG TABLET PO SCH (09:23)
[2019-06-12] MEDS: NYSTATIN 100MU/GM CREAM 15GM TOP SCH ×3 (09:25→21:05)
[2019-06-12] MEDS: CODEINE 30MG/APAP 300MG TAB PO PRN ×3 (09:27→21:04)
[2019-06-12] MEDS ORDERED: Ringers Lactate 1,000 ML IV ONE (15:52)
--- NOTE | 2019-06-12 18:14 | P.PN ---
Subjective Date of Service: 06/12/19 Chief Complaint: Altered mental status Subjective: No new changes (No acute events overnight.), Doing well, Other (Patient continues to have mild headache. Labile BP. Getting orthostatic with aggressive BP control.) Physical Examination - Vital Signs Temperature: 99.1 F Blood Pressure: 119/72 Pulse: 75 Respirations: 19 Pulse Ox (%): 96 - Physical Exam General: Alert, In no apparent distress, Cooperative HEENT: Atraumatic, Normocephalic, Other (tracheostomy tube in place) Neck: Supple Respiratory: Clear to auscultation bilaterally, Normal air movement Cardiovascular: No edema, Normal pulses, Regular rate/rhythm, Normal S1 S2 Gastrointestinal: Normal bowel sounds, Soft and benign, Non-distended, Other (J tube) Musculoskeletal: No clubbing, No swelling, No contractures, No erythema, No tenderness, No warmth Integumentary: No rashes, No breakdown, No significant lesion, No tenderness/swelling, No erythema, No warmth, No cyanosis Neurological: Normal speech, Sensation intact, Normal affect Assessment & Plan - Problems (Diagnosis) (1) Metabolic encephalopathy Current Visit: Yes Status: Acute (2) PEG (percutaneous endoscopic gastrostomy) status Current Visit: No Status: Chronic (3) Sacral decubitus ulcer, stage II Current Visit: No Status: Chronic (4) Tobacco abuse Onset Date: 07/06/17 Current Visit: No Status: Chronic (5) Tracheostomy care Onset Date: 11/17/16 Current Visit: No Status: Chronic (6) malignant neoplasm of pharynx Onset Date: 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 He is well known to Dr. Johnston from GI. He presented to the ER with metabolic encephalopathy. His blood glucose was 47 on site was given an amp of dextrose on route to the ER. His blood glucose has been stable since. A1c of 4.3. His hospital course was complicated by agitations and accelerated HTN. His J tube site has purulence around insertion site, and black debris in the lumen itself. Tube is functional. GI was consulted but Dr. Johnston feels a Surgery consult will benefit the patient. Surgery recommends exchange but at a future date Plan: Continue nystatin for local wound care around J tube insertion site Continue tube feeds via J tube Case management/Social work up on board as patient demonstrates failure to thrive Adult protective services also on board Medically cleared, pending dispo.
[2019-06-12] MEDS: ZIPRASIDONE 20 MG CAP PO SCH (21:04)
[2019-06-13] MEDS: D5 0.45 NS 1,000 ML IV SCH ×3 (01:00→11:00)
[2019-06-13] MEDS: LEVOTHYROXINE SOD 0.112 MG TAB FT SCH (05:59)
[2019-06-13] MEDS: LEVOTHYROXINE SOD 0.025 MG TAB FT SCH (05:59)
[2019-06-13] MEDS: CODEINE 30MG/APAP 300MG TAB PO PRN ×4 (05:59→23:10)
[2019-06-13] MEDS: JEVITY 1.5 CAL LIQUID 1,000 ML BOT RTH SCH (06:17)
[2019-06-13] MEDS: FOLIC ACID 1 MG TABLET PO SCH (08:27)
[2019-06-13] MEDS: AMLODIPINE 10 MG TAB PO SCH (08:27)
[2019-06-13] MEDS: THIAMINE HCL 100 MG TABLET PO SCH (08:27)
[2019-06-13] MEDS: ENOXAPARIN 40 MG/0.4 ML SQ SCH (08:28)
[2019-06-13] MEDS: NYSTATIN 100MU/GM CREAM 15GM TOP SCH ×3 (08:29→21:00)
--- NOTE | 2019-06-13 15:48 | P.PN ---
Subjective Date of Service: 06/13/19 Chief Complaint: Altered mental status Subjective: Improving Physical Examination - Vital Signs Temperature: 97.8 F Blood Pressure: 129/89 Pulse: 98 Respirations: 18 Pulse Ox (%): 96 - Physical Exam General: Alert, Cooperative HEENT: Atraumatic Neck: Supple Respiratory: Clear to auscultation bilaterally, Normal air movement Cardiovascular: Normal pulses, Regular rate/rhythm Gastrointestinal: Other (Peg tube in place) Neurological: Normal speech, Normal affect Assessment & Plan Discharge Plan: Home (With home health and physical therapy verses inpatient rehab) Plan to discharge in: 24 Hours Physician Review Additional Text: Impression: Metabolic encephalopathy related to dehydration History of head and neck cancer status post tracheostomy and J-tube placement Iron deficiency anemia Plan: Patient more alert and able. Will have physical therapy assess for possible inpatient rehab. Patient does not desire to go to a skilled facility. Only other option is home with home health and physical therapy. His preference is to go home. But will need to evaluate his physical status. Will discuss with health care social worker. Continue with medication. Discontinue IV fluids. Will check orthostatics. Surgery has evaluated J-tube. This can be exchange in his outpatient in a future date. Time Spent Managing Pts Care (In Minutes): 55
[2019-06-13] MEDS: ZIPRASIDONE 20 MG CAP PO SCH (21:07)
[2019-06-14] MEDS: JEVITY 1.5 CAL LIQUID 1,000 ML BOT RTH SCH (03:53)
[2019-06-14 04:30] VITALS: O2SAT 95
[2019-06-14] MEDS: LEVOTHYROXINE SOD 0.025 MG TAB FT SCH (05:25)
[2019-06-14] MEDS: LEVOTHYROXINE SOD 0.112 MG TAB FT SCH (05:25)
[2019-06-14] MEDS: CODEINE 30MG/APAP 300MG TAB PO PRN ×2 (07:41→13:28)
[2019-06-14] MEDS: NYSTATIN 100MU/GM CREAM 15GM TOP SCH ×2 (09:00→13:28)
[2019-06-14] MEDS: FOLIC ACID 1 MG TABLET PO SCH (09:16)
[2019-06-14] MEDS: AMLODIPINE 10 MG TAB PO SCH (09:16)
[2019-06-14] MEDS: THIAMINE HCL 100 MG TABLET PO SCH (09:17)
[2019-06-14] MEDS: ENOXAPARIN 40 MG/0.4 ML SQ SCH (09:18)
--- NOTE | 2019-06-14 12:18 | RAD REPORT ---
EXAM DESCRIPTION: US - UPPER EXTREMITY VENOUS UNILATE - 06/14/2019 12:00 pm CLINICAL HISTORY: /left arm swelling. COMPARISON: 2019 FINDINGS: Left internal jugular vein, left subclavian vein, left axillary vein, left brachial vein, left cephalic, left basilic veins demonstrate phasic signal. The veins are compressible. Doppler demo nstrates good flow. . IMPRESSION: No sonographic evidence of thrombus involving the left upper extremity veins.
[2019-06-14 13:13] VITALS: BP 146/79; TEMP 97.1
--- NOTE | 2019-06-14 15:11 | P.DS ---
Admission Date: 06/07/19 Discharge Date: 06/14/19 Primary Care Provider: unknown Disposition: [facility] HOME/HOME HEALTH CARE Discharge Condition: GOOD Reason for Admission: Altered mental status Consultations: Surgery-Dr. Cabrera Procedures: Medical problem list: Metabolic encephalopathy related to dehydration History of head and neck cancer status post tracheostomy and J-tube placement Iron deficiency anemia Hypertension Brief History of Present Illness: 59-year-old male with history of head and neck cancer with tracheostomy and J- tube. Patient was found with altered mental status. Blood sugar was initially low. Patient further evaluated and admitted. Patient appeared dehydrated. Hospital Course: Patient presented with metabolic encephalopathy related to dehydration. Patient with history of head and neck cancers status post tracheostomy in J-tube placement. Patient was treated and evaluated in the course of his stay. Patient has improved with hydration. Patient now back to baseline. Patient did not want to go to a skilled facility. His preference is to go home. Home health and physical therapy has been arranged prior to discharge. At discharge he will continue with Jevity 1.5 as directed for his tube feeds. He will also continue with folic acid 1 mg daily, thiamine 100 mg daily, and iron 325 mg daily. Patient will need a follow up with his PCP to further monitor and address. Patient with hypertension. Patient required medication. At discharge he will continue with Norvasc 10 mg daily. Recommend to maintain blood pressure less 150/80. Further adjustment can be done by his PCP. Patient with iron deficiency anemia. This has remained stable. At discharge he will continue with iron 325 mg daily. Recommend to recheck CBC in 1 month to monitor his progress. Patient with hypothyroidism. At discharge she will continue with levothyroxine 137 mcg daily. Patient's J-tube was evaluated by surgery. No need for intervention at this time. This may need to be replaced in the future. This can be done as an outpatient with the help of surgery or GI. Recommend follow up with surgery or GI to help with this. Vital Signs/Physical Exam: Temp Pulse Resp BP Pulse Ox 97.1 F 71 18 146/79 H 99 06/14/19 12:00 06/14/19 12:00 06/14/19 14:28 06/14/19 12:00 06/14/19 14:28 General: Alert, In no apparent distress, Oriented x3, Cooperative HEENT: Atraumatic Neck: Supple Respiratory: Clear to auscultation bilaterally, Normal air movement Cardiovascular: Normal pulses, Regular rate/rhythm Gastrointestinal: Normal bowel sounds, Soft and benign, Non-distended, Other (PEG tube in place) Laboratory Data at Discharge: WBC 7.5 K/uL (4.3-10.9) D 06/07/19 15:00 Hgb 10.2 g/dL (13.6-17.9) L 06/07/19 15:00 Hct 30.5 % (39.6-49.0) L 06/07/19 15:00 Plt Count 211 K/uL (152-406) 06/07/19 15:00 PT 12.8 SECONDS (9.5-12.5) H 06/07/19 15:00 INR 1.09 06/07/19 15:00 APTT 33.5 SECONDS (24.3-36.9) 06/07/19 15:00 Sodium 137 mmol/L (136-145) 06/07/19 15:00 Potassium 4.4 mmol/L (3.5-5.1) 06/07/19 15:00 BUN 20 mg/dL (7-18) H 06/07/19 15:00 Creatinine 1.23 mg/dL (0.55-1.3) 06/07/19 15:00 Glucose 74 mg/dL (74-106) 06/07/19 15:00 Phosphorus 3.8 mg/dL (2.5-4.9) 06/07/19 15:00 Magnesium 2.2 mg/dL (1.8-2.4) D 06/07/19 10:28 Total Bilirubin 0.8 mg/dL (0.2-1.0) 06/07/19 10:28 AST 79 U/L (15-37) H 06/07/19 10:28 ALT 30 U/L (12-78) 06/07/19 10:28 Alkaline Phosphatase 159 U/L (45-117) H 06/07/19 10:28 Lipase 29 U/L (73-393) L 06/07/19 10:28 Home Medications: Levothyroxine [Synthroid*] 137 mcg FT [id number] 11/15/16 Ferrous Sulfate [Ferrous Sulfate*] 325 mg PO DAILY 09/17/17 Amlodipine [Norvasc*] 10 mg PO DAILY #30 tab 06/14/19 Folic Acid 1 mg PO DAILY #90 tablet 06/14/19 Thiamine HCl [Vitamin B-1*] 100 mg PO DAILY #30 tablet 06/14/19 New Medications: Folic Acid 1 mg PO DAILY #90 tablet Amlodipine [Norvasc*] 10 mg PO DAILY #30 tab Thiamine HCl [Vitamin B-1*] 100 mg PO DAILY #30 tablet Patient Discharge Instructions: 1. Follow up with PCP in 1 week to [facility]. 2. Patient presented with metabolic encephalopathy related to dehydration. Patient with history of head and neck cancers status post tracheostomy in J-tube placement. Patient was treated and evaluated in the course of his stay. Patient has improved with hydration. Patient now back to baseline. Patient did not want to go to a skilled facility. His preference is to go home. Home health and physical therapy has been arranged prior to discharge. At discharge he will continue with Jevity 1.5 as directed for his tube feeds. He will also continue with folic acid 1 mg daily, thiamine 100 mg daily, and iron 325 mg daily. Patient will need a follow up with his PCP to further monitor and address. 3. Patient with hypertension. Patient required medication. At discharge he will continue with Norvasc 10 mg daily. Recommend to maintain blood pressure less 150/80. Further adjustment can be done by his PCP. 4. Patient with iron deficiency anemia. This has remained stable. At discharge he will continue with iron 325 mg daily. Recommend to recheck CBC in 1 month to monitor his progress. 5. Patient with hypothyroidism. At discharge she will continue with levothyroxine 137 mcg daily. 6. Patient's J-tube was evaluated by surgery. No need for intervention at this time. This may need to be replaced in the future. This can be done as an outpatient with the help of surgery or GI. Recommend follow up with surgery or GI to help with this. Diet: Continue Jevity 1.5 as directed Activity: Fall precautions Time spent managing pt's care (in minutes): 55
== END 2019-06-14 16:55 | disposition home health service (06) | DRG 640 ==
LOC: ER 10:03 → 2ND 12:52
PROVIDERS: ADMIT Internal Medicine; ATTEND Family Medicine
DX: E86.0 Dehydration (principal); G93.41 Metabolic encephalopathy; Z68.1 Body mass index [BMI] 19.9 or less, adult; M62.82 Rhabdomyolysis; E16.2 Hypoglycemia, unspecified; R63.0 Anorexia; L89.152 Pressure ulcer of sacral region, stage 2; C14.0 Malignant neoplasm of pharynx, unspecified; K74.60 Unspecified cirrhosis of liver; D50.9 Iron deficiency anemia, unspecified; K21.9 Gastro-esophageal reflux disease without esophagitis; I10 Essential (primary) hypertension; E05.90 Thyrotoxicosis, unspecified without thyrotoxic crisis or storm; Z87.891 Personal history of nicotine dependence; Z43.0 Encounter for attention to tracheostomy; Z93.1 Gastrostomy status; Z91.81 History of falling
CPT/HCPCS: 36415; 70450; 71045; 80048; 80076; 81003; 82550; 82553; 82947; 83036; 83605; 83690; 83735; 83880; 84100; 84484; 85025; 85610; 85730; 87086; 87088; 93005; 93971; 94760; 96361; 96374; 96375; 97110; 97112; 97116; 97161; 97530; 99285; J1200; J1630; J1650; J3411; J7030; J7120; J7799